=== PATIENT | female | born 1955 | race Caucasian/White ===

== ENCOUNTER 2021-05-25 07:28 | Outpatient (REF) | payer MEDICARE, SELFPAY ==
[2021-05-25 08:44] LABS: Appearance Urine CLEAR; Color Urine YELLOW; Glucose Urine UA NEG (NEG); Leukocyte Esterase Urine NEG (NEG); Nitrite Urine NEG (NEG); Specific Gravity - Urine 1.025 (1.005-1.025); Urine Blood NEG (NEG); Urine Ketones NEG (NEG); Urine Protein TRACE MG/DL (NEG-TRACE)
[2021-05-25 08:45] LABS: MANUAL DIFF FLAG NO
[2021-05-25 09:03] LABS: Basophils Absolute Auto 0.1 X10*3/uL (0.0-0.2); Basophils Percent Auto 0.7 % (0-2); Eosinophils Absolute Auto 0.1 X10*3/uL (0.0-0.4); Eosinophils Percent Auto 1.5 % (0-4); Hematocrit 39.9 % (37-47); Hemoglobin 12.7 g/dl (12.0-16.0); Imm Gran Abs Auto 0.04 X10*3/uL (0.00-0.03); Imm Gran Pct Auto 0.5 % (0.0-0.4); Lymphocytes Absolute Auto 2.2 X10*3/uL (1.2-4.9); Lymphocytes Percent Auto 25.3 % (20-40); Mean Corpuscular HGB Conc 31.8 g/dl (31.0-35.0); Mean Corpuscular Hemoglobin 25.7 pg (27.0-33.0); Mean Corpuscular Volume 80.6 fL (80-98); Monocytes Absolute Auto 0.6 X10*3/uL (0.1-1.2); Monocytes Percent Auto 6.9 % (2-11); Neutrophils Absolute Auto 5.7 X10*3/uL (2.0-8.3); Neutrophils Percent Auto 65.1 % (45-73); Platelet Count 370 X10*3/uL (160-400); Red Blood Count 4.95 X10*6/uL (4.20-5.50); Red Cell Distribution Width 14.2 % (11.0-16.0); White Blood Count 8.7 X10*3/uL (4.8-10.8)
[2021-05-25 09:38] LABS: TSH reflex Free T4 2.33 uIU/mL (0.32-4.0); Vitamin D 25-OH Total 18.7 ng/mL (>30)
[2021-05-25 09:56] LABS: Alanine Aminotransferase 15 U/L (0-31); Albumin Level 3.9 g/dL (3.5-5.0); Alkaline Phosphatase 105 U/L (39-117); Anion Gap 14 (12-20); Aspartate Amino Transferase 15 U/L (5-31); Bilirubin Total 0.8 mg/dL (0.0-1.0); Blood Urea Nitrogen 20 mg/dL (9-16); Calcium 9.3 mg/dL (8.4-10.2); Carbon Dioxide 29 mmol/L (22-29); Chloride 103 mmol/L (96-108); Cholesterol 168 mg/dL; Estimated Glomerular Filt Rate 60; Glucose Fasting 231 mg/dL (60-99); HDL Cholesterol 47 mg/dL; LDL Cholesterol Calculated 82 mg/dl; Potassium 4.5 mmol/L (3.3-5.1); Sodium 141 mmol/L (135-145); Total Protein 6.9 g/dL (6.5-8.0); Triglycerides 196 mg/dL
[2021-05-26 18:37] LABS: C Peptide 3.86 ng/mL (0.80-3.85)
== END 2021-05-25 07:29 | disposition home or self-care (01) ==
LOC: HO.LAB 07:28
PROVIDERS: PCP Internal Medicine; Visit Provider Internal Medicine
DX: E78.00 Pure hypercholesterolemia, unspecified (principal); E55.9 Vitamin D deficiency, unspecified; I10 Essential (primary) hypertension; E11.9 Type 2 diabetes mellitus without complications
CPT/HCPCS: 36415; 80053; 80061; 81003; 82306; 84443; 84681; 85025

== ENCOUNTER 2022-06-06 10:13 | Outpatient (REF) | payer OTHER, SELFPAY ==
--- NOTE | ~2022-06-06 | XR_ITS ---
EXAMINATION: XR LUMBOSACRAL SPINE CLINICAL INFORMATION: Low back pain. COMPARISON: X-ray lumbosacral spine June 2016. TECHNIQUE: Three views of the lumbosacral spine. FINDINGS: Vertebral bodies are normally aligned with normal height. There is persistent moderate degenerative disc changes at L5-S1 with disc space narrowing probably unchanged. Remaining disc levels are intact. Bilateral facet arthrosis at L4-5 and L5-S1 unchanged. The partially visualized pelvis including the sacroiliac joints are normal. The previously mentioned sclerotic density overlying the right iliac bone has remain unchanged and appears to reflect a bone island. No further imaging followup is necessary. Arterial calcification of the abdominal aorta slightly increased compared to prior. XR/XR lumbar spine 2-3V IMPRESSION: Stable spondylosis of the lumbosacral spine with prominent degenerative disc changes at L5-S1. Slight progression of calcific atherosclerotic changes.
[2022-06-06 11:38] LABS: MANUAL DIFF FLAG NO
[2022-06-06 11:45] LABS: Basophils Absolute Auto 0.1 X10*3/uL (0.0-0.2); Basophils Percent Auto 0.6 % (0-2); Eosinophils Absolute Auto 0.1 X10*3/uL (0.0-0.4); Eosinophils Percent Auto 1.2 % (0-4); Hematocrit 44.1 % (37.0-47.0); Hemoglobin 14.5 g/dl (12.0-16.0); Imm Gran Abs Auto 0.04 X10*3/uL (0.00-0.03); Imm Gran Pct Auto 0.4 % (0.0-0.4); Lymphocytes Absolute Auto 2.4 X10*3/uL (1.2-4.9); Lymphocytes Percent Auto 26.4 % (20-40); Mean Corpuscular HGB Conc 32.9 g/dl (31.0-35.0); Mean Corpuscular Hemoglobin 26.1 pg (27.0-33.0); Mean Corpuscular Volume 79.3 fL (80.0-98.0); Mean Platelet Volume 10.3 fL (9.4-12.3); Monocytes Absolute Auto 0.7 X10*3/uL (0.1-1.2); Monocytes Percent Auto 7.1 % (2-11); Neutrophils Absolute Auto 5.9 x10*3/uL (2.0-8.3); Neutrophils Percent Auto 64.3 % (45-73); Platelet Count 420 X10*3/uL (160-400); Red Blood Count 5.56 X10*6/uL (4.20-5.50); Red Cell Distribution Width 14.2 % (11.0-16.0); White Blood Count 9.3 X10*3/uL (4.8-10.8)
[2022-06-06 11:57] LABS: Appearance Urine Clear; Color Urine Yellow; Glucose Urine UA Negative (Negative); Leukocyte Esterase Urine Negative (Negative); Nitrite Urine Negative (Negative); Urine Blood Negative (Negative); Urine Ketones Negative (Negative); Urine Protein Negative (Neg-Trace)
[2022-06-06 12:20] LABS: Alanine Aminotransferase 18 U/L (0-31); Albumin Level 4.2 g/dL (3.5-5.0); Alkaline Phosphatase 108 U/L (39-117); Anion Gap 16 (12-20); Aspartate Amino Transferase 14 U/L (5-31); Bilirubin Total 0.6 mg/dL (0.0-1.0); Blood Urea Nitrogen 18 mg/dL (9-16); Calcium 9.9 mg/dL (8.4-10.2); Carbon Dioxide 27 mmol/L (22-29); Chloride 99 mmol/L (96-108); Cholesterol 185 mg/dL; Estimated Glomerular Filt Rate 58; Glucose Fasting 218 mg/dL (60-99); HDL Cholesterol 46 mg/dL; LDL Cholesterol Calculated 103 mg/dl; Potassium 3.9 mmol/L (3.3-5.1); Sodium 138 mmol/L (135-145); Total Protein 7.4 g/dL (6.5-8.0); Triglycerides 184 mg/dL
[2022-06-06 12:26] LABS: TSH reflex Free T4 2.33 uIU/mL (0.32-4.0); Vitamin D 25-OH Total 34.9 ng/mL (>30)
[2022-06-06 12:44] LABS: Folate > 20.0 ng/mL (> or = 4.0); Vitamin B12 401 pg/mL (200-900)
[2022-06-06 13:00] LABS: Creatinine Urine 64.09 mg/dL; Microalbumin Urine < 5.0 mg/L
[2022-06-09 21:32] LABS: Glutamic acid decarboxylase Ab <5 IU/mL (<5)
== END 2022-06-06 10:14 | disposition home or self-care (01) ==
LOC: HO.HMGCX 10:13
PROVIDERS: PCP Internal Medicine; Visit Provider Internal Medicine
DX: M54.50 Low back pain, unspecified (principal); I10 Essential (primary) hypertension; E11.9 Type 2 diabetes mellitus without complications; E78.00 Pure hypercholesterolemia, unspecified; E53.8 Deficiency of other specified B group vitamins; E55.9 Vitamin D deficiency, unspecified
CPT/HCPCS: 36415; 72100; 80053; 80061; 81003; 82043; 82306; 82607; 82746; 84443; 84681; 85025; 86341

== ENCOUNTER 2022-09-20 06:44 | Outpatient (REF) | payer OTHER, SELFPAY ==
[2022-09-20 07:10] LABS: MANUAL DIFF FLAG NO
[2022-09-20 07:39] LABS: Basophils Absolute Auto 0.1 X10*3/uL (0.0-0.2); Basophils Percent Auto 0.7 % (0-2); Eosinophils Absolute Auto 0.2 X10*3/uL (0.0-0.4); Hematocrit 42.3 % (37.0-47.0); Hemoglobin 13.5 g/dl (12.0-16.0); Imm Gran Abs Auto 0.03 X10*3/uL (0.00-0.03); Imm Gran Pct Auto 0.3 % (0.0-0.4); Lymphocytes Absolute Auto 2.2 X10*3/uL (1.2-4.9); Lymphocytes Percent Auto 25.2 % (20-40); Mean Corpuscular HGB Conc 31.9 g/dl (31.0-35.0); Mean Corpuscular Hemoglobin 25.6 pg (27.0-33.0); Mean Corpuscular Volume 80.3 fL (80.0-98.0); Mean Platelet Volume 9.9 fL (9.4-12.3); Monocytes Absolute Auto 0.6 X10*3/uL (0.1-1.2); Monocytes Percent Auto 6.5 % (2-11); Neutrophils Absolute Auto 5.8 x10*3/uL (2.0-8.3); Neutrophils Percent Auto 65.3 % (45-73); Platelet Count 408 X10*3/uL (160-400); Red Blood Count 5.27 X10*6/uL (4.20-5.50); Red Cell Distribution Width 13.4 % (11.0-16.0); White Blood Count 8.9 X10*3/uL (4.8-10.8)
[2022-09-20 07:56] LABS: Estimated Average Glucose 240 mg/dL
[2022-09-20 08:22] LABS: Alanine Aminotransferase 19 U/L (0-31); Albumin Level 3.6 g/dL (3.5-5.0); Alkaline Phosphatase 111 U/L (39-117); Anion Gap 13 (12-20); Aspartate Amino Transferase 15 U/L (5-31); Bilirubin Total 0.5 mg/dL (0.0-1.0); Blood Urea Nitrogen 18 mg/dL (9-16); Calcium 9.1 mg/dL (8.4-10.2); Carbon Dioxide 29 mmol/L (22-29); Chloride 103 mmol/L (96-108); Cholesterol 147 mg/dL; Estimated Glomerular Filt Rate > 60; Glucose Fasting 127 mg/dL (60-99); HDL Cholesterol 45 mg/dL; LDL Cholesterol Calculated 76 mg/dl; Potassium 4.1 mmol/L (3.3-5.1); Sodium 141 mmol/L (135-145); Total Protein 6.7 g/dL (6.5-8.0); Triglycerides 132 mg/dL
[2022-09-20 08:59] LABS: TSH reflex Free T4 3.03 uIU/mL (0.32-4.0); Vitamin D 25-OH Total 24.9 ng/mL (>30)
[2022-09-20 09:17] LABS: Folate 14.6 ng/mL (> or = 4.0); Vitamin B12 523 pg/mL (200-900)
== END 2022-09-20 06:45 | disposition home or self-care (01) ==
LOC: HO.LAB 06:44
PROVIDERS: PCP Internal Medicine; Visit Provider Internal Medicine
DX: E11.9 Type 2 diabetes mellitus without complications (principal); E78.00 Pure hypercholesterolemia, unspecified; E53.8 Deficiency of other specified B group vitamins; E55.9 Vitamin D deficiency, unspecified; I10 Essential (primary) hypertension; R30.0 Dysuria
CPT/HCPCS: 36415; 80053; 80061; 82306; 82607; 82746; 83036; 84443; 85025

== ENCOUNTER 2023-03-05 09:13 | Outpatient (REF) | payer OTHER, SELFPAY ==
--- NOTE | ~2023-03-05 | XR_ITS ---
EXAMINATION: XR KNEE, RIGHT CLINICAL INFORMATION: Right knee joint effusion COMPARISON: 10/07/2019 TECHNIQUE: Two views of the right knee. FINDINGS: Bones have normal alignment. No fracture, subluxation or joint effusion. Tricompartmental osteophyte formation is present. Moderate loss of medial tibiofemoral joint space. No new abnormalities compared to 10/07/2019. 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 * No acute abnormality. No fracture or joint effusion.
== END 2023-03-05 09:14 | disposition home or self-care (01) ==
LOC: HO.HMGCX 09:13
PROVIDERS: PCP Internal Medicine; Visit Provider Internal Medicine
DX: M25.461 Effusion, right knee (principal)
CPT/HCPCS: 73560

== ENCOUNTER 2023-03-19 15:00 | Outpatient (REF) | payer OTHER, SELFPAY ==
--- NOTE | ~2023-03-19 | MM_ITS ---
EXAMINATION: MM SCREENING DIGITAL BREAST TOMOSYNTHESIS, BILATERAL CLINICAL INFORMATION: Screening. Asymptomatic. The lifetime risk of breast cancer based on the Tyrer-Cuzick Model is 4.1 %. COMPARISON: Mammography: This study is compared with prior exams dating back to 2018. TECHNIQUE: Digital breast tomosynthesis is performed in both the craniocaudal and mediolateral oblique views along with computer-aided detection (CAD). Synthesized 2D images are generated from the tomosynthesis. FINDINGS: The breasts are almost entirely fatty (ACR BI-RADS breast composition Category a). There are no significant masses, abnormal calcifications, or other abnormalities. MM/MM tomosynthesis screening BI IMPRESSION: No mammographic evidence of malignancy. ASSESSMENT: BI-RADS BI-RADS 1 - Negative RECOMMENDATION: Routine annual mammography screening. 1 year F/U This examination should not preclude the clinical evaluation of a suspicious palpable abnormality. This patient's information was entered into a reminder system with a target due date for their next mammogram.
== END 2023-03-19 15:01 | disposition home or self-care (01) ==
LOC: HO.MAMMO 15:00
PROVIDERS: PCP Internal Medicine; Visit Provider Internal Medicine
DX: Z12.31 Encounter for screening mammogram for malignant neoplasm of breast (principal)
CPT/HCPCS: 77063; 77067

== ENCOUNTER → 2023-03-19 15:30 | Outpatient (BNV) | payer OTHER, SELFPAY | PROVIDERS: PCP Internal Medicine; Visit Provider Radiology Diagnostic Radiology | DX: Z12.31 Encounter for screening mammogram for malignant neoplasm of breast (principal) | CPT/HCPCS: 77063; 77067 ==

== ENCOUNTER 2023-06-19 10:02 | Outpatient (AMB) | payer MEDICARE, SELFPAY ==
[2023-06-19 10:36] VITALS: BP 122/80; PULSE 57; O2SAT 96; BMI 47.0
--- NOTE | 2023-06-19 10:36 | A.OFFPC_ITS ---
Vital Signs 06/19/23 10:36 Height 5 ft 5 in Weight 282 lb 6 oz BMI 47.0 BP 122/80 Blood Pressure Location Lt brachial Position Sitting Pulse 57 Pulse Source Pulse Oximeter Pulse Oximetry (%) 96 Oxygen Delivery Method Room Air Intake Visit Reasons: PE Allergies sulfamethoxazole [From BACTRIM] Allergy (Intermediate, Verified 06/19/23 11:55) ANXIETY trimethoprim [From BACTRIM] Allergy (Intermediate, Verified 06/19/23 11:55) ANXIETY canagliflozin [Invokana] Allergy (Unknown, Verified 06/19/23 11:55) Itching lisinopril Allergy (Unknown, Verified 06/19/23 11:55) Abdominal Pain metformin Allergy (Unknown, Verified 06/19/23 11:55) Stomach Upset Sulfa (Sulfonamide Antibiotics) Allergy (Unknown, Verified 06/19/23 11:55) Agitated oxycodone Allergy (Unknown, Uncoded 06/19/23 11:55) Hives percocet Allergy (Unknown, Uncoded 06/19/23 11:55) Hives tramadol Allergy (Unknown, Uncoded 06/19/23 11:55) Hives Medication List - Last Reconciled 06/19/23 by Hemal Clifton MD acetaminophen ER (Tylenol Arthritis Pain) 650 mg PO Q12H PRN 15 days albuterol sulfate 90 mcg/actuation (ProAir HFA) 2 puffs inhalation Q6H PRN 30 days amlodipine 5 mg PO DAILY aspirin 81 mg PO DAILY atorvastatin 20 mg PO BEDTIME blood sugar diagnostic (FreeStyle Lite Strips) As directed 3 times a day cholecalciferol (vitamin D3) 50 mcg PO DAILY 90 days gabapentin 100 mg PO BID 30 days glimepiride 1 mg PO DAILY Lantus Solostar U-100 Insulin (insulin glargine) 20 units (0.2 mL) subcut BEDTIME 30 days NS losartan-hydrochlorothiazide 100-25 mg 1 tab PO DAILY 90 days meloxicam 15 mg PO DAILY pen needle, diabetic (BD Ultra-Fine Leela Pen Needle) As directed once a day sertraline 50 mg PO DAILY 90 days tramadol 50 mg PO BID PRN Trulicity (dulaglutide) 0.75 mg (0.5 mL) subcut QWEEK 4 weeks NS vitamin B complex (B Complex-Vitamin B12 tablet) 1 tab PO DAILY Tobacco use date assessed: 09/24/22 Fall risk assessment: No Falls in past year Last assessed Fall Risk: 06/19/23 Dental Screening Dental Screen Date: 06/19/23 Did you have a dental visit in the last 12 months?: No Did you have a dental problem in the last 6 months where you did not have access to dental care?: No Was dental information given to patient?: No HPI PE HPI Details Patient comes in today for her annual physical examination States that she continues to experience increasing pain and discomfort over the bottom of her feet - symptoms have been bothering her for a while now and feels that they have been getting worse lately Notes that the bottom of her feet now feels like leather all the time and they are much worse at night; feels itchy at times at night as well Has also noticed a hard lump under both of her feet a few months ago where the above symptoms are more prominent She also continues to experience frequent/recurrent low back pain and left knee pains - chronic States that she feels okay otherwise She denies any headaches or dizziness Denies any chest pains, no SOB No nausea/vomiting, no abdominal pain No change in bowel habits noted She denies any acute urinary symptoms Has not had her colonoscopy done yet - it looks like she was scheduled to see GI for this back in November 2022 but patient appears unaware that she had an appointment back then States that she never got a notification or call from GI about this but now recalls that she was getting a call from someone up above [facility] but she just could not make sense of what they were trying to tell her Had her mammogram done back in March 2023 - mammogram came out normal States that she no longer has to keep up with her yearly gynecology exam and pap smear as she's had a complete hysterectomy done years ago She would also like to get her flu vaccine today Needs her pen needle Rx refilled as well PFSH Medical History Anxiety Insomnia Asthma Diabetes mellitus with hyperglycemia Vitamin D deficiency Morbid obesity with BMI of 45.0-49.9, adult Pure hypercholesterolemia Benign essential hypertension Diabetes mellitus Surgical History History of colonoscopy (~01/01/11) Hx of BRAYANIK H/O abdominal hysterectomy Social History Housing: Apartment Alcohol intake: never Patient Tobacco Use Status: Former Tobacco user e-Cigarette/Vaping Use: Never Used Second Hand Smoke Exposure: Yes service: No Current occupational status: retired and disabled Cognitive needs: No Hearing needs: No Vision needs: Yes (reading glasses) Questionnaire PHQ-9 Over the last 2 weeks, how often have you been bothered by any of the following problems? 1. Little interest or pleasure in doing things: not at all 2. Feeling down, depressed, or hopeless: not at all 3. Trouble falling or staying asleep, or sleeping too much: not at all 4. Feeling tired or having little energy: not at all 5. Poor appetite or overeating: not at all 6. Feeling bad about yourself - or that you are a failure or have let yourself or your family down: not at all 7. Trouble concentrating on things, such as reading the newspaper or watching television: not at all 8. Moving or speaking so slowly that other people could have noticed. Or the opposite - being so fidgety or restless that you have been moving around a lot more than usual: not at all 9. Thoughts that you would be better off or of hurting yourself in some way: not at all Total score: 0 Depression Screening Interpretation: Negative Depression Screening Done: Yes 71123 - PHQ-9 Billing: Yes Source: Developed by Drs. Giovanni Worthington, Scarlet Hernandez, Tanmay Eduardo and colleagues, with an educational sarah from [employer]. Thrive Questionnaire Date Thrive assessed: 06/19/23 I am a: Patient What is your living situation today?: I have a steady place to live Within the past 12 months, did the food you bought not last and you didn't have the money to get more?: Never true Within the past 12 months, did you worry whether your food would run out before you got money to buy more?: Never true Do you have trouble paying for medicines?: No Do you have trouble getting transportation to medical appointments?: No Do you have trouble paying your heating and electricity bill?: No Do you have trouble taking care of your child, family member or friend?: No Do you have trouble with day-to-day activities such as bathing, preparing meals, shopping, managing finances, etc.?: No Are you currently unemployed and looking for a job?: No Are you interested in more education?: No Please select the resources that you would like help with: None Currently or been in a relationship where the following occur: no concerns reported AUDIT C Alcohol Use Questionnaire (AUDIT-C) 1. How often do you have a drink containing alcohol?: Never 3. How often do you have six or more drinks on one occasion?: Never Total Score: 0 Score Reviewed/Action Taken: Yes WESLEY-7 AMB Questionnaire WESLEY-7 Date WESLEY - 7 assessed: 06/19/23 Feeling nervous, anxious, or on edge: 0 = Not at all Not being able to stop or control worryin = Not at all Worrying too much about different things: 0 = Not at all Trouble relaxin = Not at all Being so restless that it is hard to sit still: 0 = Not at all Becoming easily annoyed or irritable: 0 = Not at all Feeling afraid as if something awful might happen: 0 = Not at all Total WESLEY-7 score (0-4 normal; 5-9 mild; 10-14 moderate; 15-21 severe): 0 Source: Developed by Drs. Giovanni Worthington, Scarlet Hernandez, Tanmay Eduardo and colleagues, with an educational sarah from [employer]. Review of Systems Const Denies chills, Denies fatigue, Denies fever(s), Denies headache(s) and Denies malaise Eyes Denies blurry vision, Denies change in vision, Denies irritation and Denies itchy eyes ENT Denies dysphagia, Denies dizziness, Denies otalgia, Denies headache(s), Denies nasal congestion, Denies neck pain, Denies odynophagia, Denies sinus pain and Denies sore throat Card Denies chest pain, Denies rapid heart rate, Denies irregular heart rhythm, Denies palpitations and Denies dyspnea Resp Denies chest congestion, Denies cough, Denies dyspnea and Denies wheezing GI Denies abdominal pain, Denies bloating, Denies constipation, Denies dysphagia, Denies heartburn, Denies diarrhea, Denies nausea, Denies odynophagia and Denies vomiting Denies hematuria, Denies urinary frequency, Denies dysuria, Denies urinary incontinence and Denies urinary urgency Musc Denies back pain, Denies arthralgias, Denies joint swelling, Denies muscle weakness and Denies neck pain Skin/Breast Denies breast pain, Denies breast mass, Denies change in pigmentation, Denies lesions, Denies rash and Denies unusual bruising Neuro Details: (+) frequent pain and discomfort ( feels like leather ) over the soles of her feet bilaterally, with occasional itching; also notes (+) hard lump on the sole of her feet adjacent to the arch of her feet Denies dizziness, Denies headache(s) and Denies paresthesias Psych Denies anxiety and Denies depression Endo Denies fatigue and Denies palpitations Delmer/Lymph Denies easy bruising Aller/Immun Denies itchy eyes and Denies wheezing Physical exam (Primary Care) Vital Signs: Last Vital Signs Pulse 57 06/19/23 10:36 BP 122/80 06/19/23 10:36 Pulse Ox 96 06/19/23 10:36 Oxygen Delivery Method Room Air 06/19/23 10:36 BMI result Body Mass Index 47.0 Tobacco/Smoking Status: Tobacco use Status Tobacco use date assessed 09/24/22 06/19/23 10:36 Patient Tobacco Use Status Former Tobacco user 06/19/23 10:36 e-Cigarette/Vaping Use Never Used 06/19/23 10:36 PHQ-9: PHQ-9 Score PHQ-9: Total score 0 06/19/23 11:08 Depression Screening Interpretation: Negative Thrive Assessment: Date of Thrive Assessment Date Thrive assessed 06/19/23 06/19/23 10:47 Currently or been in a relationship where the following occur: no concerns reported Const General: no acute distress, alert and awake Orientation/consciousness: patient oriented x3 HENMT Head: Yes normocephalic and Yes atraumatic Ears: external ears normal, TM's normal bilaterally and EAC's normal General nose exam: No nasal discharge present Face and sinus: Yes normal facial exam and Yes sinuses nontender Teeth and gingiva: dentition normal Throat: Yes posterior oropharynx normal and Yes tonsils normal (no TP congestion) Eyes Eyelids: Yes eyelids normal Conjunctivae: conjunctivae normal Pupils: Equal, round and reactive pupils present EOM: EOMs intact bilaterally Neck Neck: Yes no lymphadenopathy and Yes supple Thyroid: Thyroid normal Resp Auscultation: clear to auscultation bilaterally, no rales and no wheezes Cardio Rate: regular rate Rhythm: regular rhythm Heart sounds: no murmurs GI Palpation (GI): Soft to palpation, nontender and No hepatosplenomegaly present Auscultation: normal bowel sounds General: Yes no CVA tenderness Back/Spine/Pelvis Back: no CVA tenderness Thoracic/Lumbar Spine: thoracic and lumbar spine normal to inspection Skin Rashes: no rashes Neuro General: patient oriented x3, moves all extremities, no focal motor deficits and CN's II-XI intact bilaterally Cranial nerves: Yes Equal, round and reactive pupils present Cognition (Neuro): normal cognition Gait exam (Neuro): Normal gait present Extrem Other: (+) small, firm, non-tender nodule noted over the soles of both feet just adjacent to the arch of her feet General: Yes no clubbing, cyanosis or edema Office Procedures Flu Questionnaire Does the patient have a severe egg allergy?: No Does the patient have severe life threatening allergies?: No Does the patient have a fever or illness today?: No Has the patient ever had Guillain-Lee Syndrome?: No Has the patient ever had any past reaction to a flu shot?: No Immunizations flu vacc [id number] 6mos up(PF) 60 mcg(15 mcgx4)/0.5 mL IM syringe Performing Provider: Hemal Clifton MD [facility] Administered by: Matthew Alejo on 06/19/23 10:53 Dose Route Admin Location Dispensed Lot Number Expiration Date [facility] 0.5 mL IM Right Deltoid 0.5 mL [id number] 03/07/24 [id number] Wiper VIS Given Date VIS Provided VIS Publication Date 06/19/23 Single Vaccine 21 Eligibility Eligibility Date Funding Source Not [facility] Eligible 06/19/23 Private Assessment and Plan Assessment & Plan (1) Annual physical exam: Code(s): Z00.00 - Encounter for general adult medical examination without abnormal findings Plan: Check labs Patient just had her mammogram done back in March 2023 She was referred for screening colonoscopy earlier this year but it appears that she was not aware of her appointment with GI in November 2022 and missed her appointment; is instructed to contact gastroenterology and reschedule her appointment so she can get her screening colonoscopy done as soon as possible She no longer has to keep up with her yearly gynecologic exam and pap smear as she's had a total hysterectomy years ago Will send her for bone density scan for osteoporosis screening - this will be her baseline exam (2) Pain in both feet: Code(s): M79.671 - Pain in right foot; M79.672 - Pain in left foot Plan: Suspect neuropathy Will send patient for EMG & NCV of her lower extremities for further evaluation of her recently increasing feet symptoms Will also refer her to podiatry for further evaluation and management of her feet symptoms, especially the nodular lesion on the bottom of her feet, and for her annual diabetic foot exam (3) Diabetes mellitus with hyperglycemia: Code(s): E11.65 - Type 2 diabetes mellitus with hyperglycemia Qualifiers: Diabetes mellitus intermodal dispatcher insulin use: with half-way use Diabetes mellitus type: type 2 Qualified Code(s): E11.65 - Type 2 diabetes mellitus with hyperglycemia; Z79.4 - intermodal dispatcher (current) use of insulin Plan: HgbA1c was at 10.0% on her labs done earlier this year - goal is <7.0% Reinforced diabetic diet - started seeing a dietitian last year Continue Glimepride 1 mg QD, Trulicity 0.75 mg SQ once a week and Lantus Solostar 20 units Q HS for now Will also consider starting Jardiance later on if still not at goal but will hold off on this for now as patient was having a lot of problems with recurrent UTI while she was on Invokana a couple of years ago; her glycemic control also seems to be responding well to her current Rx Will have her recheck her labs and HgbA1c JESSICA for follow up - is advised that I may increase her Trulicity dosage depending on how her HgbA1c comes out (4) Pure hypercholesterolemia: Code(s): E78.00 - Pure hypercholesterolemia, unspecified Plan: Reinforced low cholesterol diet Continue Atorvastatin 20 mg QD Will sent patient for labs JESSICA for follow up (5) Benign essential hypertension: Code(s): I10 - Essential (primary) hypertension Plan: Reinforced low sodium diet - goal is systolic BP of 120 to 130 mm or less Continue Amlodipine 5 mg QD and Losartan-HCT 100-25 mg QD (6) Asthma: Code(s): J45.909 - Unspecified asthma, uncomplicated Qualifiers: Asthma complication type: uncomplicated Asthma persistence: intermittent Asthma severity: mild Qualified Code(s): J45.20 - Mild intermittent asthma, uncomplicated Plan: Currently stable; is presently only using her Albuterol HFA inhaler only as needed Advised again that we should have her get a PFT for further evaluation and assessment of her baseline pulmonary function and to see if she does indeed have asthma or not; will also then determine if she will need any maintenance medications depending on the results of her PFT - patient would like to still hold off on this for now as she wants to try concentrating on getting her diabetes controlled better first (7) Low back pain: Code(s): M54.50 - Low back pain, unspecified Qualifiers: Back pain laterality: midline Chronicity: unspecified Sciatica presence: without sciatica Qualified Code(s): M54.50 - Low back pain, unspecified Plan: Lumbar spine x-rays done last year revealed stable spondylosis of the lumbo- sacral spine with prominent degenerative disc changes at L5-S1 but there appears to be a slight progression of calcific atherosclerotic changes noted on her x- rays Continue Gabapentin 100 mg BID - feels that this has helped a lot; has been prescribed Tramadol from the hospital in the past, which she states does not really work for her Patient is advised that depending on how her nerve conduction test comes out, we may increase her Gabapentin dosage to help with her feet symptoms as well (8) Vitamin D deficiency: Code(s): E55.9 - Vitamin D deficiency, unspecified Plan: Continue Vitamin D3 2000 units QD (9) Insomnia: Code(s): G47.00 - Insomnia, unspecified Qualifiers: Insomnia type: unspecified Qualified Code(s): G47.00 - Insomnia, unspecified Plan: Sleep hygiene reinforced Continue 3 mg of OTC Melatonin Q HS, which she feels is helping (10) Anxiety: Code(s): F41.9 - Anxiety disorder, unspecified Plan: Continue Sertraline 50 mg QD (11) Morbid obesity with BMI of 45.0-49.9, adult: Code(s): E66.01 - Morbid (severe) obesity due to excess calories; Z68.42 - Body mass index [BMI] 45.0-49.9, adult Plan: Reinforced diet/exercise as tolearted/lose weight Plan Follow up in 3 months Orders: Orders NE electromyogram (EMG) 06/19/23 E11.65 - Type 2 diabetes mellitus with hyperglycemia, M79.671 - Pain in right foot, M79.672 - Pain in left foot NE nerve conduction velocity 06/19/23 E11.65 - Type 2 diabetes mellitus with hyperglycemia, M79.671 - Pain in right foot, M79.672 - Pain in left foot, R20.2 - Paresthesia of skin TSH reflex Free T4 06/19/23 E78.00 - Pure hypercholesterolemia, unspecified Microalbumin, Random (w Creat) 06/19/23 E11.9 - Type 2 diabetes mellitus without complications Vitamin D 25-OH Total 06/19/23 E55.9 - Vitamin D deficiency, unspecified XR DEXA axial skeleton 06/19/23 Z78.0 - Asymptomatic menopausal state Influenza [id number] Immunization 06/19/23 Z23 - Encounter for immunization Complete Blood Count Auto Diff 06/19/23 I10 - Essential (primary) hypertension Comprehensive [place]. Panel Fast 06/19/23 E78.00 - Pure hypercholesterolemia, unspecified Lipid Panel 06/19/23 E78.00 - Pure hypercholesterolemia, unspecified UA CC w/rflx Micro + Cult 06/19/23 R30.0 - Dysuria Hemoglobin A1c 06/19/23 E11.9 - Type 2 diabetes mellitus without complications Referrals Podiatry Referral E11.65 - Type 2 diabetes mellitus with hyperglycemia, M79.671 - Pain in right foot, M79.672 - Pain in left foot Medications: Refilled pen needle, diabetic (BD Ultra-Fine Leela Pen Needle) As directed once a day 100 ea 3RF E11.9 - Type 2 diabetes mellitus without complications Coding Level of Care Code Est Pt Prev Care >65y(48481) Diagnoses Annual physical exam Z00.00 Pain in both feet M79.671; M79.672 Type 2 diabetes mellitus with hyperglycemia, with long-term current use of insulin E11.65; Z79.4 Diabetes mellitus intermodal dispatcher insulin use: with intermodal dispatcher use Diabetes mellitus type: type 2 Pure hypercholesterolemia E78.00 Benign essential hypertension I10 Mild intermittent asthma without complication J45.20 Asthma complication type: uncomplicated Asthma persistence: intermittent Asthma severity: mild Midline low back pain without sciatica, unspecified chronicity M54.50 Back pain laterality: midline Chronicity: unspecified Sciatica presence: without sciatica Vitamin D deficiency E55.9 Insomnia, unspecified type G47.00 Insomnia type: unspecified Anxiety F41.9 Morbid obesity with BMI of 45.0-49.9, adult E66.01; Z68.42
== END 2023-06-19 11:19 | disposition home or self-care (01) ==
PROVIDERS: Visit Provider Internal Medicine
DX: Z23 Encounter for immunization (principal)
CPT/HCPCS: 90471; 90686; 99397

== ENCOUNTER 2023-06-19 11:31 | Outpatient (REF) | payer OTHER, SELFPAY ==
[2023-06-19 11:41] LABS: MANUAL DIFF FLAG NO
[2023-06-19 11:55] LABS: Basophils Absolute Auto 0.1 X10*3/uL (0.0-0.2); Basophils Percent Auto 0.4 % (0-2); Eosinophils Absolute Auto 0.1 X10*3/uL (0.0-0.4); Eosinophils Percent Auto 1.1 % (0-4); Hemoglobin 14.5 g/dl (12.0-16.0); Imm Gran Abs Auto 0.05 X10*3/uL (0.00-0.03); Imm Gran Pct Auto 0.4 % (0.0-0.4); Lymphocytes Absolute Auto 3.7 X10*3/uL (1.2-4.9); Lymphocytes Percent Auto 30.5 % (20-40); Mean Corpuscular HGB Conc 32.2 g/dl (31.0-35.0); Mean Corpuscular Hemoglobin 25.8 pg (27.0-33.0); Mean Corpuscular Volume 79.9 fL (80.0-98.0); Mean Platelet Volume 10.2 fL (9.4-12.3); Monocytes Absolute Auto 0.9 X10*3/uL (0.1-1.2); Monocytes Percent Auto 7.5 % (2-11); Neutrophils Absolute Auto 7.3 x10*3/uL (2.0-8.3); Neutrophils Percent Auto 60.1 % (45-73); Platelet Count 461 X10*3/uL (160-400); Red Blood Count 5.63 X10*6/uL (4.20-5.50); Red Cell Distribution Width 14.4 % (11.0-16.0); White Blood Count 12.1 X10*3/uL (4.8-10.8)
[2023-06-19 12:52] LABS: Estimated Average Glucose 260 mg/dL; Hemoglobin A1c % 10.7 % (<6.0)
[2023-06-19 13:25] LABS: Alanine Aminotransferase 13 U/L (0-31); Alkaline Phosphatase 134 U/L (39-117); Anion Gap 17 (12-20); Aspartate Amino Transferase 14 U/L (5-31); Bilirubin Total 0.5 mg/dL (0.0-1.0); Blood Urea Nitrogen 16 mg/dL (9-16); Calcium 9.7 mg/dL (8.4-10.2); Carbon Dioxide 24 mmol/L (22-29); Chloride 100 mmol/L (96-108); Cholesterol 174 mg/dL (<200); Estimated Glomerular Filt Rate 55; Glucose Fasting 191 mg/dL (60-99); HDL Cholesterol 46 mg/dL (>40); LDL Cholesterol Calculated 91 mg/dL (<100); Potassium 4.2 mmol/L (3.3-5.1); Sodium 137 mmol/L (135-145); Total Protein 7.8 g/dL (6.5-8.0); Triglycerides 189 mg/dL (<150)
[2023-06-19 13:28] LABS: TSH reflex Free T4 2.68 uIU/mL (0.32-4.0); Vitamin D 25-OH Total 30.6 ng/mL (>30)
== END 2023-06-19 11:32 | disposition home or self-care (01) ==
LOC: HO.LAB 11:31
PROVIDERS: PCP Internal Medicine; Visit Provider Internal Medicine
DX: E78.00 Pure hypercholesterolemia, unspecified (principal); E11.9 Type 2 diabetes mellitus without complications; I10 Essential (primary) hypertension; E55.9 Vitamin D deficiency, unspecified; R30.0 Dysuria
CPT/HCPCS: 36415; 80053; 80061; 82306; 83036; 84443; 85025

== ENCOUNTER 2023-07-17 09:33 | Outpatient (REF) | payer OTHER, SELFPAY ==
--- NOTE | 2023-07-17 09:35 | EMG_ITS ---
Bilateral tibial and peroneal motor studies were performed. Bilateral sural, superficial peroneal, and median and lateral plantar sensory studies were performed tibial H reflexes were obtained and paraspinal muscles were tested with a needle. IMPRESSION: Moderate to severe axonal sensory motor chronic peripheral neuropathy. MD THAIS Carpenter/ARLETTEL / [phone]
== END 2023-07-17 09:34 | disposition home or self-care (01) ==
LOC: HO.NEURO 09:33
PROVIDERS: PCP Internal Medicine; Visit Provider Internal Medicine
DX: R20.2 Paresthesia of skin (principal); M79.671 Pain in right foot; M79.672 Pain in left foot; E11.65 Type 2 diabetes mellitus with hyperglycemia
CPT/HCPCS: 95886; 95913

== ENCOUNTER 2023-10-03 08:59 | Outpatient (AMB) | payer OTHER, SELFPAY ==
[2023-10-03 09:03] VITALS: BP 126/84; PULSE 89; O2SAT 99; BMI 45.6
--- NOTE | 2023-10-03 09:03 | MHC.PC.OV ---
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 Accompanied by: Self / Same As Patient Allergies sulfamethoxazole [From BACTRIM] Allergy (Intermediate, Verified 10/03/23 09:20) ANXIETY trimethoprim [From BACTRIM] Allergy (Intermediate, Verified 10/03/23 09:20) ANXIETY canagliflozin [Invokana] Allergy (Unknown, Verified 10/03/23 09:20) Itching lisinopril Allergy (Unknown, Verified 10/03/23 09:20) Abdominal Pain metformin Allergy (Unknown, Verified 10/03/23 09:20) Stomach Upset Sulfa (Sulfonamide Antibiotics) Allergy (Unknown, Verified 10/03/23 09:20) Agitated sulfadiazine Allergy (Unknown, Verified 10/03/23 09:20) Unknown Avocado Revitalizing Allergy (Unknown, Uncoded 10/03/23 09:20) Unknown oxycodone Allergy (Unknown, Uncoded 10/03/23 09:20) Hives percocet Allergy (Unknown, Uncoded 10/03/23 09:20) Hives tramadol Allergy (Unknown, Uncoded 10/03/23 09:20) Hives Medication List - Last Reconciled 10/03/23 by Hemal Clifton MD acetaminophen ER (Tylenol Arthritis Pain) 650 mg PO Q12H PRN 15 days albuterol sulfate 90 mcg/actuation (ProAir HFA) 2 puffs inhalation Q6H PRN 30 days amlodipine 5 mg PO DAILY aspirin 81 mg PO DAILY atorvastatin 20 mg PO BEDTIME blood sugar diagnostic (FreeStyle Lite Strips) As directed 3 times a day cholecalciferol (vitamin D3) 50 mcg PO DAILY 90 days gabapentin 100 mg PO BID 30 days glimepiride 1 mg PO DAILY Lantus Solostar U-100 Insulin (insulin glargine) 20 units (0.2 mL) subcut BEDTIME 30 days NS losartan-hydrochlorothiazide 100-25 mg 1 tab PO DAILY 90 days meloxicam 15 mg PO DAILY pen needle, diabetic (BD Ultra-Fine Leela Pen Needle) As directed once a day sertraline 50 mg PO DAILY 90 days tramadol 50 mg PO BID PRN Trulicity (dulaglutide) 0.75 mg (0.5 mL) subcut QWEEK 4 weeks NS vitamin B complex (B Complex-Vitamin B12 tablet) 1 tab PO DAILY Tobacco use date assessed: 10/03/23 Fall risk assessment: No Falls in past year Last assessed Fall Risk: 10/03/23 Dental Screening Dental Screen Date: 10/03/23 Did you have a dental visit in the last 12 months?: Yes Did you have a dental problem in the last 6 months where you did not have access to dental care?: No Was dental information given to patient?: Patient has dentist HPI 3mth f/u HPI Details Patient comes in today for her follow up visit States that she feels okay She denies any headaches or dizziness Denies any chest pains, no SOB No nausea/vomiting, no abdominal pain No change in bowel habits noted She still has frequent numbness and tingling sensation in her feet and states that the bottom of her feet feels thick and numb often Was seen by podiatry and states that she is currently being fitted for some inserts Adds that she's had problems hearing recently, especially out of her right ear, and would like to get her hearing checked Would also like to go over her lab results from her last visit [facility] Medical History (Updated 10/03/23 @ 10:17 by Hemal Clifton MD) Lumbosacral spondylosis Peripheral autonomic neuropathy due to diabetes mellitus Anxiety Insomnia Asthma Diabetes mellitus with hyperglycemia Vitamin D deficiency Morbid obesity with BMI of 45.0-49.9, adult Pure hypercholesterolemia Benign essential hypertension Diabetes mellitus Surgical History History of colonoscopy (~01/01/11) Hx of LASIK H/O abdominal hysterectomy Social History Housing: Apartment Alcohol intake: never Patient Tobacco Use Status: Former Tobacco user e-Cigarette/Vaping Use: Never Used Second Hand Smoke Exposure: Yes service: No Current occupational status: retired and disabled Cognitive needs: No Hearing needs: No Vision needs: Yes (reading glasses) Questionnaire PHQ-9 Over the last 2 weeks, how often have you been bothered by any of the following problems? 1. Little interest or pleasure in doing things: not at all 2. Feeling down, depressed, or hopeless: not at all 3. Trouble falling or staying asleep, or sleeping too much: not at all 4. Feeling tired or having little energy: not at all 5. Poor appetite or overeating: not at all 6. Feeling bad about yourself - or that you are a failure or have let yourself or your family down: not at all 7. Trouble concentrating on things, such as reading the newspaper or watching television: not at all 8. Moving or speaking so slowly that other people could have noticed. Or the opposite - being so fidgety or restless that you have been moving around a lot more than usual: not at all 9. Thoughts that you would be better off or of hurting yourself in some way: not at all Total score: 0 Depression Screening Interpretation: Negative Depression Screening Done: Yes 21883 - PHQ-9 Billing: Yes Source: Developed by Drs. Giovanni Worthington, Scarlet Hernandez, Tanmay Eduardo and colleagues, with an educational sarah from [employer] Thrive Questionnaire Date Thrive assessed: 10/03/23 I am a: Patient What is your living situation today?: I have a steady place to live Within the past 12 months, did the food you bought not last and you didn't have the money to get more?: Never true Within the past 12 months, did you worry whether your food would run out before you got money to buy more?: Never true Do you have trouble paying for medicines?: No Do you have trouble getting transportation to medical appointments?: No Do you have trouble paying your heating and electricity bill?: No Do you have trouble taking care of your child, family member or friend?: No Do you have trouble with day-to-day activities such as bathing, preparing meals, shopping, managing finances, etc.?: No Are you currently unemployed and looking for a job?: No Are you interested in more education?: No Please select the resources that you would like help with: None Currently or been in a relationship where the following occur: no concerns reported THRIVE Score: 0 AUDIT C Alcohol Use Questionnaire (AUDIT-C) 1. How often do you have a drink containing alcohol?: Never 3. How often do you have six or more drinks on one occasion?: Never Total Score: 0 Score Reviewed/Action Taken: Yes WESLEY-7 AMB Questionnaire WESLEY-7 Date WESLEY - 7 assessed: 10/03/23 Feeling nervous, anxious, or on edge: 0 = Not at all Not being able to stop or control worryin = Not at all Worrying too much about different things: 0 = Not at all Trouble relaxin = Not at all Being so restless that it is hard to sit still: 0 = Not at all Becoming easily annoyed or irritable: 0 = Not at all Feeling afraid as if something awful might happen: 0 = Not at all Total WESLEY-7 score (0-4 normal; 5-9 mild; 10-14 moderate; 15-21 severe): 0 Source: Developed by Drs. Giovanni Worthington, Scarlet Hernandez, Tanmay Eduardo and colleagues, with an educational sarah from [employer] Review of Systems Const Denies chills, Denies fatigue, Denies fever(s) and Denies headache(s) ENT Denies dysphagia, Denies dizziness, Denies otalgia, Denies headache(s), Reports hearing loss (especially in the right ear), Denies neck pain, Denies odynophagia and Denies sore throat Card Denies chest pain, Denies palpitations and Denies dyspnea Resp Denies cough and Denies dyspnea GI Denies abdominal pain, Denies constipation, Denies dysphagia, Denies heartburn, Denies diarrhea, Denies nausea, Denies odynophagia and Denies vomiting Denies difficulty voiding, Denies nocturia, Denies dysuria and Denies urinary urgency Musc Denies neck pain Skin/Breast Denies rash Neuro Details: (+) frequent numbness and occasional pain over the soles of her feet bilaterally, with occasional itching; also notes (+) hard lump on the sole of her feet adjacent to the arch of her feet Denies dizziness and Denies headache(s) Endo Denies fatigue and Denies palpitations Physical exam (Primary Care) Vital Signs: Last Vital Signs Pulse 89 10/03/23 09:03 BP 126/84 10/03/23 09:03 Pulse Ox 99 10/03/23 09:03 Oxygen Delivery Method Room Air 01/26/24 09:03 BMI result Body Mass Index 45.6 Tobacco/Smoking Status: Tobacco use Status Tobacco use date assessed 10/03/23 10/03/23 09:13 Patient Tobacco Use Status Former Tobacco user 10/03/23 09:13 e-Cigarette/Vaping Use Never Used 10/03/23 09:13 PHQ-9: PHQ-9 Score PHQ-9: Total score 0 10/03/23 09:20 Depression Screening Interpretation: Negative Thrive Assessment: Date of Thrive Assessment Date Thrive assessed 10/03/23 10/03/23 09:13 Currently or been in a relationship where the following occur: no concerns reported Const General: no acute distress and alert HENMT Ears: TM's normal bilaterally and EAC's normal Throat: Yes posterior oropharynx normal and Yes tonsils normal (no TP congestion) Neck Neck: Yes no lymphadenopathy and Yes supple Resp Auscultation: clear to auscultation bilaterally, no rales and no wheezes Cardio Rate: regular rate Rhythm: regular rhythm Heart sounds: no murmurs GI Palpation (GI): Soft to palpation and nontender Auscultation: normal bowel sounds General: Yes no CVA tenderness Back/Spine/Pelvis Back: no CVA tenderness Skin Rashes: no rashes Extrem General: Yes no clubbing, cyanosis or edema Results AMB Hemoglobin A1c AMB Hemoglobin A1c 11.3 % Last Edit by Matthew Alejo on 10/03/23 09:34 Results Reviewed Results Reviewed: Laboratory Tests 06/19/23 11:40 WBC 12.1 H Hgb 14.5 Hct 45.0 Plt Count 461 H Sodium 137 Potassium 4.2 Creatinine 1.00 Estimated GFR 55 Fasting Glucose 191 H Hemoglobin A1c % 10.7 H Calcium 9.7 D AST 14 ALT 13 Triglycerides 189 H Cholesterol 174 LDL Cholesterol, Calc 91 HDL Cholesterol 46 25-OH Vitamin D Total 30.6 TSH 2.68 Assessment and Plan Assessment & Plan (1) Diabetes mellitus with hyperglycemia: Code(s): E11.65 - Type 2 diabetes mellitus with hyperglycemia Qualifiers: Diabetes mellitus mcc insulin use: with mcc use Diabetes mellitus type: type 2 Qualified Code(s): E11.65 - Type 2 diabetes mellitus with hyperglycemia; 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 Plan: In-office HgbA1c done today is at 11.3% (HgbA1c was at 10.0% last year) - goal is <7.0% Reinforced diabetic diet Continue Glimepride 1 mg QD; will increase Trulicity to 1.5 mg SQ once a week and Lantus Solostar to 30 units Q HS Have considered starting her on Jardiance but patient reportedly had a lot of problems with recurrent UTI while she was on Invokana a few years ago so will hold off on Jardiance for now Will also try referring her to endocrinology for further evaluation and management (2) Pure hypercholesterolemia: Code(s): E78.00 - Pure hypercholesterolemia, unspecified Plan: Results of her labs done back in June 2023 reviewed and discussed with patient Reinforced low cholesterol diet Continue Atorvastatin 20 mg QD Will have patient recheck her labs and fasting lipids in 3 months for follow up (3) Benign essential hypertension: Code(s): I10 - Essential (primary) hypertension Plan: Reinforced low sodium diet - goal is systolic BP of 120 to 130 mm or less Continue Amlodipine 5 mg QD and Losartan-HCT 100-25 mg QD (4) Peripheral autonomic neuropathy due to diabetes mellitus: Code(s): E11.43 - Type 2 diabetes mellitus with diabetic autonomic (poly)neuropathy Plan: EMG and NCV done in July 2023 revealed (+) moderate to severe axonal sensory and motor chronic peripheral neuropathy Patient is advised again that the best way to slow down progression of her neuropathy is better control of her blood sugar She is instructed to check and examine her feet every night before bedtime to ensure that there are no active wounds or injuries to her feet Follow up with podiatry as scheduled (5) Asthma: Code(s): J45.909 - Unspecified asthma, uncomplicated Qualifiers: Asthma complication type: uncomplicated Asthma persistence: intermittent Asthma severity: mild Qualified Code(s): J45.20 - Mild intermittent asthma, uncomplicated Plan: Currently stable; is presently only using her Albuterol HFA inhaler only as needed Advised again that we should have her get a PFT for further evaluation and assessment of her baseline pulmonary function and to see if she does indeed have asthma or not; will also then determine if she will need any maintenance medications depending on the results of her PFT - patient would like to still hold off on this for now as she wants to try concentrating on getting her diabetes controlled better first (6) Lumbosacral spondylosis: Code(s): M47.817 - Spondylosis without myelopathy or radiculopathy, lumbosacral region Qualifiers: Spinal osteoarthritis complication: without myelopathy or radiculopathy Qualified Code(s): M47.817 - Spondylosis without myelopathy or radiculopathy, lumbosacral region Plan: Lumbar spine x-rays done a couple of years ago revealed stable spondylosis of the lumbo-sacral spine with prominent degenerative disc changes at L5-S1 but there appears to be a slight progression of calcific atherosclerotic changes noted on her x-rays Continue Gabapentin 100 mg BID - states that Rx is helping with her low back pain; has been prescribed Tramadol from the hospital in the past, which she states did not work for her (7) Vitamin D deficiency: Code(s): E55.9 - Vitamin D deficiency, unspecified Plan: Continue Vitamin D3 2000 units QD - Rx refilled (8) Hearing impairment: Code(s): H91.90 - Unspecified hearing loss, unspecified ear Qualifiers: Hearing loss type: unspecified Laterality: unspecified laterality Qualified Code(s): H91.90 - Unspecified hearing loss, unspecified ear Plan: Will refer her to Speech and Hearing for further evaluation and management (9) Insomnia: Code(s): G47.00 - Insomnia, unspecified Qualifiers: Insomnia type: unspecified Qualified Code(s): G47.00 - Insomnia, unspecified Plan: Sleep hygiene reinforced Continue 3 mg of OTC Melatonin Q HS PRN (10) Anxiety: Code(s): F41.9 - Anxiety disorder, unspecified Plan: Continue Sertraline 50 mg QD (11) Morbid obesity with BMI of 45.0-49.9, adult: Code(s): E66.01 - Morbid (severe) obesity due to excess calories; Z68.42 - Body mass index [BMI] 45.0-49.9, adult Plan: Reinforced diet/exercise as tolearted/lose weight Plan Follow up in 3 months Orders: Orders AMB Hemoglobin A1c Today Z13.9 - Encounter for screening, unspecified Complete Blood Count Auto Diff 3 Months D64.9 - Anemia, unspecified TSH reflex Free T4 3 Months E78.00 - Pure hypercholesterolemia, unspecified UA CC w/rflx Micro + Cult 3 Months R30.0 - Dysuria Hemoglobin A1c 3 Months E11.9 - Type 2 diabetes mellitus without complications Comprehensive May. Panel Fast 3 Months E78.00 - Pure hypercholesterolemia, unspecified Lipid Panel 3 Months E78.00 - Pure hypercholesterolemia, unspecified Microalbumin, Random (w Creat) 3 Months E11.9 - Type 2 diabetes mellitus without complications Vitamin B12 and Folate 3 Months E53.8 - Deficiency of other specified B group vitamins Vitamin D 25-OH Total 3 Months E55.9 - Vitamin D deficiency, unspecified Referrals Speech and Hearing Referral H91.90 - Unspecified hearing loss, unspecified ear Endocrinology Referral E11.65 - Type 2 diabetes mellitus with hyperglycemia Medications: Changed From Lantus Solostar U-100 Insulin (insulin glargine) 20 units (0.2 mL) subcut BEDTIME 30 days 6 mL 5RF NS E11.9 - Type 2 diabetes mellitus without complications To Lantus Solostar U-100 Insulin (insulin glargine) 30 units (0.3 mL) subcut BEDTIME 30 days 9 mL 5RF NS E11.9 - Type 2 diabetes mellitus without complications From Trulicity (dulaglutide) 0.75 mg (0.5 mL) subcut QWEEK 4 weeks 2 mL 3RF NS E11.9 - Type 2 diabetes mellitus without complications To dulaglutide 1.5 mg (0.5 mL) subcut QWEEK 4 weeks 2 mL 3RF E11.9 - Type 2 diabetes mellitus without complications Refilled cholecalciferol (vitamin D3) 50 mcg PO DAILY 90 days 90 caps 3RF E55.9 - Vitamin D deficiency, unspecified Coding Level of Care Code Est Pt Level 4 (56060) Diagnoses Type 2 diabetes mellitus with hyperglycemia, with long-term current use of insulin E11.65; Z79.4 Diabetes mellitus mcc insulin use: with mcc use Diabetes mellitus type: type 2 Pure hypercholesterolemia E78.00 Benign essential hypertension I10 Peripheral autonomic neuropathy due to diabetes mellitus E11.43 Mild intermittent asthma without complication J45.20 Asthma complication type: uncomplicated Asthma persistence: intermittent Asthma severity: mild Spondylosis of lumbosacral region without myelopathy or radiculopathy M47.817 Spinal osteoarthritis complication: without myelopathy or radiculopathy Vitamin D deficiency E55.9 Hearing loss, unspecified hearing loss type, unspecified laterality H91.90 Hearing loss type: unspecified Laterality: unspecified laterality Insomnia, unspecified type G47.00 Insomnia type: unspecified Anxiety F41.9 Morbid obesity with BMI of 45.0-49.9, adult E66.01; Z68.42
== END 2023-10-03 10:07 | disposition home or self-care (01) ==
PROVIDERS: PCP Internal Medicine; Visit Provider Internal Medicine
DX: E11.65 Type 2 diabetes mellitus with hyperglycemia (principal)
CPT/HCPCS: 83036; 99214

== ENCOUNTER 2024-01-08 10:50 | Outpatient (AMB) | payer OTHER, SELFPAY ==
--- NOTE | 2024-01-08 11:00 | MHC.PC.OV ---
Vital Signs 01/08/24 11:01 Height 5 ft 5 in Weight 280 lb BMI 46.6 BP 90/62 Blood Pressure Location Lt brachial Position Sitting Pulse 73 Pulse Source Pulse Oximeter Pulse Oximetry (%) 97 Oxygen Delivery Method Room Air Intake Visit Reasons: uncontrolled DM, HTN, hyperlipidemia, neuropathy Allergies sulfamethoxazole [From BACTRIM] Allergy (Intermediate, Verified 01/08/24 11:48) ANXIETY trimethoprim [From BACTRIM] Allergy (Intermediate, Verified 01/08/24 11:48) ANXIETY canagliflozin [Invokana] Allergy (Unknown, Verified 01/08/24 11:48) Itching lisinopril Allergy (Unknown, Verified 01/08/24 11:48) Abdominal Pain metformin Allergy (Unknown, Verified 01/08/24 11:48) Stomach Upset Sulfa (Sulfonamide Antibiotics) Allergy (Unknown, Verified 01/08/24 11:48) Agitated sulfadiazine Allergy (Unknown, Verified 01/08/24 11:48) Unknown Avocado Revitalizing Allergy (Unknown, Uncoded 01/08/24 11:48) Unknown oxycodone Allergy (Unknown, Uncoded 01/08/24 11:48) Hives percocet Allergy (Unknown, Uncoded 01/08/24 11:48) Hives tramadol Allergy (Unknown, Uncoded 01/08/24 11:48) Hives Medication List - Last Reconciled 01/08/24 by Hemal Clifton MD acetaminophen ER (Tylenol Arthritis Pain) 650 mg PO Q12H PRN 15 days albuterol sulfate 90 mcg/actuation (ProAir HFA) 2 puffs inhalation Q6H PRN 30 days amlodipine 5 mg PO DAILY atorvastatin 20 mg PO BEDTIME blood sugar diagnostic (FreeStyle Lite Strips) As directed 3 times a day cholecalciferol (vitamin D3) 50 mcg PO DAILY 90 days gabapentin 100 mg PO BID 30 days insulin glargine (Lantus Solostar U-100 Insulin) 50 units subcut BEDTIME losartan-hydrochlorothiazide 100-25 mg 1 tab PO DAILY 90 days pen needle, diabetic (BD Ultra-Fine Leela Pen Needle) As directed once a day tirzepatide (Mounjaro) 5 mg subcut QWEEK tramadol 50 mg PO BID PRN vitamin B complex (B Complex-Vitamin B12 tablet) 1 tab PO DAILY Tobacco use date assessed: 10/03/23 Dental Screening Dental Screen Date: 10/03/23 HPI uncontrolled DM, HTN, hyperlipidemia, neuropathy HPI Details Patient comes in today for her follow up visit States that she feels okay She is now seeing endocrinology at [place] for her diabetes and was started on Mounjaro injections a few weeks ago Patient feels that this is helping a lot and that her blood sugar readings have been a lot better lately She denies any headaches or dizziness Denies any chest pains, no SOB No nausea/vomiting, no abdominal pain but states that she has been feeling bloated lately due to increasing constipation and would like to get something to help with this Needs a couple of her Rx refilled She was not able to get her follow up labs done prior to today's visit - states that she will try to go and get these done as soon as she can, sometime in the next few days [facility] Medical History Lumbosacral spondylosis Peripheral autonomic neuropathy due to diabetes mellitus Anxiety Insomnia Asthma Diabetes mellitus with hyperglycemia Vitamin D deficiency Morbid obesity with BMI of 45.0-49.9, adult Pure hypercholesterolemia Benign essential hypertension Diabetes mellitus Surgical History History of colonoscopy (~01/01/11) Hx of LASIK H/O abdominal hysterectomy Social History Housing: Apartment Alcohol intake: never Patient Tobacco Use Status: Former Tobacco user e-Cigarette/Vaping Use: Never Used Second Hand Smoke Exposure: Yes service: No Current occupational status: retired and disabled Cognitive needs: No Hearing needs: No Vision needs: Yes (reading glasses) Questionnaire PHQ-9 Over the last 2 weeks, how often have you been bothered by any of the following problems? Depression Screening Interpretation: Negative Depression Screening Done: Yes Source: Developed by Drs. Giovanni Worthington, Scarlet Hernandez, Tanmay Eduardo and colleagues, with an educational sarah from [employer] Thrive Questionnaire Date Thrive assessed: 10/03/23 Currently or been in a relationship where the following occur: no concerns reported THRIVE Score: 0 WESLEY-7 AMB Questionnaire WESLEY-7 Date WESLEY - 7 assessed: 10/03/23 Source: Developed by Drs. Giovanni Worthington, Scarlet Hernandez, Tanmay Eduardo and colleagues, with an educational sarah from [email or web address]. Review of Systems Const Denies chills, Denies fatigue, Denies fever(s) and Denies headache(s) ENT Denies dysphagia, Denies dizziness, Denies otalgia, Denies headache(s), Reports hearing loss (especially in the right ear), Denies neck pain, Denies odynophagia and Denies sore throat Card Denies chest pain, Denies palpitations and Denies dyspnea Resp Denies cough and Denies dyspnea GI Denies abdominal pain, Reports constipation (increasing), Denies dysphagia, Denies heartburn, Denies diarrhea, Denies nausea, Denies odynophagia and Denies vomiting Denies difficulty voiding, Denies nocturia, Denies dysuria and Denies urinary urgency Musc Reports back pain (on and off over her lower back) and Denies neck pain Skin/Breast Denies rash Neuro Details: (+) frequent numbness and occasional pain over the soles of her feet bilaterally, with occasional itching Denies dizziness and Denies headache(s) Endo Denies fatigue and Denies palpitations Physical exam (Primary Care) Vital Signs: Last Vital Signs Pulse 73 01/08/24 11:01 BP 90/62 01/08/24 11:01 Pulse Ox 97 01/08/24 11:01 Oxygen Delivery Method Room Air 01/08/24 11:01 BMI result Body Mass Index 46.6 Tobacco/Smoking Status: Tobacco use Status Tobacco use date assessed 10/03/23 01/08/24 11:08 Patient Tobacco Use Status Former Tobacco user 01/08/24 11:08 e-Cigarette/Vaping Use Never Used 01/08/24 11:08 Depression Screening Interpretation: Negative Thrive Assessment: Date of Thrive Assessment Date Thrive assessed 10/03/23 01/08/24 11:08 Currently or been in a relationship where the following occur: no concerns reported Const General: no acute distress and alert HENMT Ears: TM's normal bilaterally and EAC's normal Throat: Yes posterior oropharynx normal and Yes tonsils normal (no TP congestion) Neck Neck: Yes no lymphadenopathy and Yes supple Thyroid: Thyroid normal Resp Auscultation: clear to auscultation bilaterally, no rales and no wheezes Cardio Rate: regular rate Rhythm: regular rhythm Heart sounds: no murmurs GI Palpation (GI): Soft to palpation and nontender Auscultation: normal bowel sounds General: Yes no CVA tenderness Back/Spine/Pelvis Back: no CVA tenderness Thoracic/Lumbar Spine: lumbar spinal tenderness Skin Rashes: no rashes Extrem General: Yes no clubbing, cyanosis or edema Results AMB Hemoglobin A1c AMB Hemoglobin A1c 9.8 % Last Edit by BRYN Calero on 01/08/24 11:11 Results Reviewed Results Reviewed: Laboratory Last Values Hgb A1c (Clinic) 9.8 % (4.0-6.0) H 01/08/24 10:44 Assessment and Plan Assessment & Plan (1) Diabetes mellitus with hyperglycemia: Code(s): E11.65 - Type 2 diabetes mellitus with hyperglycemia Qualifiers: Diabetes mellitus penitentiary insulin use: with termite renewal inspector use Diabetes mellitus type: type 2 Qualified Code(s): E11.65 - Type 2 diabetes mellitus with hyperglycemia; Z79.4 - penitentiary (current) use of insulin Plan: Patient's in-office HgbA1c done today is at 9.8% (HgbA1c was at 11.3% a few months ago) - goal is <7.0% Reinforced diabetic diet Continue Glimepride 1 mg QD and Lantus Solostar to 30 units Q HS She used to be on Trulicity but was switched over to Mounjaro 5 mg SQ once a week by endocrinology a few weeks ago Follow up with [place] [facility] as scheduled (2) Pure hypercholesterolemia: Code(s): E78.00 - Pure hypercholesterolemia, unspecified Plan: Patient was not able to get her follow up labs done prior to her visit today - states that she will try to get them done JESSICA Reinforced low cholesterol diet Continue Atorvastatin 20 mg QD Will have patient recheck her labs and fasting lipids in 3 months for follow up (3) Benign essential hypertension: Code(s): I10 - Essential (primary) hypertension Plan: Reinforced low sodium diet - goal is systolic BP of 120 to 130 mm or less Continue Amlodipine 5 mg QD and Losartan-HCT 100-25 mg QD (4) Peripheral autonomic neuropathy due to diabetes mellitus: Code(s): E11.43 - Type 2 diabetes mellitus with diabetic autonomic (poly)neuropathy Plan: EMG and NCV done in July 2023 revealed (+) moderate to severe axonal sensory and motor chronic peripheral neuropathy Patient is advised again that the best way to slow down progression of her neuropathy is better control of her blood sugar She has been instructed to check and examine her feet every night before bedtime to ensure that there are no active wounds or injuries to her feet Follow up with podiatry as scheduled (5) Asthma: Code(s): J45.909 - Unspecified asthma, uncomplicated Qualifiers: Asthma complication type: uncomplicated Asthma persistence: intermittent Asthma severity: mild Qualified Code(s): J45.20 - Mild intermittent asthma, uncomplicated Plan: Currently stable; is presently only using her Albuterol HFA inhaler only as needed Advised again that we should have her get a PFT for further evaluation and assessment of her baseline pulmonary function and to see if she does indeed have asthma or not; will also then determine if she will need any maintenance medications depending on the results of her PFT - patient would like to still hold off on this for now as she wants to try concentrating on getting her diabetes controlled better first (6) Lumbosacral spondylosis: Code(s): M47.817 - Spondylosis without myelopathy or radiculopathy, lumbosacral region Qualifiers: Spinal osteoarthritis complication: without myelopathy or radiculopathy Qualified Code(s): M47.817 - Spondylosis without myelopathy or radiculopathy, lumbosacral region Plan: Reinforced activity and weight-lifting restrictions Lumbar spine x-rays done a couple of years ago revealed stable spondylosis of the lumbo-sacral spine with prominent degenerative disc changes at L5-S1 but there appears to be a slight progression of calcific atherosclerotic changes noted on her x-rays Continue Gabapentin 100 mg BID - states that Rx is helping with her low back pain; has been prescribed Tramadol from the hospital in the past, which she states did not work for her (7) Constipation: Code(s): K59.00 - Constipation, unspecified Qualifiers: Constipation type: unspecified constipation type Qualified Code(s): K59.00 - Constipation, unspecified Plan: Encouraged increased oral fluids and dietary fiber Will start patient on Senna 8.6 mg 1 to 2 tablets Q HS PRN (8) Vitamin D deficiency: Code(s): E55.9 - Vitamin D deficiency, unspecified Plan: Continue Vitamin D3 2000 units QD (9) Insomnia: Code(s): G47.00 - Insomnia, unspecified Qualifiers: Insomnia type: unspecified Qualified Code(s): G47.00 - Insomnia, unspecified Plan: Sleep hygiene reinforced Continue OTC Melatonin 3 mg Q HS PRN (10) Anxiety: Code(s): F41.9 - Anxiety disorder, unspecified Plan: Continue Sertraline 50 mg QD (11) Morbid obesity with BMI of 45.0-49.9, adult: Code(s): E66.01 - Morbid (severe) obesity due to excess calories; Z68.42 - Body mass index [BMI] 45.0-49.9, adult Plan: Reinforced diet/exercise as tolearted/lose weight Plan Follow up in 3 months Orders: Orders AMB Hemoglobin A1c 01/07/24 E11.65 - Type 2 diabetes mellitus with hyperglycemia, Z79.4 - penitentiary (current) use of insulin Comprehensive Porter. Panel Fast 3 Months E78.00 - Pure hypercholesterolemia, unspecified Lipid Panel 3 Months E78.00 - Pure hypercholesterolemia, unspecified UA CC w/rflx Micro + Cult 3 Months R30.0 - Dysuria Microalbumin, Random (w Creat) 3 Months E11.9 - Type 2 diabetes mellitus without complications Hemoglobin A1c 3 Months E11.9 - Type 2 diabetes mellitus without complications Vitamin D 25-OH Total 3 Months E55.9 - Vitamin D deficiency, unspecified Medications: New sennosides (Senna Lax) 17.2 mg (2 x 8.6 mg) PO BEDTIME 30 days PRN 60 tabs 3RF constipation Changed From amlodipine 5 mg PO DAILY 90 tabs 1RF for blood pressure To amlodipine 2.5 mg PO DAILY 30 days 30 tabs 3RF for blood pressure From Lantus Solostar U-100 Insulin (insulin glargine) 30 units (0.3 mL) subcut BEDTIME 30 days 9 mL 5RF NS E11.9 - Type 2 diabetes mellitus without complications To insulin glargine (Lantus Solostar U-100 Insulin) 50 units subcut BEDTIME E11.9 - Type 2 diabetes mellitus without complications Coding Level of Care Code Est Pt Level 4 (67381) Diagnoses Type 2 diabetes mellitus with hyperglycemia, with long-term current use of insulin E11.65; Z79.4 Diabetes mellitus penitentiary insulin use: with termite renewal inspector use Diabetes mellitus type: type 2 Pure hypercholesterolemia E78.00 Benign essential hypertension I10 Peripheral autonomic neuropathy due to diabetes mellitus E11.43 Mild intermittent asthma without complication J45.20 Asthma complication type: uncomplicated Asthma persistence: intermittent Asthma severity: mild Spondylosis of lumbosacral region without myelopathy or radiculopathy M47.817 Spinal osteoarthritis complication: without myelopathy or radiculopathy Constipation, unspecified constipation type K59.00 Constipation type: unspecified constipation type Vitamin D deficiency E55.9 Insomnia, unspecified type G47.00 Insomnia type: unspecified Anxiety F41.9 Morbid obesity with BMI of 45.0-49.9, adult E66.01; Z68.42
[2024-01-08 11:01] VITALS: BP 90/62; PULSE 73; O2SAT 97; BMI 46.6
== END 2024-01-08 12:02 | disposition home or self-care (01) ==
PROVIDERS: PCP Internal Medicine; Visit Provider Internal Medicine
DX: E11.65 Type 2 diabetes mellitus with hyperglycemia (principal); Z79.4 Long term (current) use of insulin
CPT/HCPCS: 83036; 99214

== ENCOUNTER 2024-02-23 10:45 | Outpatient (AMB) | payer OTHER, SELFPAY ==
--- OUTSIDE RECORDS SUMMARY | 2024-02-23 10:47 | XMS_ITS | Patient Health Record ---
Author Organization [facility] Address [address] [place] [address] Support Name Relationship Address Phone ADELINA Jensen Guarantor Unknown ALLERGIES Allergen (clinical drug ingredient) Drug/Non Drug Allergy documented on EMR Reaction Allergy Type Onset Date Status sulfamethoxazole / trimethoprim Bactrim Unknown Drug Allergy Active metformin Metformin HCl stomach upset Drug Allergy Active oxycodone Oxycodone HCl stomach upset Drug Allergy Active Sulfacet-R Unknown Drug Allergy Active canagliflozin Invokana stomach upset Drug Allergy Active REASON FOR REFERRAL No Information MEDICATIONS Medication SIG (Take, Route, Frequency, Duration) Notes Start Date End Date Status Melatonin 5 MG 1 tablet at bedtime as needed Orally Once a day Active Vitamin B12 Active amLODIPine Besylate 2.5 MG 1 tablet Oral ly Once a day Active Januvia 50 MG as directed Orally O nce a day Active Losartan Potassium 100 MG 1 tablet Orall y Once a day Active Glimepiride 1 MG 1 tablet with breakf ast or the first main meal of the day Orally Once a day Active Atorvastatin Calcium 40 MG 1 tablet Oral ly Once a day Active traMADol HCl 50 MG 1 tablet as needed O rally Once a day Active Aspirin 81 81 MG 1 tablet Orally Once a day Active SOCIAL HISTORY Tobacco Use: Social History Observation Description Date Details (start date - stop date) Never Smoker NA - NA Sex Assigned At : Social History Observation Description Sex Assigned At Unknown Tobacco Use/Smoking Question Answer Notes Are you a nonsmoker PROBLEMS Problem Type ICD Code Onset Dates Problem Status W/U Status Risk SNOMED Code Notes Problem Type 2 diabetes mellitus with unspecified complications (E11.8) Active confirmed Disorder due to type 2 diabetes mellitus (046431789) Problem Morbid (severe) obesity due to excess calories (E66.01) Active confirmed Morbid obesity (disorder) (192809447) Problem Mixed hyperlipidemia (E78.2) Active confirmed Mixed hyperlipidemia (052991824) Problem Essential (primary) hypertension (I10) Active confirmed Essential hypertension (97689977) PLAN OF TREATMENT Future Test Test Name Order Date TSH 03/20/2020 Vitamin D, 25-Hydroxy 03/20/2020 CBC 03/20/2020 COMPREHENSIVE METABOLIC PANEL 03/20/2020 PHOSPHORUS 03/20/2020 MAGNESIUM 03/20/2020 Insurance Providers Payer Name Payer Address Payer Phone Subscriber Number Group Number Insured Name Patient Relationship to Insured Coverage Start Date Coverage End Date [facility] [address] [address] [place] [address] [phone] [id number] ADELINA Aguayo Self - patient is the insured MEDICAL (GENERAL) HISTORY Medical History History ICD Code kidney stones Surgical History Surgery Date(Month/Year) gastric sleeve Uterus removed because of cancer
--- OUTSIDE RECORDS SUMMARY | 2024-02-23 10:47 | XMS_ITS | Patient Health Record ---
Author Organization [facility] Address [address], [place] [id number] Support Name Relationship Address Phone Wendy Mckeon Guarantor Unknown REASON FOR REFERRAL No Information SOCIAL HISTORY Sex Assigned At : Social History Observation Description Sex Assigned At Unknown PLAN OF TREATMENT No Information Insurance Providers Payer Name Payer Address Payer Phone Subscriber Number Group Number Insured Name Patient Relationship to Insured Coverage Start Date Coverage End Date [facility] [address] [place] [address] [phone] [id number] Wendy Matthews Self - patient is the insured [place] Medicaid Standard [address] [place] [address] [id number] Wendy Matthews Self - patient is the insured
[2024-02-23 10:57] VITALS: BP 116/70; PULSE 100; TEMP 36.2; O2SAT 95; BMI 45.1
--- NOTE | 2024-02-23 10:57 | AM.OFFWIN_ITS ---
Intake Vital Signs 02/23/24 10:57 Height 5 ft 5 in Weight 271 lb BMI 45.1 BP 116/70 Blood Pressure Location Lt brachial Position Sitting Pulse 100 Pulse Source Pulse Oximeter Temp 97.2 F Temp Source Temporal Artery Scan Pulse Oximetry (%) 95 Oxygen Delivery Method Room Air Intake Visit Reasons: EP LT leg pain Intake Note: pt is here today for leg pain started yesterday Patient Tobacco Use Status: Former Tobacco user Allergies sulfamethoxazole [From BACTRIM] Allergy (Intermediate, Verified 01/08/24 11:48) ANXIETY trimethoprim [From BACTRIM] Allergy (Intermediate, Verified 01/08/24 11:48) ANXIETY aluminum hydroxide [From Magnagel] Allergy (Mild, Verified 02/23/24 11:01) high blood press magnesium [From Magnagel] Allergy (Mild, Verified 02/23/24 11:01) high blood press magnesium hydroxide [From Magnagel] Allergy (Mild, Verified 02/23/24 11:01) high blood press canagliflozin [Invokana] Allergy (Unknown, Verified 01/08/24 11:48) Itching lisinopril Allergy (Unknown, Verified 01/08/24 11:48) Abdominal Pain metformin Allergy (Unknown, Verified 01/08/24 11:48) Stomach Upset Sulfa (Sulfonamide Antibiotics) Allergy (Unknown, Verified 01/08/24 11:48) Agitated sulfadiazine Allergy (Unknown, Verified 01/08/24 11:48) Unknown Avocado Revitalizing Allergy (Unknown, Uncoded 01/08/24 11:48) Unknown oxycodone Allergy (Unknown, Uncoded 01/08/24 11:48) Hives percocet Allergy (Unknown, Uncoded 01/08/24 11:48) Hives tramadol Allergy (Unknown, Uncoded 01/08/24 11:48) Hives HPI HPI Comments History of Present Illness Details Patient is a 68-year-old female with 2 complaints today. The 1st complaint is some dizziness, she complains she thinks she has not on enough blood pressure medication and that is making her dizzy. She was recently on Mounjaro and her blood pressure medication was reduced from 5 mg of amlodipine to 2 mg of amlodipine. She describes the dizziness as off balance and not room spinning. She said she did pass out 3 weeks ago at home and they called an ambulance. The ambulance could not find a vein so they ended up inserting a IO just below her left knee. Her 2nd complaint is left lower leg pain, she describes it as just above the ankle and medial, it started approximately 10 hours ago. She denies any injury, she denies twisting her ankle. She just says it has a 10/10 pain that isn't shooting but is dull or achy either. She denies difficulty ambulating. [facility] Medical History Lumbosacral spondylosis Peripheral autonomic neuropathy due to diabetes mellitus Anxiety Insomnia Asthma Diabetes mellitus with hyperglycemia Vitamin D deficiency Morbid obesity with BMI of 45.0-49.9, adult Pure hypercholesterolemia Benign essential hypertension Diabetes mellitus Surgical History History of colonoscopy (~01/01/11) Hx of LASIK H/O abdominal hysterectomy Social History Housing: Apartment Alcohol intake: never Patient Tobacco Use Status: Former Tobacco user e-Cigarette/Vaping Use: Never Used Second Hand Smoke Exposure: Yes service: No Current occupational status: retired and disabled Cognitive needs: No Hearing needs: No Vision needs: Yes (reading glasses) Review of Systems Const All systems reviewed & are unremarkable except as noted in HPI and below Physical Exam Vital Signs: Last Vital Signs Temp 97.2 F 02/23/24 10:57 Pulse 100 02/23/24 10:57 BP 116/70 02/23/24 10:57 Pulse Ox 95 02/23/24 10:57 Oxygen Delivery Method Room Air 02/23/24 10:57 BMI result Body Mass Index 45.1 Const General: cooperative, healthy appearing, comfortable, no acute distress and well developed Orientation/consciousness: patient oriented x3 Limitations: no limitations HEENT Head: Yes normal to inspection Ears: hearing grossly normal bilaterally, external ears normal and TM's normal bilaterally General nose exam: Normal external nose present and Normal nares present Face and sinus: Yes normal facial exam Mouth: moist mucous membranes Throat: Yes tonsils normal, Yes uvula midline and Yes cobblestoning Eyes General: appearance normal, both eyes and all related structures Resp Effort & Inspection: normal respiratory effort and able to speak in complete sentences Neuro General: patient oriented x3 Extrem Left lower extremity: lower leg (negative Joel's sign) Details: normal to inspection, ecchymosis (Slight area of ecchymosis medial just above ankle, TTP) and other (area where IO was is healing well, no signs of infection noted. ); no erythema, no localized swelling, no abrasions, no lacerations, no deformity and no unusual warmth Assessment & Plan Assessment & Plan (1) Dizziness: Code(s): R42 - Dizziness and giddiness Plan: With cobblestoning, recommended daily allergy pill, recommended not driving and to be careful ambulating until she is feeling better. Recommended following up with PCP if no resolution in symptoms over the next week or two. (2) Leg pain, left: Code(s): M79.605 - Pain in left leg Plan: Recommended rest ice compression elevation, physical exam is relatively unremarkable. Very unlikely DVT as negative Homans and due to location of pain. Advised if it gets worse or if she notices any discoloration, just call me and I will order an ultrasound. Plan See above Coding Level of Care Code Est Pt Level 4 (55550) Diagnoses Dizziness R42 Leg pain, left M79.605
== END 2024-02-23 11:46 | disposition home or self-care (01) ==
PROVIDERS: PCP Internal Medicine; Visit Provider Physician Assistant
DX: R42 Dizziness and giddiness (principal); M79.605 Pain in left leg
CPT/HCPCS: 99214

== ENCOUNTER 2024-04-15 11:16 | Outpatient (REF) | payer OTHER, SELFPAY ==
--- NOTE | ~2024-04-15 | MM_ITS ---
EXAMINATION: MM SCREENING DIGITAL BREAST TOMOSYNTHESIS, BILATERAL CLINICAL INFORMATION: Screening. Asymptomatic. COMPARISON: Mammography: This study is compared with prior exams dating back to 2018. TECHNIQUE: Digital breast tomosynthesis is performed in both the craniocaudal and mediolateral oblique views along with computer-aided detection (CAD). Synthesized 2D images are generated from the tomosynthesis. FINDINGS: The breasts are almost entirely fatty (ACR BI-RADS breast composition Category a). There are no significant masses, abnormal calcifications, or other abnormalities. MM/MM tomosynthesis screening BI IMPRESSION: No mammographic evidence of malignancy. ASSESSMENT: BI-RADS BI-RADS 1 - Negative RECOMMENDATION: Routine annual mammography screening. 1 year F/U This examination should not preclude the clinical evaluation of a suspicious palpable abnormality. This patient's information was entered into a reminder system with a target due date for their next mammogram. Electronically signed by: Nancy Estrada MD 05/13/2024 11:40 AM EDT
--- NOTE | ~2024-04-15 | MM_ITS ---
EXAMINATION: BONE DENSITOMETRY CLINICAL INDICATION: Asymptomatic menopausal state. COMPARISON: Baseline BD dated 10/03/2016. TECHNIQUE: Using a Oberon Space DXA System (software version: 13.1) manufactured by [employer], dual-energy x-ray absorptiometry was performed of the lumbar spine and left hip. The images are of good technical quality. Summary results are attached. FINDINGS: LEFT FEMUR, NECK: Current: BMD 0.847 g/cm2, Z-score -0.5, T-score -1.4, osteopenia. Baseline: BMD 0.854 g/cm2. LEFT FEMUR, TOTAL: Current: BMD 0.872 g/cm2, Z-score -0.6, T-score -1.1, osteopenia, 6.9% decrease from baseline (<5% change is not significant). Baseline: BMD 0.937 g/cm2. AP SPINE L1-L4: Current: BMD 1.032 g/cm2, Z-score -0.8, T-score -1.2, osteopenia, 0.3% increase from baseline (<5% change is not significant). Baseline: BMD 1.029 g/cm2. IDENTIFIED RISK FACTORS: Menopause, hysterectomy, bilateral oophorectomy, secondary osteoporosis (partial gastrectomy). HISTORY OF FRACTURE: None listed. MEDICATIONS: Vitamin D. MM/XR DEXA axial skeleton IMPRESSION: 1. DIAGNOSIS: Osteopenia based on the lowest T-score value of -1.4 in the femoral neck applying World Health Organization criteria. 2. 10-YEAR FRACTURE RISK PREDICTION, FRAX: Major osteoporotic fracture (clinical spine, forearm, hip or shoulder) 7.9%. Hip fracture 0.8%. 3. Treatment Recommendations: NOF guidelines recommend consideration for treatment in postmenopausal women and men age 50 and older presenting with the following: -A hip or vertebral (clinical or morphometric) fracture. -T-score less than or equal to -2.5 at the femoral neck or spine after appropriate evaluation to exclude secondary causes. -Low bone mass at the hip or spine and a 10-year fracture probability by FRAX of greater than or equal to 3% for hip fracture or greater than or equal to 20% for major osteoporotic fracture based on the [place] adapted WHO algorithm. 4. Other Recommendations: All treatment decisions require clinical judgment and consideration of individual patient factors, including patient preferences, comorbidities, previous drug use, risk factors not captured in the FRAX model (e.g. frailty, falls, vitamin D deficiency, increased bone turnover, interval significant decline in bone density) and possible under or overestimation of fracture risk by FRAX. Additional medical evaluation for secondary cause of low bone mineral density may be appropriate. FUTURE SCAN RECOMMENDATION: People with diagnosed cases of osteoporosis or at high risk for fracture should have regular bone mineral density tests. For patients eligible for Medicare, routine testing is allowed once every 2 years. The testing frequency can be increased to one year for patients who have rapidly progressing disease, those who are receiving or discontinuing medical therapy to restore bone mass, or have additional risk factors.
== END 2024-04-15 11:17 | disposition home or self-care (01) ==
LOC: HO.MAMMO 11:16
PROVIDERS: PCP Internal Medicine; Visit Provider Internal Medicine
DX: Z12.31 Encounter for screening mammogram for malignant neoplasm of breast (principal); Z13.820 Encounter for screening for osteoporosis; Z78.0 Asymptomatic menopausal state
CPT/HCPCS: 77063; 77067; 77080

== ENCOUNTER → 2024-04-15 12:00 | Outpatient (BNV) | payer OTHER, SELFPAY | PROVIDERS: PCP Internal Medicine; Visit Provider Radiology Diagnostic Radiology | DX: Z12.31 Encounter for screening mammogram for malignant neoplasm of breast (principal) | CPT/HCPCS: 77063; 77067 ==

== ENCOUNTER 2024-05-14 15:53 | Outpatient (AMB) | payer OTHER, SELFPAY ==
[2024-05-14 16:08] VITALS: BP 100/68; PULSE 96; O2SAT 95; BMI 44.9
--- NOTE | 2024-05-14 16:08 | A.OFFPC_ITS ---
Vital Signs 05/14/24 16:08 Height 5 ft 5 in Weight 270 lb BMI 44.9 BP 100/68 Blood Pressure Location Lt brachial Position Sitting Pulse 96 Pulse Source Pulse Oximeter Pulse Oximetry (%) 95 Oxygen Delivery Method Room Air Intake Visit Reasons: 3 month f/u need 30 mins Pediatric Dental Hygienist Required: No Accompanied by: Self / Same As Patient Allergies sulfamethoxazole [From BACTRIM] Allergy (Intermediate, Verified 05/14/24 16:34) ANXIETY trimethoprim [From BACTRIM] Allergy (Intermediate, Verified 05/14/24 16:34) ANXIETY aluminum hydroxide [From Magnagel] Allergy (Mild, Verified 05/14/24 16:34) high blood press magnesium [From Magnagel] Allergy (Mild, Verified 05/14/24 16:34) high blood press magnesium hydroxide [From Magnagel] Allergy (Mild, Verified 05/14/24 16:34) high blood press canagliflozin [Invokana] Allergy (Unknown, Verified 05/14/24 16:34) Itching lisinopril Allergy (Unknown, Verified 05/14/24 16:34) Abdominal Pain metformin Allergy (Unknown, Verified 05/14/24 16:34) Stomach Upset Sulfa (Sulfonamide Antibiotics) Allergy (Unknown, Verified 05/14/24 16:34) Agitated sulfadiazine Allergy (Unknown, Verified 05/14/24 16:34) Unknown Avocado Revitalizing Allergy (Unknown, Uncoded 05/14/24 16:34) Unknown oxycodone Allergy (Unknown, Uncoded 05/14/24 16:34) Hives percocet Allergy (Unknown, Uncoded 05/14/24 16:34) Hives tramadol Allergy (Unknown, Uncoded 05/14/24 16:34) Hives Medication List - Last Reconciled 05/14/24 by Hemal Clifton MD acetaminophen ER (Tylenol Arthritis Pain) 650 mg PO Q12H PRN 15 days albuterol sulfate 90 mcg/actuation (ProAir HFA) 2 puffs inhalation Q6H PRN 30 days amlodipine 2.5 mg PO DAILY 30 days [AQUATHERAPY As directed] atorvastatin 20 mg PO BEDTIME blood sugar diagnostic (FreeStyle Lite Strips) As directed 3 times a day cholecalciferol (vitamin D3) 50 mcg PO DAILY 90 days insulin glargine (Lantus Solostar U-100 Insulin) 70 units subcut BEDTIME losartan-hydrochlorothiazide 100-25 mg 1 tab PO DAILY 90 days pen needle, diabetic (BD Ultra-Fine Leela Pen Needle) As directed once a day sennosides (Senna Lax) 17.2 mg (2 x 8.6 mg) PO BEDTIME PRN 30 days [transfer bench shower chair As directed] vitamin B complex (B Complex-Vitamin B12 tablet) 1 tab PO DAILY Tobacco use date assessed: 05/14/24 Fall risk assessment: No Falls in past year Last assessed Fall Risk: 05/14/24 Dental Screening Dental Screen Date: 05/14/24 Did you have a dental visit in the last 12 months?: Yes Did you have a dental problem in the last 6 months where you did not have access to dental care?: No Was dental information given to patient?: Patient has dentist HPI 3 month f/u need 30 mins HPI Details Patient comes in today for her follow up visit States that she has been experiencing increased pain over her lower back for over a week now She has been taking OTC Tylenol 650 mg lately with little relief and would like to know if she can double up on this States that she takes Tylenol only as needed and mostly just once a day She denies any recent injury or trauma to her lower back Would like to see if she can get a prescription so she can go back to doing aquatherapy at her local [facility] to help her manage her back pain better She recalls also being advised by a [facility] nurse during one of their recent visits that she sounded like she has some abnormality in her heart rhythm and should have this checked out further Patient denies any headaches or dizziness Denies any chest pains, no increased SOB No nausea/vomiting, no abdominal pain No change in bowel habits noted States that she had some labs done at [facility] in mid-March 2024, with her HgbA1c back then at 9.6% and her lipid profile was as follows - TC 175, TG 190, HDL 50, LDL 87 Adds that she was brought to the ER by her family back in January 2024 for altered mental status and a brief bout of LOC She was found to be hypotensive, likely due to vasovagal effects, and responded promptly to IV hydration and medical management and she was eventually discharged back home and did not require admission [facility] Medical History (Updated 05/15/24 @ 07:41 by Hemal Clifton MD) Morbid obesity with BMI of 40.0-44.9, adult Lumbosacral spondylosis Peripheral autonomic neuropathy due to diabetes mellitus Anxiety Insomnia Asthma Diabetes mellitus with hyperglycemia Vitamin D deficiency Morbid obesity with BMI of 45.0-49.9, adult Pure hypercholesterolemia Benign essential hypertension Diabetes mellitus Surgical History History of colonoscopy (~01/01/11) Hx of LASIK H/O abdominal hysterectomy Social History Housing: Apartment Alcohol intake: never Patient Tobacco Use Status: Former Tobacco user e-Cigarette/Vaping Use: Never Used Second Hand Smoke Exposure: Yes service: No Current occupational status: retired and disabled Cognitive needs: No Hearing needs: No Vision needs: Yes (reading glasses) Questionnaire PHQ-9 Over the last 2 weeks, how often have you been bothered by any of the following problems? 1. Little interest or pleasure in doing things: not at all 2. Feeling down, depressed, or hopeless: not at all 3. Trouble falling or staying asleep, or sleeping too much: not at all 4. Feeling tired or having little energy: not at all 5. Poor appetite or overeating: not at all 6. Feeling bad about yourself - or that you are a failure or have let yourself or your family down: not at all 7. Trouble concentrating on things, such as reading the newspaper or watching television: not at all 8. Moving or speaking so slowly that other people could have noticed. Or the opposite - being so fidgety or restless that you have been moving around a lot more than usual: not at all 9. Thoughts that you would be better off or of hurting yourself in some way: not at all Total score: 0 Depression Screening Interpretation: Negative Depression Screening Done: Yes 29328 - PHQ-9 Billing: Yes Source: Developed by Drs. Giovanni Worthington, Scarlet Hernandez, Tanmay Eduardo and colleagues, with an educational sarah from [employer]. Thrive Questionnaire Date Thrive assessed: 09/06/24 I am a: Patient What is your living situation today?: I have a steady place to live Within the past 12 months, did the food you bought not last and you didn't have the money to get more?: Never true Within the past 12 months, did you worry whether your food would run out before you got money to buy more?: Never true Do you have trouble paying for medicines?: No Do you have trouble getting transportation to medical appointments?: No Do you have trouble paying your heating and electricity bill?: No Do you have trouble taking care of your child, family member or friend?: No Do you have trouble with day-to-day activities such as bathing, preparing meals, shopping, managing finances, etc.?: No Are you currently unemployed and looking for a job?: No Are you interested in more education?: No Please select the resources that you would like help with: None Currently or been in a relationship where the following occur: No concerns reported THRIVE Score: 0 AUDIT C Alcohol Use Questionnaire (AUDIT-C) 1. How often do you have a drink containing alcohol?: Never 3. How often do you have six or more drinks on one occasion?: Never Total Score: 0 Score Reviewed/Action Taken: Yes WESLEY-7 AMB Questionnaire WESLEY-7 Date WESLEY - 7 assessed: 05/14/24 Feeling nervous, anxious, or on edge: 0 = Not at all Not being able to stop or control worryin = Not at all Worrying too much about different things: 0 = Not at all Trouble relaxin = Not at all Being so restless that it is hard to sit still: 0 = Not at all Becoming easily annoyed or irritable: 0 = Not at all Feeling afraid as if something awful might happen: 0 = Not at all Total WESLEY-7 score (0-4 normal; 5-9 mild; 10-14 moderate; 15-21 severe): 0 Source: Developed by Drs. Giovanni Worthington, Scarlet Hernandez, Tanmay Eduardo and colleagues, with an educational sarah from [employer]. Review of Systems Const Denies chills, Denies fatigue, Denies fever(s) and Denies headache(s) ENT Denies dysphagia, Denies dizziness, Denies otalgia, Denies headache(s), Reports hearing loss (especially in the right ear), Denies neck pain, Denies odynophagia and Denies sore throat Card Denies chest pain, Denies palpitations and Denies dyspnea Resp Denies cough and Denies dyspnea GI Denies abdominal pain, Reports constipation (on and off), Denies dysphagia, Denies heartburn, Denies diarrhea, Denies nausea, Denies odynophagia and Denies vomiting Denies difficulty voiding, Denies nocturia, Denies dysuria and Denies urinary urgency Musc Reports back pain (on and off over her lower back - increased lately) and Denies neck pain Skin/Breast Denies rash Neuro Details: (+) frequent numbness and occasional pain over the soles of her feet bilaterally Denies dizziness and Denies headache(s) Endo Denies fatigue and Denies palpitations Physical exam (Primary Care) Vital Signs: Last Vital Signs Pulse 96 05/14/24 16:08 BP 100/68 05/14/24 16:08 Pulse Ox 95 05/14/24 16:08 Oxygen Delivery Method Room Air 05/14/24 16:08 BMI result Body Mass Index 44.9 Tobacco/Smoking Status: Tobacco use Status Tobacco use date assessed 05/14/24 05/14/24 16:22 Patient Tobacco Use Status Former Tobacco user 05/14/24 16:22 e-Cigarette/Vaping Use Never Used 05/14/24 16:22 PHQ-9: PHQ-9 Score PHQ-9: Total score 0 05/15/24 00:33 Depression Screening Interpretation: Negative Thrive Assessment: Date of Thrive Assessment Date Thrive assessed 05/14/24 05/14/24 16:22 Currently or been in a relationship where the following occur: No concerns reported Const General: no acute distress and alert HENMT Ears: TM's normal bilaterally and EAC's normal Throat: Yes posterior oropharynx normal and Yes tonsils normal (no TP congestion) Neck Neck: Yes no lymphadenopathy and Yes supple Thyroid: Thyroid normal Resp Auscultation: clear to auscultation bilaterally, no rales and no wheezes Cardio Rate: regular rate Rhythm: regular rhythm Heart sounds: no murmurs GI Palpation (GI): Soft to palpation and nontender Auscultation: normal bowel sounds General: Yes no CVA tenderness Back/Spine/Pelvis Back: no CVA tenderness Thoracic/Lumbar Spine: lumbar spinal tenderness Skin Rashes: no rashes Extrem General: Yes no clubbing, cyanosis or edema Assessment and Plan Assessment & Plan (1) Diabetes mellitus with hyperglycemia: Code(s): E11.65 - Type 2 diabetes mellitus with hyperglycemia Qualifiers: Diabetes mellitus predatory animal exterminator insulin use: with predatory animal exterminator use Diabetes mellitus type: type 2 Qualified Code(s): E11.65 - Type 2 diabetes mellitus with hyperglycemia; Z79.4 - parts counterman (current) use of insulin Plan: Patient's HgbA1c was at 9.6% when last checked at [facility] a few weeks ago on 03/26/2024 (her in-office HgbA1c was at 9.8% back in January 2024) - goal is <7.0% Reinforced diabetic diet Continue Lantus Solostar 70 units Q HS and Humalog 2 to 6 units TID with meals per sliding scale She used to be on Trulicity but was switched over to Mounjaro 5 mg SQ once a week by endocrinology a few months ago but she reportedly ended up at the hospital with hypoglycemia when she supposedly misunderstood some instructions on her meds when they were switched and she did not stop the previous meds before starting the new ones prescribed Follow up with [facility] as scheduled (2) Pure hypercholesterolemia: Code(s): E78.00 - Pure hypercholesterolemia, unspecified Plan: Patient was not able to get her follow up labs done prior to her visit today although she did have labs done at [facility] back on 03/26/2024 Her lipid profile back then is as indicated - TC 175, TG 190, HDL 50, LDL 87 Reinforced low cholesterol diet Continue Atorvastatin 20 mg QD Will have patient recheck her labs and fasting lipids in 3 months for follow up (3) Benign essential hypertension: Code(s): I10 - Essential (primary) hypertension Plan: Reinforced low sodium diet - goal is systolic BP of 120 to 130 mm or less Continue Amlodipine 2.5 mg QD and Losartan-HCT 100-25 mg QD (4) Peripheral autonomic neuropathy due to diabetes mellitus: Code(s): E11.43 - Type 2 diabetes mellitus with diabetic autonomic (poly)neuropathy Plan: EMG and NCV done in July 2023 revealed (+) moderate to severe axonal sensory and motor chronic peripheral neuropathy Patient is advised again that the best way to slow down progression of her neuropathy is better control of her blood sugar She has been instructed to check and examine her feet every night before bedtime to ensure that there are no active wounds or injuries to her feet Follow up with podiatry as scheduled (5) Asthma: Code(s): J45.909 - Unspecified asthma, uncomplicated Qualifiers: Asthma complication type: uncomplicated Asthma persistence: intermittent Asthma severity: mild Qualified Code(s): J45.20 - Mild intermittent asthma, uncomplicated Plan: Currently stable; is presently only using her Albuterol HFA inhaler only as needed Advised again that we should have her get a PFT for further evaluation and assessment of her baseline pulmonary function and to see if she does indeed have asthma or not; will also then determine if she will need any maintenance medications depending on the results of her PFT - patient would still like to hold off on this for now as she wants to try concentrating on getting her diabetes controlled better first (6) Cardiac arrhythmia: Code(s): I49.9 - Cardiac arrhythmia, unspecified Qualifiers: Arrhythmia type: unspecified cardiac arrhythmia Qualified Code(s): I49.9 - Cardiac arrhythmia, unspecified Plan: Have discussed with patient that currently, based on auscultation of her heart, she is in sinus rhythm but she appears to have a brief pause every 3 to 4 beats Her previous EKGs done have all showed NSR with no acute changes Will send her for an updated 12 lead EKG JESSICA for further evaluation (7) Lumbosacral spondylosis: Code(s): M47.817 - Spondylosis without myelopathy or radiculopathy, lumbosacral region Qualifiers: Spinal osteoarthritis complication: without myelopathy or radiculopathy Qualified Code(s): M47.817 - Spondylosis without myelopathy or radiculopathy, lumbosacral region Plan: Reinforced activity and weight-lifting restrictions Lumbar spine x-rays done a couple of years ago revealed stable spondylosis of the lumbo-sacral spine with prominent degenerative disc changes at L5-S1 but there appears to be a slight progression of calcific atherosclerotic changes noted on her x-rays As she has been experiencing a significant increase in her low back pain recently, will have her get updated lumbar spine x-rays for further evaluation and if her lumbar disc disease has progressed, then she may need to have an MRI done for further evaluation She was taking Gabapentin 100 mg BID previously but is now only on OTC Extra- strength Tylenol PRN - she is advised that she can double up on this if needed provided that she does not take more than a total of 2000 mg daily dose as much as possible She has also been prescribed Tramadol from the hospital in the past, which she states did not work for her Per request, will also try sending her for Aquatherapy again at her local [facility], which she states have worked well for her in the past - she was supposedly advised that she will need a prescription for Aquatherapy sent over to [facility] and they will help her get this set up (8) Constipation: Code(s): K59.00 - Constipation, unspecified Qualifiers: Constipation type: unspecified constipation type Qualified Code(s): K59.00 - Constipation, unspecified Plan: She is encouraged again on increased oral fluids and dietary fiber Continue Senna 8.6 mg 1 to 2 tablets Q HS PRN (9) Vitamin D deficiency: Code(s): E55.9 - Vitamin D deficiency, unspecified Plan: Continue Vitamin D3 2000 units QD (10) Insomnia: Code(s): G47.00 - Insomnia, unspecified Qualifiers: Insomnia type: unspecified Qualified Code(s): G47.00 - Insomnia, unspecified Plan: Sleep hygiene reinforced Continue OTC Melatonin 3 mg Q HS PRN (11) Anxiety: Code(s): F41.9 - Anxiety disorder, unspecified Plan: She was on Sertraline 50 mg QD previously but appears to have also stopped taking this at some point recently (12) Morbid obesity with BMI of 40.0-44.9, adult: Code(s): E66.01 - Morbid (severe) obesity due to excess calories; Z68.41 - Body mass index [BMI] 40.0-44.9, adult Plan: Reinforced diet/exercise as tolearted/lose weight Plan Follow up in 3 months Orders: Orders ECG 12 lead EKG 05/14/24 I49.9 - Cardiac arrhythmia, unspecified Hemoglobin A1c 3 Months E11.9 - Type 2 diabetes mellitus without complications Comprehensive [place]. Panel Fast 3 Months E78.00 - Pure hypercholesterolemia, unspecified Lipid Panel 3 Months E78.00 - Pure hypercholesterolemia, unspecified XR lumbar spine 2-3V 05/14/24 M54.50 - Low back pain, unspecified Complete Blood Count Auto Diff 3 Months D64.9 - Anemia, unspecified TSH reflex Free T4 3 Months E78.00 - Pure hypercholesterolemia, unspecified UA CC w/rflx Micro + Cult 3 Months R30.0 - Dysuria Microalbumin, Random (w Creat) 3 Months E11.9 - Type 2 diabetes mellitus without complications Vitamin D 25-OH Total 3 Months E55.9 - Vitamin D deficiency, unspecified Vitamin B12 and Folate 3 Months E53.8 - Deficiency of other specified B group vitamins Medications: New [AQUATHERAPY] As directed 1 ea 0RF E11.43 - Type 2 diabetes mellitus with diabetic autonomic (poly)neuropathy, M47.817 - Spondylosis without myelopathy or radiculopathy, lumbosacral region [AQUATHERAPY] As directed 1 ea 0RF E11.43 - Type 2 diabetes mellitus with diabetic autonomic (poly)neuropathy, M47.817 - Spondylosis without myelopathy or radiculopathy, lumbosacral region [AQUATHERAPY] As directed 1 ea 0RF E11.43 - Type 2 diabetes mellitus with diabetic autonomic (poly)neuropathy, M47.817 - Spondylosis without myelopathy or radiculopathy, lumbosacral region Coding Level of Care Code Est Pt Level 4 (00099) Complex EM visit Add On G2211 Diagnoses Type 2 diabetes mellitus with hyperglycemia, with long-term current use of insulin E11.65; Z79.4 Diabetes mellitus snf insulin use: with snf use Diabetes mellitus type: type 2 Pure hypercholesterolemia E78.00 Benign essential hypertension I10 Peripheral autonomic neuropathy due to diabetes mellitus E11.43 Mild intermittent asthma without complication J45.20 Asthma complication type: uncomplicated Asthma persistence: intermittent Asthma severity: mild Cardiac arrhythmia, unspecified cardiac arrhythmia type I49.9 Arrhythmia type: unspecified cardiac arrhythmia Spondylosis of lumbosacral region without myelopathy or radiculopathy M47.817 Spinal osteoarthritis complication: without myelopathy or radiculopathy Constipation, unspecified constipation type K59.00 Constipation type: unspecified constipation type Vitamin D deficiency E55.9 Insomnia, unspecified type G47.00 Insomnia type: unspecified Anxiety F41.9 Morbid obesity with BMI of 40.0-44.9, adult E66.01; Z68.41
== END 2024-05-14 17:04 | disposition home or self-care (01) ==
PROVIDERS: PCP Internal Medicine; Visit Provider Internal Medicine
DX: E11.65 Type 2 diabetes mellitus with hyperglycemia (principal); Z79.4 Long term (current) use of insulin; E78.00 Pure hypercholesterolemia, unspecified; I10 Essential (primary) hypertension; E11.43 Type 2 diabetes mellitus with diabetic autonomic (poly)neuropathy; J45.20 Mild intermittent asthma, uncomplicated; I49.9 Cardiac arrhythmia, unspecified; M47.817 Spondylosis without myelopathy or radiculopathy, lumbosacral region; K59.00 Constipation, unspecified; E55.9 Vitamin D deficiency, unspecified; E66.01 Morbid (severe) obesity due to excess calories; Z68.41 Body mass index [BMI] 40.0-44.9, adult; G47.00 Insomnia, unspecified; F41.9 Anxiety disorder, unspecified
CPT/HCPCS: 99214; G2211

== ENCOUNTER → 2024-05-20 08:35 | Outpatient (REF) | payer OTHER, SELFPAY ==
--- NOTE | ~2024-05-20 | XR_ITS ---
EXAMINATION: XR LUMBOSACRAL SPINE CLINICAL INFORMATION: Low back pain unspecified COMPARISON: Lumbar spine 06/06/2022 TECHNIQUE: Three views of the lumbosacral spine. FINDINGS: The bones are mildly diffusely demineralized. There are 5 nonrib-bearing lumbar-type vertebral bodies. The height of vertebral bodies is well-maintained. Again noted is marked degenerative disc disease at L5-S1 with discogenic sclerosis. Degenerative facet joint disease is seen at L4-L5 and L5-S1. There is calcification of the abdominal aorta without evidence of aneurysmal dilatation. The sacral iliac joints are within normal limits. The previously mentioned sclerotic density overlying the right iliac bone is unchanged and likely reflects a bone island. There are several calcific densities projected left lateral to the L3 vertebral body which may be within the left kidney. XR/XR lumbar spine 2-3V IMPRESSION: 1. Marked degenerative disc disease at L5-S1. 2. Degenerative facet joint disease at L4-L5 and L5-S1. Electronically signed by: Hollie Salomon MD 06/10/2024 01:38 PM EDT
--- NOTE | 2024-05-20 08:42 | ECG_ITS ---
Test Reason : arrhythmia Blood Pressure : / mmHG Vent. Rate : 084 BPM Atrial Rate : 085 BPM P-R Int : 140 ms QRS Dur : 086 ms QT Int : 388 ms P-R-T Axes : 068 027 053 degrees QTc Int : 458 ms Sinus rhythm with occasional Premature ventricular complexes Abnormal ECG When compared with ECG of 04-JUN-2012 06:47, Premature ventricular complexes are now Present Referred By: Hemal Clifton Electronically Signed By:OSVALDO GUERRA
== END ==
LOC: HO.CARD 08:35
PROVIDERS: PCP Internal Medicine; Visit Provider Internal Medicine
DX: I49.9 Cardiac arrhythmia, unspecified (principal); M54.50 Low back pain, unspecified
CPT/HCPCS: 72100; 93005

== ENCOUNTER 2024-08-24 09:19 | Outpatient (AMB) | payer OTHER, SELFPAY ==
[2024-08-24 09:20] VITALS: BP 126/82; PULSE 82; O2SAT 98; BMI 45.3
--- NOTE | 2024-08-24 09:20 | MHC.PC.OV ---
Vital Signs 08/24/24 09:20 Height 5 ft 5 in Weight 272 lb 4 oz BMI 45.3 BP 126/82 Blood Pressure Location Lt brachial Position Sitting Pulse 82 Pulse Source Pulse Oximeter Pulse Oximetry (%) 98 Oxygen Delivery Method Room Air Intake Visit Reasons: DM Grade Teacher Required: No Accompanied by: Self / Same As Patient Allergies sulfamethoxazole [From BACTRIM] Allergy (Intermediate, Verified 08/24/24 10:07) ANXIETY trimethoprim [From BACTRIM] Allergy (Intermediate, Verified 08/24/24 10:07) ANXIETY aluminum hydroxide [From Magnagel] Allergy (Mild, Verified 08/24/24 10:07) high blood press magnesium [From Magnagel] Allergy (Mild, Verified 08/24/24 10:07) high blood press magnesium hydroxide [From Magnagel] Allergy (Mild, Verified 08/24/24 10:07) high blood press canagliflozin [Invokana] Allergy (Unknown, Verified 08/24/24 10:07) Itching lisinopril Allergy (Unknown, Verified 08/24/24 10:07) Abdominal Pain metformin Allergy (Unknown, Verified 08/24/24 10:07) Stomach Upset Sulfa (Sulfonamide Antibiotics) Allergy (Unknown, Verified 08/24/24 10:07) Agitated sulfadiazine Allergy (Unknown, Verified 08/24/24 10:07) Unknown Avocado Revitalizing Allergy (Unknown, Uncoded 08/24/24 10:07) Unknown oxycodone Allergy (Unknown, Uncoded 08/24/24 10:07) Hives percocet Allergy (Unknown, Uncoded 08/24/24 10:07) Hives tramadol Allergy (Unknown, Uncoded 08/24/24 10:07) Hives Medication List - Last Reconciled 08/24/24 by Hemal Clifton MD acetaminophen ER (Tylenol Arthritis Pain) 650 mg PO Q12H PRN 15 days albuterol sulfate 90 mcg/actuation (ProAir HFA) 2 puffs inhalation Q6H PRN 30 days amlodipine 2.5 mg PO DAILY 30 days [AQUATHERAPY As directed] atorvastatin 20 mg PO BEDTIME blood sugar diagnostic (FreeStyle Lite Strips) As directed 3 times a day cholecalciferol (vitamin D3) 50 mcg PO DAILY 90 days insulin glargine (Lantus Solostar U-100 Insulin) 70 units subcut BEDTIME insulin lispro (Humalog KwikPen (U-100) Insulin) subcut losartan-hydrochlorothiazide 100-25 mg 1 tab PO DAILY 90 days pen needle, diabetic (BD Ultra-Fine Leela Pen Needle) As directed once a day sennosides (Senna Lax) 17.2 mg (2 x 8.6 mg) PO BEDTIME PRN 30 days [transfer bench shower chair As directed] vitamin B complex (B Complex-Vitamin B12 tablet) 1 tab PO DAILY Tobacco use date assessed: 08/24/24 Last assessed Fall Risk: 08/24/24 Dental Screening Dental Screen Date: 08/24/24 [facility] Medical History Morbid obesity with BMI of 40.0-44.9, adult Lumbosacral spondylosis Peripheral autonomic neuropathy due to diabetes mellitus Anxiety Insomnia Asthma Diabetes mellitus with hyperglycemia Vitamin D deficiency Morbid obesity with BMI of 45.0-49.9, adult Pure hypercholesterolemia Benign essential hypertension Diabetes mellitus Surgical History History of colonoscopy (~01/01/11) Hx of LASIK H/O abdominal hysterectomy Social History Housing: Apartment Alcohol intake: never Patient Tobacco Use Status: Former Tobacco user e-Cigarette/Vaping Use: Never Used Second Hand Smoke Exposure: Yes service: No Current occupational status: retired and disabled Cognitive needs: No Hearing needs: No Vision needs: Yes (reading glasses) Questionnaire PHQ-9 Over the last 2 weeks, how often have you been bothered by any of the following problems? 1. Little interest or pleasure in doing things: not at all 2. Feeling down, depressed, or hopeless: not at all 3. Trouble falling or staying asleep, or sleeping too much: not at all 4. Feeling tired or having little energy: not at all 5. Poor appetite or overeating: not at all 6. Feeling bad about yourself - or that you are a failure or have let yourself or your family down: not at all 7. Trouble concentrating on things, such as reading the newspaper or watching television: not at all 8. Moving or speaking so slowly that other people could have noticed. Or the opposite - being so fidgety or restless that you have been moving around a lot more than usual: not at all 9. Thoughts that you would be better off or of hurting yourself in some way: not at all Total score: 0 Depression Screening Interpretation: Negative Depression Screening Done: Yes 20979 - PHQ-9 Billing: Yes Source: Developed by Drs. Giovanni Worthington, Scarlet Hernandez, Tanmay Eduardo and colleagues, with an educational sarah from [employer]. Thrive Questionnaire Date Thrive assessed: 08/24/24 I am a: Patient What is your living situation today?: I have a steady place to live Within the past 12 months, did the food you bought not last and you didn't have the money to get more?: Never true Within the past 12 months, did you worry whether your food would run out before you got money to buy more?: Never true Do you have trouble paying for medicines?: No Do you have trouble getting transportation to medical appointments?: No Do you have trouble paying your heating and electricity bill?: No Do you have trouble taking care of your child, family member or friend?: No Do you have trouble with day-to-day activities such as bathing, preparing meals, shopping, managing finances, etc.?: No Are you currently unemployed and looking for a job?: No Are you interested in more education?: No Please select the resources that you would like help with: None Currently or been in a relationship where the following occur: No concerns reported THRIVE Score: 0 AUDIT C Alcohol Use Questionnaire (AUDIT-C) 1. How often do you have a drink containing alcohol?: Never 3. How often do you have six or more drinks on one occasion?: Never Total Score: 0 Score Reviewed/Action Taken: Yes WESLEY-7 AMB Questionnaire WESLEY-7 Date WESLEY - 7 assessed: 08/24/24 Feeling nervous, anxious, or on edge: 0 = Not at all Not being able to stop or control worryin = Not at all Worrying too much about different things: 0 = Not at all Trouble relaxin = Not at all Being so restless that it is hard to sit still: 0 = Not at all Becoming easily annoyed or irritable: 0 = Not at all Feeling afraid as if something awful might happen: 0 = Not at all Total WESLEY-7 score (0-4 normal; 5-9 mild; 10-14 moderate; 15-21 severe): 0 Source: Developed by Drs. Giovanni Worthington, Scarlet Hernandez, Tanmay Eduardo and colleagues, with an educational sarah from [employer]. Physical exam (Primary Care) Vital Signs: Last Vital Signs Pulse 82 08/24/24 09:20 BP 126/82 08/24/24 09:20 Pulse Ox 98 08/24/24 09:20 Oxygen Delivery Method Room Air 08/24/24 09:20 BMI result Body Mass Index 45.3 Tobacco/Smoking Status: Tobacco use Status Tobacco use date assessed 08/24/24 08/24/24 09:27 Patient Tobacco Use Status Former Tobacco user 08/24/24 09:27 e-Cigarette/Vaping Use Never Used 08/24/24 09:27 PHQ-9: PHQ-9 Score PHQ-9: Total score 0 08/24/24 09:37 Depression Screening Interpretation: Negative Thrive Assessment: Date of Thrive Assessment Date Thrive assessed 08/24/24 08/24/24 09:27 Currently or been in a relationship where the following occur: No concerns reported Results AMB Hemoglobin A1c AMB Hemoglobin A1c 9.2 % Last Edit by BRYN Laguerre on 08/24/24 09:38 Results Reviewed Results Reviewed: Laboratory Last Values Hgb A1c (Clinic) 9.2 % (4.0-6.0) H 08/24/24 09:38 Coding Additional Codes PHQ-9 - 42334 - PHQ-9 Billing: Yes ([id number]) Assessment & Plan Assessment & Plan Orders: Orders Complete Blood Count Auto Diff 3 Months D64.9 - Anemia, unspecified Comprehensive [facility]. Panel Fast 3 Months E78.00 - Pure hypercholesterolemia, unspecified UA CC w/rflx Micro + Cult 3 Months R30.0 - Dysuria Microalbumin, Random (w Creat) 3 Months E11.9 - Type 2 diabetes mellitus without complications AMB Hemoglobin A1c Today Z13.9 - Encounter for screening, unspecified Lipid Panel 3 Months E78.00 - Pure hypercholesterolemia, unspecified TSH reflex Free T4 3 Months E78.00 - Pure hypercholesterolemia, unspecified Vitamin D 25-OH Total 3 Months E55.9 - Vitamin D deficiency, unspecified Vitamin B12 and Folate 3 Months E53.8 - Deficiency of other specified B group vitamins Hemoglobin A1c 3 Months E11.9 - Type 2 diabetes mellitus without complications Referrals Endocrinology Referral E11.65 - Type 2 diabetes mellitus with hyperglycemia, Z79.4 - USP (current) use of insulin Medications: Changed From atorvastatin 20 mg PO BEDTIME 90 tabs 0RF for cholesterol To atorvastatin 20 mg PO BEDTIME 90 days 90 tabs 3RF for cholesterol Refilled sennosides (Senna Lax) 17.2 mg (2 x 8.6 mg) PO BEDTIME 30 days PRN 60 tabs 3RF constipation
--- OUTSIDE RECORDS SUMMARY | 2024-08-24 09:24 | XMS_ITS | Data Portability ---
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 Exam: Pt non-toxic appearing, but febrile, and mildly tachycardic, regular rhythm, and tachypneic, breathing non-labored, stable BP and O2 sat, pt appears warm and well perfused, abdomen soft, nontender, +L CVAT, no JEFFREY. DDx considered, but not limited to: likely acute pyelonephritis , considered urosepsis, UTI, and nephrolithiasi s. Work up/Results: pt escalated to ED for further work up. Plan/Discussio n: Pt likely has acute pyelonephritis . Escalated to ED for further work up and management. Will likely need IV ABX and close monitoring of renal function. Pt understands and agrees with this plan. Pt refused to let us call her an ambulance and will arrive at [facility] ED by car. Report called in to [facility] ED. betty Not available 04/03/2020 13:09:24 Plan of Treatment Reminders Order Date Submit Date Provider Last Modified By Organization Details Last Modified Time Details Appointments None record ed. Lab None record ed. Referral None record ed. Procedures None record ed. Surgeries None record ed. Imaging None record ed. Medication Orders None record ed. Patient TargetsNo targets recorded. Patient InstructionsNo instructions recorded. Reason for Referral None Reported. Medical Equipment None Reported. Allergies Allergen ID Allergen Name Allergen Category Reaction Reaction Severity Criticality Documentation Date Start Date Code Code System Note Provider Name and Address Organization Details Recorded Time 071102 Bactrim medicatio n Not available Not available Not available 04/03/2020 40348 9 RxNorm NACHO CAMACHO [address], [place], [address], [place] [facility] 0 12:29:01 [id number] Substance with sulfonami de structure and antibacte rial mechanism of action (substanc e) medicatio n Not available Not available Not available 04/03/2020 36382 8003 SNOMED NACHO CAMACHO [address] [place], [address], [place] [facility] 0 12:29:08 076260 metformin medicatio n Not available Not available Not available 04/03/2020 6809 RxNorm NACHO CAMACHO [address], [place], [address], [place] [facility] 0 12:29:25 624359 Invokana medicatio n Not available Not available Not available 04/03/2020 44952 64 RxNorm NACHO CAMACHO [address], [place], [address], [place] [facility] 0 12:30:37 [id number] acetamino phen / oxycodone medicatio n Not available Not available Not available 04/03/2020 89458 3 RxNorm NACHO CAMACHO [address], [place], [address], [place] [facility] 0 12:30:46 [id number] oxycodone medicatio n Not available Not available Not available 04/03/2020 7804 RxNorm NACHO CAMACHO [address], [place], [address], [place] [facility] 0 12:30:55 Medications Name Sig Start Date Stop Date Status Note LastModified by Organization Details LastModified Time atorvastati n 20 mg tablet TAKE 1 TABLET BY MOUTH AT BEDTIME active Not Available Not Available No t Available azithromyci n 250 mg tablet TAKE 2 TABLETS BY MOUTH TODAY, THEN TAKE 1 TABLET DAILY FOR 4 DAYS 04/03 completed Not Available Not Available Not Available prednisone 20 mg tablet 04/03 completed Not Available Not Available Not Available phentermine 15 mg capsule TAKE ONE CAPSULE BY MOUTH EVERY MORNING BEFORE BREAKFAST 04/03 completed Not Available Not Available Not Available amlodipine 5 mg tablet TAKE 1 TABLET BY MOUTH EVERY DAY active Not Available Not Available No t Available ciprofloxac in 500 mg tablet TAKE 1 TABLET BY MOUTH EVERY 12 HOURS 04/03 completed Not Available Not Available Not Available aspirin 81 mg tablet,theodore yed release TAKE 1 TABLET BY MOUTH EVERY DAY active Not Available Not Available No t Available tramadol 50 mg tablet TAKE 1 TABLET AT BEDTIME 04/03 completed Not Available Not Available Not Available glimepiride 1 mg tablet TAKE 1 TABLET BY MOUTH EVERY DAY active Not Available Not Available No t Available losartan 100 mg-hydrochl orothiazide 25 mg tablet TAKE 1 TABLET BY MOUTH EVERY DAY active Not Available Not Available No t Available oseltamivir 75 mg capsule 04/03 completed Not Available Not Available Not Available albuterol sulfate HFA 90 mcg/actuati on aerosol inhaler INHALE 2 PUFFS BY MOUTH EVERY 6 HOURS NEEDED FOR 7 DAYS active Not Available Not Available No t Available topiramate 50 mg tablet TAKE 1 TABLET BY MOUTH EVERY DAY 04/03 completed Not Available Not Available Not Available Flovent HFA 110 mcg/actuati on aerosol inhaler active Not Available Not Available Not Available 8 Hour Pain Reliever 650 mg tablet,exte nded release TAKE 1 TABLET BY MOUTH EVERY 8 HOURS active Not Available Not Available No t Available acetaminoph en active Not Available Not Available Not Available Claritin active Not Available Not Avai lable Not Available glimepiride 04/03 completed Not Available Not Available Not Available Januvia 100 mg tablet TAKE 1 TABLET BY MOUTH EVERY DAY active Not Available Not Available No t Available diclofenac 1 % topical gel active Not Available Not Available Not Available melatonin 10 mg capsule 1 CAP(S) ONCE A DAY (AT BEDTIME) active Not Available Not Available No t Available Vitamin B12 active Not Available Not A vailable Not Available Vitals Date Recorded Respiratory rate Oxygen saturation Oxygen saturation in Arterial blood by Pulse oximetry Heart rate Body temperature Systolic blood pressure Diastolic blood pressure Provider Name and Address Organization Details Last Updated DateTime 0 22 /min 95 % 95 % 102 /min 102.1 [degF] 132 mm[Hg] 86 mm[Hg] Not Available [facility] 0 12:34:21 Social History Question Answer Notes LastModified by Organizat ion Details LastModified Time Tobacco Smoking Status Former Smoker NACHO CAMACHO [address], [place], [address], [place] [facility] 04/03/2020 12:38:06 What Is Your Code Status? Full Code D-Sight Information not available 04/03/2020 Excessive Alcohol Or Drug Use No D-Sight Information not available 04/03/2020 How Much Tobacco Do You Smoke? 1 PPW D-Sight Information not available 04/03/2020 How Many Years Have You Smoked Tobacco? 5 D-Sight Information not available 04/03/2020 Sex: Unknown Functional Status None recorded. Mental Status None recorded. Family History Relationship Description Onset Age of this Age Resolved Age Notes LastModified by Organization Details LastModified Time Sister Coronary arterioscler osis betty Not available 2019 12:39:32 Medical History Condition Response Diabetes Y Coronary Artery Disease N High Cholesterol Y Cancer Y Pulmonary Embolism N Stroke N Hypertension Y Asthma Y COPD N Depression N Kidney Disease N Gynecological HistoryNo gynecological history recorded. Obstetrics History GPAL:G 0 P 0 0 0 0 Past Encounters Encounter ID Performer Location Encounter Start Date Encounter Closed Date Diagnosis/Indication Diagnosis SNOMED-CT Code Diagnosis ICD10 Code [id number] [facility] [address] [place] [address] 04/03/2020 12:27:19 04/04/2020 15:23:02 Acute pyelonephritis 35439608 N10 Sepsis 26540330 A41.9 Health Concerns Section Related Observation LastModified by Organization Detai ls LastModified Time None Recorded Concern Status LastModified by Organization Details LastModified Time None Recorded Advance Directives Directive None Recorded Payers Encounter Date Sequence Insurance Name Policy Number Policy Izquierdo Covered Member ID Izquierdo Member ID Guarantor Name 04/03/2020 1 [facility] PRIOR TO 2022 - DUAL ELIGIBLE (MEDICARE REPLACEMENT/AD VANTAGE - HMO) Wendy Mckeon [id number] Wendy Mckeon 04/03/2020 2 [place]: [facility] Wendy Mckeon [id number] Wendy Mckeon Notes Date Note Type Note Provider Name and Address Organization Details Recorded Time 04/03/2020 text/html 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 She states around 1A M she woke up with severe back pain 10/10 in the center and 5/10 at the bilateral flanks as well as with chills. She did not take any medications for this. She also admits to orthostatic symptoms. She states that she begin ciprofloxacin 500 mg daily 1 week ago and did not have any urine testing. However she did not take her antibiotic as prescribed this was supposed to be q.12 hours. She states that she started to feel a little better but now feels worse. She admits to dry mouth and fever. She has been afraid to eat for fear of her symptoms worsening. She denies nausea, vomiting, burning with urination or malodorous urine. No chest pain or shortness of breath. She has some mild chronic swelling in her legs since surgery. No rash, cough, or sore throat. She denies any recent injuries. NACHO CAMACHO [address] [place], [address], [place] [facility] 04/03/2020 13:14:56 OBGyn Episode No OBEpisode recorded.
--- OUTSIDE RECORDS SUMMARY | 2024-08-24 09:24 | XMS_ITS | Patient Health Record ---
Author Organization [facility] Address [address], [place] [id number] Support Name Relationship Address Phone Wendy Mckeon Guarantor Unknown [phone] Reason For Referral No Information Plan Of Treatment No Information Insurance Providers Payer Name Payer Address Payer Phone Subscriber Number Group Number Insured Name Patient Relationship to Insured Coverage Start Date Coverage End Date [facility] [address] [place] [address] [id number] Wendy Matthews Self - patient is the insured [place] [address] [place] [address] [id number] Wendy Matthews Self - patient is the insured
--- OUTSIDE RECORDS SUMMARY | 2024-08-24 09:25 | XMS_ITS ---
[facility] Address [address] [place] [address] Care Team Providers Care Property Adjuster Name Role Phone Etienne CUEVAS [place] Primary Care Provider UnaAngel Keita Unavailable [phone] Allergies Allergen (clinical drug ingredient) Drug/Non Drug Allergy documented on EMR Reaction Allergy Type Onset Date Status sulfamethoxazole / trimethoprim Bactrim Unknown Drug Allergy Active lisinopril Lisinopril abdominal pain Drug Allergy Active metformin metFORMIN HCl stomach upset Drug Allergy Active oxycodone oxyCODONE HCl hives Drug Allergy Act lita acetaminophen / oxycodone Percocet hives Drug Allergy Active tramadol traMADol HCl hives Drug Allergy Acti ve trimethoprim Trimethoprim anxiety Drug Allergy A ctive Canagliflozin itching Drug Allergy Act lita morphine Morphine Headache and vomiting Drug Allergy Active Substance with sulfonamide structure and antibacterial mechanism of action (substance) Sulfa Antibiotics Makes me itch Drug Allergy Active REASON FOR VISIT pcp: 10/03/23, Ingrown nail(s) Medications Medication SIG (Take, Route, Frequency, Duration) Notes Start Date End Date Status Sertraline HCl 50 MG 1 tablet Orally Onc e a day Not-Taking Meloxicam 15 MG 1 tablet Orally Once a day Not-Taking Albuterol Sulfate 108 (90 Base) MCG/ACT 1 puff as needed Inhalation every 4 hrs Not-Takin g Tylenol Arthritis Pain 650 mg Not-Taking traMADol HCl 50 MG 1 tablet as needed Orally Once a day Not-Taking amLODIPine Besylate 5 MG 1 tablet Orally Once a day Active Vitamin B Complex No t-Taking Atorvastatin Calcium 20 MG 1 tablet Orally Once a day Active Aspirin 81 MG 1 tablet Orally Once a day Active Vitamin D3 50 MCG (1999 UT) 1 capsule Orally Once a day Active Trulicity 3 MG/0.5ML as directed Subcutaneous Active Lantus SoloStar 100 UNIT/ML as directed Subcutaneous Active Glimepiride 1 MG 1 tablet with breakf ast or the first main meal of the day Orally Once a day Active Gabapentin 100 MG 1 capsule Orally Onc e a day Active Losartan Potassium 100 MG 1 tablet Orally Once a day Active Custom Orthotics as directed A ctive Social History Tobacco Use: Social History Observation Description Date Details (start date - stop date) Former Smoker NA - NA Tobacco Use/Smoking Question Answer Notes Are you a: former smoker Additional Findings: Tobacco Non-User Current no n-smoker Tobacco use other than smoking: Question Answer Notes Are you an other tobacco user? Yes P atient uses a vape. Not sure if it is a nicotine vape or some other form. Vital Signs Height 5ft 5in in 10/09/2023 Weight 272 lbs 10/09/2023 BMI 45.26 kg/m2 10/09/2023 Encounters Encounter Location Date Provider Diagnosis [facility] [address] [place] [address] 10/09/2023 Angel Ramsey Type 1 diabetes mellitus with diabetic polyneuropathy E10.42 ; Plantar fascial fibromatosis M72.2 ; Pain in left foot M79.672 ; Pain in right foot M79.671 and Ingrowing nail L60.0 Assessments Encounter Date Diagnosis (ICD Code) Assessment Notes Treatment Notes Treatment Clinical Notes Section Notes 10/09/2023 Type 1 diabetes mellitus with diabetic polyneuropathy (ICD-10 - E10.42) 10/09/2023 Plantar fascial fibromatosis (ICD-10 - M72.2) Patient Educated with: HEEL CORD STRETCHES.pdf (HEEL CORD STRETCHES.pdf ) Patient Educated with: RICE THERAPY.pdf (RICE THERAPY.pdf) 10/09/2023 Pain in left foot (ICD-10 - M79.672) 10/09/2023 Pain in right foot (ICD-10 - M79.671) 10/09/2023 Ingrowing nail (ICD-10 - L60.0) Plan Of Treatment Medication Medication Name Sig Start Date Stop Date Notes Custom Orthotics as directed Treatment Notes Assessment Notes Plantar fascial fibromatosis Patient Edu cated with: HEEL CORD STRETCHES.pdf (HEEL CORD STRETCHES.pdf) Patient Educated with: RICE THERAPY.pdf (RICE THERAPY.pdf) Next Appt Details Follow Up: 4 Weeks, Reason: Procedure Notes * Category Sub-Category Detail Notes Nail Avulsion Procedure A fine sterile e levator was used to loosen the eponychium, nail bed, nail plate and groove. A sterile nail splitter was then used to longitudinally section the nail. This section was removed. No underlying bone was identified. Procedure was performed under. Bacitracin and sterile dressings applied, local wound care instructions were dispensed. Patient was informed of both conservative and future surgical procedures to prevent recurrence Anesthesia was deferred - NEURO MARIA G: patient has medically documented neuropathic condition affecting sensation Location Lateral nail border, T5 Progress Notes * Wendy MCKEON LDOB:[birth year] (68 yo F)Acc No.[id number]:10/09/2023 Progress Note Patient:?PriyaWendy power L Provider:?Angel Ramsey DPM :1955???Age:68 Y???Sex:Female D ate:10/09/2023 Address:[address] [place], [place] [id number] Pcp:Hemal Clifton MD Subjective: * Chief Complaints: * ???Pcp: 10/03/23Ingrown nail (s) * HPI: ???At Risk footcare:?Pt States Last PCP Visit:?Date?06/10/2023 ???Foot Pain:?Nature:?aching, numbness and firm lumps.?Location?Bottom, Midfoot, B/L.?Duration:?several months.?Onset/Cause:?unknown.?Course:?worse.?Aggrevated:?any pressure, standing, walking.?Treatments:?none.?Quality/Severity?moderate.? * ROS:?General/Constitutional:?Nausea?denies.?Vomiting?denies.?Hunger Thirst?denies.?Loss appetite?denies.?Chills?denies.?Fatigue?denies.?Fever?denies.?Night Sweats?denies.?Unexplained weight loss?denies.?Unexplained weight gain?denies.?HEENTM:?Dentures?denies.?Dizziness?denies.?Glasses/contacts?admits.?Retinopathy?de nies.?Blurred/double vision?denies.?TMJ?denies.?Discharge/drainage?denies.?Implants?denies.?Sore throat?denies.?Dental implants?denies.?Hard of hearing ?denies.?Difficulty chewing/swallowing/speaking?denies.?Nose bleeds?denies.?Sore mouth?denies.?Respiratory:?On Oxygen?denies.?Pneumonia/pleurisy?denies.?Bronchitis?denies.?Emphysema?denies.?C oughing?denies.?Cough blood?denies.?Shortness of breath?denies.?Wheezing?denies.?Cardiovascular:?Pacemaker?denies.?MVP?denies.?WPW?denies.?CHF?denies.?Heart attack?denies.?Septal defect?denies.?Rapid beat?denies.?Chest pain ?denies.?Atrial Fib.?denies.?Murmur/Palpitations?denies.?Gastrointestinal:?Hemorrhoids?denies.?Stomach/Abdominal pain?denies.?Dark blood stool?denies.?Irritable bowel ?denies.?Constipation?denies.?Diarrhea?denies.?Hematology:?Swelling?denies.?Clots?denies.?Varicose Veins?denies.?Bruising?denies.?Bleeding problem?denies.?Genitourinary:?Blood urine?denies.?Frequent/Painfu/urination/bladder control?denies.?Kidney stones?denies.?Infection (UTI)?denies.?Nephropathy?denies.?sex trans dis (STD)?denies.?Prostate?denies.?Musculoskeletal:?Hammertoes?denies.?Bunions?denies.?Back Pain?admits.?Muscle Cramps/ Resting?denies.?Muscle cramps / walking?denies.?Generalized aches and pains?denies.?Weakness?denies.?Integ.:?García?denies.?Scars?denies.?Corns/calluses?denies.?Ingrown nails?admits.?Painful nails?denies.?Open Sores?denies.?Rashes?denies.?Neurologic:?Difficulty sleeping?denies.?Brain disorder?denies.?Numbness?admits.?Balance trouble?denies.?Confusion?denies.?Fainting/blackouts?denies.?Tingling?denies.?Tr emors?denies.? * Medical History:? * Surgical History:?colonoscop y lasik hysterectomy, abdominal Tubes Tied 1981Hysterectomy (Cancer) 2012Gastric Sleeve 2014 * Hospitalization/Major Diagno stic Procedure:?No Hospitalization History. * Family History:?Mother: dece ased, diagnosed with Diabetic - NIDDM, Other malignant neoplasm of unspecified site.?Father: , Foot Problems, poor circulation, diagnosed with Unspecified heart disease, Other malignant neoplasm of unspecified site, Diabetic - NIDDM, Unspecified essential hypertension.? * Social History:?Tobacco Use:?Tobacco Use/Smoking?Are you a:?former smoker ?Additional Findings: Tobacco Non-User?Current non-smoker ?Tobacco use other than smoking?Are you an other tobacco user??Yes Patient uses a vape. Not sure if it is a nicotine vape or some other form. * Medications:?TakingLosartan Potassium 100 MG Tablet 1 tablet Orally Once a dayTrulicity 3 MG/0.5ML Solution Pen-injector as directed Subcutaneous Lantus SoloStar 100 UNIT/ML Solution Pen-injector as directed Subcutaneous Glimepiride 1 MG Tablet 1 tablet with breakfast or the first main meal of the day Orally Once a dayGabapentin 100 MG Capsule 1 capsule Orally Once a dayVitamin D3 50 MCG (2000 UT) Capsule 1 capsule Orally Once a dayAtorvastatin Calcium 20 MG Tablet 1 tablet Orally Once a dayAspirin 81 MG Tablet Chewable 1 tablet Orally Once a dayamLODIPine Besylate 5 MG Tablet 1 tablet Orally Once a dayCustom Orthotics as directed Taking Losartan Potassium 100 MG Tablet 1 tablet Orally Once a dayTaking Trulicity 3 MG/0.5ML Solution Pen-injector as directed Subcutaneous Taking Lantus SoloStar 100 UNIT/ML Solution Pen-injector as directed Subcutaneous Taking Glimepiride 1 MG Tablet 1 tablet with breakfast or the first main meal of the day Orally Once a dayTaking Gabapentin 100 MG Capsule 1 capsule Orally Once a dayTaking Vitamin D3 50 MCG (2000 UT) Capsule 1 capsule Orally Once a dayTaking Atorvastatin Calcium 20 MG Tablet 1 tablet Orally Once a dayTaking Aspirin 81 MG Tablet Chewable 1 tablet Orally Once a dayTaking amLODIPine Besylate 5 MG Tablet 1 tablet Orally Once a dayTaking Custom Orthotics as directed Not-Taking/PRNVitamin B Complex traMADol HCl 50 MG Tablet 1 tablet as needed Orally Once a daySertraline HCl 50 MG Tablet 1 tablet Orally Once a dayMeloxicam 15 MG Tablet 1 tablet Orally Once a dayAlbuterol Sulfate 108 (90 Base) MCG/ACT Aerosol Powder Breath Activated 1 puff as needed Inhalation every 4 hrsTylenol Arthritis Pain , Notes: 650 mgMedication List reviewed and reconciled with the patientNot-Taking/PRN Vitamin B Complex Not-Taking/PRN traMADol HCl 50 MG Tablet 1 tablet as needed Orally Once a dayNot-Taking/PRN Sertraline HCl 50 MG Tablet 1 tablet Orally Once a dayNot-Taking/PRN Meloxicam 15 MG Tablet 1 tablet Orally Once a dayNot-Taking/PRN Albuterol Sulfate 108 (90 Base) MCG/ACT Aerosol Powder Breath Activated 1 puff as needed Inhalation every 4 hrsNot-Taking/PRN Tylenol Arthritis Pain , Notes: 650 mgMedication List reviewed and reconciled with the patient * Allergies:?Trimethoprim: anx ietyCanagliflozin: itchingLisinopril: abdominal painmetFORMIN HCl: stomach upsetoxyCODONE HCl: hivesPercocet: hivestraMADol HCl: hivesSulfa Antibiotics: Makes me itchMorphine: Headache and vomitingBactrimyes[Allergies Verified] Objective: * Vitals:?Ht: 5ft 5in, Wt:272, BMI:45.26, Shoe size: 11, BS: 220, Ht-cm: 165.1 cm, Wt-k.38 kg. * ???Past Orders: ???Lab:HEMOGLOBIN A1C (GLYCO HEMOGLOBIN) (Order Date - 10/09/2023) (Collection Date - 10/03/2023) ? Value Reference Range ?HEMOGLOBIN A1C (HH) 11 * Examination: ???Ophthalmology Referral: ?DIABETES EYE EXAM?Neurological: ?SENSORY:?Neurological exam demonstrates, reduced vibration sensation, B/L, at Forefoot, at Midfoot, Neurological exam demonstrates pop of fibroma's wero plantar fascia.?TINEL'S COMPRESSION:?Negative tarsal tunnel, gui pedis, and medial calcaneal nerves B/L.?BABINSKI REFLEX:?absent.?Vascular: ?DP PULSES:? 09/11, B/L.?PT PULSES:? 09/11, B/L.?CAPILLARY FILL TIME:?3 secs. per digit, B/L.?SKIN TEMPERTURE GRADIENT OF THE LOWER EXTERMITIES:?warm to cool, proximal to distal, B/L.?HAIR GROWTH/TEXTURE/ELASTICITY/TURGOR:?normal, B/L.?PIGMENTATION:?normal, B/L.?EDEMA:?no edema.?TELANGECTASIA:?absent.?VARICOSITIES:?absent.?Nails: ?NAILS are:? Elongated, overgrown, dystrophic, 1-5 B/L.?Dermatologic: ?SKIN FINDINGS:?Skin exam reveals Keratotic lesion(s) located at, Medial plantar, IPJ, TA, T5, Heel(s), B/L.?General Examination: ?GENERAL APPEARANCE:?pleasant, alert, well nourished, well developed, well hydrated, with good attention to hygene/body habitus, and in no acute distress.?ORIENTED:?person,place, and time.?Neuroma Pain: ?PALPATION:?No interspace pain noted on palpation.?Orthopedic: ?MUSCLE STRENGTH:?5/5 all groups in a symmetrical fashion , B/L.?GAIT ABNORMALITY:?pronated, abducted, B/L.?FOOT MORPHOLOGY:? Pes Planus structure, B/L.?Ingrown Nail: ?INSPECTION:? Reveals nail incurvation, dull pain on palpation due to neuropathy, groove hypertrophy, Bilateral nail borders, TA, T5.? Assessment: * Assessment: 1.?Plantar fascial fibromato sis - M72.2?2.?Type 1 diabetes mellitus with diabetic polyneuropathy - E10.42 (Primary)?3.?Pain in left foot - M79.672?4.?Pain in right foot - M79.671?5.?Ingrowing nail - L60.0? Plan: * Treatment: * Procedures:?Nail Avulsion:?Location?Lateral nail border, T5.?Anesthesia?was deferred - NEUROPATHY: patient has medically documented neuropathic condition affecting sensation.?Procedure?A fine sterile elevator was used to loosen the eponychium, nail bed, nail plate and groove. A sterile nail splitter was then used to longitudinally section the nail. This section was removed. No underlying bone was identified. Procedure was performed under. Bacitracin and sterile dressings applied, local wound care instructions were dispensed. Patient was informed of both conservative and future surgical procedures to prevent recurrence.? * Procedure Codes:?59291 Avuls ion Plate, Modifiers: T5 * Preventive Medicine:? ??Counseling:?Discussion:?-14: Office or other outpatient visit for the evaluation and management of an established patient, which required a medically appropriate history and/or examination and MODERATE level of DECISION MAKING for: 1 OR MORE CHRONIC PROBLEM(S) THATS WORSENING, 2 STABLE CHRONIC PROBLEMS, A NEWLY DIAGNOSED PROBLEM WITH UNCERTAIN PROGNOSIS, AN ACUTE COMPLICATED INJURY WITH MULTIPLE TREATMENT OPTIONS, OR AN ACUTE PROBLEM WITH ACCOMPANYING SYSTEMIC SYMPTOMS, THAT POSE(S) A MODERATE RISK OF MORBIDITY. THIS CONDITION MAY ALSO INCLUDE RX DRUG MANAGEMENT, OR A DECISON FOR MINOR SURGERY. The visit on the day of the encounter encompassed interpreting the data and educating the patient as to the nature of their condition, treatment options available according to their individual PMH, meds, allergies, and overall health/living conditions, as well as any potential risks or complications that may occur from a failure to adhere to, and participate in, the recommended course of therapy. The discussion included a complete verbal, and/or written explanation of the examination results, any x-rays taken, the proposed diagnosis, and outline of the treatment plan. A schedule for future care needs was also explained. The patient verbalized an understanding of the instructions at this time and agreed to be an active participant in their treatment. If the patient should think of any questions or concerns after the visit, I have encouraged the patient to call the office.?Orthotic Dispensing:?The patient presents today for fitting and dispensing of orthotics. The inserts were checked against the prescription and found to be accurate. They were properly fitted to the patient's feet in both weight-bearing and non-weight bearing attitudes. The patient was instructed to gradually increase the amount of time they are wearing the orthoses, starting with one hour the first day and thereon progressively increasing the amount of time used until they are comfortable to be worn all day and with all activities. They were asked to call the office if any signs of skin irritation were noted including redness, blistering or callous formation. The patient verbally indicated a full understanding of all the above information, Handout reviewed and dispensed, The patient signed confirmation form indicating receipt of DME device.? * Follow Up:?4 Weeks * Images: * Sign off status: Completed true * Provider:?Angel Ramsey DPM Date:? 024 Generated for Samreen marquez/Sadaf/eTransmitting on:?08/24/2024 09:25 AM EST History and Physical Notes * HPI (History of Present Illness) Category Sub-Category Detail Notes Category Not es At Risk footcare Pt States Last PCP Visit: Date: 3 Foot Pain Aggrevated: any pressure, st anding, walking Onset/Cause: unknown Course: worse Duration: several months Nature: aching, numbness and firm lumps Treatments: none Quality/Severity moderate Location Bottom, Midfoot, B/L Examination Category Sub-Category Detail Notes Category Not es Ingrown Nail INSPECTION: Reveals nail inc urvation, dull pain on palpation due to neuropathy, groove hypertrophy, Bilateral nail borders, TA, T5 Neuroma Pain PALPATION: No interspace pain noted on palpation Neurological SENSORY: Neurological exa m demonstrates, reduced vibration sensation, B/L, at Forefoot, at Midfoot, Neurological exam demonstrates pop of fibroma's wero plantar fascia BABINSKI REFLEX: absent TINEL'S COMPRESSION: Negative tarsal felipa sulaiman, gui pedis, and medial calcaneal nerves B/L Dermatologic SKIN FINDINGS: Skin exam reveal s Keratotic lesion(s) located at, Medial plantar, IPJ, TA, T5, Heel(s), B/L Orthopedic GAIT ABNORMALITY: pronated, abducted, B/L FOOT MORPHOLOGY: Pes Planus structure , B/L MUSCLE STRENGTH: 5/5 all groups in a symmetrical fashion , B/L General Examination GENERAL APPEARANCE: pleasant , alert, well nourished, well developed, well hydrated, with good attention to hygene/body habitus, and in no acute distress ORIENTED: person,place, and ti me Ophthalmology Referral DIABETES EYE EXAM Diabetic Retinopa thy Screening:: Yes Findings of Diabetic Eye Exam:: no retin opathy Vascular DP PULSES(B): 1/4, B/L PT PULSES(B): 1/4, B/L CAPILLARY FILL TIME: 3 secs. per digit, B/L TEMPERTURE GRADIENT(C): warm to cool, pr oximal to distal, B/L TROPHIC CONDITION-TEXTURE/ELASTICITY/TURGOR/HAIR GROWTH(B): normal, B/L EDEMA(C): no edema TELANGECTASIA: absent VARICOSITIES: absent PIGMENTATION: normal, B/L Nails NAILS are: Elongated, overgrown, dystro phic, 1-5 B/L
--- OUTSIDE RECORDS SUMMARY | 2024-08-24 09:25 | XMS_ITS | Patient Health Record ---
Author Organization [facility] Address [address] [place] [address] Support Name Relationship Address Phone ADELINA Jensen Guarantor Unknown Allergies Allergen (clinical drug ingredient) Drug/Non Drug Allergy documented on EMR Reaction Allergy Type Onset Date Status sulfamethoxazole / trimethoprim Bactrim Unknown Drug Allergy Active metformin Metformin HCl stomach upset Drug Allergy Active oxycodone Oxycodone HCl stomach upset Drug Allergy Active Sulfacet-R Unknown Drug Allergy Active canagliflozin Invokana stomach upset Drug Allergy Active Reason For Referral No Information Medications Medication SIG (Take, Route, Frequency, Duration) [...] 1 tablet Orally Once a day Active Social History Tobacco Use: Social History Observation Description Date Details (start date - stop date) Never Smoker NA - NA Tobacco Use/Smoking Question Answer Notes Are you a nonsmoker Problems Problem Type SNOMED Code ICD Code Onset Dates Problem Status W/U Status Risk Notes Problem 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) Type 2 diabetes mellitus with unspecified complications (E11.8) Active confirmed Problem Morbid obesity (disorder) (069802852) Morbid (severe) obesity due to excess calories (E66.01) Active confirmed Problem Mixed hyperlipidemia (125025111) Mixed hyperlipidemia (E78.2) Active confirmed Problem Essential hypertension (36701699) Essential (primary) hypertension (I10) Active confirmed Plan Of Treatment Future Test Test Name Order Date TSH 03/20/2020 Vitamin D, 25-Hydroxy 03/20/2020 CBC 03/20/2020 COMPREHENSIVE METABOLIC PANEL 03/20/2020 PHOSPHORUS 03/20/2020 MAGNESIUM 03/20/2020 Insurance Providers Payer Name Payer Address Payer Phone Subscriber Number Group Number Insured Name Patient Relationship to Insured Coverage Start Date Coverage End Date [facility] [address] [address] [place] [address] [phone] [id number] ADELINA Aguayo Self - patient is the insured Medical (General) History Medical History History ICD Code kidney stones Surgical History Surgery Date(Month/Year) gastric sleeve Uterus removed because of cancer
--- OUTSIDE RECORDS SUMMARY | 2024-08-24 09:25 | XMS_ITS ---
Author Organization [facility] Address [address] [place] [address] Care Team Providers Care Sap Basis Administrator Name Role Phone Francis Clifton MDneth Primary Care Provider Unava Angel Moran [facility] [phone] REASON FOR VISIT Custom Orthotics Encounters Encounter Location Date Provider Diagnosis [facility] [address] [place] [address] 09/15/2023 Angel Ramsey Plan Of Treatment No Information Progress Notes * Wendy MCKEON LDOB:[birth year] (68 yo F)Acc No.[id number]:09/15/2023 Patient:?Wendy Mckeon :1955???Age:68 Y???Sex:Female Address:[address] [place], [address] * true * Date:? Generated for Printi ng/Fakimg/eTransmitting on:?08/24/2024 09:25 AM EST
--- OUTSIDE RECORDS SUMMARY | 2024-08-24 09:25 | XMS_ITS ---
Author Organization [facility] Address [address] [facility] [place] [address] Care Team Providers Care Wound Care Rn Name Role Phone Etienne CUEVAS [place] Primary Care Provider UnaAngel Keita Unavailable [phone] Allergies Allergen (clinical drug ingredient) Drug/Non Drug [...] itch Drug Allergy Active REASON FOR VISIT PCP -2022, At Risk Footcare, Foot pain Medications Medication SIG (Take, Route, Frequency, Duration) Notes Start Date End Date Status Vitamin D3 50 MCG (1999) 1 capsule Orally Once a day Active Atorvastatin Calcium 20 MG 1 tablet Orally Once a day Active Aspirin 81 MG 1 tablet Orally Once a day Active amLODIPine Besylate 5 MG 1 tablet Orally Once a day Active Vitamin B Complex No t-Taking Trulicity 0.75 MG/0.5ML as directed Subcutaneous Active Lantus SoloStar 100 UNIT/ML as directed Subcutaneous Active Glimepiride 1 MG 1 tablet with breakf ast or the first main meal of the day Orally Once a day Active Gabapentin 100 MG 1 capsule Orally Onc e a day Active Losartan Potassium 100 MG 1 tablet Orally Once a day Active Sertraline HCl 50 MG 1 tablet Orally Onc e a day Not-Taking Meloxicam 15 MG 1 tablet Orally Once a day Not-Taking Albuterol Sulfate 108 (90 Base) MCG/ACT 1 puff as needed Inhalation every 4 hrs Not-Takin g Tylenol Arthritis Pain 650 mg Not-Taking Custom Orthotics as directed 08/28/2023 Active traMADol HCl 50 MG 1 tablet as needed Orally Once a day Not-Taking Social History Tobacco Use: Social History Observation Description Date Details (start date - stop date) Former Smoker NA - NA Tobacco Use/Smoking Question Answer Notes Are you a: former smoker Additional Findings: Tobacco Non-User Current no n-smoker Alcohol Screen Question Answer Notes Did you have a drink containing alcohol in the p ast year? No Points 0 Interpretation Negative Tobacco use other than smoking: Question Answer Notes Are you an other tobacco user? Yes P atient uses a vape. Not sure if it is a nicotine vape or some other form. Problems Problem Type SNOMED Code ICD Code Onset Dates Problem Status W/U Status Risk Notes Problem Polyneuropathy due to diabetes mellitus type I (048492859) Type 1 diabetes mellitus with diabetic polyneuropathy (E10.42) Active confirmed Vital Signs Height 5 ft 5 in in 08/28/2023 Weight 270 lbs 08/28/2023 BMI 44.93 kg/m2 08/28/2023 Procedures Procedure Date Ordered Date Performed Result Body Sit e 85901-NDCL SKIN LESIONS, 2 TO 4 08/28/2023 N/A [id number] DYSTROPHIC NAILS ANY # 08/28/2023 N/A Encounters Encounter Location Date Provider Diagnosis [facility] [address] [place] [address] 08/28/2023 Angel Ramsey Type 1 diabetes mellitus with diabetic polyneuropathy E10.42 ; Plantar fascial fibromatosis M72.2 ; Pain in left foot M79.672 ; Pain in right foot M79.671 and Ingrowing nail L60.0 Assessments Encounter Date Diagnosis (ICD Code) Assessment Notes Treatment Notes Treatment Clinical Notes Section Notes 08/28/2023 Type 1 diabetes mellitus with diabetic polyneuropathy (ICD-10 - E10.42) 08/28/2023 Plantar fascial fibromatosis (ICD-10 - M72.2) Patient Educated with: HEEL CORD STRETCHES.pdf (HEEL CORD STRETCHES.pdf ) Patient Educated with: RICE THERAPY.pdf (RICE THERAPY.pdf) 08/28/2023 Pain in left foot (ICD-10 - M79.672) 08/28/2023 Pain in right foot (ICD-10 - M79.671) 08/28/2023 Ingrowing nail (ICD-10 - L60.0) Plan Of Treatment Medication Medication Name Sig Start Date Stop Date Notes Custom Orthotics as directed 08/28/2023 Treatment Notes Assessment Notes Plantar fascial fibromatosis Patient Edu cated with: HEEL CORD STRETCHES.pdf (HEEL CORD STRETCHES.pdf) Patient Educated with: RICE THERAPY.pdf (RICE THERAPY.pdf) Pending Test Test Name Order Date X ray : Foot, left 3V 08/28/2023 X ray : Foot, right 3V 08/28/2023 70540-FFJA SKIN LESIONS, 2 TO 4 08/28/20 23 [id number] DYSTROPHIC NAILS ANY # Next Appt Details Follow Up: 4 Weeks, Reason: Procedure Notes * Category Sub-Category Detail Notes Keratoma Treatment Parring or Cutting o f Benign Hyperkeratotic Lesion(s) 82830 ( 2-4 Lesions ) - The Benign hyperkeratotic lesions, as described above were pared, and/or cut utilizing a sterile 15 blade, tissue nippers, and/or dremel Nail Reduction Nail Reduction Trimming of dyst rophic nails performed to reduce/remove overall nail length and girth, by manual and electrical means with use of a nail nipper and/or dremel, to more viable healthy nail plate or bed tissue 6-10 (G0127) Progress Notes * Wendy MCKEON LDOB:[birth year] (68 yo F)Acc No.[id number]:08/28/2023 Progress Notes Patient:?Wendy Mcekon Provider:?Angel Ramsey DPM :1955???Age:68 Y???Sex:Female D ate:08/28/2023 Address:[address] [place] [address], [place], [place] Pcp:Hemal Clifton MD Subjective: * Chief Complaints: * ???PCP -t Risk Foot careFoot pain * HPI: ???At Risk footcare:?Pt States Last PCP Visit:?Date?06/10/2023 ???Foot Pain:?Nature:?aching, numbness and firm lumps.?Location?Bottom, Midfoot, B/L.?Duration:?several months.?Onset/Cause:?unknown.?Course:?worse.?Aggrevated:?any pressure, standing, walking.?Treatments:?none.?Quality/Severity?moderate.? * ROS:?General/Constitutional:?Nausea?denies, denies.?Vomiting?denies, denies.?Hunger Thirst?denies, denies.?Loss appetite?denies, denies.?Chills?denies, denies.?Fatigue?denies, denies.?Fever?denies, denies.?Night Sweats denies, denies.?Unexplained weight loss?denies, denies.?Unexplained weight gain?denies.?Ophthalmologic:?Blurred vision?denies.?Red eye?denies.?HEENTM:?Dentures?admits, denies.?Dizziness?denies, denies.?Glasses/contacts?admits, denies.?Retinopathy?denies, denies.?Blurred/double vision?denies, denies.?TMJ?denies, denies.?Discharge/drainage?denies, denies.?Implants?denies, denies.?Sore throat?denies.?Dental implants?denies.?Hard of hearing ?denies, denies.?Difficulty chewing/swallowing/speaking?denies, denies.?Nose bleeds?denies, denies.?Sore mouth?denies, denies.?Swollen glands?denies.?Respiratory:?On Oxygen?denies, denies.?Pneumonia/pleurisy?denies, denies.?Bronchitis?denies, denies.?Emphysema?denies, denies.?Coughing?denies, denies.?Cough blood?denies, denies.?Shortness of breath?denies, denies.?Wheezing?denies, denies.?Cardiovascular:?Pacemaker?denies, denies.?MVP?denies, denies.?WPW?denies, denies.?CHF?denies, denies.?Heart attack?denies, denies.?Septal defect?denies, denies.?Rapid beat?denies, denies.?Chest pain ?denies, denies.?Atrial Fib.?denies, denies.?Murmur/Palpitations?denies, denies.?Gastrointestinal:?Hemorrhoids?denies, denies.?Stomach/Abdominal pain?denies, denies.?Dark blood stool?denies, denies.?Irritable bowel ?denies, denies.?Constipation?denies, denies.?Diarrhea?denies, denies.?Vomiting?denies.?Hematology:?Swelling?denies, denies.?Clots?denies.?Varicose Veins?denies.?Bruising?denies, denies.?Bleeding problem?denies, denies.?Genitourinary:?Blood urine?denies, denies.?Frequent/Painfu/urination/bladder control?denies, denies.?Kidney stones?denies, denies.?Infection (UTI)?denies, denies.?Nephropathy?denies, denies.?sex trans dis (STD)?denies.?Prostate?denies.?Musculoskeletal:?Hammertoes?denies, denies.?Bunions?denies, denies.?Scoliosis/kyphosis?denies.?Back Pain?admits.?Muscle Cramps/ Resting?denies.?Muscle cramps / walking?denies, denies.?Generalized aches and pains?admits, denies.?Weakness?admits, denies.?Integ.:?García?denies, denies.?Scars?denies, denies.?Corns/calluses?denies, denies.?Ingrown nails?denies, denies.?Painful nails?denies, denies.?Open Sores?denies.?Rashes?denies, denies.?Neurologic:?Difficulty sleeping?denies, denies.?Bipolar?denies.?Brain disorder?denies, denies.?Numbness?admits.?Balance trouble?denies, denies.?Confusion?denies, denies.?Fainting/blackouts?denies, denies.?Headache?denies.?Tingling?denies.?Tremors?denies, denies.? * Medical History:? * Surgical History:?colonoscop y lasik hysterectomy, abdominal Tubes Tied 1981Hysterectomy (Cancer) 2012Gastric Sleeve 2014 * Hospitalization/Major Diagno stic Procedure:?Denies Past Hospitalization * Family History:?Mother: dece ased, diagnosed with [...] a nicotine vape or some other form. ???Drugs/Alcohol:?Drugs?Have you used drugs other than those for medical reasons in the past 12 months??No ?Alcohol Screen?Did you have a drink containing alcohol in the past year??No ?Points?0 ?Interpretation?Negative ???Miscellaneous:?Caffeine: yes, frequency:, 1-2 cups per day. ?Children: yes, 3. ?Marital status: . * Medications:?TakingLosartan Potassium 100 MG Tablet 1 tablet Orally Once a dayTrulicity 0.75 MG/0.5ML Solution Pen-injector as directed Subcutaneous Lantus SoloStar 100 UNIT/ML Solution Pen-injector as directed Subcutaneous Glimepiride 1 MG Tablet 1 tablet with breakfast or the first main meal of the day Orally Once a dayGabapentin 100 MG Capsule 1 capsule Orally Once a dayVitamin D3 50 MCG (1999 UT) Capsule 1 capsule Orally Once a dayAtorvastatin Calcium 20 MG Tablet 1 tablet Orally Once a dayAspirin 81 MG Tablet Chewable 1 tablet Orally Once a dayamLODIPine Besylate 5 MG Tablet 1 tablet Orally Once a dayTaking Losartan Potassium 100 MG Tablet 1 tablet Orally Once a dayTaking Trulicity 0.75 MG/0.5ML Solution Pen-injector as directed Subcutaneous Taking Lantus SoloStar 100 UNIT/ML Solution Pen-injector as directed Subcutaneous Taking Glimepiride 1 MG Tablet 1 tablet with breakfast or the first main meal of the day Orally Once a dayTaking Gabapentin 100 MG Capsule 1 capsule Orally Once a dayTaking Vitamin D3 50 MCG (1999 UT) Capsule 1 capsule Orally Once a dayTaking Atorvastatin Calcium 20 MG Tablet 1 tablet Orally Once a dayTaking Aspirin 81 MG Tablet Chewable 1 tablet Orally Once a dayTaking amLODIPine Besylate 5 MG Tablet 1 tablet Orally Once a dayNot-Taking/PRNVitamin B Complex traMADol HCl 50 MG Tablet [...] Headache and vomitingBactrimyes[Allergies Verified] Objective: * Vitals:?Ht: 5 ft 5 in, Wt:27 0, BMI:44.93, Shoe size: 11, BS: 180, Ht-cm: 165.1 cm, Wt-k.47 kg. * Examination: ???Ophthalmology Referral: ?DIABETES EYE EXAM?Neurological: ?SENSORY:?Neurological exam demonstrates, reduced vibration sensation, B/L, at Forefoot, at Midfoot, Neurological exam demonstrates pop of fibroma's wero plantar fascia.?TINEL'S COMPRESSION:?Negative tarsal tunnel, gui pedis, and medial calcaneal nerves B/L.?BABINSKI REFLEX:?absent.?Vascular: ?DP PULSES:? 1/4, B/L.?PT PULSES:? 4, B/L.?CAPILLARY FILL TIME:?3 secs. per digit, B/L.?SKIN [...] ABNORMALITY:?pronated, abducted, B/L.?FOOT MORPHOLOGY:? Pes Planus structure, B/L.?X-Rays - IMAGING REPORT: ?Clinical Indication(s):? Evaluate Biomechanical Deformity.?Views:? 3 views of Foot, B/L.?Findings:? mild generalized decrease in bone density, positive infra- calcaneal exostosis.?Foot structure:? reveals excess pronation with, anterior break in cyme line.?Ingrown Nail: ?INSPECTION:? Reveals nail incurvation, dull pain on palpation due to neuropathy, groove hypertrophy, Bilateral nail borders, TA, T5.? * Physical Examination:?L3000 Custom Fabricated OT:?Custom Orthotic?Custom Fabricated Orthoses.? Assessment: * Assessment: 1.?Plantar fascial fibromato sis - M72.2?2.?Type 1 diabetes mellitus with diabetic polyneuropathy - E10.42 (Primary)?3.?Pain in left foot - M79.672?4.?Pain in right foot - M79.671?5.?Ingrowing nail - L60.0? Plan: * Treatment: 2.?Plantar fascial fibromato sis? Start Custom Orthotics, as directed, 2, Refills 0.?Imaging: X ray : Foot, left 3V ?Imaging: X ray : Foot, right 3V Notes: Patient Educated with: HEEL CORD STRETCHES.pdf (HEEL CORD STRETCHES.pdf) Patient Educated with: RICE THERAPY.pdf (RICE THERAPY.pdf)?? * Procedures:?Keratoma Treatment:?Parring or Cutting of Benign Hyperkeratotic Lesion(s)?87844 ( 2-4 Lesions ) - The Benign hyperkeratotic lesions, as described above were pared, and/or cut utilizing a sterile 15 blade, tissue nippers, and/or dremel.?Nail Reduction:?Nail Reduction?Trimming of dystrophic nails performed to reduce/remove overall nail length and girth, by manual and electrical means with use of a nail nipper and/or dremel, to more viable healthy nail plate or bed tissue 6-10 (G0127).? * Procedure Codes:?94674 X-RAY EXAM OF RIGHT FOOT 3V, Modifiers: 26 , [id number] X- RAY EXAM OF LEFT FOOT 3V, Modifiers: 26 , [id number] Prescription Custom Fabricated Foot insert, Modifiers: RT L3000 Prescription Custom Fabricated Foot insert, [place]: [place] [address] TRIM SKIN LESIONS, 2 TO 4, Modifiers: XS G0127 TRIMMING DYSTROPHIC NAILS ANY #, Modifiers: XS * Preventive Medicine:? ??Counseling:?Discussion:?-03: Office or other outpatient visit for the evaluation and management of a new patient, which required a medically appropriate history and/or examination and LOW level of DECISION MAKING for: 1 STABLE ACUTE UNCOMPLICATED PROBLEM, 2 OR MORE MINOR PROBLEMS, OR 1 STABLE CHRONIC PROBLEM, THAT POSE(S) A LOW RISK FOR MORBIDITY/MORTALITY. The visit on the day of the [...] have encouraged the patient to call the office.?Heel pain:?FASCIITIS: I explained to the patient the possible etiologies of Plantar Fasciitis including foot type/shoegear/activity level/exercise routine and the risks/benefits of all the different treatment options for heel pain including: No treatment at all, Rest, Ice, NSAIDs(only if well tolerated after meals), New/supportive Shoegear, Strappings and Tapings, Stretching exercises, Deep Tissue Massage, Heel cups/cushions, Arch support/shoe inserts, Custom orthoses, Topical analgesics including Aspercream/Voltaren gel, Night splint AFO for am stiffness, Cortisone injection therapy, Cast boot with crutches/cane/or walker for assisted ambulation, Physical Therapy, EPAT/ESWT, Interfil injection therapy, as well as surgical [place]/Endoscopic Fasciitomy surgical procedures if needed. Recommendations were made to limit barefoot walking, eliminate wearing nonsupportive shoegear (i.e. flip-flops or sandals, or a shoe with an easily bendable, foldable, or twistable sole) and wear shoegear with a good solid sole, a supportive arch, and plenty of room for an insert/orthotic if necessary. If wearing sandals was required by the patient, we recommended orthopedic sandals such as Orthoheel or Birkenstock even while in the home. If the patient wore heels in the past, we recommended they continue, but eliminate the use of flats. The advantages and disadvantages of each option were discussed and the patients questions re: types of shoegear, custom vs prefabricated inserts, activity level, PO vs Topical medications (and their respective potential complications/drug interactions/side effects), and consistency in home treatment regimens for optimal success were answered to their satisfaction. Literature detailing plantar fasciitis and the various treatment options were dispensed and reviewed.? * Follow Up:?4 Weeks * Images: * Sign off status: Completed true * Provider:?Angel Ramsey DPM Date:? 023 Generated for Samreen marquez/Sadaf/Jailyn on:?08/24/2024 09:25 AM EST History and Physical Notes * HPI (History of Present Illness) Category Sub-Category Detail Notes Category Not es At Risk footcare Pt States Last PCP Visit: Date: 3 Foot Pain Aggrevated: any pressure, st anding, walking Onset/Cause: unknown Course: worse Duration: several months Nature: aching, numbness and firm lumps Treatments: none Quality/Severity moderate Location Bottom, Midfoot, B/L Physical Examination Category Sub-Category Detail Notes Section Note s L3000 Custom Fabricated OT Custom Orthotic Custom Fabricated Orthoses Examination Category Sub-Category Detail Notes Category Not [...] absent TINEL'S COMPRESSION: Negative tarsal felipa sulaiman, giu pedis, and medial calcaneal nerves B/L Dermatologic [...] are: Elongated, overgrown, dystro phic, 1-5 B/L X-Rays - IMAGING REPORT Findings: mild gen eralized decrease in bone density, positive infra-calcaneal exostosis Foot structure: reveals excess prona tion with, anterior break in cyme line Views: 3 views of Foot, B/L Clinical Indication(s): Evaluate Biomech anical Deformity
--- OUTSIDE RECORDS SUMMARY | 2024-08-24 09:26 | XMS_ITS | Patient Health Record ---
Author Organization [facility] Address [address] [facility] [place] [address] Care Team Providers Care Locomotive Firer Name Role Phone Etienne CUEVAS, [place] Primary Care Provider Unava Angel Moran Unavailable [phone] Allergies Allergen (clinical drug ingredient) Drug/Non Drug [...] Antibiotics Makes me itch Drug Allergy Active Results Component Value Reference Range Notes HEMOGLOBIN A1C (GLYCOHEMOGLO BIN) Reviewed date:10/09/2023 11:59:51 AM Interpretation: Performing Lab: Notes/Report: HEMOGLOBIN A1C (HH) 11 Reason For Referral No Information Medications Medication SIG (Take, Route, Frequency, Duration) Notes Start Date End Date Status Atorvastatin Calcium 20 MG 1 tablet Orally Once a day Active Aspirin 81 MG 1 tablet Orally Once a day Active Custom Orthotics as directed A ctive Trulicity 3 MG/0.5ML as directed Subcutaneous Active Sertraline HCl 50 MG 1 tablet Orally Onc e a day Not-Taking Lantus SoloStar 100 UNIT/ML as directed Subcutaneous Active Meloxicam 15 MG 1 tablet Orally Once a day Not-Taking Glimepiride 1 MG 1 tablet with breakf ast or the first main meal of the day Orally Once a day Active Albuterol Sulfate 108 (90 Base) MCG/ACT 1 puff as needed Inhalation every 4 hrs Not-Takin g Gabapentin 100 MG 1 capsule Orally Onc e a day Active Tylenol Arthritis Pain 650 mg Not-Taking amLODIPine Besylate 5 MG 1 tablet Orally Once a day Active Vitamin B Complex No t-Taking Losartan Potassium 100 MG 1 tablet Orally Once a day Active traMADol HCl 50 MG 1 tablet as needed Orally Once a day Not-Taking Vitamin D3 50 MCG (2000 UT) 1 capsule Orally Once a day Active Immunizations Vaccine Route Administration Date Status Comme nts Influenza Unknown 06/09/2023 Administered Influenza Unknown 06/09/2023 Administered Social History Tobacco Use: Social History Observation [...] Polyneuropathy due to diabetes mellitus type I (011777135) Type 1 diabetes mellitus with diabetic polyneuropathy (E10.42) Active confirmed Vital Signs Height 5ft 5in in 10/09/2023 Weight 272 lbs 10/09/2023 BMI 45.26 kg/m2 10/09/2023 Procedures Procedure Date Ordered Date Performed Result Body Sit e 38189-VJMB SKIN LESIONS, 2 TO 4 08/28/2023 N/A A3422-[id number] DYSTROPHIC NAILS ANY # 08/28/2023 N/A Encounters Encounter [facility] Date [facility] [address] [facility]/28/2023 Angel Ramsey Type 1 diabetes mellitus with diabetic polyneuropathy E10.42 ; Plantar fascial fibromatosis M72.2 ; Pain in left foot M79.672 ; Pain in right foot M79.671 and Ingrowing nail L60.0 [facility] [address] [address] 10/09/2023 Angel Ramsey Type 1 diabetes mellitus with diabetic polyneuropathy E10.42 ; Plantar fascial fibromatosis M72.2 ; Pain in left foot M79.672 ; Pain in right foot M79.671 and Ingrowing nail L60.0 [facility] [address] [address] 09/15/2023 Angel Ramsey Assessments Encounter Date Diagnosis (ICD Code) Assessment Notes Treatment Notes Treatment Clinical Notes Section Notes 08/28/2023 Plantar fascial fibromatosis (ICD-10 - M72.2) Patient Educated with: HEEL CORD STRETCHES.pdf (HEEL CORD STRETCHES.pdf ) Patient Educated with: RICE THERAPY.pdf (RICE THERAPY.pdf) 08/28/2023 Type 1 diabetes mellitus with diabetic polyneuropathy (ICD-10 - E10.42) 10/09/2023 Plantar fascial fibromatosis (ICD-10 - M72.2) Patient Educated with: HEEL CORD STRETCHES.pdf (HEEL CORD STRETCHES.pdf ) Patient Educated with: RICE THERAPY.pdf (RICE THERAPY.pdf) 10/09/2023 Type 1 diabetes mellitus with diabetic polyneuropathy (ICD-10 - E10.42) 08/28/2023 Pain in left foot (ICD-10 - M79.672) 10/09/2023 Pain in left foot (ICD-10 - M79.672) 10/09/2023 Pain in right foot (ICD-10 - M79.671) 08/28/2023 Pain in right foot (ICD-10 - M79.671) 08/28/2023 Ingrowing nail (ICD-10 - L60.0) 10/09/2023 Ingrowing nail (ICD-10 - L60.0) Plan Of Treatment Pending Test Test Name Order Date X ray : Foot, left 3V 08/28/2023 X ray : Foot, right 3V 08/28/2023 26808-QIST SKIN LESIONS, 2 TO 4 08/28/20 23 [id number] DYSTROPHIC NAILS ANY # Insurance Providers Payer Name Payer Address Payer Phone Subscriber Number Group Number Insured Name Patient Relationship to Insured Coverage Start Date Coverage End Date [facility] [employer] Claims [address] [place] [address] [phone] [id number] Wendy Matthews Self - patient is the insured Medical (General) History Medical History History ICD Code Anxiety Insomnia asthma Diabetic Vitamin D deficiency Hypercholesterolemia Hypertension, benign Arthritis Back,Hip,and Knee pain Cancer Cataracts High blood pressure Numbness Measles Mumps Chicken pox Surgical History Surgery Date(Month/Year) colonoscopy lasik hysterectomy, abdominal Tubes Tied 1980 Hysterectomy (Cancer) 2011 Gastric Sleeve 2014
== END 2024-08-24 10:24 | disposition home or self-care (01) ==
PROVIDERS: PCP Internal Medicine; Visit Provider Internal Medicine
DX: Z13.9 Encounter for screening, unspecified (principal)

== ENCOUNTER → 2024-08-24 09:19 | Outpatient (BNVA) | payer OTHER, SELFPAY | PROVIDERS: PCP Internal Medicine; Visit Provider Internal Medicine | DX: E11.65 Type 2 diabetes mellitus with hyperglycemia (principal); E11.43 Type 2 diabetes mellitus with diabetic autonomic (poly)neuropathy; E78.00 Pure hypercholesterolemia, unspecified; E66.01 Morbid (severe) obesity due to excess calories; I10 Essential (primary) hypertension; J45.20 Mild intermittent asthma, uncomplicated; I49.9 Cardiac arrhythmia, unspecified; M47.817 Spondylosis without myelopathy or radiculopathy, lumbosacral region; K59.00 Constipation, unspecified; E55.9 Vitamin D deficiency, unspecified; G47.00 Insomnia, unspecified; F41.9 Anxiety disorder, unspecified; E53.8 Deficiency of other specified B group vitamins; D64.9 Anemia, unspecified; R30.0 Dysuria; Z68.42 Body mass index [BMI] 45.0-49.9, adult; Z79.4 Long term (current) use of insulin | CPT/HCPCS: 83036; 96127; 99212 ==

== ENCOUNTER 2024-09-14 09:42 | Outpatient (AMB) | payer OTHER, SELFPAY ==
--- NOTE | 2024-09-14 09:56 | MHC.OFFVIS ---
Vital Signs 09/14/24 09:59 Height 5 ft 5 in Weight 273 lb 13.026 oz BMI 45.6 BP 98/68 Blood Pressure Location Rt brachial Position Sitting Pulse 81 Pulse Source Pulse Oximeter Intake Visit Reasons: Type 2 diabetes mellitus with hyperglycemia Intake Note: New patient present today for T2DM. Last Diabetic Eye exam: approx 3 months ago, [facility] Last Podiatry Visit: Summer time 2023, Dr. Ramsey Random Glucose: 278 mg/dl HgA1C: 9.2% 08/24/24 Production Hardener Required: No Accompanied by: Other Relationship Allergies sulfamethoxazole [From BACTRIM] Allergy (Intermediate, Verified 09/14/24 10:00) ANXIETY trimethoprim [From BACTRIM] Allergy (Intermediate, Verified 09/14/24 10:00) ANXIETY aluminum hydroxide [From Magnagel] Allergy (Mild, Verified 09/14/24 10:00) high blood press magnesium [From Magnagel] Allergy (Mild, Verified 09/14/24 10:00) high blood press magnesium hydroxide [From Magnagel] Allergy (Mild, Verified 09/14/24 10:00) high blood press canagliflozin [Invokana] Allergy (Unknown, Verified 09/14/24 10:00) Itching lisinopril Allergy (Unknown, Verified 09/14/24 10:00) Abdominal Pain metformin Allergy (Unknown, Verified 09/14/24 10:00) Stomach Upset Sulfa (Sulfonamide Antibiotics) Allergy (Unknown, Verified 09/14/24 10:00) Agitated sulfadiazine Allergy (Unknown, Verified 09/14/24 10:00) Unknown Avocado Revitalizing Allergy (Unknown, Uncoded 09/14/24 10:00) Unknown oxycodone Allergy (Unknown, Uncoded 09/14/24 10:00) Hives percocet Allergy (Unknown, Uncoded 09/14/24 10:00) Hives tramadol Allergy (Unknown, Uncoded 09/14/24 10:00) Hives HPI Comments Details: This is a 69-year-old female with a past medical history of type 2 diabetes with neuropathy, anxiety, vitamin-D deficiency, hyperlipidemia, asthma and hypertension presenting for diabetic management. This is her initial consult at [facility] endocr[facility]ology. She was previously followed by [facility]. She is accompanied by her DIET TECH, Laly. 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 She was diagnosed with diabetes around 2016. She has a family history of Type II diabetes (mother, father, sister). Hemoglobin a1c 9.2% 08/24/24 down from 9.6%. Current medication regimen: Lantus 75 units nightly, Humalog 2-8 units before meals per sliding scale. She does not have the written scale with her today. Trulicity was switched to Mounjaro by her last employee benefits director because it was back ordered. They report it was titrated to 7.5 mg, but they did not tell her to wait a week after her prior injection to start it. The patient says at baseline she has a sensitive stomach due to history gastric sleeve, and this caused more stomach upset. She was constipated and trying to go to the bathroom after taking the injections back to back. She tells me that she started to feel sick. Her granddaughter found her confused and then she did become unresponsive for a short period of time. ER notes were reviewed. EMS noted blood sugar was 200 at the time. She was hypotensive. Patient says her her medications for blood pressure were adjusted since then. Today her blood pressure is a little low, but she denies dizziness. Metformin was not tolerated-GI upset. Glimepride-discontinued Invokana was not tolerated-yeast infection The patient also reports when she took 75 units of Lantus with Mounjaro she experienced some hypoglycemic episodes with blood sugars in the 40s. Patient reports needle bending sometimes with Lantus due to volume of insulin she injects. 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 Diet: Breakfast-cheerios, special k red berries, whole milk, eggs, unsweetened tea, plain bagel usually Lunch- apple, chicken salad, khoi salad, citizen of [place] yogurt Dinner- protein, fish, fries, hot dogs, chicken Snacks/desserts: chips (decreased) No soda, no smoking, no alcohol Hypoglycemia symptoms: When she was on Mounjaro and Lantus (headache and dizzy) Hyperglycemia symptoms: 300+ glucose she has polydipsia Eye exam: 04/22/2024 at [facility], no retinopathy or macular edema. Microvascular complications: Neuropathy and nephropathy (decreased GFR) Macrovascular complications: none Hypertension: treated with amlodipine 2.5 mg daily, losartan-hydrochlorothiazide 100-25 mg daily Lisinopril was not tolerated due to abdominal pain. Hyperlipidemia: treated with atorvastatin 20 mg daily. This was restarted recently. LDL at goal <100. ROS: Constitutional: No unexplained weight loss, fever, chills, fatigue or night sweats. Eyes: No vision changes Respiratory: No shortness of breath Cardiovascular: No chest pain, chest pressure or chest discomfort. No palpitations or pedal edema. Gastrointestinal: No anorexia, nausea, vomiting or diarrhea. No abdominal pain or blood in stool. Neurologic: No headache, dizziness, syncope, unilateral weakness, ataxia, numbness or tingling in the extremities. Skin: No rash or itching. Physical exam: Constitutional: Alert, in no distress. Eyes: Pupils are equal, round and reactive to light. Extraocular muscles intact. Neck: Supple, Full range of motion. No lymphadenopathy. No palpable thyroid masses. Respiratory: Clear to auscultation. Cardiovascular: S1 S2 regular. No murmurs. No carotid bruits. Right foot: Warm and well perfused. No clubbing, cyanosis or edema. Decreased vibratory sensation. Intact sensation to monofilament. No open wounds. Left foot: Warm and well perfused. No clubbing, cyanosis or edema. Intact vibratory sensation. Intact sensation to monofilament. No open wounds. [facility] Medical History (Updated 09/14/24 @ 10:03 by NACHO Olson) Uncontrolled type 2 diabetes mellitus with hyperglycemia, with long-term current use of insulin Morbid obesity with BMI of 40.0-44.9, adult Lumbosacral spondylosis Peripheral autonomic neuropathy due to diabetes mellitus Anxiety Insomnia Asthma Diabetes mellitus with hyperglycemia Vitamin D deficiency Morbid obesity with BMI of 45.0-49.9, adult Pure hypercholesterolemia Benign essential hypertension Diabetes mellitus Surgical History History of colonoscopy (~01/01/11) Hx of LASIK H/O abdominal hysterectomy Social History Housing: Apartment Alcohol intake: never Patient Tobacco Use Status: Former Tobacco user e-Cigarette/Vaping Use: Never Used Second Hand Smoke Exposure: Yes service: No Current occupational status: retired and disabled Cognitive needs: No Hearing needs: No Vision needs: Yes (reading glasses) Results Reviewed Results Reviewed: Laboratory Tests 05/25/21 06/06/22 06/06/22 07:35 10:36 10:40 Creatinine 0.94 0.96 Estimated GFR 60 58 Hgb A1c (Clinic) AST ALT Alkaline Phosphatase Triglycerides Cholesterol LDL Cholesterol, Calc HDL Cholesterol TSH Urine Creatinine 64.09 Urine Microalbumin < 5.0 Microalb/Creat Ratio TNP [place] Antibody <5 09/20/22 06/19/23 10/03/23 07:09 11:40 09:23 Creatinine 0.79 1.00 Estimated GFR > 60 55 Hgb A1c (Clinic) 11.3 H AST 14 ALT 13 Alkaline Phosphatase 134 H Triglycerides 189 H Cholesterol 174 LDL Cholesterol, Calc 91 HDL Cholesterol 46 TSH 2.68 Urine Creatinine Urine Microalbumin Microalb/Creat Ratio [place] Antibody 01/08/24 08/24/24 10:44 09:38 Creatinine Estimated GFR Hgb A1c (Clinic) 9.8 H 9.2 H AST ALT Alkaline Phosphatase Triglycerides Cholesterol LDL Cholesterol, Calc HDL Cholesterol TSH Urine Creatinine Urine Microalbumin Microalb/Creat Ratio [place] Antibody Assessment & Plan Assessment & Plan (1) Uncontrolled type 2 diabetes mellitus with hyperglycemia, with long-term current use of insulin: Code(s): E11.65 - Type 2 diabetes mellitus with hyperglycemia; Z79.4 - termite inspector (current) use of insulin Category: Medical Plan: In summary this is a 69-year-old female with uncontrolled type 2 diabetes on basal bolus insulin with microvascular complications. Discussed pathophysiology of Type II Diabetes Mellitus with the patient in detail.? I explained the termite inspector risks and complications associated with uncontrolled diabetes including nephropathy, neuropathy, peripheral vascular disease, retinopathy, increased risk of heart disease and stroke.? Discussed lifestyle modification with the patient. Recommended 30 minutes of moderately vigorous exercise 5 days per week to promote weight loss. Patient declines referral to gauger chief/dietitian. Reviewed treatment of hypo/hyperglycemia. Glucose tablets sent to pharmacy. Restart Trulicity 0.75 mg weekly. When you start this decrease Lantus to 68 units. When you receive Tresiba from the pharmacy, replace 68 units of Lantus with 70 units of Tresiba nightly. Tresiba U-200 is medically necessary due to prior episode of severe hypoglycemia when Lantus was combined with GLP 1, and difficulty with volume of insulin administration with U-100. Tresiba is preferred insulin to Lantus in patients prone to hypoglycemia. I asked the patient to bring her sliding scale for Humalog with her to review when she comes in for her follow up appointment. She can continue to use the sliding scale she has for now. She does not administer Humalog if her glucose is less than 150. They were instructed to call if she has low blood sugars. Follow up in 3 weeks for type 2 diabetes. Medications: New glucose (Dex4 Glucose) until blood sugar is >70 16 grams (4 x 4 gram) PO Q15M PRN 10 tabs 3RF hypoglycemia (hipoglucemia) insulin degludec (Tresiba FlexTouch U-200 insulin) Replaces Lantus 70 units (0.35 mL) subcut BEDTIME 9 mL 3RF dulaglutide (Trulicity) 0.75 mg (0.5 mL) subcut QWEEK 2 mL 0RF Patient Instructions: If you experience low blood sugar, treat this by eating a chewable fruit candy like skittles or jelly beans (about 8 pieces), 4 ounces (1/2 cup) of fruit juice (not diet), 1 tablespoon of honey or 4 glucose tablets. If your blood sugar is under 50, take double the amount of one of the above. Recheck your blood sugar in 15 minutes. If you have low blood sugars please contact the office. Continue Lantus but take 68 units nightly when you start Trulicity 0.75 mg weekly. When you get Tresiba, replace Lantus 68 units nightly with Tresiba 70 units nightly. When you come in for your follow up, please bring you sliding scale for Humalog. Coding Level of Care Code New Pt Level 5 (30940) Complex EM visit Add On G2211 Diagnoses Uncontrolled type 2 diabetes mellitus with hyperglycemia, with long-term current use of insulin E11.65; Z79.4 Time Spent (min) 65 Comment Chart review, direct patient care, completing documentation
[2024-09-14 09:59] VITALS: BP 98/68; PULSE 81; BMI 45.6
--- OUTSIDE RECORDS SUMMARY | 2024-09-14 10:05 | XMS_ITS ---
Author Organization [facility] Address [address] [place] [address] Care Team Providers Care Pulpit Operator Name Role Phone Etienne CUEVAS [place] Primary Care Provider UnaAngel Keita Unavailable [phone] Allergies Allergen (clinical drug ingredient) Drug/Non Drug [...] 10/09/2023 Encounters Encounter Location Date Provider Diagnosis [facility] [place] [address] [place] [address] 10/09/2023 Angel Ramsey Type 1 diabetes mellitus [...] prevent recurrence Anesthesia was deferred - NEURO AMRIA G: patient has medically documented neuropathic condition affecting sensation Location Lateral nail border, T5 Progress Notes * Wendy MCKEON LDOB:[birth year] (68 yo F)Acc No.[id number]:10/09/2023 Progress Note Patient:?PriyaWendy power L Provider:?Angel Ramsey DPM :1955???Age:68 Y???Sex:Female D ate:10/09/2023 Address:[address] [place], [place] [id number] Pcp:Hemal Clifton MD Subjective: * Chief Complaints: [...] surgical procedures to prevent recurrence.? * Procedure Codes:?52621 Avuls ion Plate, Modifiers: T5 * Preventive [...] DPM Date:? 024 Generated for Samreen marquez/Sadaf/eTransmitting on:?09/14/2024 10:05 AM EST History and Physical Notes * [...] Eye Exam:: no retin opathy Vascular DP PULSES (B): 1/4, B/L PT PULSES (B): 1/4, B/L CAPILLARY FILL TIME: 3 secs. per digit, B/L TEMPERTURE GRADIENT (C): warm to cool, p roximal to distal, B/L TROPHIC CONDITION-TEXTURE/ELASTICITY/TURGOR/HAIR GROWTH (B): normal, B/L EDEMA (C): no edema TELANGECTASIA: absent VARICOSITIES: absent PIGMENTATION: normal, B/L Nails NAILS are: Elongated, overgrown, dystro phic, 1-5 B/L
--- OUTSIDE RECORDS SUMMARY | 2024-09-14 10:05 | XMS_ITS | Patient Health Record ---
Author Organization [facility] Address [address] [facility] [address] [place] [address] Support Name Relationship Address Phone ADELINA Jensen [...] Disorder due to type 2 diabetes mellitus (174636435) Type 2 diabetes mellitus with unspecified complications (E11.8) Active confirmed Problem Morbid obesity (disorder) (433764508) Morbid (severe) obesity due to excess calories (E66.01) Active confirmed Problem Mixed hyperlipidemia (255444304) Mixed hyperlipidemia (E78.2) Active confirmed Problem Essential hypertension (73690005) Essential (primary) hypertension (I10) Active confirmed Plan Of Treatment Future Test Test Name Order Date TSH 03/20/2020 Vitamin D, 25-Hydroxy 03/20/2020 CBC 03/20/2020 COMPREHENSIVE METABOLIC PANEL 03/20/2020 PHOSPHORUS 03/20/2020 MAGNESIUM 03/20/2020 Insurance Providers Payer Name Payer Address Payer Phone Subscriber Number Group Number Insured Name Patient Relationship to Insured Coverage Start Date Coverage End Date [facility] [address] [address] [place] [address] [phone] [id number] ADELINA Aguayo Self - patient is the insured Medical (General) History Medical History History ICD Code kidney stones Surgical History Surgery Date(Month/Year) gastric sleeve Uterus removed because of cancer
--- OUTSIDE RECORDS SUMMARY | 2024-09-14 10:05 | XMS_ITS ---
Author Organization [facility] Address [address] [facility] [place] [address] Care Team Providers Care Scagliola Mechanic Name Role Phone Etienne CUEVAS [place] Primary Care Provider UnaAngel Keita Unavailable [phone] Allergies Allergen (clinical drug ingredient) Drug/Non Drug [...] Polyneuropathy due to diabetes mellitus type I (408452100) Type 1 diabetes mellitus with diabetic polyneuropathy (E10.42) Active confirmed Vital Signs Height 5 ft 5 in in 08/28/2023 Weight 270 lbs 08/28/2023 BMI 44.93 kg/m2 08/28/2023 Procedures Procedure Date Ordered Date Performed Result Body Sit e 97281-SBZB SKIN LESIONS, 2 TO 4 08/28/2023 N/A [id number] DYSTROPHIC NAILS ANY # 08/28/2023 N/A Encounters Encounter Location Date Provider Diagnosis [facility] [place] [address] [place] [address] 08/28/2023 Angel Ramsey Type 1 diabetes mellitus [...] X ray : Foot, right 3V 08/28/2023 39996-FNOD SKIN LESIONS, 2 TO 4 08/28/20 23 [id number] DYSTROPHIC NAILS ANY # Next Appt Details Follow Up: 4 Weeks, Reason: Procedure Notes * Category Sub-Category Detail Notes Keratoma Treatment Parring or Cutting o f Benign Hyperkeratotic Lesion(s) 97020 ( 2-4 Lesions ) - The Benign [...] * Wendy MCKEON LDOB:[birth year] (68 yo F)Acc No.[id number]:08/28/2023 Progress Notes Patient:?Wendy Mckeon Provider:?Angel Ramsey DPM :1955???Age:68 Y???Sex:Female D ate:08/28/2023 Address:[address] [place] [address], [place] Pcp:Hemal Clifton MD Subjective: * Chief Complaints: [...] Procedures:?Keratoma Treatment:?Parring or Cutting of Benign Hyperkeratotic Lesion(s)?64836 ( 2-4 Lesions ) - The Benign [...] or bed tissue 6-10 (G0127).? * Procedure Codes:?66709 X-RAY EXAM OF RIGHT FOOT 3V, Modifiers: 26 , [id number] X- RAY EXAM OF LEFT FOOT 3V, Modifiers: 26 , [id number] Prescription Custom Fabricated Foot insert, Modifiers: RT L3000 Prescription Custom Fabricated Foot insert, [place]: [place] [address] TRIM SKIN LESIONS, 2 TO 4, Modifiers: [...] Interfil injection therapy, as well as surgical [place]/Endoscopic Fasciitomy surgical procedures if needed. Recommendations were [...] DPM Date:? 023 Generated for Samreen marquez/Sadaf/Jailyn on:?09/14/2024 10:05 AM EST History and Physical [...]
--- OUTSIDE RECORDS SUMMARY | 2024-09-14 10:05 | XMS_ITS ---
Author Organization [facility] Address [address] [place] [address] Care Team Providers Care Refinery Operator Crude Unit Name Role Phone Francis Clifton MDneth Primary Care Provider Unava Angel Moran [facility] [phone] REASON FOR VISIT Custom Orthotics Encounters Encounter Location Date Provider Diagnosis [facility] [address] [place] [address] 09/15/2023 Angel Ramsey Plan Of Treatment No Information Progress Notes * Wendy MCKEON LDOB:[birth year] (68 yo F)Acc No.[id number]:09/15/2023 Patient:?Wendy Mckeon :1955???Age:68 Y???Sex:Female Address:[address] [place], [address] * true * Date:? Generated for Printi jimmy/Sadaf/eTransmitting on:?09/14/2024 10:05 AM EST
--- OUTSIDE RECORDS SUMMARY | 2024-09-14 10:05 | XMS_ITS | Patient Health Record ---
Author Organization [facility] Address [address] [place], [place] [id number] Support Name Relationship Address Phone Wendy Mckeon Guarantor Unknown Reason For Referral No Information Plan Of Treatment No Information Insurance Providers Payer Name Payer Address Payer Phone Subscriber Number Group Number Insured Name Patient Relationship to Insured Coverage Start Date Coverage End Date [facility] [address] [place] [address] [phone] [id number] Wendy Matthews Self - patient is the insured [place] Medicaid Standard [address] [place] [address] [id number] Wendy Matthews Self - patient is the insured
--- OUTSIDE RECORDS SUMMARY | 2024-09-14 10:06 | XMS_ITS | Patient Health Record ---
Author Organization [facility] Address [address] [place] [address] Care Team Providers Care Lithopress Operator Name Role Phone Etienne CUEVAS, [place] Primary Care Provider Unava Angel Moran Unavailable [phone] Allergies Allergen (clinical drug ingredient) Drug/Non Drug [...] Polyneuropathy due to diabetes mellitus type I (905572400) Type 1 diabetes mellitus with diabetic polyneuropathy (E10.42) Active confirmed Vital Signs Height 5ft 5in in 10/09/2023 Weight 272 lbs 10/09/2023 BMI 45.26 kg/m2 10/09/2023 Encounters Encounter Location Date Provider Diagnosis [facility] [address] [address] 10/09/2023 Angel Ramsey Type 1 diabetes mellitus with diabetic polyneuropathy E10.42 ; Plantar fascial fibromatosis M72.2 ; Pain in left foot M79.672 ; Pain in right foot M79.671 and Ingrowing nail L60.[address] [facility] [address] 09/15/2023 Angel Ramsey Assessments Encounter Date Diagnosis (ICD Code) Assessment Notes Treatment Notes Treatment Clinical Notes Section Notes 10/09/2023 Plantar fascial fibromatosis (ICD-10 - M72.2) Patient Educated with: HEEL CORD STRETCHES.pdf (HEEL CORD STRETCHES.pdf ) Patient Educated with: RICE THERAPY.pdf (RICE THERAPY.pdf) 10/09/2023 Type 1 diabetes mellitus with diabetic polyneuropathy (ICD-10 - E10.42) 10/09/2023 Pain in left foot (ICD-10 - M79.672) 10/09/2023 Pain in right foot (ICD-10 - M79.671) 10/09/2023 Ingrowing nail (ICD-10 - L60.0) Plan Of Treatment Pending Test Test Name Order Date X ray : Foot, left 3V 08/28/2023 X ray : Foot, right 3V 08/28/2023 [id number] SKIN LESIONS, 2 TO 4 08/28/20 23 [id number] DYSTROPHIC NAILS ANY # Insurance Providers Payer Name Payer Address Payer Phone Subscriber Number Group Number Insured Name Patient Relationship to Insured Coverage Start Date Coverage End Date [facility] [employer] [address] [place] [address] [id number] Wendy Matthews Self - patient is the insured Medical (General) History Medical History History ICD Code Anxiety Insomnia asthma Diabetic Vitamin D deficiency Hypercholesterolemia Hypertension, benign Arthritis Back,Hip,and Knee pain Cancer Cataracts High blood pressure Numbness Measles Mumps Chicken pox Surgical History Surgery Date(Month/Year) colonoscopy lasik hysterectomy, abdominal Tubes Tied 1981 Hysterectomy (Cancer) 2011 Gastric Sleeve 2014
[2024-09-14 10:14] LABS: Glucose, Whole Blood 278 mg/dL (60-115)
== END 2024-09-14 11:05 | disposition home or self-care (01) ==
PROVIDERS: PCP Internal Medicine; Visit Provider Physician Assistant Medical
DX: E11.65 Type 2 diabetes mellitus with hyperglycemia (principal); Z79.4 Long term (current) use of insulin

== ENCOUNTER → 2024-09-14 09:42 | Outpatient (BNVA) | payer OTHER, SELFPAY | PROVIDERS: PCP Internal Medicine; Visit Provider Physician Assistant Medical | DX: E11.65 Type 2 diabetes mellitus with hyperglycemia (principal); Z79.4 Long term (current) use of insulin | CPT/HCPCS: 82947; 99202 ==

== ENCOUNTER 2024-10-08 06:24 | Outpatient (REF) | payer OTHER, SELFPAY ==
--- OUTSIDE RECORDS SUMMARY | 2024-10-08 06:26 | XMS_ITS | Clinical Summary ---
Author Organization [address] Address [address] [place] [phone] Phone Care Team Providers Care Mainspring Former [facility] Name Role Phone Oneida Galvan MD Primary Care Provider [phone] Allergies Active Allergy Reactions Criticality Noted Date Comments Canagliflozin 12/25/2017 Lisinopril 12/25/2017 Metformin Rash High 06/02/2017 Oxycodone-Acetaminophen Nausea And Vomiting,Other 11/20/2023 Heebie Jeebies Phentermine 11/02/2019 Sulfa (Sulfonamide Antibiotics) Rash High 06/02/2017 Tirzepatide 03/19/2024 Hypotension Topiramate 11/02/2019 Medications Medication Sig Dispensed Refills Start Date End Date Status blood-glucose sensor (FreeStyle Curt 3 Sensor) device 1 Device by Does not apply route every 14 days. 11/20/2023 Active insulin glargine (LANTUS) 100 unit/mL injection Inject 75 Units into the skin at bedtime. 03/19/2024 04/13/2025 Active insulin lispro (HumaLOG KwikPen Insulin) 100 unit/mL injection pen Inject 3 times a day with meals per sliding 100-149: 2 units; 151-200: 3 units; 201-250: 4 units; 251-300: 5 units; 301-350: 6 units; 351-400: 7 units 03/19/2024 Active CHOLECALCIFEROL, VITAMIN D3, ORAL Take by mouth. Acti ve CYANOCOBALAMIN, VITAMIN B-12, ORAL Take by mouth. Ac tive loratadine 10 mg capsule Take by mouth. Active simvastatin (ZOCOR) 20 mg tablet 04/02/2017 Active losartan (COZAAR) 50 mg tablet 100 mg. 04/02/2017 Active blood-glucose meter,continuous (Dexcom G7 Director Of [employer]) misc 1 Device by Not Applicable route. 1 Device by Does not apply route See Admin Instructions. Use daily with dexcom g 7 sensors - Does not apply 11/20/2023 Active pen needle, diabetic 32 gauge x needle Use with insulin 4 times a day 09/12/2023 Active blood sugar diagnostic (FreeStyle Lite Strips) test strip Use to check BS 3 times a day Active freestyle 28 gauge lancets Check blood sugar three times a day or as directed 300 each 1 08/10/2024 08/10/2025 Active Active Problems Problem Noted Date Diagnosed Date Class 3 severe obesity due t o excess calories with serious comorbidity and body mass index (BMI) of 45.0 to 49.9 in adult 06/07/2024 Type 2 diabetes mellitus wit h hyperglycemia, with long-term current use of insulin 06/07/2024 Anxiety 11/20/2023 Asthma 11/20/2023 Hyperlipidemia 11/20/2023 Neuropathy 11/20/2023 Obesity 05/24/2019 Diabetes type 1, controlled 06/02/2017 Hypertension 06/02/2017 Encounters Date Type Department Care Team Description 07/20/2024 Telephone Endocrinology - [address] [address] Anahi Peterson PA PRIOR AUTHORIZATION from Last 3 Months Surgical History Surgery Date Site/Laterality Comments HYSTERECTOMY 2011 PROCEDURE: HISTORICAL TOTAL HYSTERECTOMY WITH BSO; COMMENT: endometrial cancer, grade 1, stage 1 Medical History Medical History Date Comments Diabetes type 1, controlled (CMS/HCC) 06/02/2017 DX:Diabetes type 1, controlled (HCC) Hypertension 06/02/2017 DX:Hypertension History of endometrial cancer 06/02/2017 DX :History of endometrial cancer Asthma DX:Asthma Anxiety 11/20/2023 DX:Anxiety Asthma 11/20/2023 DX:Asthma Family History Medical History Relation Name Comments Colon cancer Father Prostate cancer Father Ovarian cancer Mother Relation Name Status Comments Father Mother Social History Tobacco Use Types Packs/Day Years Used Date Smoking Tobacco: Never Smokeless Tobacco: Never Alcohol Use Standard Drinks/Week Comments No 0 (1 standard drink = 0.6 oz pur e alcohol) Sex and Gender Information Value Date Recorded Sex Assigned at Not on file Gender Identity Not on file Sexual Orientation Not on file Obstetrics History Last Filed Vital Signs Vital Sign Reading Time Taken Comments Blood Pressure 108/73 03/19/2024 3:02 PM EDT Pulse 128 03/19/2024 3:02 PM EDT Temperature - - Respiratory Rate - - Oxygen Saturation - - Inhaled Oxygen Concentration - - Weight 122 kg (270 lb) 03/19/2024 3:02 PM EDT Height 165.1 cm (5' 5 ) 03/19/2024 3:02 PM EDT Body Mass Index 44.93 03/19/2024 3:02 PM EDT Plan of Treatment Health Maintenance Due Date Last Done Comments Breast Cancer Screening 1955 Pneumococcal Vaccine: 65+ Years (1 of 2 - PCV) 1962 Diabetes: Annual Foot Exam 1966 Diabetes: Annual Retina Eye Exam 1966 DTaP,Tdap,and Td Vaccines (1 - Tdap) 1975 Zoster Vaccines (1 of 2) 2006 RSV Immunization Patients 60 + Years Old (1 - Risk 60-74 years 1-dose series) 2016 Colorectal Cancer Screening: Colonoscopy 08/07/2022 Depression Screening 08/07/2022 Falls Risk Assessment 08/07/2022 Hepatitis C Screening 08/07/2022 Osteoporosis Screening (Bone Density Screening) 08/07/2022 Social Influencers of Health Screening 08/07/2022 COVID-19 Vaccine (1 - 2023-2 5 season) 2024 Influenza Vaccine (#1) 2024 Diabetes: Blood Sugar Contro l Test (HGBA1C) 09/26/2024 03/26/2024, 03/26/2024, 01/08/2024 Diabetes: Annual Urine Albumin-Creatinine Ratio (uACR) 01/07/2025 01/08/2024 Diabetes: Annual GFR (Glomerular Filtration Rate) 01/07/2025 01/08/2024, 01/08/2024 Hypertension/CHF/CAD Annual BMP Blood Test 01/07/2025 01/08/2024, 01/08/2024 Cholesterol Screening (Lipid Panel) 01/07/2029 01/08/2024, 01/08/2024 HIB Vaccines Aged Out No longer eligi ble based on patient's age to complete this topic HPV Vaccines Aged Out No longer eligi ble based on patient's age to complete this topic Hepatitis A Vaccines Aged Out No long er eligible based on patient's age to complete this topic Hepatitis B Vaccines Aged Out No long er eligible based on patient's age to complete this topic IPV Vaccines Aged Out No longer eligi ble based on patient's age to complete this topic MMR Vaccines Aged Out No longer eligi ble based on patient's age to complete this topic Meningococcal ACWY Vaccine Aged Out N o longer eligible based on patient's age to complete this topic RSV Immunization Patients Under 20 months Aged Out No longer eligible b ased on patient's age to complete this topic Varicella Vaccines Aged Out No longer eligible based on patient's age to complete this topic Procedures Procedure Name Priority Date/Time Associated Diagnosis Comments HEMOGLOBIN A1C Routine 03/26/2024 URINE ALBUMIN CREATININE RATIO Routine 01/08/2024 ANNUAL BMP BLOOD TEST Routine 01/08/2024 LIPID PANEL Routine 01/08/2024 from Last 3 Months or Most Recently Relevant to Health Maintenance Results * Hemoglobin A1c (03/26/2024) Pathologist [facility] [place] Hemoglobin A1C 9.6 10.7 % Blood Venous blood specimen / Unknown Historical Provider LAB BLOOD ORDERAB LES * Urine Albumin Creatinine Ratio (01/08/2024) Pathologist [facility] Urine Albumin Creatinine Ratio Abstracted Historical Provider MD GOSS MAINZAID E * Annual BMP Blood Test (01/08/2024) Pathologist [facility] Annual BMP Blood Test Abstracted Historical Provider MD WOLFGANG ESPARZA E * (ABNORMAL) Lipid panel (01/08/2024) Pathologist [facility] [place] LDL/HDL Ratio 4 0 - 4 Triglycerides 190(A) 0 - 150 mg/dL Cholesterol 175 0 - 200 mg/dL HDL 50 40 mg/dL LDL Cholesterol 87 0 - 100 mg/dL Blood Venous blood specimen / Unknown Historical Provider LAB BLOOD ORDERAB LES from Last 3 Months or Most Recently Relevant to Health Maintenance Care Teams [facility]spring Former [facility] Relationship Specialty Start Date End Date Oneida Galvan MD [address] [facility] [address] [place], [place] PCP - General Internal Medicine 04/29/17
--- OUTSIDE RECORDS SUMMARY | 2024-10-08 06:26 | XMS_ITS | Data Portability ---
Author Organization [place] [facility] Address [address] [place] [address] Care Team Providers Care Correspondence Analyst Name Role Phone PEGGY NUNN Primary Care Provider Assessment Encounter Date Assessment Date Assessment LastModified [...] her an ambulance and will arrive at [facility] ED by car. Report called in to [facility] ED. betty Not available 04/03/2020 13:09:24 Plan [...] Name and Address Organization Details Recorded Time [id number] Bactrim medicatio n Not available Not available Not available 04/03/2020 40383 9 [facility] NACHO [facility] [address], [place], [address], [place] [facility] 0 12:29:01 [id number] Substance with sulfonami de structure and antibacte rial mechanism of action (substanc e) medicatio n Not available Not available Not available 04/03/2020 80329 8003 SNOMED NACHO [facility]ACH[facility] [address] [place], [address], [place] [facility] 0 12:29:08 [id number] metformin medicatio n Not available Not available Not available 04/03/2020 6809 [facility] NACHO [facility]ACH[facility] [address], [place], [address], [place] [facility] 0 12:29:25 [id number] Invokana medicatio n Not available Not available Not available 04/03/2020 07272 64 [facility] NACH[facility]ACH[facility] [address], [place], [address], [place] [facility] 0 12:30:37 255447 acetamino phen / oxycodone medicatio n Not available Not available Not available 04/03/2020 13552 3 [facility] NACH[facility]ACH[facility] [address], [place], [address], [place] [facility] 0 12:30:46 132022 oxycodone medicatio n Not available Not available Not available 04/03/2020 7804 [facility] NACH[facility]ACH[facility] [address], [place], [address], [place] [facility] [...] Status Former Smoker [facility] [address] [place], [address], [place] [facility] 04/03/2020 12:38:06 What Is Your Code Status? Full Code [facility] Information not available 04/03/2020 Excessive Alcohol Or Drug Use No [facility] Information not available 04/03/2020 How Much Tobacco Do You Smoke? 1 PPW [facility] Information not available 04/03/2020 How Many Years Have You Smoked Tobacco? 5 [employer]ure Information not available 04/03/2020 Sex: Unknown Functional Status None recorded. Mental Status None recorded. Family History Relationship Description Onset Age of this Age Resolved Age Notes LastModified by Organization Details LastModified Time Sister Coronary arterioscler osis betty Not available 2019 12:39:32 Medical History Condition Response Coronary Artery Disease N COPD N Depression N Diabetes Y Cancer Y Stroke N Asthma Y High Cholesterol Y Pulmonary Embolism N Hypertension Y Kidney Disease N Gynecological HistoryNo gynecological history recorded. Obstetrics History GPAL:G 0 P 0 0 0 0 Past Encounters Encounter ID Performer Location Encounter Start Date Encounter Closed Date Diagnosis/Indication Diagnosis SNOMED-CT Code Diagnosis ICD10 Code Diagnosis Note [id number] [facility] [address] [place] [address] 04/03/2020 12:27:19 04/04/2020 15:23:02 Acute pyelonephritis 03621366 N10 Sepsis 09241992 A41.9 Health Concerns Section Related Observation LastModified by Organization Detai ls LastModified Time None Recorded Concern Status LastModified by Organization Details LastModified Time None Recorded Advance Directives Directive None Recorded Payers Encounter Date Sequence Insurance Name Policy Number Policy Izquierdo Covered Member ID Izquierdo Member ID Guarantor Name 04/03/2020 1 [facility] - DOS PRIOR TO 2022 - DUAL ELIGIBLE (MEDICARE REPLACEMENT/AD VANTAGE - HMO) Wendy Mckeon [id number] Wendy Mckeon 04/03/2020 2 [place] [facility] Wendy Mckeon [id number] Wendy Mckeon Notes Date Note Type Note Provider Name and Address Organization Details Recorded Time 04/03/2020 text/html 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 NACHO [facility] [address] [place], [address], [place] [facility] 04/03/2020 13:14:56 OBGyn Episode No OBEpisode recorded.
[2024-10-08 06:39] LABS: MANUAL DIFF FLAG NO
[2024-10-08 07:09] LABS: Basophils Absolute Auto 0.1 X10*3/uL (0.0-0.2); Basophils Percent Auto 0.6 % (0-2); Eosinophils Absolute Auto 0.1 X10*3/uL (0.0-0.4); Eosinophils Percent Auto 1.6 % (0-4); Hematocrit 41.5 % (37.0-47.0); Hemoglobin 13.4 g/dl (12.0-16.0); Imm Gran Abs Auto 0.03 X10*3/uL (0.00-0.03); Imm Gran Pct Auto 0.4 % (0.0-0.4); Lymphocytes Absolute Auto 2.1 X10*3/uL (1.2-4.9); Lymphocytes Percent Auto 25.5 % (20-40); Mean Corpuscular HGB Conc 32.3 g/dl (31.0-35.0); Mean Corpuscular Hemoglobin 25.5 pg (27.0-33.0); Mean Corpuscular Volume 78.9 fL (80.0-98.0); Mean Platelet Volume 9.9 fL (9.4-12.3); Monocytes Absolute Auto 0.7 X10*3/uL (0.1-1.2); Monocytes Percent Auto 8.1 % (2-11); Neutrophils Absolute Auto 5.1 x10*3/uL (2.0-8.3); Neutrophils Percent Auto 63.8 % (45-73); Platelet Count 399 X10*3/uL (160-400); Red Blood Count 5.26 X10*6/uL (4.20-5.50); Red Cell Distribution Width 14.3 % (11.0-16.0); White Blood Count 8.1 X10*3/uL (4.8-10.8)
[2024-10-08 07:19] LABS: Estimated Average Glucose 209 mg/dL; Hemoglobin A1C 264.0912 umol/L; Hemoglobin A1c % 8.9 % (<6.0)
[2024-10-08 07:41] LABS: Alanine Aminotransferase 15 U/L (0-31); Albumin Level 3.7 g/dL (3.5-5.0); Alkaline Phosphatase 112 U/L (39-117); Anion Gap 14 (12-20); Aspartate Amino Transferase 25 U/L (5-31); Bilirubin Total 0.4 mg/dL (0.0-1.0); Blood Urea Nitrogen 20 mg/dL (9-16); Calcium 9.8 mg/dL (8.4-10.2); Carbon Dioxide 24 mmol/L (22-29); Chloride 108 mmol/L (96-108); Cholesterol 153 mg/dL (<200); Estimated Glomerular Filt Rate > 60; Glucose Fasting 108 mg/dL (60-99); HDL Cholesterol 41 mg/dL (>40); LDL Cholesterol Calculated 85 mg/dL (<100); Potassium 3.6 mmol/L (3.3-5.1); Sodium 142 mmol/L (135-145); Total Protein 7.5 g/dL (6.5-8.0); Triglycerides 136 mg/dL (<150)
[2024-10-08 08:10] LABS: Appearance Urine Cloudy; Color Urine Yellow; Glucose Urine UA Negative (Negative); Leukocyte Esterase Urine Small (1+) (Negative); Nitrite Urine Positive (Negative); UMIC TRIGGER UACC YES; Urine Blood Negative (Negative); Urine Ketones Negative (Negative); Urine Protein Trace mg/dL (Neg-Trace)
[2024-10-08 08:10] LABS: Vitamin B12 871 pg/mL (200-900)
[2024-10-08 08:15] LABS: Bacteria Urine 4+ (None Seen); Hyaline Casts Urine 0-2 /LPF (0-2); RBC Urine 0-2 /HPF (0-2); Squamous Epithelial Cell Urine >20 /HPF (0-2); UACC Culture Trigger YES; WBC Urine >50 /HPF (0-5)
[2024-10-08 08:28] LABS: Creatinine Urine 207.89 mg/dL; Microalbum/Creatinine Ratio Ur 9.1 ug/mg cr (<30)
== END 2024-10-08 06:25 | disposition home or self-care (01) ==
LOC: HO.LAB 06:24
PROVIDERS: PCP Internal Medicine; Visit Provider Internal Medicine
DX: D64.9 Anemia, unspecified (principal); E55.9 Vitamin D deficiency, unspecified; E53.8 Deficiency of other specified B group vitamins; E11.9 Type 2 diabetes mellitus without complications; E78.00 Pure hypercholesterolemia, unspecified; R30.0 Dysuria
CPT/HCPCS: 36415; 80053; 80061; 81001; 81003; 82043; 82306; 82570; 82607; 82746; 83036; 84443; 85025; 87086; 87088; 87186

== ENCOUNTER 2024-10-12 10:30 | Outpatient (AMB) | payer OTHER, SELFPAY ==
--- NOTE | 2024-10-12 10:52 | MHC.OFFVIS ---
Vital Signs 10/12/24 10:55 Height 5 ft 5 in Weight 272 lb 14.916 oz BMI 45.4 BP 102/68 Blood Pressure Location Rt brachial Position Sitting Pulse 61 Pulse Source Pulse Oximeter Pulse Oximetry (%) 96 Oxygen Delivery Method Room Air Intake Visit Reasons: Type II diabetes Intake Note: Patient present today to follow up on Type 2 Diabetes Mellitus. Last Diabetic Eye exam: approx in June 2024, Eye and Lasik Last Podiatry Visit: In the Summer 2023, Dr. Ramsey Random Glucose: 110 mg/dl HgA1C: 8.9% 10/08/24 Medium Cycle Salesperson Required: No Accompanied by: Daughter Allergies sulfamethoxazole [From BACTRIM] Allergy (Intermediate, Verified 10/12/24 10:56) ANXIETY trimethoprim [From BACTRIM] Allergy (Intermediate, Verified 10/12/24 10:56) ANXIETY aluminum hydroxide [From Magnagel] Allergy (Mild, Verified 10/12/24 10:56) high blood press magnesium [From Magnagel] Allergy (Mild, Verified 10/12/24 10:56) high blood press magnesium hydroxide [From Magnagel] Allergy (Mild, Verified 10/12/24 10:56) high blood press canagliflozin [Invokana] Allergy (Unknown, Verified 10/12/24 10:56) Itching lisinopril Allergy (Unknown, Verified 10/12/24 10:56) Abdominal Pain metformin Allergy (Unknown, Verified 10/12/24 10:56) Stomach Upset Sulfa (Sulfonamide Antibiotics) Allergy (Unknown, Verified 10/12/24 10:56) Agitated sulfadiazine Allergy (Unknown, Verified 10/12/24 10:56) Unknown Avocado Revitalizing Allergy (Unknown, Uncoded 10/12/24 10:56) Unknown oxycodone Allergy (Unknown, Uncoded 10/12/24 10:56) Hives percocet Allergy (Unknown, Uncoded 10/12/24 10:56) Hives tramadol Allergy (Unknown, Uncoded 10/12/24 10:56) Hives HPI Comments Details: This is a 69-year-old female with a past medical history of type 2 diabetes with neuropathy, anxiety, vitamin-D deficiency, hyperlipidemia, asthma and hypertension presenting for diabetic management. She is accompanied by her CHIEF CREDIT OFFICER, Laly. 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 She was diagnosed with diabetes around 2015. She has a family history of Type II diabetes (mother, father, sister). Reviewed CGM data from her phone: 46% target range 30% high Very high 24% average glucose 193 0% hypoglycemia 7.9% GMI CGM active 93% Pattern of daytime/postprandial hyperglycemia. Hemoglobin a1c 9.2% 08/24/24 down from 9.6%. Hemoglobin a1c 8.9% today 10/12/2024. Current medication regimen: Tresiba 70 units nightly, Trulicity 0.75 mg weekly, Humalog 2-8 units before meals (she has not been taking this at all). She does not have the written scale with her today. Previous medications: Lantus and Mounjaro Glimepride-discontinued Invokana was not tolerated-yeast infection Previously documented: Trulicity was switched to Mounjaro by her last enterprise services manager because it was back ordered. They report it was titrated to 7.5 mg, but they did not tell her to wait a week after her prior injection to start it. The patient says at baseline she has a sensitive stomach due to history gastric sleeve, and this caused more stomach upset. She was constipated and trying to go to the bathroom after taking the injections back to back. She tells me that she started to feel sick. Her granddaughter found her confused and then she did become unresponsive for a short period of time. ER notes were reviewed. EMS noted blood sugar was 200 at the time. She was hypotensive. Patient says her her medications for blood pressure were adjusted since then. Today her blood pressure is a little low, but she denies dizziness. Metformin was not tolerated-GI upset. Hypoglycemia symptoms: None Hyperglycemia symptoms: 300+ glucose she has polydipsia Eye exam: 04/22/2024 at [facility], no retinopathy or macular edema. Microvascular complications: Neuropathy and nephropathy (decreased GFR) Macrovascular complications: none Hypertension: treated with amlodipine 2.5 mg daily, losartan-hydrochlorothiazide 100-25 mg daily Lisinopril was not tolerated due to abdominal pain. Hyperlipidemia: treated with atorvastatin 20 mg daily. This was restarted recently. LDL at goal <100. ROS: Constitutional: No unexplained weight loss, fever, chills, fatigue or night sweats. Eyes: No vision changes Respiratory: No shortness of breath Cardiovascular: No chest pain, chest pressure or chest discomfort. No palpitations or pedal edema. Gastrointestinal: No anorexia, nausea, vomiting or diarrhea. No abdominal pain or blood in stool. Neurologic: No headache, dizziness, syncope, unilateral weakness, ataxia, numbness or tingling in the extremities. Skin: No rash or itching. Physical exam: Constitutional: Alert, in no distress. Eyes: Pupils are equal, round and reactive to light. Extraocular muscles intact. Neck: Supple, Full range of motion. No lymphadenopathy. No palpable thyroid masses. Respiratory: Clear to auscultation. Cardiovascular: S1 S2 regular. No murmurs. No carotid bruits. [facility] Medical History (Updated 09/14/24 @ 10:03 by NACHO Olson) Uncontrolled type 2 diabetes mellitus with hyperglycemia, with long-term current use of insulin Morbid obesity with BMI of 40.0-44.9, adult Lumbosacral spondylosis Peripheral autonomic neuropathy due to diabetes mellitus Anxiety Insomnia Asthma Diabetes mellitus with hyperglycemia Vitamin D deficiency Morbid obesity with BMI of 45.0-49.9, adult Pure hypercholesterolemia Benign essential hypertension Diabetes mellitus Surgical History History of colonoscopy (~01/01/11) Hx of LASIK H/O abdominal hysterectomy Social History Housing: Apartment Alcohol intake: never Patient Tobacco Use Status: Former Tobacco user e-Cigarette/Vaping Use: Never Used Second Hand Smoke Exposure: Yes service: No Current occupational status: retired and disabled Cognitive needs: No Hearing needs: No Vision needs: Yes (reading glasses) Physical Exam Vital Signs: Last Vital Signs Pulse 61 10/12/24 10:55 BP 102/68 10/12/24 10:55 Pulse Ox 96 10/12/24 10:55 Oxygen Delivery Method Room Air 10/12/24 10:55 BMI result Body Mass Index 45.4 Office Procedures Glucose Monitoring Details Details: See [facility] [address] - Glucose monitoring, continuous-physician I&R Procedure code (CPT) selection complete Results Reviewed Results Reviewed: Laboratory Last Values Glucose (Clinic) 110 mg/dL (60-115) 10/12/24 11:04 Laboratory Tests 05/25/21 06/06/22 06/06/22 07:35 10:36 10:40 Creatinine 0.94 0.96 Estimated GFR 60 58 Hgb A1c (Clinic) AST ALT Alkaline Phosphatase Triglycerides Cholesterol LDL Cholesterol, Calc HDL Cholesterol TSH Urine Creatinine 64.09 Urine Microalbumin < 5.0 Microalb/Creat Ratio TNP W[facility]LEY Antibody <5 09/20/22 06/19/23 10/03/23 07:09 11:40 09: Creatinine 0.79 1.00 Estimated GFR > 60 55 Hgb A1c (Clinic) 11.3 H AST 14 ALT 13 Alkaline Phosphatase 134 H Triglycerides 189 H Cholesterol 174 LDL Cholesterol, Calc 91 HDL Cholesterol 46 TSH 2.68 Urine Creatinine Urine Microalbumin Microalb/Creat Ratio [facility] Antibody 01/08/24 08/24/24 10:44 09:38 Creatinine Estimated GFR Hgb A1c (Clinic) 9.8 H 9.2 H AST ALT Alkaline Phosphatase Triglycerides Cholesterol LDL Cholesterol, Calc HDL Cholesterol TSH Urine Creatinine Urine Microalbumin Microalb/Creat Ratio [facility] Antibody Assessment & Plan Assessment & Plan (1) Uncontrolled type 2 diabetes mellitus with hyperglycemia, with long-term current use of insulin: Code(s): E11.65 - Type 2 diabetes mellitus with hyperglycemia; 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 Discussed pathophysiology of Type II Diabetes Mellitus with the patient in detail.? 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 Discussed lifestyle modification with the patient. Recommended 30 minutes of moderately vigorous exercise 5 days per week to promote weight loss. Patient declines referral to clinical document improvement educator/dietitian. Reviewed treatment of hypo/hyperglycemia. She picked up the prescription for glucose tablets. Increase Trulicity to 1.5 mg weekly. Continue Tresiba 70 units daily. Restart Humalog: If blood sugar is >150 before meal, administer Humalog 4 units 15 minutes before eating meal They were instructed to call if she has low blood sugars. Follow up in 4 weeks for type 2 diabetes Orders: Orders AMB Glucose Monitoring Today E11.9 - Type 2 diabetes mellitus without complications Medications: New dulaglutide (Trulicity) 1.5 mg (0.5 mL) subcut QWEEK 2 mL 1RF Changed From insulin lispro (Humalog KwikPen (U-100) Insulin) subcut To insulin lispro (Humalog KwikPen (U-100) Insulin) subcutaneously; three times daily 15 minutes before meals; administer 4 units if blood sugar is >150 15 mL 8RF Refilled insulin degludec (Tresiba FlexTouch U-200 insulin) Replaces Lantus 70 units (0.35 mL) subcut BEDTIME 9 mL 8RF Discontinued dulaglutide (Trulicity) Discontinued Reason: Doctor's Order 0.75 mg (0.5 mL) subcut QWEEK 2 mL 0RF Patient Instructions: Continue Tresiba 70 units nightly Increase Trulicity 1.5 mg weekly - start this new dose this If blood sugar is >150 before meal, administer Humalog 4 units 15 minutes before eating meal Coding Level of Care Code Est Pt Level 4 (47147) Diagnoses Uncontrolled type 2 diabetes mellitus with hyperglycemia, with long-term current use of insulin E11.65; Z79.4 CPT Codes Details - CPT: 39794 - Glucose monitoring, continuous-physician I&R ([id number])
[2024-10-12 10:55] VITALS: BP 102/68; PULSE 61; O2SAT 96; BMI 45.4
[2024-10-12 11:11] LABS: Glucose, Whole Blood 110 mg/dL (60-115)
--- OUTSIDE RECORDS SUMMARY | 2024-10-12 11:21 | XMS_ITS | Data Portability ---
Author Organization [place] [facility], [facility] Address [address] [place] [address] Care Team Providers Care Program Management Specialist Name Role Phone PEGGY NUNN Primary Care [...] her an ambulance and will arrive at [facility] ED by car. Report called in to [facility] ED. betty Not available 04/03/2020 13:09:24 Plan [...] Name and Address Organization Details Recorded Time [id number] Bactrim medicatio n Not available Not available Not available 04/03/2020 83305 9 RxNorm NACHO CAMACHO [address], [place], [address], [place] [facility] 0 12:29:01 [id number] Substance with sulfonami de structure and antibacte rial mechanism of action (substanc e) medicatio n Not available Not available Not available 04/03/2020 77281 8003 SNOMED NACHO CAMACHO [address] [place], [address], [place] [facility] 0 12:29:08 693087 metformin medicatio n Not available Not available Not available 04/03/2020 6809 RxNorm NACHO CAMACHO [address], [place], [address], [place] [facility] 0 12:29:25 879645 Invokana medicatio n Not available Not available Not available 04/03/2020 55740 64 RxNorm NACHO CAMACHO [address], [place], [address], [place] [facility] 0 12:30:37 756216 acetamino phen / oxycodone medicatio n Not available Not available Not available 04/03/2020 62535 3 RxNorm NACHO CAMACHO [address], [place], [address], [place] [facility] 0 12:30:46 [id number] oxycodone medicatio n Not available Not available Not available 04/03/2020 7804 RxNorm NACHO CAMACHO [address], [place], [address], [place] [facility] [...] Status Former Smoker NACHO CAMACHO [address] [place], [address], [place] [facility] 04/03/2020 12:38:06 What Is Your Code Status? Full Code [facility] Information not available 04/03/2020 Excessive Alcohol Or Drug Use No [facility] Information not available 04/03/2020 How Much Tobacco Do You Smoke? 1 PPW [facility] Information not available 04/03/2020 How Many Years Have You Smoked Tobacco? 5 [facility] Information not available 04/03/2020 Sex: Unknown Functional [...] SNOMED-CT Code Diagnosis ICD10 Code Diagnosis Note [id number] [facility] [address] [place] [address] 04/03/2020 12:27:19 04/04/2020 15:23:02 Acute pyelonephritis 96786282 N10 Sepsis 72310975 A41.9 Health Concerns Section Related Observation LastModified by Organization Detai ls LastModified Time None Recorded Concern Status LastModified by Organization Details LastModified Time None Recorded Advance Directives Directive None Recorded Payers Encounter Date Sequence Insurance Name Policy Number Policy Izquierdo Covered Member ID Izquierdo Member ID Guarantor Name 04/03/2020 1 [facility] - DOS PRIOR TO 2022 - DUAL ELIGIBLE (MEDICARE REPLACEMENT/AD VANTAGE - HMO) Wendy Mckeon [id number] Wendy Mckeon 04/03/2020 2 [place]: [facility] Wendy Mckeon [id number] Wendy Mckeon Notes Date Note Type Note Provider Name and Address Organization Details Recorded Time 04/03/2020 text/html 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 NACHO CAMACHO [address] [place], [address], [place] [facility] 04/03/2020 13:14:56 OBGyn Episode No OBEpisode recorded.
--- OUTSIDE RECORDS SUMMARY | 2024-10-12 11:21 | XMS_ITS | Clinical Summary ---
Author Organization [address] Address [address] [place] [address] Phone Care Team Providers Care Recreation Officer Name Role Phone Oneida Galvan MD Primary Care Provider [phone] Allergies Active Allergy Reactions Criticality Noted Date [...] mg. 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 [...] Care Team Description 07/20/2024 Telephone Endocrinology - [address] [address] Anahi Peterson PA PRIOR AUTHORIZATION [...] Maintenance Results * Hemoglobin A1c (03/26/2024) Pathologist [facility] Hemoglobin A1C 9.6 10.7 % Blood Venous blood specimen / Unknown Historical Provider LAB BLOOD ORDERAB LES * Urine Albumin Creatinine Ratio (01/08/2024) Pathologist [facility] Urine Albumin Creatinine Ratio Abstracted Historical Provider MD GOSS MAINZAID E * Annual BMP Blood Test (01/08/2024) Pathologist [facility] Annual BMP Blood Test Abstracted Historical Provider MD WOLFGANG ESPARZA E * (ABNORMAL) Lipid panel (01/08/2024) Pathologist [facility] LDL/HDL Ratio 4 0 - 4 Triglycerides 190(A) 0 - 150 mg/dL Cholesterol 175 0 - 200 mg/dL HDL 50 40 mg/dL LDL Cholesterol 87 0 - 100 mg/dL Blood Venous blood specimen / Unknown Historical Provider LAB BLOOD ORDERAB LES from Last 3 Months or Most Recently Relevant to Health Maintenance Care Teams Recreation Officer Relationship Specialty Start Date End Date Oneida Galvan MD [address] [facility] [address], [place] PCP - General Internal Medicine 04/29/17
== END 2024-10-12 11:40 | disposition home or self-care (01) ==
PROVIDERS: PCP Internal Medicine; Visit Provider Physician Assistant Medical
DX: E11.65 Type 2 diabetes mellitus with hyperglycemia (principal); Z79.4 Long term (current) use of insulin

== ENCOUNTER → 2024-10-12 10:30 | Outpatient (BNVA) | payer OTHER, SELFPAY | PROVIDERS: PCP Internal Medicine; Visit Provider Physician Assistant Medical | DX: E11.40 Type 2 diabetes mellitus with diabetic neuropathy, unspecified (principal); E11.65 Type 2 diabetes mellitus with hyperglycemia; E55.9 Vitamin D deficiency, unspecified; E78.5 Hyperlipidemia, unspecified; Z79.4 Long term (current) use of insulin | CPT/HCPCS: 82947; 99212 ==

== ENCOUNTER 2024-11-09 10:30 | Outpatient (AMB) | payer OTHER, SELFPAY ==
--- NOTE | 2024-11-09 10:36 | A.OFFVIS_ITS ---
Vital Signs 11/09/24 10:40 Height 5 ft 5 in Weight 278 lb 10.629 oz BMI 46.4 BP 98/60 Blood Pressure Location Lt brachial Position Sitting Pulse 81 Pulse Source Pulse Oximeter Pulse Oximetry (%) 95 Oxygen Delivery Method Room Air Intake Visit Reasons: T2DM Intake Note: Patient present today to follow up on Type 2 Diabetes Mellitus. Last Diabetic Eye exam: approx in June 2024, Eye and Lasik Last Podiatry Visit: In the Summer 2023, Dr. Ramsey Random Glucose: 375 mg/dl HgA1C: 8.9% 10/08/2024 Cafeteria Food Server Required: No Accompanied by: Daughter Allergies sulfamethoxazole [From BACTRIM] Allergy (Intermediate, Verified 11/09/24 10:43) ANXIETY trimethoprim [From BACTRIM] Allergy (Intermediate, Verified 11/09/24 10:43) ANXIETY aluminum hydroxide [From Magnagel] Allergy (Mild, Verified 11/09/24 10:43) high blood press magnesium [From Magnagel] Allergy (Mild, Verified 11/09/24 10:43) high blood press magnesium hydroxide [From Magnagel] Allergy (Mild, Verified 11/09/24 10:43) high blood press canagliflozin [Invokana] Allergy (Unknown, Verified 11/09/24 10:43) Itching lisinopril Allergy (Unknown, Verified 11/09/24 10:43) Abdominal Pain metformin Allergy (Unknown, Verified 11/09/24 10:43) Stomach Upset Sulfa (Sulfonamide Antibiotics) Allergy (Unknown, Verified 11/09/24 10:43) Agitated sulfadiazine Allergy (Unknown, Verified 11/09/24 10:43) Unknown Avocado Revitalizing Allergy (Unknown, Uncoded 11/09/24 10:43) Unknown oxycodone Allergy (Unknown, Uncoded 11/09/24 10:43) Hives percocet Allergy (Unknown, Uncoded 11/09/24 10:43) Hives tramadol Allergy (Unknown, Uncoded 11/09/24 10:43) Hives HPI Comments Details: This is a 69-year-old female with a past medical history of type 2 diabetes with neuropathy, anxiety, vitamin-D deficiency, hyperlipidemia, asthma and hypertension presenting for diabetic management. She is accompanied by her DISH UP PERSON, Laly. 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 She was diagnosed with diabetes around 2015. She has a family history of Type II diabetes (mother, father, sister). Reviewed CGM data from her phone x 14 days: 35% target range 23% high Very high 42% average glucose 229 0% hypoglycemia 8.8% GMI CGM active 93% Pattern of daytime/postprandial hyperglycemia. POC 375. Denies symptoms of hyperglycemia. She ate today. She is upset because her blood sugars have been high, but she ran out of Trulicity for the past 2 weeks. The prescription is ready at the pharmacy today. She also had a urinary tract infection and was on antibiotics. She says her urine is back to being normal color, and she denies frequency, hematuria, dysuria, fevers and chills. Hemoglobin a1c 9.2% 08/24/24 down from 9.6%. Hemoglobin a1c 8.9% 10/12/2024. Current medication regimen: Tresiba 70 units nightly, Trulicity 1.5 mg weekly, Humalog 4 units before meals if BG is >150. Previous medications: Lantus and Mounjaro Glimepride-discontinued Invokana was not tolerated-yeast infection Previously documented: Trulicity was switched to Mounjaro by her last sheet tailer because it was back ordered. They report it was titrated to 7.5 mg, but they did not tell her to wait a week after her prior injection to start it. The patient says at baseline she has a sensitive stomach due to history gastric sleeve, and this caused more stomach upset. She was constipated and trying to go to the bathroom after taking the injections back to back. She tells me that she started to feel sick. Her granddaughter found her confused and then she did become unresponsive for a short period of time. ER notes were reviewed. EMS noted blood sugar was 200 at the time. She was hypotensive. Patient says her her medications for blood pressure were adjusted since then. Today her blood pressure is a little low, but she denies dizziness. Metformin was not tolerated-GI upset. Hypoglycemia symptoms: None Hyperglycemia symptoms: 300+ glucose she has polydipsia Eye exam: 04/22/2024 at [facility], no retinopathy or macular edema. Microvascular complications: Neuropathy and nephropathy (decreased GFR) Macrovascular complications: none Hypertension: treated with amlodipine 2.5 mg daily, losartan-hydrochlorothiazide 100-25 mg daily Lisinopril was not tolerated due to abdominal pain. Hyperlipidemia: treated with atorvastatin 20 mg daily. ROS: Constitutional: No unexplained weight loss, fever, chills, fatigue or night swea ts. Eyes: No vision changes Respiratory: No shortness of breath Cardiovascular: No chest pain, chest pressure or chest discomfort. No palpitations or pedal edema. Gastrointestinal: No anorexia, nausea, vomiting or diarrhea. No abdominal pain or blood in stool. : Denies urinary frequency, malodorous urine, hematuria, dysuria Neurologic: No headache, dizziness, syncope, unilateral weakness, ataxia, numbness or tingling in the extremities. No confusion or dizziness. Skin: No rash or itching. Physical exam: Constitutional: Alert, in no distress. Eyes: Pupils are equal, round and reactive to light. Extraocular muscles intact. Neck: Supple, Full range of motion. No lymphadenopathy. No palpable thyroid masses. Respiratory: Clear to auscultation. Cardiovascular: S1 S2 regular. No murmurs. No carotid bruits. [facility] Medical History (Updated 09/14/24 @ 10:03 by NACHO Olson) Uncontrolled type 2 diabetes mellitus with hyperglycemia, with long-term current use of insulin Morbid obesity with BMI of 40.0-44.9, adult Lumbosacral spondylosis Peripheral autonomic neuropathy due to diabetes mellitus Anxiety Insomnia Asthma Diabetes mellitus with hyperglycemia Vitamin D deficiency Morbid obesity with BMI of 45.0-49.9, adult Pure hypercholesterolemia Benign essential hypertension Diabetes mellitus Surgical History History of colonoscopy (~01/01/11) Hx of LASIK H/O abdominal hysterectomy Social History Housing: Apartment Alcohol intake: never Patient Tobacco Use Status: Former Tobacco user e-Cigarette/Vaping Use: Never Used Second Hand Smoke Exposure: Yes service: No Current occupational status: retired and disabled Cognitive needs: No Hearing needs: No Vision needs: Yes (reading glasses) Physical Exam Vital Signs: Last Vital Signs Pulse 81 11/09/24 10:40 BP 98/60 11/09/24 10:40 Pulse Ox 95 11/09/24 10:40 Oxygen Delivery Method Room Air 11/09/24 10:40 BMI result Body Mass Index 46.4 Office Procedures Glucose Monitoring Details Details: see [facility] [address] - Glucose monitoring, continuous-physician I&R Procedure code (CPT) selection complete Results Reviewed Results Reviewed: Laboratory Last Values Glucose (Clinic) 375 mg/dL (60-115) H* 11/09/24 10:51 Laboratory Tests 10/03/23 01/08/24 08/24/24 09:23 10:44 09:38 Creatinine Estimated GFR Hgb A1c (Clinic) 11.3 H 9.8 H 9.2 H Hemoglobin A1c % AST ALT Triglycerides Cholesterol LDL Cholesterol, Calc HDL Cholesterol Vitamin B12 TSH Urine Creatinine Urine Microalbumin Microalb/Creat Ratio 10/08/24 10/08/24 06:35 06:37 Creatinine 0.71 Estimated GFR > 60 Hgb A1c (Clinic) Hemoglobin A1c % 8.9 H AST 25 ALT 15 Triglycerides 136 Cholesterol 153 LDL Cholesterol, Calc 85 HDL Cholesterol 41 Vitamin B12 871 TSH 3.00 Urine Creatinine 207.89 Urine Microalbumin 19.0 Microalb/Creat Ratio 9.1 Assessment & Plan Assessment & Plan (1) Uncontrolled type 2 diabetes mellitus with hyperglycemia, with long-term current use of insulin: Code(s): E11.65 - Type 2 diabetes mellitus with hyperglycemia; Z79.4 - alf (current) use of insulin Category: Medical Plan: In summary this is a 69-year-old female with uncontrolled type 2 diabetes. She has experienced worsening hyperglycemia in the last couple of weeks after not being able to get Trulicity and having a urinary tract infection and antibiotic treatment. Discussed pathophysiology of Type II Diabetes Mellitus with the patient in detail.? I explained the prison risks and complications associated with uncontrolled diabetes including nephropathy, neuropathy, peripheral vascular disease, retinopathy, increased risk of heart disease and stroke.? Discussed lifestyle modification with the patient. Recommended 30 minutes of moderately vigorous exercise 5 days per week to promote weight loss. Patient declines referral to early childhood special educator/dietitian. Reviewed treatment of hypo/hyperglycemia. She has glucose tablets. Restart Trulicity to 1.5 mg weekly. Continue Tresiba 70 units daily. Humalog: Administer Humalog 4 units 15 minutes before eating meals. Do not administer if blood sugar is under 150. If blood sugar is over 250, administer 8 units before your meal. They were instructed to call if she has low blood sugars. Follow up in 2 weeks for type 2 diabetes Orders: Orders AMB Glucose Monitoring Today E11.9 - Type 2 diabetes mellitus without complications Medications: Changed From insulin degludec (Tresiba FlexTouch U-200 insulin) Replaces Lantus 70 units (0.35 mL) subcut BEDTIME 9 mL 8RF To insulin degludec (Tresiba FlexTouch U-200 insulin) Replaces Lantus 70 units (0.35 mL) subcut ONCE 18 mL 5RF Patient Instructions: Restart Trulicity to 1.5 mg weekly. Continue Tresiba 70 units daily. Humalog: Administer Humalog 4 units 15 minutes before eating meals. Do not administer if blood sugar is under 150. If blood sugar is over 250, administer 8 units before your meal. Coding Level of Care Code Est Pt Level 4 (98024) Diagnoses Uncontrolled type 2 diabetes mellitus with hyperglycemia, with long-term current use of insulin E11.65; Z79.4 CPT Codes Details - CPT: 20954 - Glucose monitoring, continuous-physician I&R ([id number])
[2024-11-09 10:40] VITALS: BP 98/60; PULSE 81; O2SAT 95; BMI 46.4
[2024-11-09 10:57] LABS: Glucose, Whole Blood 375 mg/dL (60-115)
--- OUTSIDE RECORDS SUMMARY | 2024-11-09 12:47 | XMS_ITS ---
Author Organization [facility] Address [address] [facility] [place] [address] Care Team Providers Care Theology Professor Name Role Phone Etienne CUEVAS [place] Primary Care Provider UnaAngel Keita Unavailable [phone] Allergies Allergen (clinical drug ingredient) Drug/Non Drug Allergy documented on EMR Reaction Allergy Type Onset Date Status sulfamethoxazole / trimethoprim Bactrim Unknown Drug Allergy Active Lisinopril abdominal pain Drug Allergy A ctive metformin metFORMIN HCl stomach upset Drug Allergy [...] Polyneuropathy due to diabetes mellitus type I (905019207) Type 1 diabetes mellitus with diabetic polyneuropathy (E10.42) Active confirmed Vital Signs Height 5 ft 5 in in 08/28/2023 Weight 270 lbs 08/28/2023 BMI 44.93 kg/m2 08/28/2023 Procedures Procedure Date Ordered Date Performed Result Body Sit e 27721-EGQY SKIN LESIONS, 2 TO 4 08/28/2023 N/A T5570-AORTOTHJ DYSTROPHIC NAILS ANY # 08/28/2023 N/A Encounters Encounter Location Date Provider Diagnosis [facility] [address] [place] [address] 08/28/2023 Angel Ramsey Type 1 diabetes mellitus [...] X ray : Foot, right 3V 08/28/2023 93731-AVBR SKIN LESIONS, 2 TO 4 08/28/20 23 S2920-CYFTVSHG DYSTROPHIC NAILS ANY # Next Appt Details Follow Up: 4 Weeks, Reason: Procedure Notes * Category Sub-Category Detail Notes Keratoma Treatment Parring or Cutting o f Benign Hyperkeratotic Lesion(s) 82568 ( 2-4 Lesions ) - The Benign [...] bed tissue 6-10 (G0127) Progress Notes * DANIELLE Wendy LDOB:[birth year] (68 yo F)Acc No.[id number]:08/28/2023 Progress Notes Patient:?Wendy Mckeon Provider:?Angel Ramsey DPM :1955???Age:68 Y???Sex:Female D ate:08/28/2023 Address:[address] [place], [place] [address], [place] Pcp:Hemal Clifton MD Subjective: * Chief Complaints: [...] kg. * Examination: ???Ophthalmology Referral: ?DIABETES EYE EXAM?Diabetic Retinopathy Screening:?Yes ?Findings of Diabetic Eye Exam:?no retinopathy?Neurological: ?SENSORY:?Neurological exam demonstrates, reduced vibration sensation, B/L, at Forefoot, at Midfoot, Neurological exam demonstrates pop of fibroma's wero plantar fascia.?TINEL'S COMPRESSION:?Negative tarsal tunnel, gui pedis, and medial calcaneal nerves B/L.?BABINSKI REFLEX:?absent.?Vascular: ?DP PULSES:? 1/4, B/L.?PT PULSES:? /4, B/L.?CAPILLARY FILL TIME:?3 secs. per digit, B/L.?SKIN [...] Procedures:?Keratoma Treatment:?Parring or Cutting of Benign Hyperkeratotic Lesion(s)?45622 ( 2-4 Lesions ) - The Benign [...] or bed tissue 6-10 (G0127).? * Procedure Codes:?59595 X-RAY EXAM OF RIGHT FOOT 3V, Modifiers: 26 , [id number] X- RAY EXAM OF LEFT FOOT 3V, Modifiers: 26 , [id number] Prescription Custom Fabricated Foot insert, Modifiers: RT L3000 Prescription Custom Fabricated Foot [place], [place] [address] TRIM SKIN LESIONS, 2 TO 4, Modifiers: [...] Interfil injection therapy, as well as surgical [place]/Endoscopic Fasciitomy surgical procedures if needed. Recommendations were [...] DPM Date:? 023 Generated for Samreen marquez/Sadaf/Jailyn on:?11/09/2024 12:47 PM EST History and Physical Notes * HPI [...]
--- OUTSIDE RECORDS SUMMARY | 2024-11-09 12:47 | XMS_ITS | Patient Health Record ---
Author Organization [facility] Address [address] [facility] [place] [address] Care Team Providers Care Director Of Web Marketing Name Role Phone Etienne CUEVAS, [place] Primary Care Provider Unava Angel Moran Unavailable [phone] Allergies Allergen (clinical drug ingredient) Drug/Non Drug [...] Antibiotics Makes me itch Drug Allergy Active Reason For Referral No [...] Polyneuropathy due to diabetes mellitus type I (819888082) Type 1 diabetes mellitus with diabetic polyneuropathy (E10.42) Active confirmed Plan Of Treatment Pending Test Test Name Order Date X ray : Foot, left 3V 08/28/2023 X ray : Foot, right 3V 08/28/2023 67872-DDQP SKIN LESIONS, 2 TO 4 08/28/20 23 W9311-APCPWWAG DYSTROPHIC NAILS ANY # Insurance Providers Payer Name Payer Address Payer Phone Subscriber Number Group Number Insured Name Patient Relationship to Insured Coverage Start Date Coverage End Date [facility] [employer] Claims [address] NACHO Vasquez [id number] Wendy Matthews Self - patient is the [...]
--- OUTSIDE RECORDS SUMMARY | 2024-11-09 12:48 | XMS_ITS | Patient Health Record ---
Author Organization [facility] Address [address] [facility] [address] [place] [address] Support Name Relationship Address Phone ADELINA Jensen Guarantor Unknown [phone] Allergies Allergen (clinical drug ingredient) Drug/Non Drug [...] Disorder due to type 2 diabetes mellitus (762541491) Type 2 diabetes mellitus with unspecified complications (E11.8) Active confirmed Problem Morbid obesity (disorder) (858897896) Morbid (severe) obesity due to excess calories (E66.01) Active confirmed Problem Mixed hyperlipidemia (780484354) Mixed hyperlipidemia (E78.2) Active confirmed Problem Essential hypertension (31667127) Essential (primary) hypertension (I10) Active confirmed Plan Of Treatment Future Test Test Name Order Date TSH 03/20/2020 Vitamin D, 25-Hydroxy 03/20/2020 CBC 03/20/2020 COMPREHENSIVE METABOLIC PANEL 03/20/2020 PHOSPHORUS 03/20/2020 MAGNESIUM 03/20/2020 Insurance Providers Payer Name Payer Address Payer Phone Subscriber Number Group Number Insured Name Patient Relationship to Insured Coverage Start Date Coverage End Date [facility] [address] [address] [place] [address] [phone] [id number] ADELINA Aguayo Self - patient is the insured Medical (General) History Medical History History ICD Code kidney stones Surgical History Surgery Date(Month/Year) gastric sleeve Uterus removed because of cancer
--- OUTSIDE RECORDS SUMMARY | 2024-11-09 12:48 | XMS_ITS ---
[facility] Address [address] [facility] [place] [address] Care Team Providers Care In Service Coordinator Name Role Phone Etienne CUEVAS Greene Primary Care Provider Unava Angel Moran Unavailable [phone] Allergies Allergen (clinical drug ingredient) Drug/Non Drug Allergy documented on EMR Reaction Allergy Type Onset Date Status Bactrim Unknown Drug Allergy Active Lisinopril abdominal pain Drug Allergy A ctive metFORMIN HCl stomach upset Drug Allergy Active oxyCODONE HCl hives Drug Allergy Act lita Percocet hives Drug Allergy Active traMADol HCl hives Drug Allergy Acti ve Trimethoprim anxiety Drug Allergy Acti ve Canagliflozin itching Drug Allergy Act lita morphine [...] a day Active Vitamin D3 50 MCG (2000 UT) 1 [...] 10/09/2023 Encounters Encounter Location Date Provider Diagnosis [facility] [address] [address] 10/09/2023 Angel Ramsey Type 1 diabetes mellitus [...] T5 Progress Notes * Wendy MCKEON LDOB:[birth year] (69 yo F)Acc No.[id number]:10/09/2023 Progress Note Patient:?ARMANDOWendy GRAF L Provider:?Angel Ramsey DPM :1955???Age:68 Y???Sex:Female D ate:10/09/2023 Address:[address] [place], [place] [id number] Pcp:Hemal Clifton MD Subjective: * Chief Complaints: [...] MG Tablet 1 tablet Orally Once a day Trulicity 3 MG/0.5ML Solution Pen-injector as directed Subcutaneous Lantus SoloStar 100 UNIT/ML Solution Pen-injector as directed Subcutaneous Glimepiride 1 MG Tablet 1 tablet with breakfast or the first main meal of the day Orally Once a day Gabapentin 100 MG Capsule 1 capsule Orally Once a day Vitamin D3 50 MCG (2000 UT) Capsule 1 capsule Orally Once a day Atorvastatin Calcium 20 MG Tablet 1 tablet Orally Once a day Aspirin 81 MG Tablet Chewable 1 tablet Orally Once a day amLODIPine Besylate 5 MG Tablet 1 tablet Orally Once a day Custom Orthotics as directed Taking Losartan Potassium 100 MG Tablet 1 tablet Orally Once a day Taking Trulicity 3 MG/0.5ML Solution Pen-injector as directed Subcutaneous Taking Lantus SoloStar 100 UNIT/ML Solution Pen-injector as directed Subcutaneous Taking Glimepiride 1 MG Tablet 1 tablet with breakfast or the first main meal of the day Orally Once a day Taking Gabapentin 100 MG Capsule 1 capsule Orally Once a day Taking Vitamin D3 50 MCG (2000 UT) Capsule 1 capsule Orally Once a day Taking Atorvastatin Calcium 20 MG Tablet 1 tablet Orally Once a day Taking Aspirin 81 MG Tablet Chewable 1 tablet Orally Once a day Taking amLODIPine Besylate 5 MG Tablet 1 tablet Orally Once a day Taking Custom Orthotics as directed Not-Taking/PRNVitamin B Complex traMADol HCl 50 MG Tablet 1 tablet as needed Orally Once a day Sertraline HCl 50 MG Tablet 1 tablet Orally Once a day Meloxicam 15 MG Tablet 1 tablet Orally Once a day Albuterol Sulfate 108 (90 Base) MCG/ACT Aerosol Powder Breath Activated 1 puff as needed Inhalation every 4 hrs Tylenol Arthritis Pain , Notes to Pharmacist: 650 mgMedication List reviewed and reconciled with the patientNot-Taking/PRN Vitamin B Complex Not-Taking/PRN traMADol HCl 50 MG Tablet 1 tablet as needed Orally Once a day Not-Taking/PRN Sertraline HCl 50 MG Tablet 1 tablet Orally Once a day Not-Taking/PRN Meloxicam 15 MG Tablet 1 tablet Orally Once a day Not-Taking/PRN Albuterol Sulfate 108 (90 Base) MCG/ACT Aerosol Powder Breath Activated 1 puff as needed Inhalation every 4 hrs Not-Taking/PRN Tylenol Arthritis Pain , Notes to Pharmacist: 650 mgMedication List reviewed and reconciled with the patient * Allergies:?Trimethoprim: anx ietyCanagliflozin: itchingLisinopril: abdominal painmetFORMIN HCl: stomach upsetoxyCODONE HCl: hivesPercocet: hivestraMADol HCl: hivesSulfa Antibiotics: Makes me itchMorphine: Headache and vomitingBactrimyes[Allergies Verified] Objective: * Vitals:?Ht: 5ft 5in, Wt:272, BMI:45.26, Shoe size: 11, BS: 220, Ht-cm: 165.1 cm, Wt-k.38 kg. * ???Past Orders: ???Lab:HEMOGLOBIN A1C (GLYCO HEMOGLOBIN) (Order Date - 10/09/2023) (Collection Date & Time - 10/03/2023 11:59 AM) ? Value Reference Range ?HEMOGLOBIN A1C (HH) 11 * Examination: ???Ophthalmology Referral: ?DIABETES EYE EXAM?Diabetic Retinopathy Screening:?Yes ?Findings of Diabetic Eye Exam:?no retinopathy?Neurological: ?SENSORY:?Neurological exam demonstrates, reduced vibration sensation, B/L, at Forefoot, at Midfoot, Neurological exam demonstrates pop of fibroma's wero plantar fascia.?TINEL'S COMPRESSION:?Negative tarsal tunnel, gui pedis, and medial calcaneal nerves B/L.?BABINSKI REFLEX:?absent.?Vascular: ?DP PULSES (B):? 1/4, B/L.?PT PULSES (B):? 1/4, B/L.?CAPILLARY FILL TIME:?3 secs. per digit, B/L.?TROPHIC CONDITION-TEXTURE/ELASTICITY/TURGOR/HAIR GROWTH (B):?normal, B/L.?TEMPERTURE GRADIENT (C):?warm to cool, proximal to distal, B/L.?PIGMENTATION:?normal, B/L.?EDEMA (C):?no edema.?TELANGECTASIA:?absent.?VARICOSITIES:?absent.?Nails: ?NAILS are:? Elongated, overgrown, dystrophic, 1-5 B/L.?Dermatologic: ?SKIN FINDINGS:?Skin exam reveals Keratotic lesion(s) located at, Medial plantar, IPJ, TA, T5, Heel(s), B/L.?General Examination: ?GENERAL APPEARANCE:?pleasant, alert, well nourished, well developed, well hydrated, with good attention to hygene/body habitus, and in no acute distress.?ORIENTED:?person,place, and time.?FOOT EXAM:?Lower Extremity Neurological Exam performed:?Yes ?Visual exam of foot performed:?Yes ?Date?10/09/2023 ?Sensory testing performed:?sensations diminished ?Sensory and motor testing performed:?sensations diminished ?Pedal pulse taking performed:?1+?Neuroma Pain: ?PALPATION:?No interspace pain noted on palpation.?Orthopedic: ?MUSCLE STRENGTH:?5/5 all groups in a symmetrical fashion , B/L.?GAIT ABNORMALITY:?pronated, abducted, B/L.?FOOT MORPHOLOGY:? Pes Planus structure, B/L.?Ingrown Nail: ?INSPECTION:? Reveals nail incurvation, dull pain on palpation due to neuropathy, groove hypertrophy, Bilateral nail borders, TA, T5.? Assessment: * Assessment: 1.?Plantar fascial fibromato sis - M72.2???2.?Type 1 diabetes mellitus with diabetic polyneuropathy - E10.42 (Primary)???3.?Pain in left foot - M79.672???4.?Pain in right foot - M79.671???5.?Ingrowing nail - L60.0??? Plan: * Treatment: * Procedures:?Nail Avulsion:?Location?Lateral nail [...] surgical procedures to prevent recurrence.? * Procedure Codes:?90924 Avuls ion Plate, Modifiers: T5 * Preventive [...] Ramsey DPM Date:? 024 Generated for Samreen marquez/Sadaf/Andréssmitting on:?11/09/2024 12:47 PM EST History and Physical [...] hygene/body habitus, and in no acute distress FOOT EXAM: Lower Extremity Neurological Exa m performed:: Yes Visual exam of foot performed:: Yes Date: 10/09/2023 Sensory testing performed:: sensations d iminished Sensory and motor testing performed:: se nsations diminished Pedal pulse taking performed:: 1+ ORIENTED: person,place, and ti me Ophthalmology Referral [...]
--- OUTSIDE RECORDS SUMMARY | 2024-11-09 12:48 | XMS_ITS | Clinical Summary ---
Author Organization [address] Address [address] [place] [address] Phone Care Team Providers Care Upholsterer Apprentice Name Role Phone Oneida Galvan MD Primary Care Provider [phone] Allergies Active Allergy Reactions Criticality Noted Date Comments Canagliflozin 12/25/2017 Lisinopril 12/25/2017 Metformin Rash High 06/02/2017 Oxycodone-Acetaminophen Nausea And Vomiting,Other 11/20/2023 Heebie Jeebies Phentermine 11/02/2019 Sulfa (Sulfonamide Antibiotics) Rash High 06/02/2017 Tirzepatide 03/19/2024 Hypotension Topiramate 11/02/2019 Medications blood-glucose sensor (FreeStyle Curt 3 Sensor) device 1 Device by Does not apply route every 14 days. 4 Active insulin glargine (LANTUS) 100 unit/mL injection Inject 75 Units into the skin at bedtime. 4 04/13/20 25 Active insulin lispro (HumaLOG KwikPen Insulin) 100 unit/mL injection pen Inject 3 times a day with meals per sliding 100-149: 2 units; 151-200: 3 units; 201-250: 4 units; 251-300: 5 units; 301-350: 6 units; 351-400: 7 units 4 Active CHOLECALCIFEROL , VITAMIN D3, ORAL Take by mouth. Activ e CYANOCOBALAMIN, VITAMIN B-12, ORAL Take by mouth. Activ e loratadine 10 mg capsule Take by mouth. Acti ve simvastatin (ZOCOR) 20 mg tablet 7 Active losartan (COZAAR) 50 mg tablet 100 mg. 7 Active blood-glucose meter,continuou s (Dexcom G7 Skull Splitter) misc 1 Device by Not Applicable route. 1 Device by Does not apply route See Admin Instructions. Use daily with dexcom g 7 sensors - Does not apply 4 Active pen needle, diabetic 32 gauge x needle Use with insulin 4 times a day 4 Active blood sugar diagnostic (FreeStyle Lite Strips) test strip Use to check BS 3 times a day Active freestyle 28 gauge lancets Check blood sugar three times a day or as directed 300 each 1 4 08/10/20 Active Active Problems Problem Noted Date Diagnosed Date Class 3 severe obesity due t o excess calories with serious comorbidity and body mass index (BMI) of 45.0 to 49.9 in adult 06/07/2024 Type 2 diabetes mellitus wit h hyperglycemia, with long-term current use of insulin 06/07/2024 Anxiety 11/20/2023 Asthma 11/20/2023 Hyperlipidemia 11/20/2023 Neuropathy 11/20/2023 Obesity 05/24/2019 Diabetes type 1, controlled 06/02/2017 Hypertension 06/02/2017 Surgical History Surgery Date Site/Laterality Comments HYSTERECTOMY 2011 PROCEDURE: HISTORICAL TOTAL HYSTERECTOMY WITH BSO; COMMENT: endometrial cancer, grade 1, stage 1 Medical History Medical History Date Comments Diabetes type 1, controlled ([facility]) 06/02/2017 DX:Diabetes type 1, controlled ([facility]) Hypertension 06/02/2017 DX:Hypertension History of endometrial cancer [...] drink = 0.6 oz pur e alcohol) Comments Unknown Sex and Gender Information Value Date Recorded Sex Assigned at Not on file Legal Sex Female 2:28 PM EST Gender Identity Not on file Sexual Orientation [...] Last Done Comments Breast Cancer Screening 1955 Diabetes: Annual Foot Exam 1966 Diabetes: Annual Retina Eye Exam 1966 DTaP,Tdap,and Td Vaccines (1 - Tdap) 1975 Pneumococcal Vaccine: 50+ Years (1 of 2 - PCV) 1975 Zoster Vaccines (1 of 2) 2006 [...] patient's age to complete this topic Meningococcal B Vacine Aged Out No lo nger eligible based on patient's age to complete [...] Maintenance Results * Hemoglobin A1c (03/26/2024) Pathologist [facility] Hemoglobin A1C 9.6 <=10.7 % Blood Venous blood specimen / Unknown Result [facility] Historical Provider LAB BLOOD ORDERABLES Margarita l Result * Urine Albumin Creatinine Ratio (01/08/2024) Pathologist [facility] Urine Albumin Creatinine Ratio Abstracted Historical Provider HEALTH MAINTENANCE Final Result * Annual BMP Blood Test (01/08/2024) Pathologist [facility] Annual BMP Blood Test Abstracted [facility] Provider HEALTH MAINTENANCE Final Result * (ABNORMAL) Lipid panel (01/08/2024) [facility] LDL/HDL Ratio 4 0 - 4 Triglycerides 190(A) 0 - 150 mg/dL Cholesterol 175 0 - 200 mg/dL HDL 50 >=40 mg/dL LDL Cholesterol 87 0 - 100 mg/dL Blood Venous blood specimen / Unknown us Historical Provider LAB BLOOD ORDERABLES Margarita lora Result from Last 3 Months or Most Recently Relevant to Health Maintenance Insurance [facility] MEDICAID [place] [id number] Care Teams Upholsterer Apprentice Relationship Specialty Start Date End Date Oneida Galvan MD [address] [place] PCP - General Internal Medicine 04/29/17
--- OUTSIDE RECORDS SUMMARY | 2024-11-09 12:48 | XMS_ITS ---
Author Organization [facility] Address [address] [place] [address] Care Team Providers Care Making Machine Operator Name Role Phone Francis Clifton MDneth Primary Care Provider Unava Angel Moran [facility] [phone] REASON FOR VISIT Custom Orthotics Encounters Encounter Location Date Provider Diagnosis [facility] [address] [place] [address] 09/15/2023 Angel Ramsey Plan Of Treatment No Information Progress Notes * Wendy MCKEON LDOB:[birth year] (68 yo F)Acc No.[id number]:09/15/2023 Patient:?Wendy Mckeon :1955???Age:68 Y???Sex:Female Address:[address] [place], [address] * true * Date:? Generated for Printi jimmy/Sadaf/eTransmitting on:?11/09/2024 12:47 PM EST
== END 2024-11-09 11:30 | disposition home or self-care (01) ==
PROVIDERS: PCP Internal Medicine; Visit Provider Physician Assistant Medical
DX: E11.65 Type 2 diabetes mellitus with hyperglycemia (principal); Z79.4 Long term (current) use of insulin

== ENCOUNTER → 2024-11-09 10:30 | Outpatient (BNVA) | payer OTHER, SELFPAY | PROVIDERS: PCP Internal Medicine; Visit Provider Physician Assistant Medical | DX: E11.65 Type 2 diabetes mellitus with hyperglycemia (principal); Z79.4 Long term (current) use of insulin | CPT/HCPCS: 82947; 99212 ==

== ENCOUNTER 2024-12-03 11:20 | Outpatient (AMB) | payer OTHER, SELFPAY ==
[2024-12-03 11:33] VITALS: BP 100/60; PULSE 86; O2SAT 96; BMI 45.9
--- NOTE | 2024-12-03 11:33 | A.OFFVIS_ITS ---
Vital Signs 12/03/24 11:33 Height 5 ft 5 in Weight 275 lb 9.245 oz BMI 45.9 BP 100/60 Blood Pressure Location Rt brachial Position Sitting Pulse 86 Pulse Source Pulse Oximeter Pulse Oximetry (%) 96 Oxygen Delivery Method Room Air Intake Visit Reasons: Type II Diabetes Intake Note: Patient present today to follow up on Type 2 Diabetes Mellitus. Last Diabetic Eye exam: approx in June 2024, Eye and Lasik Last Podiatry Visit: In the Summer 2023, Dr. Ramsey Random Glucose: 81 mg/dl HgA1C: 8.9% 10/08/2024 Allergies sulfamethoxazole [From BACTRIM] Allergy (Intermediate, Verified 11/09/24 10:43) ANXIETY trimethoprim [From BACTRIM] Allergy (Intermediate, Verified 11/09/24 10:43) ANXIETY aluminum hydroxide [From Magnagel] Allergy (Mild, Verified 11/09/24 10:43) high blood press magnesium [From Magnagel] Allergy (Mild, Verified 11/09/24 10:43) high blood press magnesium hydroxide [From Magnagel] Allergy (Mild, Verified 11/09/24 10:43) high blood press canagliflozin [Invokana] Allergy (Unknown, Verified 11/09/24 10:43) Itching lisinopril Allergy (Unknown, Verified 11/09/24 10:43) Abdominal Pain metformin Allergy (Unknown, Verified 11/09/24 10:43) Stomach Upset Sulfa (Sulfonamide Antibiotics) Allergy (Unknown, Verified 11/09/24 10:43) Agitated sulfadiazine Allergy (Unknown, Verified 11/09/24 10:43) Unknown Avocado Revitalizing Allergy (Unknown, Uncoded 11/09/24 10:43) Unknown oxycodone Allergy (Unknown, Uncoded 11/09/24 10:43) Hives percocet Allergy (Unknown, Uncoded 11/09/24 10:43) Hives tramadol Allergy (Unknown, Uncoded 11/09/24 10:43) Sheryl [facility] Comments Details: This is a 69-year-old female with a past medical history of type 2 diabetes with neuropathy, anxiety, vitamin-D deficiency, hyperlipidemia, asthma and hypertension presenting for diabetic management. 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 She was diagnosed with diabetes around 2016. She has a family history of Type II diabetes (mother, father, sister). Reviewed Curt 3 download Average glucose 180 GMI 7.6% Glucose variability 37.7% CGM active 94% Very high 17% High 28% Target range 55% 0% hypoglycemia There is a pattern of postprandial hyperglycemia. Hemoglobin a1c 8.9% 10/12/2024. Current medication regimen: Tresiba 70 units nightly, Trulicity 1.5 mg weekly, Humalog 4-8 units before meals. Previous medications: Lantus and Mounjaro Glimepride-discontinued Invokana was not tolerated-yeast infection Previously documented: Trulicity was switched to Mounjaro by her last purchase analyst because it was back ordered. They report it was titrated to 7.5 mg, but they did not tell her to wait a week after her prior injection to start it. The patient says at baseline she has a sensitive stomach due to history gastric sleeve, and this caused more stomach upset. She was constipated and trying to go to the bathroom after taking the injections back to back. She tells me that she started to feel sick. Her granddaughter found her confused and then she did become unresponsive for a short period of time. ER notes were reviewed. EMS noted blood sugar was 200 at the time. She was hypotensive. Patient says her her medications for blood pressure were adjusted since then. Today her blood pressure is a little low, but she denies dizziness. Metformin was not tolerated-GI upset. Hypoglycemia symptoms: None Hyperglycemia symptoms: None Eye exam: 04/22/2024 at [facility], no retinopathy or macular edema. Microvascular complications: Neuropathy and nephropathy (decreased GFR) Macrovascular complications: none Hypertension: treated with amlodipine 2.5 mg daily, losartan-hydrochlorothiazide 100-25 mg daily Lisinopril was not tolerated due to abdominal pain. Hyperlipidemia: treated with atorvastatin 20 mg daily. ROS: Constitutional: No unexplained weight loss, fever, chills, fatigue or night sweats. Eyes: No vision changes Respiratory: No shortness of breath Cardiovascular: No chest pain, chest pressure or chest discomfort. No palpitations or pedal edema. Gastrointestinal: No anorexia, nausea, vomiting or diarrhea. No abdominal pain or blood in stool. : Denies urinary frequency, malodorous urine, hematuria, dysuria Neurologic: No headache, dizziness, syncope Skin: No rash or itching. Physical exam: Constitutional: Alert, in no distress. Eyes: Pupils are equal, round and reactive to light. Extraocular muscles intact. Neck: Supple, Full range of motion. No lymphadenopathy. No palpable thyroid masses. Respiratory: Clear to auscultation. Cardiovascular: S1 S2 regular. No murmurs. No carotid bruits. [facility], [facility] Medical History (Updated 09/14/24 @ 10:03 by NACHO Olson) Uncontrolled type 2 diabetes mellitus with hyperglycemia, with long-term current use of insulin Morbid obesity with BMI of 40.0-44.9, adult Lumbosacral spondylosis Peripheral autonomic neuropathy due to diabetes mellitus Anxiety Insomnia Asthma Diabetes mellitus with hyperglycemia Vitamin D deficiency Morbid obesity with BMI of 45.0-49.9, adult Pure hypercholesterolemia Benign essential hypertension Diabetes mellitus Surgical History History of colonoscopy (~01/01/11) Hx of LASIK H/O abdominal hysterectomy Social History Housing: Apartment Alcohol intake: never Patient Tobacco Use Status: Former Tobacco user e-Cigarette/Vaping Use: Never Used Second Hand Smoke Exposure: Yes service: No Current occupational status: retired and disabled Cognitive needs: No Hearing needs: No Vision needs: Yes (reading glasses) Physical Exam Vital Signs: Last Vital Signs Pulse 86 12/03/24 11:33 BP 100/60 12/03/24 11:33 Pulse Ox 96 12/03/24 11:33 Oxygen Delivery Method Room Air 12/03/24 11:33 BMI result Body Mass Index 45.9 Office Procedures Glucose Monitoring Details Details: see HPI 34709 - Glucose monitoring, continuous-physician I&R Procedure code (CPT) selection complete Results Reviewed Results Reviewed: Laboratory Tests 10/03/23 01/08/24 08/24/24 09:23 10:44 09:38 Creatinine Estimated GFR Hgb A1c (Clinic) 11.3 H 9.8 H 9.2 H Hemoglobin A1c % AST ALT Triglycerides Cholesterol LDL Cholesterol, Calc HDL Cholesterol Vitamin B12 TSH Urine Creatinine Urine Microalbumin Microalb/Creat Ratio 10/08/24 10/08/24 06:35 06:37 Creatinine 0.71 Estimated GFR > 60 Hgb A1c (Clinic) Hemoglobin A1c % 8.9 H AST 25 ALT 15 Triglycerides 136 Cholesterol 153 LDL Cholesterol, Calc 85 HDL Cholesterol 41 Vitamin B12 871 TSH 3.00 Urine Creatinine 207.89 Urine Microalbumin 19.0 Microalb/Creat Ratio 9.1 Assessment & Plan Assessment & Plan (1) Uncontrolled type 2 diabetes mellitus with hyperglycemia, with long-term current use of insulin: Code(s): E11.65 - Type 2 diabetes mellitus with hyperglycemia; Z79.4 - nursing home (current) use of insulin Category: Medical Plan: In summary this is a 69-year-old female with suboptimally controlled type 2 diabetes. Discussed pathophysiology of Type II Diabetes Mellitus with the patient in detail.? I explained the longterm risks and complications associated with uncontrolled diabetes including nephropathy, neuropathy, peripheral vascular disease, retinopathy, increased risk of heart disease and stroke.? Discussed lifestyle modification with the patient. Recommended 30 minutes of moderately vigorous exercise 5 days per week to promote weight loss. Patient declines referral to clinical trial educator/dietitian. Reviewed treatment of hypo/hyperglycemia. She has glucose tablets. Increase Trulicity to 3 mg weekly. Start this after your last dose of 1.5 mg Trulicity. Continue Tresiba 70 units nightly.. If you have low blood sugars after increasing Trulicity decrease Tresiba to 66 units nightly and call the office. Humalog: Blood sugar under 200 do not use Humalog Blood sugar 200-250 administer 4 units of Humalog before meal Blood sugar 250 to 300 administer 6 units of Humalog before meal Blood sugar 300 to 350 administer 8 units of Humalog before meal Blood sugar 350 to 400 administer 10 units of Humalog before meal Written instructions were provided to the patient. Follow up in 6 weeks for type 2 diabetes. Orders: Orders AMB Glucose Monitoring Today E11.9 - Type 2 diabetes mellitus without complications Medications: New dulaglutide (Trulicity) 3 mg (0.5 mL) subcut QWEEK 2 mL 3RF Discontinued dulaglutide (Trulicity) Discontinued Reason: Doctor's Order 1.5 mg (0.5 mL) subcut QWEEK 2 mL 1RF Patient Instructions: Increase Trulicity to 3 mg weekly (start this the week after you take the last dose of 1.5 mg Trulicity). Continue Tresiba 70 in the evening. . If you have low blood sugars under 70 after you increase the dose of Trulicity, please decrease Tresiba to 66 units in the evening and call the office. Humalog: Blood sugar under 200 do not use Humalog Blood sugar 200-250 administer 4 units of Humalog before meal Blood sugar 250 to 300 administer 6 units of Humalog before meal Blood sugar 300 to 350 administer 8 units of Humalog before meal Blood sugar 350 to 400 administer 10 units of Humalog before meal Coding Level of Care Code Est Pt Level 4 (48971) Diagnoses Uncontrolled type 2 diabetes mellitus with hyperglycemia, with long-term current use of insulin E11.65; Z79.4 CPT Codes Details - CPT: 33183 - Glucose monitoring, continuous-physician I&R ([id number])
== END 2024-12-03 12:05 | disposition home or self-care (01) ==
LOC: HO.ENCR 11:20
PROVIDERS: PCP Internal Medicine; Visit Provider Physician Assistant Medical
DX: E11.65 Type 2 diabetes mellitus with hyperglycemia (principal); Z79.4 Long term (current) use of insulin

== ENCOUNTER → 2024-12-03 11:20 | Outpatient (BNVA) | payer OTHER, SELFPAY | PROVIDERS: PCP Internal Medicine; Visit Provider Physician Assistant Medical | DX: E11.65 Type 2 diabetes mellitus with hyperglycemia (principal); Z79.4 Long term (current) use of insulin; Z79.84 Long term (current) use of oral hypoglycemic drugs | CPT/HCPCS: 99212 ==

== ENCOUNTER 2024-12-07 09:13 | Outpatient (AMB) | payer OTHER, SELFPAY ==
[2024-12-07 09:14] VITALS: BP 100/68; PULSE 85; O2SAT 98; BMI 45.5
--- NOTE | 2024-12-07 09:14 | MHC.PC.OV ---
Vital Signs 12/07/24 09:14 Height 5 ft 5 in Weight 273 lb 6 oz BMI 45.5 BP 100/68 Blood Pressure Location Lt brachial Position Sitting Pulse 85 Pulse Source Pulse Oximeter Pulse Oximetry (%) 98 Oxygen Delivery Method Room Air Intake Visit Reasons: DM, HTN, hyperlipidemia Cda Teacher Required: No Accompanied by: Self / Same As Patient Allergies sulfamethoxazole [From BACTRIM] Allergy (Intermediate, Verified 12/07/24 09:47) ANXIETY trimethoprim [From BACTRIM] Allergy (Intermediate, Verified 12/07/24 09:47) ANXIETY aluminum hydroxide [From Magnagel] Allergy (Mild, Verified 12/07/24 09:47) high blood press magnesium [From Magnagel] Allergy (Mild, Verified 12/07/24 09:47) high blood press magnesium hydroxide [From Magnagel] Allergy (Mild, Verified 12/07/24 09:47) high blood press canagliflozin [Invokana] Allergy (Unknown, Verified 12/07/24 09:47) Itching lisinopril Allergy (Unknown, Verified 12/07/24 09:47) Abdominal Pain metformin Allergy (Unknown, Verified 12/07/24 09:47) Stomach Upset Sulfa (Sulfonamide Antibiotics) Allergy (Unknown, Verified 12/07/24 09:47) Agitated sulfadiazine Allergy (Unknown, Verified 12/07/24 09:47) Unknown Avocado Revitalizing Allergy (Unknown, Uncoded 12/07/24 09:47) Unknown oxycodone Allergy (Unknown, Uncoded 12/07/24 09:47) Hives percocet Allergy (Unknown, Uncoded 12/07/24 09:47) Hives tramadol Allergy (Unknown, Uncoded 12/07/24 09:47) Hives Medication List - Last Reconciled 12/07/24 by Hemal Clifton MD acetaminophen ER (Tylenol Arthritis Pain) 650 mg PO Q12H PRN 15 days albuterol sulfate 90 mcg/actuation (ProAir HFA) 2 puffs inhalation Q6H PRN 30 days amlodipine 2.5 mg PO DAILY 30 days [AQUATHERAPY As directed] atorvastatin 20 mg PO BEDTIME 90 days blood sugar diagnostic (FreeStyle Lite Strips) As directed 3 times a day blood-glucose sensor (FreeStyle Curt 3 Plus Sensor device) Apply 1 sensor every 14-15 days to monitor blood glucose continuously. cholecalciferol (vitamin D3) 50 mcg PO DAILY 90 days dulaglutide (Trulicity) 3 mg (0.5 mL) subcut QWEEK glucose (Dex4 Glucose) 16 grams (4 x 4 gram) PO Q15M PRN insulin degludec (Tresiba FlexTouch U-200 insulin) 70 units (0.35 mL) subcut ONCE insulin lispro (Humalog KwikPen (U-100) Insulin) subcutaneously; three times daily 15 minutes before meals; administer 4-10 units per sliding scale losartan-hydrochlorothiazide 100-25 mg 1 tab PO DAILY 90 days pen needle, diabetic (BD Ultra-Fine Leela Pen Needle) As directed once a day sennosides (Senna Lax) 17.2 mg (2 x 8.6 mg) PO BEDTIME PRN 30 days [transfer bench shower chair As directed] vitamin B complex (B Complex-Vitamin B12 tablet) 1 tab PO DAILY Tobacco use date assessed: 12/07/24 Fall risk assessment: No Falls in past year Last assessed Fall Risk: 12/07/24 Dental Screening Dental Screen Date: 12/07/24 Did you have a dental visit in the last 12 months?: Yes Did you have a dental problem in the last 6 months where you did not have access to dental care?: No Was dental information given to patient?: Patient has dentist [facility] Medical History Uncontrolled type 2 diabetes mellitus with hyperglycemia, with long-term current use of insulin Morbid obesity with BMI of 40.0-44.9, adult Lumbosacral spondylosis Peripheral autonomic neuropathy due to diabetes mellitus Anxiety Insomnia Asthma Diabetes mellitus with hyperglycemia Vitamin D deficiency Morbid obesity with BMI of 45.0-49.9, adult Pure hypercholesterolemia Benign essential hypertension Diabetes mellitus Surgical History History of colonoscopy (~01/01/11) Hx of LASIK H/O abdominal hysterectomy Social History Housing: Apartment Alcohol intake: never Patient Tobacco Use Status: Former Tobacco user e-Cigarette/Vaping Use: Never Used Second Hand Smoke Exposure: Yes service: No Current occupational status: retired and disabled Cognitive needs: No Hearing needs: No Vision needs: Yes (reading glasses) Questionnaire PHQ-9 Over the last 2 weeks, how often have you been bothered by any of the following problems? 1. Little interest or pleasure in doing things: not at all 2. Feeling down, depressed, or hopeless: not at all 3. Trouble falling or staying asleep, or sleeping too much: not at all 4. Feeling tired or having little energy: not at all 5. Poor appetite or overeating: not at all 6. Feeling bad about yourself - or that you are a failure or have let yourself or your family down: not at all 7. Trouble concentrating on things, such as reading the newspaper or watching television: not at all 8. Moving or speaking so slowly that other people could have noticed. Or the opposite - being so fidgety or restless that you have been moving around a lot more than usual: not at all 9. Thoughts that you would be better off or of hurting yourself in some way: not at all Total score: 0 Depression Screening Interpretation: Negative Depression Screening Done: Yes 89193 - PHQ-9 Billing: Yes Source: Developed by Drs. Giovanni Worthington, Scarlet Hernandez, Tanmay Eduardo and colleagues, with an educational sarah from [employer]. Thrive Questionnaire Date Thrive assessed: 12/07/24 I am a: Patient What is your living situation today?: I have a steady place to live Within the past 12 months, did the food you bought not last and you didn't have the money to get more?: Never true Within the past 12 months, did you worry whether your food would run out before you got money to buy more?: Never true Do you have trouble paying for medicines?: No Do you have trouble getting transportation to medical appointments?: No Do you have trouble paying your heating and electricity bill?: No Do you have trouble taking care of your child, family member or friend?: No Do you have trouble with day-to-day activities such as bathing, preparing meals, shopping, managing finances, etc.?: No Are you currently unemployed and looking for a job?: No Are you interested in more education?: No Please select the resources that you would like help with: None Currently or been in a relationship where the following occur: No concerns reported THRIVE Score: 0 AUDIT C Alcohol Use Questionnaire (AUDIT-C) 1. How often do you have a drink containing alcohol?: Never 3. How often do you have six or more drinks on one occasion?: Never Total Score: 0 Score Reviewed/Action Taken: Yes WESLEY-7 AMB Questionnaire WESLEY-7 Date WESLEY - 7 assessed: 12/07/24 Feeling nervous, anxious, or on edge: 0 = Not at all Not being able to stop or control worryin = Not at all Worrying too much about different things: 0 = Not at all Trouble relaxin = Not at all Being so restless that it is hard to sit still: 0 = Not at all Becoming easily annoyed or irritable: 0 = Not at all Feeling afraid as if something awful might happen: 0 = Not at all Total WESLEY-7 score (0-4 normal; 5-9 mild; 10-14 moderate; 15-21 severe): 0 Source: Developed by Drs. Giovanni Worthington, Scarlet Hernandez, Tanmay Eduardo and colleagues, with an educational sarah from [employer]. Physical exam (Primary Care) Vital Signs: Last Vital Signs Pulse 85 12/07/24 09:14 BP 100/68 12/07/24 09:14 Pulse Ox 98 12/07/24 09:14 Oxygen Delivery Method Room Air 12/07/24 09:14 BMI result Body Mass Index 45.5 Tobacco/Smoking Status: Tobacco use Status Tobacco use date assessed 12/07/24 12/07/24 09:21 Patient Tobacco Use Status Former Tobacco user 12/07/24 09:21 e-Cigarette/Vaping Use Never Used 12/07/24 09:21 PHQ-9: PHQ-9 Score PHQ-9: Total score 0 12/07/24 09:21 Depression Screening Interpretation: Negative Thrive Assessment: Date of Thrive Assessment Date Thrive assessed 12/07/24 12/07/24 09:21 Currently or been in a relationship where the following occur: No concerns reported Results Reviewed Results Reviewed: Laboratory Tests 10/08/24 10/08/24 06:35 06:37 WBC 8.1 Hgb 13.4 Hct 41.5 Plt Count 399 Sodium 142 Potassium 3.6 Creatinine 0.71 Estimated GFR > 60 Fasting Glucose 108 H Hemoglobin A1c % 8.9 H Calcium 9.8 AST 25 ALT 15 Triglycerides 136 Cholesterol 153 LDL Cholesterol, Calc 85 HDL Cholesterol 41 25-OH Vitamin D Total 33.0 Folate 14.0 TSH 3.00 Ur Specific [place] 1.020 Urine Protein Trace Urine Glucose (UA) Negative Urine Blood Negative Urine Nitrite Positive H Ur Leukocyte Esterase Small (1+) H Microalb/Creat Ratio 9.1 Coding Level of Care Code Est Pt Level 4 (48065) Complex EM visit Add On G2211 Diagnoses Type 2 diabetes mellitus with hyperglycemia, with long-term current use of insulin E11.65; Z79.4 Diabetes mellitus type: type 2 Diabetes mellitus long term acute care registered nurse insulin use: with long term acute care registered nurse use Diabetes mellitus complication status: with hyperglycemia Pure hypercholesterolemia E78.00 Benign essential hypertension I10 Peripheral autonomic neuropathy due to diabetes mellitus E11.43 Mild intermittent asthma without complication J45.20 Asthma severity: mild Asthma persistence: intermittent Asthma complication type: uncomplicated Cardiac arrhythmia, unspecified cardiac arrhythmia type I49.9 Arrhythmia type: unspecified cardiac arrhythmia Spondylosis of lumbosacral region without myelopathy or radiculopathy M47.817 Spinal osteoarthritis complication: without myelopathy or radiculopathy Constipation, unspecified constipation type K59.00 Constipation type: unspecified constipation type Vitamin D deficiency E55.9 Insomnia, unspecified type G47.00 Insomnia type: unspecified Anxiety F41.9 Morbid obesity with BMI of 45.0-49.9, adult E66.01; Z68.42 Additional Codes PHQ-9 - 54164 - PHQ-9 Billing: Yes ([id number]) Assessment & Plan Assessment & Plan (1) Diabetes mellitus: Code(s): E11.9 - Type 2 diabetes mellitus without complications Category: Medical Qualifiers: Diabetes mellitus type: type 2 Diabetes mellitus long term acute care registered nurse insulin use: with long term acute care registered nurse use Diabetes mellitus complication status: with hyperglycemia Qualified Code(s): E11.65 - Type 2 diabetes mellitus with hyperglycemia; Z79.4 - messenger copy (current) use of insulin Plan: Her GMI was at 7.6% at the endocrinology office last week and HgbA1c was at 8.9% back on 10/08/2024 and at 9.2% at her last visit in August 2024 - goal is <7.0% Reinforced diabetic diet Continue Trulicity 3 mg SQ once a week, Tresiba 70 units Q HS and Humalog 2 to 6 units TID with meals per sliding scale (she has been instructed to HOLD Humalog for blood sugar readings under 200 mg/dl) She was following up with [facility] in the past for management of her diabetes but is now going to [facility] instead - to follow up with [facility] as scheduled (2) Pure hypercholesterolemia: Code(s): E78.00 - Pure hypercholesterolemia, unspecified Category: Medical Plan: Results of her labs done a couple of months ago reviewed and discussed with patient Reinforced low cholesterol diet Continue Atorvastatin 20 mg QD Will have patient recheck her labs and fasting lipids in 4 months for follow up (3) Benign essential hypertension: Code(s): I10 - Essential (primary) hypertension Category: Medical Plan: Reinforced low sodium diet - goal is systolic BP of 120 to 130 mm or less Continue Amlodipine 2.5 mg QD and Losartan-HCT 100-25 mg QD Have discussed with patient that her blood pressure is much better controlled lately but if she continues to lose weight and starts experiencing recurrent dizziness/lightheadedness, she should recheck and monitor her BP closely as it is possible that her blood pressure will get lower if she loses more weight (4) Peripheral autonomic neuropathy due to diabetes mellitus: Code(s): E11.43 - Type 2 diabetes mellitus with diabetic autonomic (poly)neuropathy Category: Medical Plan: EMG and NCV done in July 2023 revealed (+) moderate to severe axonal sensory and motor chronic peripheral neuropathy Patient is advised again that the best way to slow down the progression of her neuropathy is tight control of her blood sugar She has been instructed to check and examine her feet every night before bedtime to ensure that there are no active wounds or injuries to her feet that she may not be aware of because of the altered sensation on her lower extremitied Follow up with podiatry as scheduled (5) Asthma: Code(s): J45.909 - Unspecified asthma, uncomplicated Category: Medical Qualifiers: Asthma severity: mild Asthma persistence: intermittent Asthma complication type: uncomplicated Qualified Code(s): J45.20 - Mild intermittent asthma, uncomplicated Plan: Controlled; she is currently using her Albuterol HFA inhaler only on an as-needed basis She is advised again that we should have her get a PFT for further evaluation and assessment of her baseline pulmonary function and to see if she does indeed have asthma or not; will also then determine if she will need any maintenance medications depending on the results of her PFT - patient would still like to hold off on this for now as she wants to try concentrating on getting her diabetes controlled properly first (6) Cardiac arrhythmia: Code(s): I49.9 - Cardiac arrhythmia, unspecified Category: Medical Qualifiers: Arrhythmia type: unspecified cardiac arrhythmia Qualified Code(s): I49.9 - Cardiac arrhythmia, unspecified Plan: Her EKG done back in May 2024 revealed NSR with occasional PVCs Her previous EKGs have all showed NSR with no acute changes She currently has no acute cardiac symptoms, so no other intervention is needed at this time (7) Lumbosacral spondylosis: Code(s): M47.817 - Spondylosis without myelopathy or radiculopathy, lumbosacral region Category: Medical Qualifiers: Spinal osteoarthritis complication: without myelopathy or radiculopathy Qualified Code(s): M47.817 - Spondylosis without myelopathy or radiculopathy, lumbosacral region Plan: Reinforced activity and weight-lifting restrictions Lumbar spine x-rays done a couple of years ago revealed stable spondylosis of the lumbosacral spine with prominent degenerative disc changes at L5-S1 but there appears to be a slight progression of calcific atherosclerotic changes noted on her x-rays Repeat lumbar spine x-rays done back in May 2024 revealed (+) marked degenerative disc disease at L5-S1 and degenerative facet joint disease at L4-L5 and L5-S1 Will consider sending her for an MRI of the lumbar spine for further evaluation if her symptoms continue to progress She was taking Gabapentin 100 mg BID previously but is now only on OTC Extra-strength Tylenol PRN - she is advised that she can double up on this if needed provided that she does not take more than a total of 2000 mg daily dose as much as possible She has also been prescribed Tramadol from the hospital in the past, which she states did not work for her Per request, we have also tried sending her for Aquatherapy again at her local [facility], which she states have worked well for her in the past - [facility] was supposed to help her get this set up (8) Constipation: Code(s): K59.00 - Constipation, unspecified Category: Medical Qualifiers: Constipation type: unspecified constipation type Qualified Code(s): K59.00 - Constipation, unspecified Plan: She is encouraged again on increased oral fluids and dietary fiber Continue Senna 8.6 mg 1 to 2 tablets Q HS PRN (9) Vitamin D deficiency: Code(s): E55.9 - Vitamin D deficiency, unspecified Category: Medical Plan: Continue Vitamin D3 2000 units QD (10) Insomnia: Code(s): G47.00 - Insomnia, unspecified Category: Medical Qualifiers: Insomnia type: unspecified Qualified Code(s): G47.00 - Insomnia, unspecified Plan: Sleep hygiene reinforced Continue OTC Melatonin 3 mg Q HS PRN (11) Anxiety: Code(s): F41.9 - Anxiety disorder, unspecified Category: Medical Plan: She was on Sertraline 50 mg QD previously but appears to have also stopped taking this at some point and does not feel that she needs to be on anything for mood disorder at this time (12) Morbid obesity with BMI of 45.0-49.9, adult: Code(s): E66.01 - Morbid (severe) obesity due to excess calories; Z68.42 - Body mass index [BMI] 45.0-49.9, adult Category: Medical Plan: Reinforced diet/exercise as tolerated/lose weight Plan Follow up in 4 months Orders: Orders Lipid Panel 4 Months E78.00 - Pure hypercholesterolemia, unspecified Hemoglobin A1c 4 Months E11.9 - Type 2 diabetes mellitus without complications Microalbumin, Random (w Creat) 4 Months E11.9 - Type 2 diabetes mellitus without complications Vitamin D 25-OH Total 4 Months E55.9 - Vitamin D deficiency, unspecified Complete Blood Count Auto Diff 4 Months D64.9 - Anemia, unspecified Comprehensive [place]. Panel Fast 4 Months E78.00 - Pure hypercholesterolemia, unspecified TSH reflex Free T4 4 Months E78.00 - Pure hypercholesterolemia, unspecified UA CC w/rflx Micro + Cult 4 Months R30.0 - Dysuria Vitamin B12 and Folate 4 Months E53.8 - Deficiency of other specified B group vitamins
--- OUTSIDE RECORDS SUMMARY | 2024-12-07 10:13 | XMS_ITS ---
[facility] Address [address] [facility] [place] [address] Care Team Providers Care Equipment Scheduler Name Role Phone Etienne CUEVAS [place] Primary Care Provider UnaAngel Keita Unavailable [phone] Allergies Allergen (clinical drug ingredient) Drug/Non Drug [...] Polyneuropathy due to diabetes mellitus type I (259540998) Type 1 diabetes mellitus with diabetic polyneuropathy (E10.42) Active confirmed Vital Signs Height 5 ft 5 in in 08/28/2023 Weight 270 lbs 08/28/2023 BMI 44.93 kg/m2 08/28/2023 Procedures Procedure Date Ordered Date Performed Result Body Sit e 66044-BNZR SKIN LESIONS, 2 TO 4 08/28/2023 N/A M3528-UQCKEGLS DYSTROPHIC NAILS ANY # 08/28/2023 N/A Encounters Encounter Location Date Provider Diagnosis [facility] [address] [place] [address] 08/28/2023 Angel Ramsey Type 1 diabetes mellitus [...] X ray : Foot, right 3V 08/28/2023 80127-TKFM SKIN LESIONS, 2 TO 4 08/28/20 23 L9438-VRSYVCYJ DYSTROPHIC NAILS ANY # Next Appt Details Follow Up: 4 Weeks, Reason: Procedure Notes * Category Sub-Category Detail Notes Keratoma Treatment Parring or Cutting o f Benign Hyperkeratotic Lesion(s) 85691 ( 2-4 Lesions ) - The Benign [...] * Wendy MCKEON LDOB:[birth year] (68 yo F)Acc No.[id number]:08/28/2023 Progress Notes Patient:?Wendy Mckeon Provider:?Angel Ramsey DPM :1955???Age:68 Y???Sex:Female D ate:08/28/2023 Address:[address] [place] [address], [place], [place] Pcp:Hemal Clifton MD Subjective: * Chief Complaints: [...] medial calcaneal nerves B/L.?BABINSKI REFLEX:?absent.?Vascular: ?DP PULSES:? /4, B/L.?PT PULSES:? 4, B/L.?CAPILLARY FILL TIME:?3 secs. [...] Procedures:?Keratoma Treatment:?Parring or Cutting of Benign Hyperkeratotic Lesion(s)?02947 ( 2-4 Lesions ) - The Benign [...] or bed tissue 6-10 (G0127).? * Procedure Codes:?28044 X-RAY EXAM OF RIGHT FOOT 3V, Modifiers: 26 , [id number] X- RAY EXAM OF LEFT FOOT 3V, Modifiers: 26 , [id number] Prescription Custom Fabricated Foot insert, Modifiers: RT L3000 Prescription Custom Fabricated Foot insert, [place] [address] TRIM SKIN LESIONS, 2 TO 4, Modifiers: [...] Interfil injection therapy, as well as surgical [place]/Endoscopic Fasciitomy surgical procedures if needed. Recommendations were [...] Ramsey DPM Date:? 023 Generated for Samreen marquez/Sadaf/Lindaitting on:?12/07/2024 10:13 AM EDT History and Physical Notes * HPI (History [...]
--- OUTSIDE RECORDS SUMMARY | 2024-12-07 10:14 | XMS_ITS | Encounter Summary ---
Author Organization [facility] Address [address] [place] [address] Care Team Providers Care Flow Manager Name Role Phone Oneida Galvan MD Primary Care Provider Elida vailable Encounter Details Date Type Department Care Team Description 10/03/2023 Alignment Specialist Report Medical Records [address] [place] [address] Hemal Clifton MD Social History Tobacco Use Types Packs/Day Years Used Date Smoking Tobacco: Never Smokeless Tobacco: Never Alcohol Use Standard Drinks/Week Comments No 0 (1 standard drink = 0.6 oz pur e alcohol) Sex Assigned at Date Recorded Female 11/25/2023 10:36 AM EDT documented as of this encounter Plan of Treatment Not on file documented as of this encounter Visit Diagnoses Not on filedocumented in this encounter Care Teams Flow Manager Relationship Specialty Start Date End Date Oneida Galvan MD PCP - General Internal Medicine 04/29/17 documented as of this encounter
--- OUTSIDE RECORDS SUMMARY | 2024-12-07 10:14 | XMS_ITS ---
Author Organization [facility] Address [address] [facility] [place] [address] Care Team Providers Care Information Manager Name Role Phone Etienne CUEVAS [place] Primary Care Provider UnaAngel Keita Unavailable [phone] Allergies Allergen (clinical drug ingredient) Drug/Non Drug [...] 10/09/2023 Encounters Encounter Location Date Provider Diagnosis [facility] [address] [place] [address] 10/09/2023 Angel Ramsey Type 1 diabetes mellitus [...] * Wendy MCKEON LDOB:[birth year] (69 yo F)Acc No.[id number]:10/09/2023 Progress Note Patient:?ARMANDOWendy GRAF L Provider:?Angel Ramsey DPM :1955???Age:68 Y???Sex:Female D ate:10/09/2023 Address:[address] [place], [place] [id number] Pcp:Hemal Clifton MD Subjective: * Chief Complaints: [...] surgical procedures to prevent recurrence.? * Procedure Codes:?73015 Avuls ion Plate, Modifiers: T5 * Preventive [...] Ramsey DPM Date:? 024 Generated for Samreen marquez/Sadaf/Jailyn on:?12/07/2024 10:13 AM EDT History and Physical [...]
--- OUTSIDE RECORDS SUMMARY | 2024-12-07 10:14 | XMS_ITS | Patient Health Record ---
Author Organization [employer] [facility] Address [address] [place] [address] Support Name Relationship Address Phone ADELINA Jensen Guarantor Unknown [phone] Allergies Allergen (clinical drug ingredient) Drug/Non Drug [...] Disorder due to type 2 diabetes mellitus (095514028) Type 2 diabetes mellitus with unspecified complications (E11.8) Active confirmed Problem Morbid obesity (disorder) (553200508) Morbid (severe) obesity due to excess calories (E66.01) Active confirmed Problem Mixed hyperlipidemia (321422867) Mixed hyperlipidemia (E78.2) Active confirmed Problem Essential hypertension (94565791) Essential (primary) hypertension (I10) Active confirmed Plan Of Treatment Future Test Test Name Order Date TSH 03/20/2020 Vitamin D, 25-Hydroxy 03/20/2020 CBC 03/20/2020 COMPREHENSIVE METABOLIC PANEL 03/20/2020 PHOSPHORUS 03/20/2020 MAGNESIUM 03/20/2020 Insurance Providers Payer Name Payer Address Payer Phone Subscriber Number Group Number Insured Name Patient Relationship to Insured Coverage Start Date Coverage End Date [facility] [address] [address] [place] [address] [phone] [id number] ADELINA Aguayo Self - patient is the insured Medical (General) History Medical History History ICD Code kidney stones Surgical History Surgery Date(Month/Year) gastric sleeve Uterus removed because of cancer
--- OUTSIDE RECORDS SUMMARY | 2024-12-07 10:14 | XMS_ITS ---
Author Organization [facility] Address [address] [place] [address] Care Team Providers Care Representative Government Relations Name Role Phone Francis Clifton MDneth Primary Care Provider Unava Angel [facility] [phone] REASON FOR VISIT [employer] Encounters Encounter Location Date Provider Diagnosis [facility] [address] [place] [address] 09/15/2023 Angel Ramsey Plan Of Treatment No Information Progress Notes * Wendy MCKEON LDOB:[birth year] (68 yo F)Acc No.[id number]:09/15/2023 Patient:?Wendy Mckeon :1955???Age:68 Y???Sex:Female Address:[address] [place], [address] * true * Date:? Generated for Printi ng/Fakimg/eTransmitting on:?12/07/2024 10:13 AM EDT
--- OUTSIDE RECORDS SUMMARY | 2024-12-07 10:14 | XMS_ITS | Encounter Summary ---
Author Organization [facility] Address [address] [place] [address] Care Team Providers Care Corporate Travel Agent Name Role Phone Oenida Galvan MD Primary Care Provider Elida vailable Reason for Visit * Reason Comments E-prescribe Rx Request Encounter Details Date Type Department Care Team Description 04/23/2019 [facility] General Surgery [address] [place] [address] Devan Davis MD [address] [place] [address] [address] [place] [address] E-prescribe Rx Request Social History Tobacco Use Types Packs/Day Years [...] on filedocumented in this encounter Care Teams Corporate Travel Agent Relationship Specialty Start Date End Date Oneida Galvan MD PCP - General Internal Medicine 04/29/17 documented as of this encounter
--- OUTSIDE RECORDS SUMMARY | 2024-12-07 10:14 | XMS_ITS | Encounter Summary ---
Author Organization [facility] Address [address] [place] [address] Care Team Providers Care Insurance Risk Surveyor Name Role Phone Oneida Galvan MD Primary Care Provider Elida vailable Encounter Details Date Type Department Care Team Description 06/04/2017 [facility] Medical Records [address] [place] [id number] Abstract, Provider Social History Tobacco Use Types Packs/Day Years Used Date Smoking Tobacco: Never Sex Assigned at Date Recorded Female 11/25/2023 10:36 AM EDT documented as of this encounter Plan of Treatment Not on file documented as of this encounter Visit Diagnoses Not on filedocumented in this encounter Care Teams Insurance Risk Surveyor Relationship Specialty Start Date End Date Oneida Galvan MD PCP - General Internal Medicine 04/29/17 documented as of this encounter
--- OUTSIDE RECORDS SUMMARY | 2024-12-07 10:14 | XMS_ITS | Encounter Summary ---
Author Organization [facility] Address [address] [place] [address] Care Team Providers Care Manager Of Pmo Name Role Phone Oneida Galvan MD Primary Care Provider Elida vailable Encounter Details Date Type Department Care Team Description 12/02/2023 Pt. Non Urgent Medical Question Endocrinology - [address] [address] Anahi Peterson PA-C [address] [place] [address] Social History Tobacco Use Types Packs/Day Years Used Date Smoking Tobacco: Never Smokeless Tobacco: Never Alcohol Use Standard Drinks/Week Comments No 0 (1 standard drink = 0.6 oz pur e alcohol) Sex Assigned at Date Recorded Female 11/25/2023 10:36 AM EDT documented as of this encounter Miscellaneous Notes * Telephone Encounter - Barbara Cuevas M.A. - 12/02/2023 10:19 AM EDTFrom: Wendy Mckeon To: Mickey Peterson Sent: 12/02/2023 9:53 AM EDT Subject: Cgm I was approved for the cgm. I was wondering if the rx was sent to [facility] or a medical supply provider. documented in this encounter Plan of Treatment Not on file documented as of this encounter Visit Diagnoses Not on filedocumented in this encounter Care Teams Manager Of Pmo Relationship Specialty Start Date End Date Oneida Galvan MD PCP - General Internal Medicine 04/29/17 documented as of this encounter
--- OUTSIDE RECORDS SUMMARY | 2024-12-07 10:14 | XMS_ITS | Clinical Summary ---
Author Organization [facility] Address [address] [place] [address] Care Team Providers Care Special Order Jeweler Name Role Phone Oneida Galvan MD Primary Care Provider Elida vailable Allergies Active Allergy Reactions Severity Noted Date Comments Canagliflozin 12/25/2017 Lisinopril 12/25/2017 Metformin Rash/Dermatitis High 06/02/2017 Tirzepatide 03/19/2024 Hypotension Oxycodone-Acetaminophen Nausea and Vomiting,OTHER 11/20/2023 Heebie Jeebies Phentermine 11/02/2019 Sulfa Drugs Rash/Dermatitis High 06/02/2017 Topamax 11/02/2019 Medications Medication Sig Dispensed Refills Start Date End Date Status simvastatin (ZOCOR) 20 MG tablet 0 04/02/2017 Active losartan (COZAAR) 50 MG tablet 100 mg. 0 04/02/2017 Active Loratadine 10 MG Cap Take by mouth. 0 Active Cyanocobalamin (VITAMIN B12 OR) Take by mouth. 0 Acti ve VITAMIN D, CHOLECALCIFEROL, OR Take by mouth. 0 A ctive insulin glargine (LANTUS) 100 UNIT/ML injection Inject 75 Units into the skin at bedtime. 22.5 mL 12 03/19/2024 04/13/2025 Active Insulin Lispro (HumaLOG KwikPen) 100 UNIT/ML Solution Pen-injector Inject 3 times a day with meals per sliding 100-149: 2 units; 151-200: 3 units; 201-250: 4 units; 251-300: 5 units; 301-350: 6 units; 351-400: 7 units 15 mL 5 03/19/2024 Active Insulin Pen Needle (BD Pen Needle Micro U/F) 32G X 6 MM Misc Use with insulin 4 times a day 200 Each 5 04/06/2024 Active Glucose Blood (FREESTYLE LITE) Strip Use to check BS 3 times a day 100 Strip 5 05/18/2024 Active Continuous Glucose Mountain Or [place]acier Guide (Dexcom G7 Mountain Or Glacier Guide) DeviceIndications:Ty pe 2 diabetes mellitus with hyperglycemia, with long-term current use of insulin (HCC) 1 Device by Does not apply route See Admin Instructions. Use daily with dexcom g 7 sensors 1 Each 0 05/24/2024 Active Continuous Glucose Sensor (FreeStyle Curt 3 Plus Sensor) Misc 1 Device by Does not apply route every 14 days. 2 Each 11 05/27/2024 Active Active Problems Problem Noted Date Type 2 diabetes mellitus wit h hyperglycemia, with long-term current use of insulin 11/20/2023 Hyperlipidemia 11/20/2023 History of uterine cancer 11/20/2023 Neuropathy 11/20/2023 Anxiety 11/20/2023 Asthma 11/20/2023 Obesity 05/24/2019 Class 3 severe obesity due t o excess calories with serious comorbidity and body mass index (BMI) of 45.0 to 49.9 in adult 04/01/2019 History of endometrial cancer 06/02/2017 Diabetes type 1, controlled 06/02/2017 Hypertension 06/02/2017 Family History Medical History Relation Name Comments CA Prostate Father Cancer of the Colon Father CA Ovarian Mother Relation Name Status Comments Father Mother Social History Tobacco Use Types Packs/Day Years Used Date Smoking Tobacco: Never Smokeless Tobacco: Never Tobacco Cessation:Counseling Given: Not Answered Alcohol Use Standard Drinks/Week Comments No 0 (1 standard drink = 0.6 oz pur e alcohol) Sex Assigned at Date Recorded Female 11/25/2023 10:36 AM EDT Last Filed Vital Signs Vital Sign Reading Time Taken Comments Blood Pressure 108/73 03/19/2024 3:02 PM EDT Pulse 128 03/19/2024 3:02 PM EDT Temperature 36.2 ??C (97.1 ??F) 03/19/2024 3:02 PM ED T Respiratory Rate 16 06/02/2017 2:12 PM EDT Oxygen Saturation 98% 03/19/2024 3:02 PM EDT Inhaled Oxygen Concentration - - Weight 122.5 kg (270 lb) 03/19/2024 3:02 PM EDT Height 165.1 cm (5' 5 ) 03/19/2024 3:02 PM EDT Body Mass Index 44.93 03/19/2024 3:02 PM EDT Plan of Treatment Health Maintenance Due Date Last Done Comments Covid-19 Vaccine (#1) 1956 DEPRESSION SCREEN 1968 DIABETES: ANNUAL EYE EXAM 1974 DIABETES: ANNUAL FOOT EXAM 1974 HEPATITIS C SCREENING 1974 DTAP/TDAP/TD (1 - Tdap) 1975 MAMMOGRAM 1996 COLON CANCER SCREENING 2006 SHINGLES VACCINE (1 of 2) 2006 BONE DENSITY SCREENING 2021 PNEUMOCOCCAL VACCINE (1 - PCV) 2021 INFLUENZA (#1) 2024 06/26/2019, 05/01/2017 DIABETES: BLOOD SUGAR CONTRO L TEST (HGBA1C) 06/26/2024 03/26/2024, 01/08/2024 BMI CHECK/ADVISE 09/08/2024 03/19/2024, , 11/20/2023, Additional history exists DIABETES/HEART DISEASE: DELIA VALDERRAMA CHOLESTEROL (LDL) 01/07/2025 01/08/2024 DIABETES: ANNUAL URINE PROTE IN TEST (MICROALBUMIN) 01/07/2025 01/08/2024 Care Teams Special Order Jeweler Relationship Specialty Start Date End Date Oneida Galvan MD PCP - General Internal Medicine 04/29/17
--- OUTSIDE RECORDS SUMMARY | 2024-12-07 10:14 | XMS_ITS | Clinical Summary ---
Author Organization [address] Address [address] [place] [phone] Phone Care Team Providers Care Political Director Name Role Phone Oneida Galvan MD Primary Care Provider [phone] Allergies Active Allergy Reactions Criticality Noted Date Comments Canagliflozin 12/25/2017 Lisinopril 12/25/2017 Metformin Rash High 06/02/2017 Oxycodone-Acetaminophen Nausea And Vomiting,Other 11/20/2023 Heebie Jeebies Phentermine 11/02/2019 Sulfa (Sulfonamide Antibiotics) Rash High 06/02/2017 Tirzepatide 03/19/2024 Hypotension Topiramate 11/02/2019 Medications blood-glucose sensor (FreeStyle Curt 3 Sensor) device 1 Device by Does not apply route every 14 days. 11/20/19 24 Active insulin lispro (HumaLOG KwikPen Insulin) 100 unit/mL injection pen Inject 3 times a day with meals per sliding 100-149: 2 units; 151-200: 3 units; 201-250: 4 units; 251-300: 5 units; 301-350: 6 units; 351-400: 7 units 03/19/20 24 Active CHOLECALCIFEROL, VITAMIN D3, ORAL Take by mouth. Active CYANOCOBALAMIN, VITAMIN B-12, ORAL Take by mouth. Active loratadine 10 mg capsule Take by mouth. Active simvastatin (ZOCOR) 20 mg tablet 04/02/20 17 Active losartan (COZAAR) 50 mg tablet 100 mg. 04/02/20 17 Active blood-glucose meter,continuous (Dexcom G7 [employer]) misc 1 Device by Not Applicable route. 1 Device by Does not apply route See Admin Instructions. Use daily with dexcom g 7 sensors - Does not apply 11/20/19 Active pen needle, diabetic 32 gauge x 5/32 needle Use with insulin 4 times a day 09/12/19 Active blood sugar diagnostic (FreeStyle Lite Strips) test strip Use to check BS 3 times a day Active freestyle 28 gauge lancets Check blood sugar three times a day or as directed 300 each 1 08/10/20 24 025 Active Lantus Solostar U-100 Insulin 100 unit/mL (3 mL) injection penIndications:T ype 2 diabetes mellitus with hyperglycemia (CMS/HCC) INJECT 50 UNITS INTO THE SKIN AT BEDTIME. 45 mL 1 11/23/19 Active insulin glargine (LANTUS) 100 unit/mL injection Inject 75 Units into the skin at bedtime. 03/19/20 24 025 Discontinued Active Problems Problem Noted Date Diagnosed Date [...] controlled (CMS/HCC) 06/02/2017 DX:Diabetes type 1, controlled ([facility]) Hypertension 06/02/2017 DX:Hypertension History of endometrial cancer [...] Health Maintenance Results * Hemoglobin A1c (03/26/2024) [facility] Hemoglobin A1C 9.6 <=10.7 % Blood Venous blood specimen / Unknown Historical Provider LAB BLOOD ORDERABLES Margarita l Result * Urine Albumin Creatinine Ratio (01/08/2024) Pathologist [facility] Urine Albumin Creatinine Ratio Abstracted [facility] Provider HEALTH MAINTENANCE Final Result * Annual BMP Blood Test (01/08/2024) Pathologist [facility] Annual BMP Blood Test Abstracted [facility] Provider HEALTH MAINTENANCE Final Result * (ABNORMAL) Lipid panel (01/08/2024) LDL/HDL Ratio 4 0 - 4 Triglycerides 190(A) 0 - 150 mg/dL Cholesterol 175 0 - 200 mg/dL HDL 50 >=40 mg/dL LDL Cholesterol 87 0 - 100 mg/dL Blood Venous blood specimen / Unknown Historical Provider LAB BLOOD ORDERABLES Margarita l Result from Last 3 Months or Most Recently Relevant to Health Maintenance Insurance [facility] [place]ID [place] [id number] Care Teams Political Director Relationship Specialty Start Date End Date Oneida Galvan MD [address] [facility] [address] [place], [place] PCP - General Internal Medicine 04/29/17
--- OUTSIDE RECORDS SUMMARY | 2024-12-07 10:14 | XMS_ITS | Patient Health Record ---
Author Organization [facility] Address [address] [place] [address] Care Team Providers Care Patient Service Technician Pst Name Role Phone Etienne CUEVAS, [place] Primary Care Provider Unava Angel Moran Unavailable [phone] Allergies Allergen (clinical drug ingredient) Drug/Non Drug [...] Polyneuropathy due to diabetes mellitus type I (248013095) Type 1 diabetes mellitus with diabetic polyneuropathy (E10.42) Active confirmed Plan Of Treatment Pending Test Test Name Order Date X ray : Foot, left 3V 08/28/2023 X ray : Foot, right 3V 08/28/2023 [id number] SKIN LESIONS, 2 TO 4 08/28/20 23 [id number] DYSTROPHIC NAILS ANY # Insurance Providers Payer Name Payer Address Payer Phone Subscriber Number Group Number Insured Name Patient Relationship to Insured Coverage Start Date Coverage End Date [facility] [employer] Claims [address] [place] [id number] Wendy Matthews Self - patient is the [...]
--- OUTSIDE RECORDS SUMMARY | 2024-12-07 10:14 | XMS_ITS | Encounter Summary ---
Author Organization [facility] Address [address] [place] [address] Care Team Providers Care Financial Assistance Specialist Name Role Phone Oneida Galvan MD Primary Care Provider Elida vailable Encounter Details Date Type Department Care Team Description 01/08/2024 Pt. Non Urgent Medical Question Endocrinology - [address] [address] Anahi Peterson PA-C [address] [place] [address] Social History Tobacco Use Types Packs/Day Years Used Date Smoking Tobacco: Never Smokeless Tobacco: Never Alcohol Use Standard Drinks/Week Comments No 0 (1 standard drink = 0.6 oz pur e alcohol) Sex Assigned at Date Recorded Female 11/25/2023 10:36 AM EDT documented as of this encounter Miscellaneous Notes * Telephone Encounter - Barbara Cuevas M.A. - 01/09/2024 7:32 AM EDTFrom: Wendy Mckeon To: Mickey Peterson Sent: 01/08/2024 12:12 PM EDT Subject: A1c I got my A1c down from 11 to 9.8. Dissiness Is from bp documented in this encounter Plan of Treatment Not on file documented as of this encounter Visit Diagnoses Not on filedocumented in this encounter Care Teams Financial Assistance Specialist Relationship Specialty Start Date End Date Oneida Galvan MD PCP - General Internal Medicine 04/29/17 documented as of this encounter
--- OUTSIDE RECORDS SUMMARY | 2024-12-07 10:14 | XMS_ITS | Encounter Summary ---
Author Organization [facility] Address [address] [place] [address] Care Team Providers Care Engine Oiler Name Role Phone Oneida Galvan MD Primary Care Provider Elida vailable Reason for Visit * Reason Onset Date Comments Medication 07/07/2019 Encounter Details Date Type Department Care Team Description 07/07/2019 Telephone General Surgery - [place] [address] [address] Simona Rucker MS,RDN,LDN [address] [address] Medication Social History Tobacco Use Types Packs/Day Years Used Date Smoking Tobacco: Never Smokeless Tobacco: Never Alcohol Use Standard Drinks/Week Comments No 0 (1 standard drink = 0.6 oz pur e alcohol) Sex Assigned at Date Recorded Female 11/25/2023 10:36 AM EDT documented as of this encounter Miscellaneous Notes * Telephone Encounter - Simona Rucker MS,RDN,LDN - 07/15/2019 8:[address] called and spoke with pt to relay message. Pt reported she will stop taking Phentermine/Topiramate and follow up with Dr. Davis 07/29. * Telephone Encounter - Devan Davis MD - 07/12/2019 10:51 AM EST She should stop the medication. When I see her again I will discuss the other options. * Telephone Encounter - Simona Rucker MS,RDN,AMAIRANIN - 07/07/2019 8:13 AM EDT Pt in to see RD today. Reports negative side effects of Phentermine and Topiramate - dry mouth, tightening of throat and wooziness . Pt no longer wants to be on the medication. She has a follow-up with you but not until 07/29. Please advise. documented in this encounter Plan of Treatment Not on file documented as of this encounter Visit Diagnoses Not on filedocumented in this encounter Care Teams Engine Oiler Relationship Specialty Start Date End Date Oneida Galvan MD PCP - General Internal Medicine 04/29/17 documented as of this encounter
== END 2024-12-07 10:04 | disposition home or self-care (01) ==
LOC: HO.HMCH 09:13
PROVIDERS: PCP Internal Medicine; Visit Provider Internal Medicine
DX: E11.65 Type 2 diabetes mellitus with hyperglycemia (principal); Z79.4 Long term (current) use of insulin; E11.43 Type 2 diabetes mellitus with diabetic autonomic (poly)neuropathy; Z68.42 Body mass index [BMI] 45.0-49.9, adult; E66.01 Morbid (severe) obesity due to excess calories; E78.00 Pure hypercholesterolemia, unspecified; I10 Essential (primary) hypertension; J45.20 Mild intermittent asthma, uncomplicated; I49.9 Cardiac arrhythmia, unspecified; M47.817 Spondylosis without myelopathy or radiculopathy, lumbosacral region; K59.00 Constipation, unspecified; E55.9 Vitamin D deficiency, unspecified

== ENCOUNTER → 2024-12-07 09:13 | Outpatient (BNVA) | payer OTHER, SELFPAY | PROVIDERS: PCP Internal Medicine; Visit Provider Internal Medicine | DX: E11.65 Type 2 diabetes mellitus with hyperglycemia (principal); E78.00 Pure hypercholesterolemia, unspecified; E11.43 Type 2 diabetes mellitus with diabetic autonomic (poly)neuropathy; I10 Essential (primary) hypertension; J45.20 Mild intermittent asthma, uncomplicated; I49.9 Cardiac arrhythmia, unspecified; M47.817 Spondylosis without myelopathy or radiculopathy, lumbosacral region; K59.00 Constipation, unspecified; E55.9 Vitamin D deficiency, unspecified; G47.00 Insomnia, unspecified; F41.9 Anxiety disorder, unspecified; E66.01 Morbid (severe) obesity due to excess calories; Z68.42 Body mass index [BMI] 45.0-49.9, adult; Z79.4 Long term (current) use of insulin | CPT/HCPCS: 96127; 99212 ==

== ENCOUNTER 2025-01-18 09:48 | Outpatient (AMB) | payer OTHER, SELFPAY ==
--- NOTE | 2025-01-18 09:52 | A.OFFVIS_ITS ---
Vital Signs 01/18/25 09:59 Height 5 ft 5 in Weight 276 lb 10.882 oz BMI 46.0 BP 102/64 Blood Pressure Location Lt brachial Position Sitting Pulse 81 Pulse Source Pulse Oximeter Pulse Oximetry (%) 98 Oxygen Delivery Method Room Air Intake Visit Reasons: Type II diabetes Intake Note: Patient present today to follow up on Type 2 Diabetes Mellitus. Last Diabetic Eye exam: approx in June 2024, Eye and Lasik Last Podiatry Visit: In the Summer 2023, Dr. Ramsey Random Glucose: 166 mg/dl HgA1C: 8.0% 01/18/2025 Photovoltaic Testing Technician Required: No Accompanied by: Daughter Allergies sulfamethoxazole [From BACTRIM] Allergy (Intermediate, Verified 01/18/25 10:00) ANXIETY trimethoprim [From BACTRIM] Allergy (Intermediate, Verified 01/18/25 10:00) ANXIETY aluminum hydroxide [From Magnagel] Allergy (Mild, Verified 01/18/25 10:00) high blood press magnesium [From Magnagel] Allergy (Mild, Verified 01/18/25 10:00) high blood press magnesium hydroxide [From Magnagel] Allergy (Mild, Verified 01/18/25 10:00) high blood press canagliflozin [Invokana] Allergy (Unknown, Verified 01/18/25 10:00) Itching lisinopril Allergy (Unknown, Verified 01/18/25 10:00) Abdominal Pain metformin Allergy (Unknown, Verified 01/18/25 10:00) Stomach Upset Sulfa (Sulfonamide Antibiotics) Allergy (Unknown, Verified 01/18/25 10:00) Agitated sulfadiazine Allergy (Unknown, Verified 01/18/25 10:00) Unknown Avocado Revitalizing Allergy (Unknown, Uncoded 01/18/25 10:00) Unknown oxycodone Allergy (Unknown, Uncoded 01/18/25 10:00) Hives percocet Allergy (Unknown, Uncoded 01/18/25 10:00) Hives tramadol Allergy (Unknown, Uncoded 01/18/25 10:00) Hives HPI Comments Details: This is a 69-year-old female with a past medical history of type 2 diabetes with neuropathy, anxiety, vitamin-D deficiency, hyperlipidemia, asthma and hypertension presenting for diabetic management. 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 Her METAL SASH SETTER , Laly, accompanies her today. She was diagnosed with diabetes around 2016. She has a family history of Type II diabetes (mother, father, sister). Reviewed Curt 3 download Sensor usage 92% Average glucose 180 GMI 7.3% Glucose variability 37.7% CGM active 94% Very high 10% High 31% Target range 58% 1% hypoglycemia There is a pattern hyperglycemia in the afternoon and evening. She had 2 low blood sugars overnight in the 50s. She treated with glucose tablets, and this resolved. With 1 episode she felt shaky, and she did not have symptoms with the other episode. She is very concerned about low blood sugars because she lives alone so now she stopped taking Tresiba if her blood sugar is in the 120s or 130s before bedtime. She has not been administering Humalog consistently per sliding scale. She does use it in the afternoon usually. She was instructed that her last visit to reduce the dose of Tresiba to 66 units if she had low blood sugars, but she did not do this. Hemoglobin a1c 8.9% 10/12/2024. Hemoglobin A1c 8.0 01/18/25. Current medication regimen: Tresiba 70 units nightly, Trulicity 3 mg weekly, Humalog 4-8 units before meals. Previous medications: Lantus and Mounjaro Glimepride-discontinued Invokana was not tolerated-yeast infection Previously documented: Trulicity was switched to Mounjaro by her last financial aid manager because it was back ordered. They report it was titrated to 7.5 mg, but they did not tell her to wait a week after her prior injection to start it. The patient says at baseline she has a sensitive stomach due to history gastric sleeve, and this caused more stomach upset. She was constipated and trying to go to the bathroom after taking the injections back to back. She tells me that she started to feel sick. Her granddaughter found her confused and then she did become unresponsive for a short period of time. ER notes were reviewed. EMS noted blood sugar was 200 at the time. She was hypotensive. Patient says her her medications for blood pressure were adjusted since then. Today her blood pressure is a little low, but she denies dizziness. Metformin was not tolerated-GI upset. Hypoglycemia symptoms: None Hyperglycemia symptoms: None Eye exam: 04/22/2024 at [facility], no retinopathy or macular edema. Microvascular complications: Neuropathy and nephropathy (decreased GFR). She is on an Arb. Macrovascular complications: none ROS: Constitutional: No unexplained weight loss, fever, chills, fatigue or night sweats. Eyes: No vision changes Respiratory: No shortness of breath Cardiovascular: No chest pain, chest pressure or chest discomfort. No palpitations or pedal edema. Gastrointestinal: No anorexia, nausea, vomiting or diarrhea. No abdominal pain or blood in stool. Neurologic: No headache, dizziness, syncope Skin: No rash or itching. Physical exam: Constitutional: Alert, in no distress. Eyes: Pupils are equal, round and reactive to light. Extraocular muscles intact. Neck: Supple, Full range of motion. No lymphadenopathy. No palpable thyroid masses. Respiratory: Clear to auscultation. Cardiovascular: S1 S2 regular. No murmurs. No carotid bruits. [facility] Medical History Uncontrolled type 2 diabetes mellitus with hyperglycemia, with long-term current use of insulin Morbid obesity with BMI of 40.0-44.9, adult Lumbosacral spondylosis Peripheral autonomic neuropathy due to diabetes mellitus Anxiety Insomnia Asthma Diabetes mellitus with hyperglycemia Vitamin D deficiency Morbid obesity with BMI of 45.0-49.9, adult Pure hypercholesterolemia Benign essential hypertension Diabetes mellitus Surgical History History of colonoscopy (~01/01/11) Hx of LASIK H/O abdominal hysterectomy Social History Housing: Apartment Alcohol intake: never Patient Tobacco Use Status: Former Tobacco user e-Cigarette/Vaping Use: Never Used Second Hand Smoke Exposure: Yes service: No Current occupational status: retired and disabled Cognitive needs: No Hearing needs: No Vision needs: Yes (reading glasses) Physical Exam Vital Signs: Last Vital Signs Pulse 81 01/18/25 09:59 BP 102/64 01/18/25 09:59 Pulse Ox 98 01/18/25 09:59 Oxygen Delivery Method Room Air 01/18/25 09:59 BMI result Body Mass Index 46.0 Office Procedures Glucose Monitoring Details Details: See [facility] [address] - Glucose monitoring, continuous-physician I&R Procedure code (CPT) selection complete Results AMB Hemoglobin A1c AMB Hemoglobin A1c 8.0 % Last Edit by BRYN Bell on 01/18/25 10:17 Results Reviewed Results Reviewed: Laboratory Last Values Glucose (Clinic) 166 mg/dL (60-115) H 01/18/25 10:04 Laboratory Tests 10/03/23 01/08/24 08/24/24 09:23 10:44 09:38 Creatinine Estimated GFR Hgb A1c (Clinic) 11.3 H 9.8 H 9.2 H Hemoglobin A1c % AST ALT Triglycerides Cholesterol LDL Cholesterol, Calc HDL Cholesterol Vitamin B12 TSH Urine Creatinine Urine Microalbumin Microalb/Creat Ratio 10/08/24 10/08/24 06:35 06:37 Creatinine 0.71 Estimated GFR > 60 Hgb A1c (Clinic) Hemoglobin A1c % 8.9 H AST 25 ALT 15 Triglycerides 136 Cholesterol 153 LDL Cholesterol, Calc 85 HDL Cholesterol 41 Vitamin B12 871 TSH 3.00 Urine Creatinine 207.89 Urine Microalbumin 19.0 Microalb/Creat Ratio 9.1 Assessment & Plan Assessment & Plan (1) Uncontrolled type 2 diabetes mellitus with hyperglycemia, with long-term current use of insulin: Code(s): E11.65 - Type 2 diabetes mellitus with hyperglycemia; Z79.4 - medical terminologist (current) use of insulin Category: Medical Plan: In summary this is a 69-year-old female with suboptimally controlled type 2 diabetes. Discussed pathophysiology of Type II Diabetes Mellitus with the patient in detail.? I explained the snf risks and complications associated with uncontrolled diabetes including nephropathy, neuropathy, peripheral vascular disease, retinopathy, increased risk of heart disease and stroke.? Discussed lifestyle modification with the patient. Recommended 30 minutes of moderately vigorous exercise 5 days per week to promote weight loss. Patient declines referral to extension educator/dietitian. Re-educated patient about proper medication administration today. Reviewed treatment of hypo/hyperglycemia. She has glucose tablets. Remain on Trulicity to 3 mg weekly. Decrease Tresiba from 70 units to 64 units every evening. If you have low blood sugars after decreasing Trulicity decrease Tresiba to 60 units nightly and call the office. Humalog: Blood sugar under 200 do not use Humalog Blood sugar 200-250 administer 4 units of Humalog before meal Blood sugar 250 to 300 administer 6 units of Humalog before meal Blood sugar 300 to 350 administer 8 units of Humalog before meal Blood sugar 350 to 400 administer 10 units of Humalog before meal Written instructions were provided to the patient. Follow up in 6 weeks for type 2 diabetes. Orders: Orders AMB Glucose Monitoring Today E11.9 - Type 2 diabetes mellitus without complications AMB Hemoglobin A1c Today E11.65 - Type 2 diabetes mellitus with hyperglycemia, Z79.4 - medical terminologist (current) use of insulin Patient Instructions: Remain on Trulicity to 3 mg weekly. Decrease Tresiba from 70 units to 64 units every evening. If you have low blood sugars after decreasing Trulicity decrease Tresiba to 60 units nightly and call the office. Humalog: Blood sugar under 200 do not use Humalog Blood sugar 200-250 administer 4 units of Humalog before meal Blood sugar 250 to 300 administer 6 units of Humalog before meal Blood sugar 300 to 350 administer 8 units of Humalog before meal Blood sugar 350 to 400 administer 10 units of Humalog before meal Coding Level of Care Code Est Pt Level 4 (59956) Diagnoses Uncontrolled type 2 diabetes mellitus with hyperglycemia, with long-term current use of insulin E11.65; Z79.4 CPT Codes Details - CPT: 30882 - Glucose monitoring, continuous-physician I&R ([id number])
[2025-01-18 09:59] VITALS: BP 102/64; PULSE 81; O2SAT 98; BMI 46.0
[2025-01-18 10:09] LABS: Glucose, Whole Blood 166 mg/dL (60-115)
--- OUTSIDE RECORDS SUMMARY | 2025-01-18 10:33 | XMS_ITS | Clinical Summary ---
Author Organization [address] Address [address] [place] [id number] Phone Care Team Providers Care Dinkey Mechanic Name Role Phone Oneida Galvan MD Primary Care Provider [phone] Allergies Active Allergy Reactions Criticality Noted Date Comments Canagliflozin 12/25/2017 Lisinopril 12/25/2017 Metformin Rash High 06/02/2017 Oxycodone-Acetaminophen Nausea And Vomiting,Other 11/20/2023 Heebie Jeebies Phentermine 11/02/2019 Sulfa (Sulfonamide Antibiotics) Rash High 06/02/2017 Tirzepatide 03/19/2024 Hypotension Topiramate 11/02/2019 Medications blood-glucose sensor (FreeStyle Curt 3 Sensor) device 1 Device by Does not apply route every 14 days. 4 Active insulin lispro (HumaLOG KwikPen Insulin) 100 unit/mL injection pen Inject 3 times a day with meals per sliding 100-149: 2 units; 151-200: 3 units; 201-250: 4 units; 251-300: 5 units; 301-350: 6 units; 351-400: 7 units 4 Active CHOLECALCIFEROL, VITAMIN D3, ORAL Take by mouth. Active CYANOCOBALAMIN, VITAMIN B-12, ORAL Take by mouth. Activ e loratadine 10 mg capsule Take by mouth. Activ e simvastatin (ZOCOR) 20 mg tablet 7 Active losartan (COZAAR) 50 mg tablet 100 mg. 7 Active blood-glucose meter,continuous (Dexcom G7 Pulley Worker) mis 1 Device by Not Applicable route. 1 Device by Does not apply route See Admin Instructions. Use daily with dexcom g 7 sensors - Does not apply 4 Active pen needle, diabetic 32 gauge x / needle Use with insulin 4 times a day 4 Active blood sugar diagnostic (FreeStyle Lite Strips) test strip Use to check BS 3 times a day Active freestyle 28 gauge lancets Check blood sugar three times a day or as directed 300 each 1 4 08/10/20 25 Active Lantus Solostar U-100 Insulin 100 unit/mL (3 mL) injection penIndications:Ty pe 2 diabetes mellitus with hyperglycemia ([facility] [place], [facility] V28) INJECT 50 UNITS INTO THE SKIN AT BEDTIME. 45 mL 1 5 Active Active Problems Problem Noted Date Diagnosed Date Class 3 severe obesity due t o excess calories with serious comorbidity and body mass index (BMI) of 45.0 to 49.9 in adult ([facility] V[facility], [facility] V28) 06/07/2024 Type 2 diabetes mellitus wit h hyperglycemia, with long-term current use of insulin ([facility] V24, [facility] V28) 06/07/2024 Anxiety 11/20/2023 Asthma 11/20/2023 Hyperlipidemia 11/20/2023 Neuropathy 11/20/2023 Obesity 05/24/2019 Diabetes type 1, controlled ([facility] V24, [facility] V28) 06/02/2017 Hypertension 06/02/2017 Surgical History Surgery Date Site/Laterality Comments HYSTERECTOMY 2011 PROCEDURE: HISTORICAL TOTAL HYSTERECTOMY WITH BSO; COMMENT: endometrial cancer, grade 1, stage 1 Medical History Medical History Date Comments Diabetes type 1, controlled ([facility] V24, [facility] V28) 06/02/2017 DX:Diabetes type 1, controll ed ([facility]) Hypertension 06/02/2017 DX:Hypertension History of endometrial cancer [...] Vaccines (1 of 2) 2006 RSV Immunization Adult Patients (1 - Risk 60-74 years 1-dose series) 2016 Colorectal Cancer Screening: Colonoscopy 08/07/2022 Depression Screening 08/07/2022 Falls Risk Assessment 08/07/2022 Hepatitis C Screening 08/07/2022 Osteoporosis Screening (Bone Density Screening) 08/07/2022 Social Influencers of Health Screening 08/07/2022 COVID-19 Vaccine ( - 2023-2 5 season) 2024 Diabetes: Blood Sugar Contro l Test (HGBA1C) 09/26/2024 03/26/2024, 03/26/2024, 01/08/2024 Diabetes: Annual Urine Albumin-Creatinine Ratio (uACR) 01/07/2025 01/08/2024 Diabetes: Annual GFR (Glomerular Filtration Rate) 01/07/2025 01/08/2024, 01/08/2024 Hypertension/CHF/CAD Annual BMP Blood Test 01/07/2025 01/08/2024, 01/08/2024 Influenza Vaccine (Season Ended) 2025 Cholesterol Screening (Lipid Panel) 01/07/2029 01/08/2024, 01/08/2024 [...] age to complete this topic Meningococcal B Vaccine Aged Out No l onger eligible based on patient's age to complete [...] Maintenance Results * Hemoglobin A1c (03/26/2024) Pathologist [facility] Hemoglobin A1C 9.6 <=10.7 % Blood Venous blood specimen / Unknown Historical Provider LAB BLOOD ORDERABLES Margarita l Result * Urine Albumin Creatinine Ratio (01/08/2024) Pathologist [facility] Urine Albumin Creatinine Ratio Abstracted us Historical Provider HEALTH MAINTENANCE Final Result * Annual BMP Blood Test (01/08/2024) Pathologist [facility] Annual BMP Blood Test Abstracted Historical Provider HEALTH MAINTENANCE Final Result * (ABNORMAL) Lipid panel (01/08/2024) Pathologist [facility] LDL/HDL Ratio 4 0 - 4 Triglycerides 190(A) 0 - 150 mg/dL Cholesterol 175 0 - 200 mg/dL HDL 50 >=40 mg/dL LDL Cholesterol 87 0 - 100 mg/dL Blood Venous blood specimen / Unknown Historical Provider LAB BLOOD ORDERABLES Margarita l Result from Last 3 Months or Most Recently Relevant to Health Maintenance Insurance [facility] [employer] [place] [id number] Care Teams Dinkey Mechanic Relationship Specialty Start Date End Date Oneida Galvan MD [facility] [address] [place] PCP - General Internal Medicine 04/29/17
== END 2025-01-18 10:39 | disposition home or self-care (01) ==
LOC: HO.ENCR 09:48
PROVIDERS: PCP Internal Medicine; Visit Provider Physician Assistant Medical
DX: E11.65 Type 2 diabetes mellitus with hyperglycemia (principal); Z79.4 Long term (current) use of insulin

== ENCOUNTER → 2025-01-18 09:48 | Outpatient (BNVA) | payer OTHER, SELFPAY | PROVIDERS: PCP Internal Medicine; Visit Provider Physician Assistant Medical | DX: E11.65 Type 2 diabetes mellitus with hyperglycemia (principal); Z79.4 Long term (current) use of insulin | CPT/HCPCS: 82947; 83036; 99212 ==

== ENCOUNTER 2025-04-14 10:47 | Outpatient (AMB) | payer OTHER, SELFPAY ==
[2025-04-14 10:49] VITALS: BP 98/64; PULSE 86; O2SAT 96; BMI 46.2
--- NOTE | 2025-04-14 10:49 | A.OFFPC_ITS ---
Vital Signs 04/14/25 10:49 Height 5 ft 5 in Weight 277 lb 8 oz BMI 46.2 BP 98/64 Blood Pressure Location Lt brachial Position Sitting Pulse 86 Pulse Source Pulse Oximeter Pulse Oximetry (%) 96 Oxygen Delivery Method Room Air Intake Visit Reasons: DM, hyperlipidemia, HTN Television News Video Editor Required: No Accompanied by: Self / Same As Patient Allergies sulfamethoxazole (From BACTRIM) Allergy (Intermediate, Verified 04/14/25 11:20) ANXIETY trimethoprim (From BACTRIM) Allergy (Intermediate, Verified 04/14/25 11:20) ANXIETY aluminum hydroxide (From Magnagel) Allergy (Mild, Verified 04/14/25 11:20) high blood press magnesium (From Magnagel) Allergy (Mild, Verified 04/14/25 11:20) high blood press magnesium hydroxide (From Magnagel) Allergy (Mild, Verified 04/14/25 11:20) high blood press canagliflozin (Invokana) Allergy (Unknown, Verified 04/14/25 11:20) Itching lisinopril Allergy (Unknown, Verified 04/14/25 11:20) Abdominal Pain metformin Allergy (Unknown, Verified 04/14/25 11:20) Stomach Upset Sulfa (Sulfonamide Antibiotics) Allergy (Unknown, Verified 04/14/25 11:20) Agitated sulfadiazine Allergy (Unknown, Verified 04/14/25 11:20) Unknown Avocado Revitalizing Allergy (Unknown, Uncoded 04/14/25 11:20) Unknown oxycodone Allergy (Unknown, Uncoded 04/14/25 11:20) Hives percocet Allergy (Unknown, Uncoded 04/14/25 11:20) Hives tramadol Allergy (Unknown, Uncoded 04/14/25 11:20) Hives Medication List - Last Reconciled 04/14/25 by Hemal Clifton MD acetaminophen ER (Tylenol Arthritis Pain) 650 mg PO Q12H PRN 15 days albuterol sulfate 90 mcg/actuation 2 puffs inhalation Q6H PRN 30 days amlodipine 2.5 mg PO DAILY 30 days [AQUATHERAPY As directed] atorvastatin 20 mg PO BEDTIME 90 days blood sugar diagnostic (FreeStyle Lite Strips) As directed 3 times a day blood-glucose sensor (FreeStyle Curt 3 Plus Sensor device) Apply 1 sensor every 14-15 days to monitor blood glucose continuously. cholecalciferol (vitamin D3) 50 mcg PO DAILY 90 days dulaglutide (Trulicity) 3 mg (0.5 mL) subcut QWEEK glucose (Dex4 Glucose) 16 grams (4 x 4 gram) PO Q15M PRN insulin degludec (Tresiba FlexTouch U-200 insulin) 64 units subcut ONCE insulin lispro (Humalog KwikPen (U-100) Insulin) subcutaneously; three times daily 15 minutes before meals; administer 4-10 units per sliding scale losartan-hydrochlorothiazide 100-25 mg 1 tab PO DAILY 90 days pen needle, diabetic (BD Ultra-Fine Leela Pen Needle) As directed once a day sennosides (Senna Lax) 17.2 mg (2 x 8.6 mg) PO BEDTIME PRN 30 days [transfer bench shower chair As directed] vitamin B complex (B Complex-Vitamin B12 tablet) 1 tab PO DAILY Tobacco use date assessed: 04/14/25 Fall risk assessment: No Falls in past year Last assessed Fall Risk: 04/14/25 Dental Screening Dental Screen Date: 04/14/25 Did you have a dental visit in the last 12 months?: No Did you have a dental problem in the last 6 months where you did not have access to dental care?: No Was dental information given to patient?: No HPI DM, hyperlipidemia, HTN HPI Details Patient comes in today for her follow up visit Feels that she has been getting a lot of recurrent infections lately, including UTIs - describes her urine as often having a strong smell to it Also reports experiencing increased pain over her lower back often and thinks that the 'cyst over her lower back is making her low back pain worse as she feels like it is pressing against her spine when she is sitting down or leaning a certain way Notes that her low back pain gets worse with prolonged standing She continues [place] [facility] [place] [facility] [place] her diabetes and states t hat her GMI on her phone natalie sometime last week was around 7.4% She admits to eating a lot of vegetables and fruits lately and was under the impression that it is okay to eat as many fruits as she likes (nectarines, prunes, bananas, etc) as their sugar content is more of the unprocessed variety She denies any headaches or dizziness Denies any chest pains, no increased SOB No nausea/vomiting, no abdominal pain No change in bowel habits noted States that she was having problems getting a couple of her Rx refilled recently from the pharmacy, including her Losartan-HCT - states that her pharmacist keeps telling her that the office was not responding to their request for prescription refills She was also NOT able to get her follow up labs done prior to coming in for her appointment today [facility] Medical History Uncontrolled type 2 diabetes mellitus with hyperglycemia, with long-term current use of insulin Morbid obesity with BMI of 40.0-44.9, adult Lumbosacral spondylosis Peripheral autonomic neuropathy due to diabetes mellitus Anxiety Insomnia Asthma Diabetes mellitus with hyperglycemia Vitamin D deficiency Morbid obesity with BMI of 45.0-49.9, adult Pure hypercholesterolemia Benign essential hypertension Diabetes mellitus Surgical History History of colonoscopy (~01/01/11) Hx of LASIK H/O abdominal hysterectomy Social History Housing: Apartment Alcohol intake: never Patient Tobacco Use Status: Former Tobacco user e-Cigarette/Vaping Use: Never Used Second Hand Smoke Exposure: Yes service: No Current occupational status: retired and disabled Cognitive needs: No Hearing needs: No Vision needs: Yes (reading glasses) Questionnaire PHQ-9 Over the last 2 weeks, how often have you been bothered by any of the following problems? 1. Little interest or pleasure in doing things: not at all 2. Feeling down, depressed, or hopeless: not at all 3. Trouble falling or staying asleep, or sleeping too much: not at all 4. Feeling tired or having little energy: not at all 5. Poor appetite or overeating: not at all 6. Feeling bad about yourself - or that you are a failure or have let yourself or your family down: not at all 7. Trouble concentrating on things, such as reading the newspaper or watching television: not at all 8. Moving or speaking so slowly that other people could have noticed. Or the opposite - being so fidgety or restless that you have been moving around a lot more than usual: not at all 9. Thoughts that you would be better off or of hurting yourself in some way: not at all Total score: 0 Depression Screening Interpretation: Negative Depression Screening Done: Yes 79550 - PHQ-9 Billing: Yes Source: Developed by Drs. Giovanni Worthington, Scarlet Hernandez, Tanmay Eduardo and colleagues, with an educational sarah from [employer]. Thrive Questionnaire Date Thrive assessed: 04/14/25 I am a: Patient What is your living situation today?: I have a steady place to live Within the past 12 months, did the food you bought not last and you didn't have the money to get more?: Never true Within the past 12 months, did you worry whether your food would run out before you got money to buy more?: Never true Do you have trouble paying for medicines?: No Do you have trouble getting transportation to medical appointments?: No Do you have trouble paying your heating and electricity bill?: No Do you have trouble taking care of your child, family member or friend?: No Do you have trouble with day-to-day activities such as bathing, preparing meals, shopping, managing finances, etc.?: No Are you currently unemployed and looking for a job?: No Are you interested in more education?: No Please select the resources that you would like help with: None Currently or been in a relationship where the following occur: I choose not to answer THRIVE Score: 0 AUDIT C Alcohol Use Questionnaire (AUDIT-C) 1. How often do you have a drink containing alcohol?: Never 3. How often do you have six or more drinks on one occasion?: Never Total Score: 0 Score Reviewed/Action Taken: Yes WESLEY-7 AMB Questionnaire WESLEY-7 Date WESLEY - 7 assessed: 04/14/25 Feeling nervous, anxious, or on edge: 0 = Not at all Not being able to stop or control worryin = Not at all Worrying too much about different things: 0 = Not at all Trouble relaxin = Not at all Being so restless that it is hard to sit still: 0 = Not at all Becoming easily annoyed or irritable: 0 = Not at all Feeling afraid as if something awful might happen: 0 = Not at all Total WESLEY-7 score (0-4 normal; 5-9 mild; 10-14 moderate; 15-21 severe): 0 Source: Developed by Drs. Giovanni Worthington, Scarlet Hernandez, Tanmay Eduardo and colleagues, with an educational sarah from [employer]. Review of Systems Const Denies chills, Denies fatigue, Denies fever(s) and Denies headache(s) ENT Denies dysphagia, Denies dizziness, Denies otalgia, Denies headache(s), Reports hearing loss (especially in the right ear), Denies neck pain, Denies odynophagia and Denies sore throat Card Denies chest pain, Denies palpitations and Denies dyspnea Resp Denies chest congestion, Denies cough and Denies dyspnea GI Denies abdominal pain, Reports constipation (on and off), Denies dysphagia, Denies heartburn, Denies diarrhea, Denies nausea, Denies odynophagia and Denies vomiting Denies difficulty voiding, Denies nocturia, Denies dysuria and Denies urinary urgency Musc Reports back pain (on & off over lower back - increasing lately, jose f with prolonged standing) and Denies neck pain Skin/Breast Denies rash Neuro Details: (+) frequent numbness and occasional pain over the soles of her feet bilaterally Denies dizziness and Denies headache(s) Endo Denies fatigue and Denies palpitations Physical exam (Primary Care) Vital Signs: Last Vital Signs Pulse 86 04/14/25 10:49 BP 98/64 04/14/25 10:49 Pulse Ox 96 04/14/25 10:49 Oxygen Delivery Method Room Air 04/14/25 10:49 BMI result Body Mass Index 46.2 Tobacco/Smoking Status: Tobacco use Status Tobacco use date assessed 04/14/25 04/14/25 10:51 Patient Tobacco Use Status Former Tobacco user 04/14/25 10:51 e-Cigarette/Vaping Use Never Used 04/14/25 10:51 PHQ-9: PHQ-9 Score PHQ-9: Total score 0 04/14/25 13:41 Depression Screening Interpretation: Negative Thrive Assessment: Date of Thrive Assessment Date Thrive assessed 04/14/25 04/14/25 10:51 Currently or been in a relationship where the following occur: I choose not to answer Const General: no acute distress and alert HENMT Ears: TM's normal bilaterally and EAC's normal Throat: Yes posterior oropharynx normal and Yes tonsils normal (no TP congestion) Neck Neck: Yes supple and No lymphadenopathy Thyroid: Thyroid normal Resp Auscultation: clear to auscultation bilaterally, no rales and no wheezes Cardio Rate: regular rate Rhythm: regular rhythm Heart sounds: no murmurs GI Palpation (GI): Soft to palpation and nontender Auscultation: normal bowel sounds General: Yes no CVA tenderness Back/Spine/Pelvis Back: no CVA tenderness Thoracic/Lumbar Spine: lumbar spinal tenderness Skin Rashes: no rashes Extrem General: Yes no clubbing, cyanosis or edema Results AMB Hemoglobin A1c AMB Hemoglobin A1c 8.2 % Last Edit by BRYN Laguerre on 04/14/25 11 :11 Results Reviewed Results Reviewed: Laboratory Last Values Hgb A1c (Clinic) 8.2 % (4.0-6.0) H 04/14/25 10:55 Coding Level of Care Code Est Pt Level 4 (43597) Diagnoses Type 2 diabetes mellitus with hyperglycemia, with long-term current use of insulin E11.65; Z79.4 Diabetes mellitus complication status: with hyperglycemia Diabetes mellitus prison insulin use: with termite exterminator use Diabetes mellitus type: type 2 Pure hypercholesterolemia E78.00 Benign essential hypertension I10 Peripheral autonomic neuropathy due to diabetes mellitus E11.43 Mild intermittent asthma without complication J45.20 Asthma complication type: uncomplicated Asthma persistence: intermittent Asthma severity: mild Cardiac arrhythmia, unspecified cardiac arrhythmia type I49.9 Arrhythmia type: unspecified cardiac arrhythmia Spondylosis of lumbosacral region without myelopathy or radiculopathy M47.817 Spinal osteoarthritis complication: without myelopathy or radiculopathy Constipation, unspecified constipation type K59.00 Constipation type: unspecified constipation type Vitamin D deficiency E55.9 Insomnia, unspecified type G47.00 Insomnia type: unspecified Anxiety F41.9 Morbid obesity with BMI of 45.0-49.9, adult E66.01; Z68.42 Additional Codes PHQ-9 - 47478 - PHQ-9 Billing: Yes ([id number]) Assessment & Plan Assessment & Plan (1) Diabetes mellitus: Code(s): E11.9 - Type 2 diabetes mellitus without complications Category: Medical Qualifiers: Diabetes mellitus complication status: with hyperglycemia Diabetes mellitus termite exterminator insulin use: with prison use Diabetes mellitus type: type 2 Qualified Code(s): E11.65 - Type 2 diabetes mellitus with hyperglycemia; Z79.4 - termite exterminator (current) use of insulin Plan: Her GMI was reportedly again at around 7.6% recently but her in-office HgbA1c today is still at 8.2% - goal is at least <7.0% Reinforced diabetic diet Continue Trulicity 3 mg SQ once a week, Tresiba 70 units Q HS and Humalog 2 to 6 units TID with meals per sliding scale (she has been instructed to HOLD Humalog for blood sugar readings under 200 mg/dl) She was following up with [facility] in the past for management of her diabetes but is now [place] [facility] [place] up with [facility] as scheduled (2) Pure hypercholesterolemia: Code(s): E78.00 - Pure hypercholesterolemia, unspecified Category: Medical Plan: She was not able to get her follow up labs done prior to her appointment today - states that she will try to go and get them done JESSICA Reinforced low cholesterol diet Continue Atorvastatin 20 mg QD Will have patient recheck her labs and fasting lipids in 4 months for follow up (3) Benign essential hypertension: Code(s): I10 - Essential (primary) hypertension Category: Medical Plan: Reinforced low sodium diet - goal is systolic BP of 120 to 130 mm or less Continue Amlodipine 2.5 mg QD and Losartan-HCT 100-25 mg QD Have advised patient to continue monitoring her blood pressure regularly (4) Peripheral autonomic neuropathy due to diabetes mellitus: Code(s): E11.43 - Type 2 diabetes mellitus with diabetic autonomic (poly)neuropathy Category: Medical Plan: EMG and NCV done in July 2023 revealed (+) moderate to severe axonal sensory and motor chronic peripheral neuropathy Patient is advised again that the best way to slow down the progression of her neuropathy is tight control of her blood sugar She has been instructed to check and examine her feet every night before bedtime to ensure that there are no active wounds or injuries to her feet that she may not be aware of because of the altered sensation on her lower extremitied Follow up with podiatry as scheduled (5) Asthma: Code(s): J45.909 - Unspecified asthma, uncomplicated Category: Medical Qualifiers: Asthma complication type: uncomplicated Asthma persistence: intermittent Asthma severity: mild Qualified Code(s): J45.20 - Mild intermittent asthma, uncomplicated Plan: Controlled; she is currently using her Albuterol HFA inhaler only on an as- needed basis She is advised again that we should have her get a PFT for further evaluation and assessment of her baseline pulmonary function and to see if she does indeed have asthma or not; will also then determine if she will need any maintenance medications depending on the results of her PFT - patient would still like to hold off on this for now as she wants to try concentrating on getting her diabetes controlled properly first (6) Cardiac arrhythmia: Code(s): I49.9 - Cardiac arrhythmia, unspecified Category: Medical Qualifiers: Arrhythmia type: unspecified cardiac arrhythmia Qualified Code(s): I49.9 - Cardiac arrhythmia, unspecified Plan: Her EKG done back in May 2024 revealed NSR with occasional PVCs Her previous EKGs have all showed NSR with no acute changes She currently has no acute cardiac symptoms, so no other intervention is needed at this time (7) Lumbosacral spondylosis: Code(s): M47.817 - Spondylosis without myelopathy or radiculopathy, lumbosacral region Category: Medical Qualifiers: Spinal osteoarthritis complication: without myelopathy or radiculopathy Qualified Code(s): M47.817 - Spondylosis without myelopathy or radiculopathy, lumbosacral region Plan: Reinforced activity and weight-lifting restrictions Lumbar spine x-rays done a couple of years ago revealed stable spondylosis of the lumbosacral spine with prominent degenerative disc changes at L5-S1 but there appears to be a slight progression of calcific atherosclerotic changes noted on her x-rays Repeat lumbar spine x-rays done back in May 2024 revealed (+) marked degenerative disc disease at L5-S1 and degenerative facet joint disease at L4-L5 and L5-S1 Will consider sending her for an MRI of the lumbar spine for further evaluation if her symptoms continue to progress Have advised her that the cysts on her lower back that she is referring to may actually be synovial cysts along the sides of the lumbar spine and that these are usually normal but if she feels that these are causing her to experience increased pain with unusual, then we will likely have to send her for an MRI of the lumbar spine for further evaluation and if the MRI confirms these cysts and they are in the pressing on her spine, then surgery will be an option She was taking Gabapentin 100 mg BID previously but is now only on OTC Extra- strength Tylenol PRN - she is advised that she can double up on this if needed provided that she does not take more than a total of 2000 mg daily dose as much as possible She has also been prescribed Tramadol from the hospital in the past, which she states did not work for her Per request, we have also tried sending her for Aquatherapy again at her local [facility], which she states have worked well for her in the past - [facility] was supposed to help her get this set up (8) Constipation: Code(s): K59.00 - Constipation, unspecified Category: Medical Qualifiers: Constipation type: unspecified constipation type Qualified Code(s): K59.00 - Constipation, unspecified Plan: She is encouraged again on increased oral fluids and dietary fiber Continue Senna 8.6 mg 1 to 2 tablets Q HS PRN (9) Vitamin D deficiency: Code(s): E55.9 - Vitamin D deficiency, unspecified Category: Medical Plan: Continue Vitamin D3 2000 units QD (10) Insomnia: Code(s): G47.00 - Insomnia, unspecified Category: Medical Qualifiers: Insomnia type: unspecified Qualified Code(s): G47.00 - Insomnia, unspecified Plan: Sleep hygiene reinforced Continue OTC Melatonin 3 mg Q HS PRN (11) Anxiety: Code(s): F41.9 - Anxiety disorder, unspecified Category: Medical Plan: She was on Sertraline 50 mg QD previously but appears to have also stopped taking this at some point and does not feel that she needs to be on anything for mood disorder at this time (12) Morbid obesity with BMI of 45.0-49.9, adult: Code(s): E66.01 - Morbid (severe) obesity due to excess calories; Z68.42 - Body mass index [BMI] 45.0-49.9, adult Category: Medical Plan: Reinforced diet/exercise as tolerated/lose weight Plan Follow up in 4 months Orders: Orders AMB Hemoglobin A1c Today Z13.9 - Encounter for screening, unspecified Complete Blood Count Auto Diff 4 Months D64.9 - Anemia, unspecified Lipid Panel 4 Months E78.00 - Pure hypercholesterolemia, unspecified Microalbumin, Random (w Creat) 4 Months E11.9 - Type 2 diabetes mellitus without complications UA CC w/rflx Micro + Cult 4 Months R30.0 - Dysuria Vitamin D 25-OH Total 4 Months E55.9 - Vitamin D deficiency, unspecified Vitamin B12 and Folate 4 Months E53.8 - Deficiency of other specified B group vitamins Hemoglobin A1c 4 Months E11.9 - Type 2 diabetes mellitus without complications Comprehensive [place]. Panel Fast 4 Months E78.00 - Pure hypercholesterolemia, unspecified TSH reflex Free T4 4 Months E78.00 - Pure hypercholesterolemia, unspecified Medications: Changed From amlodipine 2.5 mg PO DAILY 30 days 30 tabs 1RF for blood pressure To amlodipine 2.5 mg PO DAILY 90 tabs 1RF for blood pressure 90 days From vitamin B complex (B Complex-Vitamin B12 tablet) 1 tab PO DAILY To vitamin B complex 1 tab PO DAILY 90 tabs 3RF 90 days Refilled losartan-hydrochlorothiazide 100-25 mg 1 tab PO DAILY 90 tabs 1RF 90 days
--- OUTSIDE RECORDS SUMMARY | 2025-04-14 11:29 | XMS_ITS | Clinical Summary ---
Author Organization [address] Address [address] [place] [id number] Phone Care Team Providers Care Probation And Parole Officer Name Role Phone Oneida Galvan MD Primary Care Provider [phone] Allergies Active Allergy Reactions Criticality Noted Date [...] mg. 7 Active blood-glucose meter,continuous (Dexcom G7 Inspector Metal Can) mis 1 Device by Not Applicable route. [...] penIndications:Ty pe 2 diabetes mellitus with hyperglycemia [place] [facility] [place] INJECT 50 UNITS INTO THE SKIN AT BEDTIME. 45 mL 1 5 Active Active Problems Problem Noted Date Diagnosed Date Class 3 severe obesity due t o excess calories with serious comorbidity and body mass index (BMI) of 45.0 to 49.9 in adult [place] [place] [facility] [place]) 06/07/2024 Type 2 diabetes mellitus wit h hyperglycemia, with long-term current use of insulin [place] [place] [facility] [place] 06/07/2024 Anxiety 11/20/2023 Asthma 11/20/2023 Hyperlipidemia 11/20/2023 Neuropathy 11/20/2023 Obesity 05/24/2019 Diabetes type 1, controlled [place] [place] [place], [facility] V28) 06/02/2017 Hypertension 06/02/2017 Surgical History Surgery Date Site/Laterality Comments HYSTERECTOMY 2011 PROCEDURE: HISTORICAL TOTAL HYSTERECTOMY WITH BSO; COMMENT: endometrial cancer, grade 1, stage 1 Medical History Medical History Date Comments Diabetes type 1, controlled ([facility] [place], [facility] V28) 06/02/2017 DX:Diabetes type 1, controll ed ([facility]) Hypertension 06/02/2017 DX:Hypertension History of [...] series) 2016 Colorectal Cancer Screening: Colonoscopy 08/07/2022 Falls Risk Assessment 08/07/2022 Hepatitis C Screening 08/07/2022 Osteoporosis Screening (Bone Density Screening) 08/07/2022 Social Influencers of Health Screening 08/07/2022 COVID-19 Vaccine (1 - 2023-2 5 season) 2024 Depression Screening 09/08/2024 Diabetes: Blood Sugar Contro l Test (HGBA1C) 09/26/2024 03/26/2024, 03/26/2024, 01/08/2024 Diabetes: Annual Urine Albumin-Creatinine Ratio (uACR) 01/07/2025 01/08/2024 Diabetes: Annual GFR (Glomerular Filtration Rate) 01/07/2025 01/08/2024, 01/08/2024 Hypertension/CHF/CAD Annual BMP Blood Test 01/07/2025 01/08/2024, 01/08/2024 Influenza Vaccine (#1) 2025 Cholesterol Screening (Lipid Panel) 01/07/2029 01/08/2024, [...] Maintenance Results * Hemoglobin A1c (03/26/2024) Pathologist [facility] Hemoglobin A1C 9.6 <=10.7 % Blood Venous blood specimen / Unknown Historical Provider LAB BLOOD ORDERABLES Margarita l Result * Urine Albumin Creatinine Ratio (01/08/2024) Pathologist [facility] Urine Albumin Creatinine Ratio Abstracted us Historical Provider HEALTH MAINTENANCE Final Result * Annual BMP Blood Test (01/08/2024) Pathologist [facility] Annual BMP Blood Test Abstracted Historical Provider HEALTH MAINTENANCE Final Result * (ABNORMAL) Lipid panel (01/08/2024) Pathologist [facility] LDL/HDL Ratio 4 0 - 4 Triglycerides 190(A) 0 - 150 mg/dL Cholesterol 175 0 - 200 mg/dL HDL 50 >=40 mg/dL LDL Cholesterol 87 0 - 100 mg/dL Blood Venous blood specimen / Unknown Historical Provider LAB BLOOD ORDERABLES Margarita l Result from Last 3 Months or Most Recently Relevant to Health Maintenance Insurance [facility] MEDICAID [place] [id number] Care Teams Probation And Parole Officer Relationship Specialty Start Date End Date Oneida Galvan MD [facility] [address] [place] PCP - General Internal Medicine 04/29/17
--- OUTSIDE RECORDS SUMMARY | 2025-04-14 11:29 | XMS_ITS | Encounter Summary ---
[facility] Organization [facility] Address [address] [place] [address] Care Team Providers Care Dry Cleaning Manager Name Role Phone Oneida Galvan MD Primary Care Provider Elida vailable Reason for Visit * Reason Comments E-prescribe Rx Request Encounter Details Date Type Department Care Team Description 04/23/2019 [facility] General Surgery [address] [place] [address] Devan Davis MD [address] [place] [address] [address] [place] [address] E-prescribe Rx Request Social History Tobacco Use [...] on filedocumented in this encounter Care Teams Dry Cleaning Manager Relationship Specialty Start Date End Date Oneida Galvan MD PCP - General Internal Medicine 04/29/17 documented as of this encounter
== END 2025-04-14 11:32 | disposition home or self-care (01) ==
LOC: HO.HMCH 10:48
PROVIDERS: PCP Internal Medicine; Visit Provider Internal Medicine
DX: E11.65 Type 2 diabetes mellitus with hyperglycemia (principal); Z79.4 Long term (current) use of insulin; E78.00 Pure hypercholesterolemia, unspecified; I10 Essential (primary) hypertension; E11.43 Type 2 diabetes mellitus with diabetic autonomic (poly)neuropathy; J45.20 Mild intermittent asthma, uncomplicated; I49.9 Cardiac arrhythmia, unspecified; M47.817 Spondylosis without myelopathy or radiculopathy, lumbosacral region; K59.00 Constipation, unspecified; E55.9 Vitamin D deficiency, unspecified; E66.01 Morbid (severe) obesity due to excess calories; Z68.42 Body mass index [BMI] 45.0-49.9, adult; G47.00 Insomnia, unspecified; F41.9 Anxiety disorder, unspecified; Z13.9 Encounter for screening, unspecified

== ENCOUNTER → 2025-04-14 10:47 | Outpatient (BNVA) | payer OTHER, SELFPAY | PROVIDERS: PCP Internal Medicine; Visit Provider Internal Medicine | DX: E11.65 Type 2 diabetes mellitus with hyperglycemia (principal); E11.43 Type 2 diabetes mellitus with diabetic autonomic (poly)neuropathy; I10 Essential (primary) hypertension; E78.00 Pure hypercholesterolemia, unspecified; J45.20 Mild intermittent asthma, uncomplicated; I49.9 Cardiac arrhythmia, unspecified; M47.817 Spondylosis without myelopathy or radiculopathy, lumbosacral region; K59.00 Constipation, unspecified; E55.9 Vitamin D deficiency, unspecified; G47.00 Insomnia, unspecified; E66.01 Morbid (severe) obesity due to excess calories; D64.9 Anemia, unspecified; R30.0 Dysuria; E53.8 Deficiency of other specified B group vitamins; Z68.42 Body mass index [BMI] 45.0-49.9, adult; Z87.440 Personal history of urinary (tract) infections; Z79.4 Long term (current) use of insulin | CPT/HCPCS: 83036; 96127; 99212 ==

== ENCOUNTER 2025-06-07 10:48 | Outpatient (AMB) | payer OTHER, SELFPAY ==
[2025-06-07 10:50] VITALS: BP 108/60; PULSE 81; O2SAT 97; BMI 46.7
--- NOTE | 2025-06-07 10:50 | MHC.OFFVIS ---
Vital Signs 06/07/25 10:50 Height 5 ft 5 in Weight 280 lb 6.848 oz BMI 46.7 BP 108/60 Blood Pressure Location Rt brachial Position Sitting Pulse 81 Pulse Source Pulse Oximeter Pulse Oximetry (%) 97 Oxygen Delivery Method Room Air Intake Visit Reasons: DMT2 FOLLOW-UP Intake Note: Patient present today to follow up on Type 2 Diabetes Mellitus.? Last Diabetic Eye exam: 04/28/2025 [facility] Last Podiatry Visit: In the Summer 2023, Dr. Ramsey Random Glucose:? mg/dl 130 HgA1C: 8.2% 04/14/2025 Patient would like Trulicity refill. Senior Computer Specialist Required: No Accompanied by: Daughter Allergies sulfamethoxazole (From BACTRIM) Allergy (Intermediate, Verified 06/07/25 10:55) ANXIETY trimethoprim (From BACTRIM) Allergy (Intermediate, Verified 06/07/25 10:55) ANXIETY aluminum hydroxide (From Magnagel) Allergy (Mild, Verified 06/07/25 10:55) high blood press magnesium (From Magnagel) Allergy (Mild, Verified 06/07/25 10:55) high blood press magnesium hydroxide (From Magnagel) Allergy (Mild, Verified 06/07/25 10:55) high blood press canagliflozin (Invokana) Allergy (Unknown, Verified 06/07/25 10:55) Itching lisinopril Allergy (Unknown, Verified 06/07/25 10:55) Abdominal Pain metformin Allergy (Unknown, Verified 06/07/25 10:55) Stomach Upset Sulfa (Sulfonamide Antibiotics) Allergy (Unknown, Verified 06/07/25 10:55) Agitated sulfadiazine Allergy (Unknown, Verified 06/07/25 10:55) Unknown Avocado Revitalizing Allergy (Unknown, Uncoded 06/07/25 10:55) Unknown oxycodone Allergy (Unknown, Uncoded 06/07/25 10:55) Hives percocet Allergy (Unknown, Uncoded 06/07/25 10:55) Hives tramadol Allergy (Unknown, Uncoded 06/07/25 10:55) Hives Medication List - Last Reconciled 06/07/25 by NACHO Olson acetaminophen ER (Tylenol Arthritis Pain) 650 mg PO Q12H PRN 15 days albuterol sulfate 90 mcg/actuation 2 puffs inhalation Q6H PRN 30 days amlodipine 2.5 mg PO DAILY 90 days [AQUATHERAPY As directed] atorvastatin 20 mg PO BEDTIME 90 days blood sugar diagnostic (FreeStyle Lite Strips) As directed 3 times a day blood-glucose sensor (FreeStyle Curt 3 Plus Sensor device) Apply 1 sensor every 14-15 days to monitor blood glucose continuously. cholecalciferol (vitamin D3) 50 mcg PO DAILY 90 days dulaglutide (Trulicity) 3 mg (0.5 mL) subcut QWEEK glucose (Dex4 Glucose) 16 grams (4 x 4 gram) PO Q15M PRN insulin degludec (Tresiba FlexTouch U-200 insulin) 64 units subcut ONCE insulin lispro (Humalog KwikPen (U-100) Insulin) subcutaneously; three times daily 15 minutes before meals; per sliding scale Blood sugar under 150 administer 0 units of Humalog before meal Blood sugar 150-199 administer 4 units of Humalog before meal Blood sugar 200-249 administer 6 units of Humalog before meal Blood sugar 250 to 299 administer 8 units of Humalog before meal Blood sugar 300 to 349 administer 10 units of Humalog before meal Blood sugar 350 and above administer 12 units of Humalog before meal losartan-hydrochlorothiazide 100-25 mg 1 tab PO DAILY 90 days pen needle, diabetic (BD Ultra-Fine Leela Pen Needle) As directed once a day sennosides (Senna Lax) 17.2 mg (2 x 8.6 mg) PO BEDTIME PRN 30 days [transfer bench shower chair As directed] vitamin B complex 1 tab PO DAILY 90 days HPI Comments Details: This is a 69-year-old female with a past medical history of type 2 diabetes with neuropathy, anxiety, vitamin-D deficiency, hyperlipidemia, asthma and hypertension presenting for diabetic management. 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 Her daughter, Dolores, is here with her today. She was diagnosed with diabetes around 2016. She has a family history of Type II diabetes (mother, father, sister). HgA1C: 8.2% 04/14/2025 Reviewed CGM data for the past 2 weeks GMI 7.6% high 15% high 31% target 54% low 0 % Overnight sugars are good, she has posprandial hyperlgycemia She reports that her CGM alerted her to an urgent low overnight twice a month ago, she had no symptoms, and she checked a fingerstick, and it was over 100. Current medication regimen: Tresiba 64 units nightly, Trulicity 3 mg weekly, Humalog slding scale. She is not using the scale for Humalog. If her blood sugars over 250 she takes 5 units, if it is over 300 she takes 8 units, if it is under 250 she does not take any short-acting insulin. Previous medications: Lantus and Mounjaro Glimepride-discontinued Invokana was not tolerated-yeast infection Previously documented: Trulicity was switched to Mounjaro by her last aircraft restorer because it was back ordered. They report it was titrated to 7.5 mg, but they did not tell her to wait a week after her prior injection to start it. The patient says at baseline she has a sensitive stomach due to history gastric sleeve, and this caused more stomach upset. She was constipated and trying to go to the bathroom after taking the injections back to back. She tells me that she started to feel sick. Her granddaughter found her confused and then she did become unresponsive for a short period of time. ER notes were reviewed. EMS noted blood sugar was 200 at the time. She was hypotensive. Patient says her her medications for blood pressure were adjusted since then. Today her blood pressure is a little low, but she denies dizziness. Metformin was not tolerated-GI upset. Hypoglycemia symptoms: None Hyperglycemia symptoms: None Eye exam: Ayo Rivera and PAMELA Microvascular complications: Neuropathy and nephropathy (decreased GFR). She is on an Arb. Macrovascular complications: none She tells me that she has not had lab work done because she thought fasting meant she could not drink any water. She will have it done in the next week. ROS: Constitutional: No unexplained weight loss, fever, chills, fatigue or night sweats. Eyes: No vision changes Respiratory: No shortness of breath Cardiovascular: No chest pain, chest pressure or chest discomfort. No palpitations or pedal edema. Gastrointestinal: No anorexia, nausea, vomiting or diarrhea. No abdominal pain or blood in stool. Neurologic: No headache, dizziness, syncope Skin: No rash or itching. Physical exam: Constitutional: Alert, in no distress. Eyes: Pupils are equal, round and reactive to light. Extraocular muscles intact. Neck: Supple, Full range of motion. No lymphadenopathy. No palpable thyroid masses. Respiratory: Clear to auscultation. Cardiovascular: S1 S2 regular. No murmurs. No carotid bruits. [facility] Medical History Uncontrolled type 2 diabetes mellitus with hyperglycemia, with long-term current use of insulin Morbid obesity with BMI of 40.0-44.9, adult Lumbosacral spondylosis Peripheral autonomic neuropathy due to diabetes mellitus Anxiety Insomnia Asthma Diabetes mellitus with hyperglycemia Vitamin D deficiency Morbid obesity with BMI of 45.0-49.9, adult Pure hypercholesterolemia Benign essential hypertension Diabetes mellitus Surgical History History of colonoscopy (~01/01/11) Hx of LASIK H/O abdominal hysterectomy Social History Housing: Apartment Alcohol intake: never Patient Tobacco Use Status: Former Tobacco user e-Cigarette/Vaping Use: Never Used Second Hand Smoke Exposure: Yes service: No Current occupational status: retired and disabled Cognitive needs: No Hearing needs: No Vision needs: Yes (reading glasses) Physical Exam Vital Signs: Last Vital Signs Pulse 81 06/07/25 10:50 BP 108/60 06/07/25 10:50 Pulse Ox 97 06/07/25 10:50 Oxygen Delivery Method Room Air 06/07/25 10:50 BMI result Body Mass Index 46.7 Office Procedures Glucose Monitoring Details Details: See HPI 52620 - Glucose monitoring, continuous-physician I&R Procedure code (CPT) selection complete Results Reviewed Results Reviewed: Laboratory Last Values Glucose (Clinic) 130 mg/dL (60-115) H 06/07/25 11:06 Laboratory Tests 10/03/23 01/08/24 08/24/24 09:23 10:44 09:38 Creatinine Estimated GFR Hgb A1c (Clinic) 11.3 H 9.8 H 9.2 H Hemoglobin A1c % AST ALT Triglycerides Cholesterol LDL Cholesterol, Calc HDL Cholesterol Vitamin B12 TSH Urine Creatinine Urine Microalbumin Microalb/Creat Ratio 10/08/24 10/08/24 06:35 06:37 Creatinine 0.71 Estimated GFR > 60 Hgb A1c (Clinic) Hemoglobin A1c % 8.9 H AST 25 ALT 15 Triglycerides 136 Cholesterol 153 LDL Cholesterol, Calc 85 HDL Cholesterol 41 Vitamin B12 871 TSH 3.00 Urine Creatinine 207.89 Urine Microalbumin 19.0 Microalb/Creat Ratio 9.1 Assessment & Plan Assessment & Plan (1) Uncontrolled type 2 diabetes mellitus with hyperglycemia, with long-term current use of insulin: Code(s): E11.65 - Type 2 diabetes mellitus with hyperglycemia; Z79.4 - [facility] (current) use of insulin Category: Medical Plan: In summary this is a 69-year-old female with suboptimally controlled type 2 diabetes. Discussed pathophysiology of Type II Diabetes Mellitus with the patient in detail.? I explained the chcf risks and complications associated with uncontrolled diabetes including nephropathy, neuropathy, peripheral vascular disease, retinopathy, increased risk of heart disease and stroke.? Discussed lifestyle modification with the patient. Recommended 30 minutes of moderately vigorous exercise 5 days per week to promote weight loss. Reviewed treatment of hypo/hyperglycemia. Refilled glucose tablets. Remain on Trulicity to 3 mg weekly. Continue Tresiba 64 units every evening. Administer Humalog 15 minutes before meals three times daily Use sliding scale for Humalog: Blood sugar under 150 administer 0 units of Humalog before meal Blood sugar 150-199 administer 4 units of Humalog before meal Blood sugar 200-249 administer 6 units of Humalog before meal Blood sugar 250 to 299 administer 8 units of Humalog before meal Blood sugar 300 to 349 administer 10 units of Humalog before meal Blood sugar 350 and above administer 12 units of Humalog before meal For snacks administer 2 units of Humalog before if blood sugar is over 150 If you experience low blood sugar (under 70) treat this by eating a chewable fruit candy like skittles or jelly beans (about 8 pieces), 4 ounces (1/2 cup) of fruit juice (not diet), 1 tablespoon of honey or 4 glucose tablets. If your blood sugar is under 50, take double the amount of one of the above. Recheck your blood sugar in 15 minutes. Written instructions were provided to the patient. Plan Follow up in 4 weeks for type 2 diabetes. Orders: Orders AMB Glucose Monitoring Today E11.9 - Type 2 diabetes mellitus without complications Medications: Refilled dulaglutide (Trulicity) 3 mg (0.5 mL) subcut QWEEK 2 mL 3RF glucose (Dex4 Glucose) until blood sugar is >70 16 grams (4 x 4 gram) PO Q15M PRN 10 tabs 3RF hypoglycemia (hipoglucemia) Patient Instructions: Tresiba 64 units nightly Trulicity 3 mg weekly Administer Humalog 15 minutes before meals three times daily Humalog slding scale: Blood sugar under 150 administer 0 units of Humalog before meal Blood sugar 150-199 administer 4 units of Humalog before meal Blood sugar 200-249 administer 6 units of Humalog before meal Blood sugar 250 to 299 administer 8 units of Humalog before meal Blood sugar 300 to 349 administer 10 units of Humalog before meal Blood sugar 350 and above administer 12 units of Humalog before meal For snacks administer 2 units of Humalog before if blood sugar is over 150 If you experience low blood sugar (under 70) treat this by eating a chewable fruit candy like skittles or jelly beans (about 8 pieces), 4 ounces (1/2 cup) of fruit juice (not diet), 1 tablespoon of honey or 4 glucose tablets. If your blood sugar is under 50, take double the amount of one of the above. Recheck your blood sugar in 15 minutes. Coding Level of Care Code Est Pt Level 4 (63236) Diagnoses Uncontrolled type 2 diabetes mellitus with hyperglycemia, with long-term current use of insulin E11.65; Z79.4 CPT Codes Details - CPT: 53804 - Glucose monitoring, continuous-physician I&R ([id number])
[2025-06-07 11:11] LABS: Glucose, Whole Blood 130 mg/dL (60-115)
--- OUTSIDE RECORDS SUMMARY | 2025-06-07 12:08 | XMS_ITS | Clinical Summary ---
Author Organization [address] Address [address] [place] [address] Phone Care Team Providers Care Digital Marketing Lead Name Role Phone Oneida Galvan MD Primary Care Provider [phone] Allergies Active Allergy Reactions Criticality Noted Date [...] mg. 7 Active blood-glucose meter,continuous (Dexcom G7 Salesman/Owner) misc 1 Device by Not Applicable route. [...] penIndications:Ty pe 2 diabetes mellitus with hyperglycemia ([facility] V24, [facility] V28) INJECT 50 UNITS INTO THE SKIN AT BEDTIME. 45 mL 1 5 Active BD Ultra-Fine Micro Pen Needle 32 gauge x /4 needle USE WITH INSULIN 4 TIMES A DAY 200 each 5 5 Active Active Problems Problem Noted Date Diagnosed Date Class 3 severe obesity due t o excess calories with serious comorbidity and body mass index (BMI) of 45.0 to 49.9 in adult ([facility] V24, [facility] V28) 06/07/2024 Type 2 diabetes mellitus wit h hyperglycemia, with long-term current use of insulin ([facility] V24, [facility] V28) 06/07/2024 Anxiety 11/20/2023 Asthma 11/20/2023 Hyperlipidemia 11/20/2023 Neuropathy 11/20/2023 Obesity 05/24/2019 Diabetes type 1, controlled ([facility] V24, [facility] V28) 06/02/2017 Hypertension 06/02/2017 Surgical History Surgery Date Site/Laterality Comments HYSTERECTOMY 2011 PROCEDURE: HISTORICAL TOTAL HYSTERECTOMY WITH BSO; COMMENT: endometrial cancer, grade 1, stage 1 Medical History Medical History Date Comments Diabetes type 1, controlled ([facility] V24, [facility] V28) 06/02/2017 DX:Diabetes type 1, controll ed ([facility]) Hypertension 06/02/2017 DX:Hypertension History of endometrial cancer [...] Last Done Comments Breast Cancer Screening 1955 Colorectal Cancer Screening: Colonoscopy 1956 Diabetes: Annual Foot Exam 1966 Diabetes: Annual Retina Eye Exam 1966 DTaP,Tdap,and Td Vaccines (1 - Tdap) 1975 Pneumococcal Vaccine: 50+ Years (1 of 2 - PCV) 1975 Zoster Vaccines (1 of 2) 2006 RSV Immunization Adult Patients (1 - Risk 60-74 years 1-dose series) 2016 Falls Risk Assessment 08/07/2022 Hepatitis C Screening 08/07/2022 Osteoporosis Screening (Bone Density Screening) 08/07/2022 Social Influencers of Health Screening 08/07/2022 Depression Screening 09/08/2024 Diabetes: Blood Sugar Contro l Test (HGBA1C) 09/26/2024 03/26/2024, 03/26/2024, 01/08/2024 Diabetes: Annual Urine Albumin-Creatinine Ratio (uACR) 01/07/2025 01/08/2024 Diabetes: Annual GFR (Glomerular Filtration Rate) 01/07/2025 01/08/2024, 01/08/2024 Hypertension/CHF/CAD Annual BMP Blood Test 01/07/2025 01/08/2024, 01/08/2024 COVID-19 Vaccine (1 - 2023-2 5 season) 2025 Influenza Vaccine (#1) 2025 Cholesterol Screening (Lipid [...] Health Maintenance Results * Hemoglobin A1c (03/26/2024) Hemoglobin A1C 9.6 <=10.7 % Blood Venous blood specimen / Unknown Historical Provider LAB BLOOD ORDERABLES Margarita l Result * Urine Albumin Creatinine Ratio (01/08/2024) Urine Albumin Creatinine Ratio Abstracted Historical Provider HEALTH MAINTENANCE Final Result * Annual BMP Blood Test (01/08/2024) Annual BMP Blood Test Abstracted Historical Provider [...] Most Recently Relevant to Health Maintenance Insurance [facility] MEDICAID NACHO BABIN [id number] Care Teams Digital Marketing Lead Relationship Specialty Start Date End Date Oneida Galvan MD [address] PCP - General Internal Medicine 04/29/17
== END 2025-06-07 11:43 | disposition home or self-care (01) ==
LOC: HO.ENCR 10:49
PROVIDERS: PCP Internal Medicine; Visit Provider Physician Assistant Medical
DX: E11.65 Type 2 diabetes mellitus with hyperglycemia (principal); Z79.4 Long term (current) use of insulin

== ENCOUNTER → 2025-06-07 10:48 | Outpatient (BNVA) | payer OTHER, SELFPAY | PROVIDERS: PCP Internal Medicine; Visit Provider Physician Assistant Medical | DX: E11.65 Type 2 diabetes mellitus with hyperglycemia (principal); Z79.4 Long term (current) use of insulin | CPT/HCPCS: 82947; 99212 ==

== ENCOUNTER 2025-07-12 06:04 | Outpatient (REF) | payer OTHER, SELFPAY ==
--- OUTSIDE RECORDS SUMMARY | 2025-07-12 06:06 | XMS_ITS | Data Portability ---
Author Organization [place] [facility] Address [address] [place] [address] Care Team Providers Care Professor Of Art Name Role Phone PEGGY NUNN Primary Care [...] her an ambulance and will arrive at [facility] ED by car. Report called in to [facility] ED. betty Not available 04/03/2020 13:09:24 [...] Name and Address Organization Details Recorded Time [id number] Bactrim medicatio n Not available Not available Not available 04/03/2020 57845 9 RxNorm NACHO CAMACHO [address] [place], [address], [place] [facility] 0 12:29:01 [id number] Substance with sulfonami de structure and antibacte rial mechanism of action (substanc e) medicatio n Not available Not available Not available 04/03/2020 74375 [id number] SNOMED NACHO CAMACHO [address] [place], [address], [place] [facility] 0 12:29:08 [id number] metformin medicatio n Not available Not available Not available 04/03/2020 6809 RxNorm NACHO CAMACHO [address], [place], [address], [place] [facility] 0 12:29:25 [id number] Invokana medicatio n Not available Not available Not available 04/03/2020 30510 64 RxNorm NACHO CAMACHO [address], [place], [address], [place] [facility] 0 12:30:37 [id number] acetamino phen / oxycodone medicatio n Not available Not available Not available 04/03/2020 46940 3 RxNorm NACHO CAMACHO [address] [place], [address], [place] [facility] 0 12:30:46 [id number] oxycodone medicatio n Not available Not available Not available 04/03/2020 7804 RxNorm NACHO CAMACHO [address], [place], [address], [place] [facility] [...] Pulse oximetry Heart rate Body temperature Systolic And Diastolic Provider Name and Address Organization Details Last Updated DateTime 0 22 /min 95 % 95 % 102 /min 102.1 [degF] 132/86 mm[Hg] Not Available [facility] 0 12:34:21 Social History Question Answer Notes LastModified by Organizat ion Details LastModified Time Tobacco Smoking Status Former Smoker NACHO CAMACHO [address] [place], [address], [place] [facility] 04/03/2020 12:38:06 What Is Your Code Status? Full Code [facility] Information not available 04/03/2020 Excessive Alcohol Or Drug Use No [employer] Information not available 04/03/2020 How Much Tobacco Do You Smoke? 1 PPW [facility] Information not available 04/03/2020 How Many Years Have You Smoked Tobacco? 5 [employer] Information not available 04/03/2020 Sex: Unknown Functional Status None recorded. Mental Status None recorded. Family History Relationship Description Onset Age of this Age Resolved Age Notes LastModified by Organization Details LastModified Time Sister Coronary arterioscler osis betty Not available 2019 12:39:32 Medical History Condition Response Coronary Artery Disease N Depression N COPD N Diabetes Y Cancer Y Stroke N Asthma Y High Cholesterol Y Pulmonary Embolism N Hypertension Y Kidney Disease N Gynecological HistoryNo gynecological history recorded. Obstetrics History GPAL:G 0 P 0 0 0 0 Past Encounters Encounter ID Performer Location Encounter Start Date Encounter Closed Date Diagnosis/Indication Diagnosis SNOMED-CT Code Diagnosis ICD10 Code Diagnosis IMO Codes Diagnosis Note [id number] [facility] [address] [place] [address] 04/03/2020 12:27:19 04/04/2020 15:23:02 Acute pyelonephritis 27592689 N10 Sepsis 40440503 A41.9 Health Concerns Section Related Observation LastModified by Organization Detai ls LastModified Time None Recorded Concern Status LastModified by Organization Details LastModified Time None Recorded Advance Directives Directive None Recorded Payers Insurance Date Sequence Insurance Name Policy Number Policy Izquierdo Covered Member ID Izquierdo Member ID Guarantor Name 04/03/2020 1 [facility] - DOS PRIOR TO 2022 - DUAL ELIGIBLE (MEDICARE REPLACEMENT/AD VANTAGE - HMO) Wendy Mckeon [id number] Wendy Mckeon 04/03/2020 1 *SELF PAY* Wendy Mckeon [id number] Wendy Mckeon 04/04/2020 2 [place] [facility] Wendy Mckeon [id number] Wendy Mckeon Notes Date Note Type Note Provider Name and Address Organization Details Recorded Time 04/03/2020 text/html 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 NACHO CAMACHO [address], [place], [address], [place] [facility] 04/03/2020 13:14:56 OBGyn Episode No OBEpisode recorded.
--- OUTSIDE RECORDS SUMMARY | 2025-07-12 06:06 | XMS_ITS | Clinical Summary ---
Author Organization [address] Address [address] [place] [phone] Phone Care Team Providers Care Application Helper Name Role Phone Oneida Galvan MD Primary Care Provider [phone] Allergies Active Allergy Reactions Criticality Noted Date [...] mg. 7 Active blood-glucose meter,continuous (Dexcom G7 Hand Tube Bender) misc 1 Device by Not Applicable route. [...] penIndications:Ty pe 2 diabetes mellitus with hyperglycemia ([facility] V24, [facility] V28) INJECT 50 UNITS INTO THE SKIN [...] (BMI) of 45.0 to 49.9 in adult ([facility] V24, [facility] V28) 06/07/2024 Type 2 diabetes mellitus wit h hyperglycemia, with long-term current use of insulin ([facility] V24, [facility] V28) 06/07/2024 Anxiety 11/20/2023 Asthma 11/20/2023 Hyperlipidemia 11/20/2023 Neuropathy 11/20/2023 Obesity 05/24/2019 Diabetes type 1, controlled ([facility] V24, [facility] V28) 06/02/2017 Hypertension 06/02/2017 Surgical History Surgery Date Site/Laterality Comments HYSTERECTOMY 2011 PROCEDURE: HISTORICAL TOTAL HYSTERECTOMY WITH BSO; COMMENT: endometrial cancer, grade 1, stage 1 Medical History Medical History Date Comments Diabetes type 1, controlled ([facility] V24, [facility] V28) 06/02/2017 DX:Diabetes type 1, controll ed ([facility]) Hypertension 06/02/2017 DX:Hypertension History of endometrial [...] Years (1 of 2 - PCV) 1975 RSV Immunization Adult Patients (1 - Risk 50-74 years 1-dose series) 2006 Zoster Vaccines (1 of 2) 2006 Falls Risk Assessment 08/07/2022 Hepatitis C Screening [...] Most Recently Relevant to Health Maintenance Insurance [facility] MEDICAID [place] B[place] [id number] Care Teams Application Helper Relationship Specialty Start Date End Date Oneida Galvan MD [address] PCP - General Internal Medicine 04/29/17
[2025-07-12 07:14] LABS: MANUAL DIFF FLAG NO
[2025-07-12 07:27] LABS: Hematocrit 46.6 % (37.0-47.0); Hemoglobin 14.8 g/dl (12.0-16.0); Imm Gran Abs Auto 0.03 X10*3/uL (0.00-0.03); Imm Gran Pct Auto 0.4 % (0.0-0.4); Lymphocytes Absolute Auto 2.7 X10*3/uL (1.2-4.9); Mean Corpuscular HGB Conc 31.8 g/dl (31.0-35.0); Mean Corpuscular Hemoglobin 25.2 pg (27.0-33.0); Mean Corpuscular Volume 79.4 fL (80.0-98.0); NRBC Abs Auto 0.000 X10*3/uL (0.0-0.012); NRBC Pct Auto 0.0 /100WBC (0.0-0.2); Platelet Count 426 X10*3/uL (160-400); Red Blood Count 5.87 X10*6/uL (4.20-5.50); White Blood Count 8.4 X10*3/uL (4.8-10.8)
[2025-07-12 07:51] LABS: Alanine Aminotransferase 20 U/L (0-31); Albumin Level 4.1 g/dL (3.5-5.0); Alkaline Phosphatase 115 U/L (39-117); Anion Gap 16 (12-20); Aspartate Amino Transferase 24 U/L (5-31); Blood Urea Nitrogen 19 mg/dL (9-16); Calcium 9.8 mg/dL (8.4-10.2); Carbon Dioxide 23 mmol/L (22-29); Chloride 102 mmol/L (96-108); Cholesterol 156 mg/dL (<200); Estimated Glomerular Filt Rate > 60; HDL Cholesterol 46 mg/dL (>40); Potassium 3.7 mmol/L (3.3-5.1); Sodium 137 mmol/L (135-145); Total Protein 7.7 g/dL (6.5-8.0); Triglycerides 169 mg/dL (<150)
[2025-07-12 08:15] LABS: Folate 11.4 ng/mL (> or = 4.0); Vitamin B12 836 pg/mL (200-900)
== END 2025-07-12 06:05 | disposition home or self-care (01) ==
LOC: HO.LAB 06:04
PROVIDERS: PCP Internal Medicine; Visit Provider Internal Medicine
DX: E11.9 Type 2 diabetes mellitus without complications (principal); E53.8 Deficiency of other specified B group vitamins; E78.00 Pure hypercholesterolemia, unspecified; E55.9 Vitamin D deficiency, unspecified; D64.9 Anemia, unspecified
CPT/HCPCS: 36415; 80053; 80061; 82306; 82607; 82746; 83036; 84443; 85025

== ENCOUNTER 2025-08-12 10:13 | Outpatient (AMB) | payer OTHER, SELFPAY ==
--- NOTE | 2025-08-12 10:17 | MHC.OFFVIS ---
Vital Signs 08/12/25 10:22 Height 5 ft 5 in Weight 282 lb 13.649 oz BMI 47.1 BP 114/64 Blood Pressure Location Rt brachial Position Sitting Pulse 83 Pulse Source Pulse Oximeter Pulse Oximetry (%) 95 Oxygen Delivery Method Room Air Intake Visit Reasons: DMT2 FOLLOW-UP Intake Note: Patient present today to follow up on Type 2 Diabetes Mellitus. Last Diabetic Eye exam: 04/28/2025 [facility] Last Podiatry Visit: In the Summer 2023, Dr. Ramsey Random Glucose: 143 mg/dl HgA1C: 8.3% 07/12/2025 Drawer In Dobby Loom Required: No Accompanied by: Self / Same As Patient Allergies sulfamethoxazole (From BACTRIM) Allergy (Intermediate, Verified 08/12/25 10:35) ANXIETY trimethoprim (From BACTRIM) Allergy (Intermediate, Verified 08/12/25 10:35) ANXIETY aluminum hydroxide (From Magnagel) Allergy (Mild, Verified 08/12/25 10:35) high blood press magnesium (From Magnagel) Allergy (Mild, Verified 08/12/25 10:35) high blood press magnesium hydroxide (From Magnagel) Allergy (Mild, Verified 08/12/25 10:35) high blood press canagliflozin (Invokana) Allergy (Unknown, Verified 08/12/25 10:35) Itching lisinopril Allergy (Unknown, Verified 08/12/25 10:35) Abdominal Pain metformin Allergy (Unknown, Verified 08/12/25 10:35) Stomach Upset Sulfa (Sulfonamide Antibiotics) Allergy (Unknown, Verified 08/12/25 10:35) Agitated sulfadiazine Allergy (Unknown, Verified 08/12/25 10:35) Unknown Avocado Revitalizing Allergy (Unknown, Uncoded 08/12/25 10:35) Unknown oxycodone Allergy (Unknown, Uncoded 08/12/25 10:35) Hives percocet Allergy (Unknown, Uncoded 08/12/25 10:35) Hives tramadol Allergy (Unknown, Uncoded 08/12/25 10:35) Hives HPI Comments Details: This is a 69-year-old female with a past medical history of type 2 diabetes with neuropathy, anxiety, vitamin-D deficiency, hyperlipidemia, asthma and hypertension presenting for diabetic management. 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 Her daughter, Dolores, is here with her today. She was diagnosed with diabetes around 2016. She has a family history of Type II diabetes (mother, father, sister). HgA1C: 8.3% 07/12/2025. Reviewed CGM data for the past 2 weeks GMI 7.6% high 15% high 31% target 54% low 0 % Overnight sugars are good, she has posprandial hyperlgycemia She reports that her CGM occasionally alerts her to low sugar overnight, but she has no symptoms, and she checks fingersticks, and blood sugar is above 100. Current medication regimen: Tresiba 64 units nightly, Trulicity 3 mg weekly, Humalog slding scale. She started using her Humalog again a couple of weeks ago, but she is not using it unless blood sugar is over 200. Previous medications: Lantus and Mounjaro Glimepride-discontinued Invokana was not tolerated-yeast infection Previously documented: Trulicity was switched to Mounjaro by her last cartography supervisor because it was back ordered. They report it was titrated to 7.5 mg, but they did not tell her to wait a week after her prior injection to start it. The patient says at baseline she has a sensitive stomach due to history gastric sleeve, and this caused more stomach upset. She was constipated and trying to go to the bathroom after taking the injections back to back. She tells me that she started to feel sick. Her granddaughter found her confused and then she did become unresponsive for a short period of time. ER notes were reviewed. EMS noted blood sugar was 200 at the time. She was hypotensive. Patient says her her medications for blood pressure were adjusted since then. Today her blood pressure is a little low, but she denies dizziness. Metformin was not tolerated-GI upset. Hypoglycemia symptoms: None Hyperglycemia symptoms: None Eye exam: Ayo Rivera and PAMELA Microvascular complications: Neuropathy and nephropathy (previously decreased GFR). She is on an Arb. Macrovascular complications: none ROS: Constitutional: No unexplained weight loss, fever, chills, fatigue or night sweats. Eyes: No vision changes Respiratory: No shortness of breath Cardiovascular: No chest pain, chest pressure or chest discomfort. No palpitations or pedal edema. Gastrointestinal: No anorexia, nausea, vomiting or diarrhea. No abdominal pain or blood in stool. Neurologic: No headache, dizziness, syncope Skin: No rash or itching. Physical exam: Constitutional: Alert, in no distress. Eyes: Pupils are equal, round and reactive to light. Extraocular muscles intact. Neck: Supple, Full range of motion. No lymphadenopathy. No palpable thyroid masses. Respiratory: Clear to auscultation. Cardiovascular: S1 S2 regular. No murmurs. [facility] Medical History (Reviewed 06/07/25 @ 10:57 by Marcelle Min [facility]) Uncontrolled type 2 diabetes mellitus with hyperglycemia, with long-term current use of insulin Morbid obesity with BMI of 40.0-44.9, adult Lumbosacral spondylosis Peripheral autonomic neuropathy due to diabetes mellitus Anxiety Insomnia Asthma Diabetes mellitus with hyperglycemia Vitamin D deficiency Morbid obesity with BMI of 45.0-49.9, adult Pure hypercholesterolemia Benign essential hypertension Diabetes mellitus Surgical History History of colonoscopy (~01/01/11) Hx of LASIK H/O abdominal hysterectomy Social History Housing: Apartment Alcohol intake: never Patient Tobacco Use Status: Former Tobacco user e-Cigarette/Vaping Use: Never Used Second Hand Smoke Exposure: Yes service: No Current occupational status: retired and disabled Cognitive needs: No Hearing needs: No Vision needs: Yes (reading glasses) Physical Exam Vital Signs: Last Vital Signs Pulse 83 08/12/25 10:22 BP 114/64 08/12/25 10:22 Pulse Ox 95 08/12/25 10:22 Oxygen Delivery Method Room Air 08/12/25 10:22 BMI result Body Mass Index 47.1 Office Procedures Glucose Monitoring Details Details: See [facility] [address] - Glucose monitoring, continuous-physician I&R Procedure code (CPT) selection complete Results Reviewed Results Reviewed: Laboratory Last Values Glucose (Clinic) 143 mg/dL (60-115) H 08/12/25 10:29 Laboratory Tests 07/12/25 06:15 Creatinine 0.87 Estimated GFR > 60 Hemoglobin A1c % 8.3 H AST 24 ALT 20 Triglycerides 169 H Cholesterol 156 LDL Cholesterol, Calc 77 HDL Cholesterol 46 Vitamin B12 836 TSH 1.47 Assessment & Plan Assessment & Plan (1) Uncontrolled type 2 diabetes mellitus with hyperglycemia, with long-term current use of insulin: Code(s): E11.65 - Type 2 diabetes mellitus with hyperglycemia; Z79.4 - nursing home (current) use of insulin Category: Medical Plan: In summary this is a 69-year-old female with suboptimally controlled type 2 diabetes. Discussed pathophysiology of Type II Diabetes Mellitus with the patient in detail.? I explained the residential risks and complications associated with uncontrolled diabetes including nephropathy, neuropathy, peripheral vascular disease, retinopathy, increased risk of heart disease and stroke.? Discussed lifestyle modification with the patient. Recommended 30 minutes of moderately vigorous exercise 5 days per week to promote weight loss. Reviewed treatment of hypo/hyperglycemia. Refilled glucose tablets. Remain on Trulicity to 3 mg weekly. Continue Tresiba 64 units every evening. We discussed the importance of administering Humalog before meals and using the sliding scale. She agreed to do this. Administer Humalog 15 minutes before meals three times daily Use sliding scale for Humalog: Blood sugar under 150 administer 0 units of Humalog before meal Blood sugar 150-199 administer 4 units of Humalog before meal Blood sugar 200-249 administer 6 units of Humalog before meal Blood sugar 250 to 299 administer 8 units of Humalog before meal Blood sugar 300 to 349 administer 10 units of Humalog before meal Blood sugar 350 and above administer 12 units of Humalog before meal For snacks administer 2 units of Humalog before if blood sugar is over 150 If you experience low blood sugar (under 70) treat this by eating a chewable fruit candy like skittles or jelly beans (about 8 pieces), 4 ounces (1/2 cup) of fruit juice (not diet), 1 tablespoon of honey or 4 glucose tablets. If your blood sugar is under 50, take double the amount of one of the above. Recheck your blood sugar in 15 minutes. Written instructions were provided to the patient. Continue atorvastatin for hyperlipidemia. Decrease carbohydrates and sugar intake to improve triglycerides. Continue current regimen for hypertension. (2) Pure hypercholesterolemia: Code(s): E78.00 - Pure hypercholesterolemia, unspecified Category: Medical (3) Benign essential hypertension: Code(s): I10 - Essential (primary) hypertension Category: Medical Plan Follow up in 4 weeks for type 2 diabetes. Orders: Orders AMB Glucose Monitoring Today E11.9 - Type 2 diabetes mellitus without complications Medications: New insulin lispro (Humalog KwikPen (U-100) Insulin) subcutaneously; three times daily 15 minutes before meals; per sliding scale Blood sugar under 150 administer 0 units of Humalog before meal Blood sugar 150-199 administer 4 units of Humalog before meal Blood sugar 200-249 administer 6 units of Humalog before meal Blood sugar 250 to 299 administer 8 units of Humalog before meal Blood sugar 300 to 349 administer 10 units of Humalog before meal Blood sugar 350 and above administer 12 units of Humalog before meal 15 mL 5RF Changed From pen needle, diabetic (BD Ultra-Fine Leela Pen Needle) As directed once a day 100 ea 3RF E11.9 - Type 2 diabetes mellitus without complications To pen needle, diabetic As directed four times daily to inject insulin 100 ea 5RF E11.9 - Type 2 diabetes mellitus without complications Refilled dulaglutide (Trulicity) 3 mg (0.5 mL) subcut QWEEK 2 mL 3RF Patient Instructions: Remain on Trulicity to 3 mg weekly. Continue Tresiba 64 units every evening. Administer Humalog 15 minutes before meals Use sliding scale for Humalog: Blood sugar under 150 administer 0 units of Humalog before meal Blood sugar 150-199 administer 4 units of Humalog before meal Blood sugar 200-249 administer 6 units of Humalog before meal Blood sugar 250 to 299 administer 8 units of Humalog before meal Blood sugar 300 to 349 administer 10 units of Humalog before meal Blood sugar 350 and above administer 12 units of Humalog before meal For snacks administer 2 units of Humalog before if blood sugar is over 150 If you experience low blood sugar (under 70) treat this by eating a chewable fruit candy like skittles or jelly beans (about 8 pieces), 4 ounces (1/2 cup) of fruit juice (not diet), 1 tablespoon of honey or 4 glucose tablets. If your blood sugar is under 50, take double the amount of one of the above. Recheck your blood sugar in 15 minutes. Written instructions were provided to the patient. Coding Level of Care Code Est Pt Level 4 (97425) Diagnoses Uncontrolled type 2 diabetes mellitus with hyperglycemia, with long-term current use of insulin E11.65; Z79.4 Pure hypercholesterolemia E78.00 Benign essential hypertension I10 CPT Codes Details - CPT: 71921 - Glucose monitoring, continuous-physician I&R ([id number])
[2025-08-12 10:22] VITALS: BP 114/64; PULSE 83; O2SAT 95; BMI 47.1
[2025-08-12 10:36] LABS: Glucose, Whole Blood 143 mg/dL (60-115)
== END 2025-08-12 11:09 | disposition home or self-care (01) ==
LOC: HO.ENCR 10:13
PROVIDERS: PCP Internal Medicine; Visit Provider Physician Assistant Medical
DX: E11.65 Type 2 diabetes mellitus with hyperglycemia (principal); Z79.4 Long term (current) use of insulin; E78.00 Pure hypercholesterolemia, unspecified; I10 Essential (primary) hypertension

== ENCOUNTER → 2025-08-12 10:13 | Outpatient (BNVA) | payer OTHER, SELFPAY | PROVIDERS: PCP Internal Medicine; Visit Provider Physician Assistant Medical | DX: E11.65 Type 2 diabetes mellitus with hyperglycemia (principal); Z79.4 Long term (current) use of insulin; Z79.85 Long-term (current) use of injectable non-insulin antidiabetic drugs; E78.00 Pure hypercholesterolemia, unspecified; I10 Essential (primary) hypertension; E66.01 Morbid (severe) obesity due to excess calories; Z68.42 Body mass index [BMI] 45.0-49.9, adult; Z87.891 Personal history of nicotine dependence | CPT/HCPCS: 82947; 99212 ==

== ENCOUNTER → 2025-09-07 14:00 | Outpatient (BNV) | payer OTHER, SELFPAY | PROVIDERS: PCP Internal Medicine; Visit Provider Internal Medicine | DX: Z12.31 Encounter for screening mammogram for malignant neoplasm of breast (principal) | CPT/HCPCS: 77063; 77067 ==

== ENCOUNTER 2025-09-07 14:17 | Outpatient (REF) | payer OTHER, SELFPAY ==
--- OUTSIDE RECORDS SUMMARY | 2025-09-07 15:28 | XMS_ITS | Data Portability ---
Author Organization [place] [facility], [facility] Address [address] [place] [address] Care Team Providers Care Motorman/Woman Name Role Phone PEGGY NUNN Primary Care Provider [phone] Assessment Encounter Date Assessment Date Assessment LastModified [...] her an ambulance and will arrive at [facility] ED by car. Report called in to [facility] ED. betty Not available 04/03/2020 13:09:24 [...] Name and Address Organization Details Recorded Time [id number] Bactrim medicatio n Not available Not available Not available 04/03/2020 45259 9 RxNorm NACHO CAMACHO [address] [place], [address], [place] [facility] 0 12:29:01 [id number] Substance with sulfonami de structure and antibacte rial mechanism of action (substanc e) medicatio n Not available Not available Not available 04/03/2020 76916 8003 SNOMED NACHO CAMACHO [address] [place], [address], [place] [facility] 0 12:29:08 [id number] metformin medicatio n Not available Not available Not available 04/03/2020 6809 RxNorm NACHO CAMACHO [address], [place], [address], [place] [facility] 0 12:29:25 [id number] Invokana medicatio n Not available Not available Not available 04/03/2020 77644 64 RxNorm NACHO CAMACHO [address], [place], [address], [place] [facility] 0 12:30:37 [id number] acetamino phen / oxycodone medicatio n Not available Not available Not available 04/03/2020 65651 3 [facility] NACHO CAMACHO [address] [place], [address], [place] [facility] 0 12:30:46 [id number] oxycodone medicatio n Not available Not available Not available 04/03/2020 7804 RxNorm ANCHO CAMACHO [address], [place], [address], [place] [facility] [...] Vitals Date Recorded Respiratory rate Oxygen saturation Heart rate Body temperature Systolic And Diastolic Provider Name and Address Organization Details Last Updated DateTime 0 22 /min 95 % 102 /min 102.1 [degF] 132/86 mm[Hg] Not Available [facility] 0 12:34:21 Social History Question Answer Notes LastModified by Organizat ion Details LastModified Time Tobacco Smoking Status Former Smoker NACHO CAMACHO [address], [place], [address], [place] [facility] 04/03/2020 12:38:06 What Is Your Code Status? Full Code Doppelganger Information not available 04/03/2020 Excessive Alcohol Or Drug Use No Doppelganger Information not available 04/03/2020 How Much Tobacco Do You Smoke? 1 PPW Doppelganger Information not available 04/03/2020 How Many Years Have You Smoked Tobacco? 5 Doppelganger Information not available 04/03/2020 Sex: Unknown Functional Status None recorded. Mental Status None recorded. Family History Relationship Description Onset Age of this Age Resolved Age Notes LastModified by Organization Details LastModified Time Sister Coronary arterioscler osis betty Not available 2019 12:39:32 Medical History Condition Response Diabetes Y Coronary Artery Disease N High Cholesterol Y Pulmonary Embolism N Cancer Y Hypertension Y Stroke N Asthma Y COPD N Depression N Kidney Disease N Gynecological HistoryNo gynecological history recorded. Obstetrics History GPAL:G 0 P 0 0 0 0 Past Encounters Encounter ID Performer Location Encounter Start Date Encounter Closed Date Diagnosis/Indication Diagnosis SNOMED-CT Code Diagnosis ICD10 Code Diagnosis IMO Codes Diagnosis Note [id number] [facility] [address] [place] [address] 04/03/2020 12:27:19 04/04/2020 15:23:02 Acute pyelonephritis 93002024 N10 Sepsis 92369077 A41.9 Health Concerns Section Related Observation LastModified by Organization Detai ls LastModified Time None Recorded Concern Status LastModified by Organization Details LastModified Time None Recorded Advance Directives Directive None Recorded Payers Insurance Date Sequence Insurance Name Policy Number Policy Izquierdo Covered Member ID Izquierdo Member ID Guarantor Name 04/03/2020 1 [facility] - DOS PRIOR TO 2022 - DUAL ELIGIBLE (MEDICARE REPLACEMENT/AD VANTAGE - HMO) Wendy Mckeon [id number] Wendy Mckeon 04/03/2020 1 *SELF PAY* Wendy Mckeon [id number] Wendy Mckeon 04/04/2020 2 [place] [facility] Wendy Mckeon [id number] Wendy Mckeon Notes Date Note Type Note Provider Name and Address Organization Details Recorded Time 04/03/2020 text/html 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 NACHO CAMACHO [address], [place], [address], [place] [facility] 04/03/2020 13:14:56 OBGyn Episode No OBEpisode recorded.
--- OUTSIDE RECORDS SUMMARY | 2025-09-07 15:28 | XMS_ITS | Clinical Summary ---
Author Organization [address] Address [address] [place] [address] Phone Care Team Providers Care Marketing Director Assisted Living Name Role Phone Oneida Galvan MD Primary Care Provider [phone] Allergies Active Allergy Reactions Criticality Noted Date [...] mg. 7 Active blood-glucose meter,continuous (Dexcom G7 Team Truck Driver) misc 1 Device by Not Applicable route. 1 Device by Does not apply route See Admin Instructions. Use daily with dexcom g 7 sensors - Does not apply 4 Active pen needle, diabetic 32 gauge x needle Use with insulin 4 times a day 4 Active blood sugar diagnostic (FreeStyle Lite Strips) test strip Use to check BS 3 times a day Active Lantus Solostar U-100 Insulin 100 unit/mL (3 mL) injection penIndications:Ty pe 2 diabetes mellitus with hyperglycemia ([facility] V24, [facility] V28) INJECT 50 UNITS INTO THE SKIN AT BEDTIME. 45 mL 1 5 Active BD Ultra-Fine Micro Pen Needle 32 gauge x 09/11 needle USE WITH INSULIN 4 TIMES A DAY 200 each 5 5 Active freestyle 28 gauge lancets Check blood sugar three times a day or as directed 300 each 1 4 025 Active Problems Problem Noted Date Diagnosed Date [...] History Date Comments Diabetes type 1, controlled ([facility] V24, [facility] V28) 06/02/2017 DX:Diabetes type 1, controll ed ([facility]) Hypertension 06/02/2017 DX:Hypertension History of endometrial [...] on file Sexual Orientation Not on file Last Filed Vital Signs Vital Sign Reading [...] Blood Test 01/07/2025 01/08/2024, 01/08/2024 COVID-19 Vaccine ( - 2024-2 6 season) 2025 Influenza Vaccine (#1) 2025 Cholesterol [...] % Blood Venous blood specimen / Unknown us Historical Provider LAB BLOOD ORDERABLES Margarita l Result * Urine Albumin Creatinine Ratio (01/08/2024) Pathologist [facility] Urine Albumin Creatinine Ratio Abstracted us Historical Provider HEALTH MAINTENANCE Final Result * Annual BMP Blood Test (01/08/2024) Pathologist [facility] Annual BMP Blood Test Abstracted us Historical Provider HEALTH MAINTENANCE Final [...] Most Recently Relevant to Health Maintenance Insurance [facility] MEDICAID NACHO BABIN [id number] Care Teams Marketing Director Assisted Living Relationship Specialty Start Date End Date Oneida Galvan MD [address] PCP - General Internal Medicine 04/29/17
== END 2025-09-07 14:18 | disposition home or self-care (01) ==
LOC: HO.MAMMO 14:17
PROVIDERS: PCP Internal Medicine; Visit Provider Internal Medicine
DX: Z12.31 Encounter for screening mammogram for malignant neoplasm of breast (principal)
CPT/HCPCS: 77063; 77067